=== PATIENT | male | born 1960 | race Caucasian/White ===

== ENCOUNTER 2017-09-20 16:53 | Emergency (ER) | payer OTHER ==
--- NOTE | 2017-09-20 17:55 | EDPHYS ---
Physician Documentation [facility] Name: Toi Garcia Age: 57 yrs Sex: Male : 1960 Arrival Date: 09/20/2017 Time: 16:55 Bed 10 Private MD: Santy Adame ED Physician Nathan Cantu HPI: 09/20 17:56 This 57 yrs old Male presents to ER via Ambulatory with complaints of Eye jr8 Swelling. 17:56 The patient is experiencing burning, matting or discharge, redness. Onset: The jr8 symptoms/episode began/occurred acutely, yesterday. Duration: the symptoms are continuous. Aggravated by blinking, Alleviated by nothing. Associated signs and symptoms: Pertinent positives: None. Patient wears glasses. Severity of symptoms: At their worst the symptoms were mild in the emergency department the symptoms are unchanged. The patient has not experienced similar symptoms in the past. The patient has not recently seen a physician. Historical: - Allergies: 17:00 No Known Allergies; hj - Home Meds: 17:00 atenolol 25 mg Oral tab 1 tab once daily [Active]; baclofen 20 mg Oral tab 1 tab 3 hj times per day [Active]; Diovan Oral 1 tab once daily [Active]; gabapentin 400 mg Oral cap 1 cap 3 times per day [Active]; hydrocodone-acetaminophen 10-325 mg Oral tab 1 tab every 6 hours [Active]; - PMHx: 17:00 Asthma; Hypertension; hj - PSHx: 17:00 back; Knee surgery; hj - Immunization history:: Adult Immunizations up to date. - Social history:: Smoking status: Patient/guardian denies using tobacco. ROS: 17:56 ENT: Negative for injury, pain, and discharge, Neck: Negative for injury, pain, and jr8 swelling, Cardiovascular: Negative for chest pain, palpitations, and edema, Respiratory: Negative for shortness of breath, cough, wheezing, and pleuritic chest pain, Abdomen/GI: Negative for abdominal pain, nausea, vomiting, diarrhea, and constipation, Back: Negative for injury and pain, MS/Extremity: Negative for injury and deformity, Skin: Negative for injury, rash, and discoloration, Neuro: Negative for headache, weakness, numbness, tingling, and seizure. 17:56 Eyes: Positive for discharge, matting, pain, redness, tearing, of the right eye and left eye. Exam: 17:56 Head/Face: Normocephalic, atraumatic. ENT: Nares patent. No nasal discharge, no jr8 septal abnormalities noted. Tympanic membranes are normal and external auditory canals are clear. Oropharynx with no redness, swelling, or masses, exudates, or evidence of obstruction, uvula midline. Mucous membranes moist. Neck: Trachea midline, no thyromegaly or masses palpated, and no cervical lymphadenopathy. Supple, full range of motion without nuchal rigidity, or vertebral point tenderness. No Meningismus. Cardiovascular: Regular rate and rhythm with a normal S1 and S2. No gallops, murmurs, or rubs. Normal PMI, no JVD. No pulse deficits. Respiratory: Lungs have equal breath sounds bilaterally, clear to auscultation and percussion. No rales, rhonchi or wheezes noted. No increased work of breathing, no retractions or nasal flaring. Abdomen/GI: Soft, non-tender, with normal bowel sounds. No distension or tympany. No guarding or rebound. No evidence of tenderness throughout. Back: No spinal tenderness. No costovertebral tenderness. Full range of motion. Skin: Warm, dry with normal turgor. Normal color with no rashes, no lesions, and no evidence of cellulitis. MS/ Extremity: Pulses equal, no cyanosis. Neurovascular intact. Full, normal range of motion. Neuro: Awake and alert, GCS 15, oriented to person, place, time, and situation. Cranial nerves II-XII grossly intact. Motor strength 5/5 in all extremities. Sensory grossly intact. Cerebellar exam normal. Normal gait. 17:56 Eyes: Periorbital structures: appear normal, Pupils: equal, round, and reactive to light and accomodation, Extraocular movements: intact throughout, Conjunctiva: injected, bilaterally, Corneas: are normal, Sclera: no appreciated abnormality, Anterior chamber: normal, Lids and lashes: drainage, from both eyes, erythema, seen bilaterally. Vital Signs: 17:01 BP 143 / 88; Pulse 71; Resp 18; Temp 97.8(TE); Pulse Ox 100% on R/A; Weight 108.86 kg; hj Height 5 ft. 5 in. (165.10 cm); 17:01 Body Mass Index 39.94 (108.86 kg, 165.10 cm) MDM: 17:29 Patient medically screened. jr8 17:47 Data reviewed: vital signs, nurses notes, and as a result, I will discharge patient. jr8 Data interpreted: Pulse oximetry: on room air is 100 %. Interpretation: normal. Counseling: I had a detailed discussion with the patient and/or guardian regarding: the historical points, exam findings, and any diagnostic results supporting the discharge/admit diagnosis, the need for outpatient follow up, an opthalmologist, to return to the emergency department if symptoms worsen or persist or if there are any questions or concerns that arise at home. Administered Medications: No medications were administered Disposition: 09/20/17 17:54 Discharged to Home. Impression: Blepharitis, Conjunctivitis. - Condition is Stable. - Discharge Instructions: Conjunctivitis (Viral and Bacterial). - Prescriptions for Gentamicin 0.3 % (3 mg/gram) Ophthalmic Ointment - apply 0.5 inch by OPHTHALMIC route 2-3 times daily for 7 days in each eye; 3.5 gram. - Medication Reconciliation Form, Thank You Letter, Antibiotic Education, Prescription Opioid Use form. - Follow up: Samuel Russo MD; When: 1 week; Reason: If symptoms return, Recheck today's complaints, Continuance of care, Re-evaluation by your physician. - Problem is new. - Symptoms have improved. Addendum: 09/21/2017 19:50 Co-signature as Attending Physician, Nathan Cantu MD. g s Signatures: Kemar Lubin PA PA jr8 Tuan John RN RN la1 Duglas Tompkins RN RN hj Starr, Gregory, MD MD Corrections: (The following items were deleted from the chart) 09/20 18:09 17:54 09/20/2017 17:54 Discharged to Home. Impression: Blepharitis; Conjunctivitis. la1 Condition is Stable. Forms are Medication Reconciliation Form, Thank You Letter, Antibiotic Education, Prescription Opioid Use. Follow up: Samuel Russo; When: 1 week; Reason: If symptoms return, Recheck today's complaints, Continuance of care, Re-evaluation by your physician. Problem is new. Symptoms have improved. jr8
--- NOTE | 2017-09-20 17:55 | ER ---
Nurse's Notes [facility] Name: Toi Garcia Age: 57 yrs Sex: Male : 1960 Arrival Date: 09/20/2017 Time: 16:55 Bed 10 Private MD: Santy Adame Diagnosis: Blepharitis;Conjunctivitis Presentation: 09/20 16:58 Presenting complaint: Patient states: my eyes hurt, like a burning stuff and its hard hj to open int he morning; denies fever and chills;. Transition of care: patient was not received from another setting of care. Acute neurological deficit: none identified. Onset of symptoms was September 20, 2017. Initial Sepsis Screen: Does the patient meet any 2 criteria? No. Patient's initial sepsis screen is negative. Does the patient have a suspected source of infection? No. Patient's initial sepsis screen is negative. Care prior to arrival: None. 16:58 Method Of Arrival: Ambulatory 16:58 Acuity: [place] 4 hj Triage Assessment: 17:00 General: Appears in no apparent distress. comfortable, Behavior is calm, cooperative, hj appropriate for age. Pain: Complains of pain in right eye and left eye. Historical: - Allergies: 17:00 No Known Allergies; hj - Home Meds: 17:00 atenolol 25 mg Oral tab 1 tab once daily [Active]; baclofen 20 mg Oral tab 1 tab 3 hj times per day [Active]; Diovan Oral 1 tab once daily [Active]; gabapentin 400 mg Oral cap 1 cap 3 times per day [Active]; hydrocodone-acetaminophen 10-325 mg Oral tab 1 tab every 6 hours [Active]; - PMHx: 17:00 Asthma; Hypertension; hj - PSHx: 17:00 back; Knee surgery; hj - Immunization history:: Adult Immunizations up to date. - Social history:: Smoking status: Patient/guardian denies using tobacco. Screenin:08 Abuse screen: Denies threats or abuse. Nutritional screening: No deficits noted. la1 Tuberculosis screening: No symptoms or risk factors identified. Fall Risk None identified. Assessment: 17:01 Neuro: Level of Consciousness is awake, alert, obeys commands, Oriented to person, hj place, time, situation, Appropriate for age. 18:08 Pain: Complains of pain in left eye and right eye. Cardiovascular: Capillary refill < 3 la1 seconds Patient's skin is warm and dry. Respiratory: Airway is patent Respiratory effort is even, unlabored, Respiratory pattern is regular, symmetrical, Breath sounds are clear bilaterally. Vital Signs: 17:01 BP 143 / 88; Pulse 71; Resp 18; Temp 97.8(TE); Pulse Ox 100% on R/A; Weight 108.86 kg; hj Height 5 ft. 5 in. (165.10 cm); 17:01 Body Mass Index 39.94 (108.86 kg, 165.10 cm) ED Course: 16:55 Patient arrived in ED. rg4 16:55 Santy Adame MD is Private Physician. rg4 16:59 Triage completed. hj 17:00 Arm band placed on left wrist. hj 17:29 Kemar Lubin PA is PHCP. jr8 17:29 Nathan Cantu MD is Attending Physician. jr8 17:48 Tuan John, RAMON is Primary Nurse. la1 17:54 Samuel Russo MD is Referral Physician. jr8 18:08 Call light in reach. la1 18:08 No provider procedures requiring assistance completed. Patient did not have IV access la1 during this emergency room visit. Administered Medications: No medications were administered Outcome: 17:54 Discharge ordered by . jr8 18:09 Discharged to home ambulatory. la1 18:09 Condition: stable 18:09 Discharge instructions given to patient, Instructed on discharge instructions, follow up and referral plans. medication usage, Demonstrated understanding of instructions, follow-up care, medications, Prescriptions given X 1. 18:09 Patient left the ED. la1 Signatures: Kemar Lubin PA PA [facility] Tuan John RN RN la1 Duglas Tompkins RN RN Yudith Garcia rg4 Corrections: (The following items were deleted from the chart) 17:02 17:01 Pulse 71bpm; Resp 18bpm; Pulse Ox 100% RA; Temp 97.8F Temporal; 108.86 kg; Height hj 5 ft. 5 in.; BMI: 39.9; hj
== END 2017-09-20 18:09 | disposition home or self-care (01) ==
LOC: ER 16:53
DX: H10.9 Unspecified conjunctivitis (principal); H01.006 Unspecified blepharitis left eye, unspecified eyelid; H01.003 Unspecified blepharitis right eye, unspecified eyelid; I10 Essential (primary) hypertension
CPT/HCPCS: 99282

== ENCOUNTER 2017-12-15 01:08 | Emergency (ER) | payer OTHER ==
[2017-12-15] MEDS ORDERED: HYDROCODONE/APAP 10/325 TAB ONE (02:41)
--- NOTE | 2017-12-15 02:55 | EDPHYS ---
Physician Documentation [facility] Name: Toi Garcia Age: 57 yrs Sex: Male : 1960 Arrival Date: 12/15/2017 Time: 01:08 Bed 13 Private MD: ED Physician Kevin Osborn HPI: 12/15 02:19 This 57 yrs old Male presents to ER via Ambulatory with complaints of Fall jr8 Injury. 02:19 Onset: The symptoms/episode began/occurred acutely, today. Associated injuries: The jr8 patient sustained neck injury, injury to the low back. Severity of symptoms: At their worst the symptoms were moderate, in the emergency department the symptoms are unchanged. It is unknown whether or not the patient has had similar symptoms in the past. The patient has not recently seen a physician. Stated that he tripped and fell down steps. Denies LOC. Complains of right posterior rib pain, neck pain, and back pain . Historical: - Allergies: 02:56 No Known Allergies; fc - Home Meds: 02:56 hydrocodone-acetaminophen 7.5-325 mg oral tab 1 tab three times a day [Active]; fc gabapentin 400 mg Oral cap 1 cap 3 times per day [Active]; baclofen 20 mg Oral tab 1 tab 3 times per day [Active]; atenolol 25 mg Oral tab 1 tab once daily [Active]; - PMHx: 02:56 Asthma; Hypertension; Chronic pain; Back pain; fc - PSHx: 02:56 back surg; Knee surgery; fc - Immunization history:: Last tetanus immunization: unknown. - Social history:: Smoking status: Patient/guardian denies using tobacco. - Ebola Screening: : Patient negative for fever greater than or equal to 101.5 degrees Fahrenheit, and additional compatible Ebola Virus Disease symptoms Patient denies exposure to infectious person Patient denies travel to an Ebola-affected area in the 21 days before illness onset. ROS: 02:19 Eyes: Negative for injury, pain, redness, and discharge, ENT: Negative for injury, jr8 pain, and discharge, Cardiovascular: Negative for chest pain, palpitations, and edema, Respiratory: Negative for shortness of breath, cough, wheezing, and pleuritic chest pain, Abdomen/GI: Negative for abdominal pain, nausea, vomiting, diarrhea, and constipation, MS/Extremity: Negative for injury and deformity, Skin: Negative for injury, rash, and discoloration, Neuro: Negative for headache, weakness, numbness, tingling, and seizure. 02:19 Neck: Positive for pain at rest, tenderness, Negative for bony tenderness. 02:19 Back: Positive for pain at rest, pain with movement, of the lumbar area. Exam: 02:19 Eyes: Pupils equal round and reactive to light, extra-ocular motions intact. Lids and jr8 lashes normal. Conjunctiva and sclera are non-icteric and not injected. Cornea within normal limits. Periorbital areas with no swelling, redness, or edema. ENT: Nares patent. No nasal discharge, no septal abnormalities noted. Tympanic membranes are normal and external auditory canals are clear. Oropharynx with no redness, swelling, or masses, exudates, or evidence of obstruction, uvula midline. Mucous membranes moist. Chest/axilla: Normal chest wall appearance and motion. Tender to emergency response coordinator right ribs Cardiovascular: Regular rate and rhythm with a normal S1 and S2. No gallops, murmurs, or rubs. Normal PMI, no JVD. No pulse deficits. Respiratory: Lungs have equal breath sounds bilaterally, clear to auscultation and percussion. No rales, rhonchi or wheezes noted. No increased work of breathing, no retractions or nasal flaring. Abdomen/GI: Soft, non-tender, with normal bowel sounds. No distension or tympany. No guarding or rebound. No evidence of tenderness throughout. Skin: Warm, dry with normal turgor. Normal color with no rashes, no lesions, and no evidence of cellulitis. MS/ Extremity: Pulses equal, no cyanosis. Neurovascular intact. Full, normal range of motion. Neuro: Awake and alert, GCS 15, oriented to person, place, time, and situation. Cranial nerves II-XII grossly intact. Motor strength 5/5 in all extremities. Sensory grossly intact. Cerebellar exam normal. Normal gait. 02:19 Neck: External neck: tenderness, that is mild, of the left mid cervical area, right mid cervical area, left trapezius, lower cervical area and right trapezius, C-spine: vertebral tenderness, is not appreciated, Thyroid: appears normal, Trachea: is midline with no obvious abnormalities, ROM/movement: pain, that is moderate, with any movement. 02:19 Back: pain, that is moderate, of the lumbar area, ROM is painful, normal spinal alignment noted, vertebral tenderness, is appreciated at L1, L2 and L3. Vital Signs: 01:20 BP 156 / 84; Pulse 73; Resp 20; Temp 97.8(O); Pulse Ox 95% on R/A; Weight 104.33 kg fc (R); Height 5 ft. 8 in. (172.72 cm) (R); Pain 10/10; 02:45 BP 160 / 104; Pulse 63; Resp 18; Pulse Ox 98% on R/A; ao 03:01 BP 158 / 96; Pulse 68; Resp 18; Pulse Ox 100% on R/A; ao 01:20 Body Mass Index 34.97 (104.33 kg, 172.72 cm) [place] Coma Score: 01:22 Eye Response: spontaneous(4). Verbal Response: oriented(5). Motor Response: obeys fc commands(6). Total: 15. Trauma Score (Adult): 01:22 Eye Response: spontaneous(1); Verbal Response: oriented(1); Motor Response: obeys fc commands(2); Systolic BP: > 89 mm Hg(4); Respiratory Rate: 10 to 29 per min(4); [place] Score: 15; Trauma Score: 12 MDM: 01:15 Patient medically screened. jr8 02:53 Data reviewed: vital signs, nurses notes, radiologic studies, CT scan, plain films, and jr8 as a result, I will discharge patient. Data interpreted: Pulse oximetry: on room air is 95 %. Interpretation: normal. Counseling: I had a detailed discussion with the patient and/or guardian regarding: the historical points, exam findings, and any diagnostic results supporting the discharge/admit diagnosis, radiology results, the need for outpatient follow up, a family practitioner, to return to the emergency department if symptoms worsen or persist or if there are any questions or concerns that arise at home. 12/15 01:34 Order name: CT C Spine jr8 12/15 01:34 Order name: CT Lumbar Spine Wo Con jr8 12/15 01:34 Order name: XRAY Ribs RIGHT jr8 Administered Medications: 02:44 Drug: [place] 10 mg-325 mg 1 tabs Route: PO; ao 03:20 Follow up: Response: No adverse reaction; Pain is decreased ao Disposition: 07:24 Co-signature as Attending Physician, Kevin Osborn MD I agree with the assessment and wa plan of care. Disposition: 12/15/17 02:54 Discharged to Home. Impression: Contusion of other specified part of neck, Low back pain, Acute pain due to trauma. - Condition is Stable. - Discharge Instructions: Back Pain, Adult. - Medication Reconciliation Form, Thank You Letter, Antibiotic Education, Prescription Opioid Use form. - Follow up: Private Physician; When: 2 - 3 days; Reason: Recheck today's complaints, Continuance of care, Re-evaluation by your physician. - Problem is new. - Symptoms have improved. Signatures: Dispatcher [employer] EDMS Aundrea Obrien RN RN Kemar Humphreys PA PA jr8 Shaun Gu RN RN ao App[place], William, MD MD wa Corrections: (The following items were deleted from the chart) 02:54 02:54 12/15/2017 02:54 Discharged to Home. Impression: Contusion of other specified jr8 part of neck; Low back pain. Condition is Stable. Forms are Medication Reconciliation Form, Thank You Letter, Antibiotic Education, Prescription Opioid Use. Follow up: Private Physician; When: 2 - 3 days; Reason: Recheck today's complaints, Continuance of care, Re-evaluation by your physician. Problem is new. Symptoms have improved. jr8 03:02 02:54 12/15/2017 02:54 Discharged to Home. Impression: Contusion of other specified ao part of neck; Low back pain; Acute pain due to trauma. Condition is Stable. Forms are Medication Reconciliation Form, Thank You Letter, Antibiotic Education, Prescription Opioid Use. Follow up: Private Physician; When: 2 - 3 days; Reason: Recheck today's complaints, Continuance of care, Re-evaluation by your physician. Problem is new. Symptoms have improved. jr8
--- NOTE | 2017-12-15 02:55 | ER ---
Nurse's Notes [facility] Name: Toi Garcia Age: 57 yrs Sex: Male : 1960 Arrival Date: 12/15/2017 Time: 01:08 Bed 13 Private MD: Diagnosis: Contusion of other specified part of neck;Low back pain;Acute pain due to trauma Presentation: 12/15 01:20 Presenting complaint: Patient states: that he slipped down three steps and is now fc having pain in his back and neck. Denies any LOC. Transition of care: patient was not received from another setting of care. Onset of symptoms was December 15, 2017 at 00:15. Risk Assessment: Do you want to hurt yourself or someone else? Patient reports no desire to harm self or others. Initial Sepsis Screen: Does the patient meet any 2 criteria? No. Patient's initial sepsis screen is negative. Does the patient have a suspected source of infection? No. Patient's initial sepsis screen is negative. Care prior to arrival: None. 01:20 Method Of Arrival: Ambulatory 01:20 Acuity: [place] 4 01:23 Mechanism of Injury: Fall down 3 steps. fc Historical: - Allergies: 02:56 No Known Allergies; fc - Home Meds: 02:56 hydrocodone-acetaminophen 7.5-325 mg oral tab 1 tab three times a day [Active]; fc gabapentin 400 mg Oral cap 1 cap 3 times per day [Active]; baclofen 20 mg Oral tab 1 tab 3 times per day [Active]; atenolol 25 mg Oral tab 1 tab once daily [Active]; - PMHx: 02:56 Asthma; Hypertension; Chronic pain; Back pain; fc - PSHx: 02:56 back surg; Knee surgery; fc - Immunization history:: Last tetanus immunization: unknown. - Social history:: Smoking status: Patient/guardian denies using tobacco. - Ebola Screening: : Patient negative for fever greater than or equal to 101.5 degrees Fahrenheit, and additional compatible Ebola Virus Disease symptoms Patient denies exposure to infectious person Patient denies travel to an Ebola-affected area in the 21 days before illness onset. Screenin:22 Abuse screen: Denies threats or abuse. Nutritional screening: No deficits noted. fc Tuberculosis screening: No symptoms or risk factors identified. Fall Risk Fall in past 12 months (25 points). No secondary diagnosis (0 pts). No IV (0 pts). Ambulatory Aid- None/Bed Rest/Nurse Assist (0 pts). Gait- Normal/Bed Rest/Wheelchair (0 pts) Mental Status- Overestimates/Forgets Limitations (15 pts.). Total Fernandez Fall Scale indicates Low Risk Score (25-44 pts). Fall prevention measures have been instituted. Side Rails Up X 2 Placed close to Nursing Station Frequent Obs/Assesments occuring As available Patient and Family Educated on Fall Prevention Program and strategies. Assessment: 01:37 General: Appears in no apparent distress. uncomfortable, Behavior is cooperative. Pain: ao Complains of pain in back and neck Pain currently is 10 out of 10 on a pain scale. Pain began 4 hours ago. Neuro: Level of Consciousness is awake, alert, obeys commands, Oriented to person, place, time, situation, Moves all extremities. Full function Speech is normal, Facial symmetry appears normal. Cardiovascular: Capillary refill < 3 seconds Patient's skin is warm and dry. Respiratory: Airway is patent Respiratory effort is even, unlabored, Respiratory pattern is regular, symmetrical. GI: Abdomen is obese. : No signs and/or symptoms were reported regarding the genitourinary system. EENT: No signs and/or symptoms were reported regarding the EENT system. Derm: Skin is pink, warm \T\ dry. normal, Skin temperature is warm. Musculoskeletal: Circulation, motion, and sensation intact. Range of motion: intact in all extremities. 02:45 Reassessment: Patient appears in no apparent distress at this time. Patient and/or ao family updated on plan of care and expected duration. Pain level reassessed. Patient is alert, oriented x 3, equal unlabored respirations, skin warm/dry/pink. patient back from X-ray. Provider notified of patient asking for pain medication. 03:00 Reassessment: DC instructions given by me and also FORD Reinoso had spoken to patient. ao Patient agree to follow up with PCP. Patient has no questions at this time. Vital Signs: 01:20 BP 156 / 84; Pulse 73; Resp 20; Temp 97.8(O); Pulse Ox 95% on R/A; Weight 104.33 kg fc (R); Height 5 ft. 8 in. (172.72 cm) (R); Pain 10/10; 02:45 BP 160 / 104; Pulse 63; Resp 18; Pulse Ox 98% on R/A; ao 03:01 BP 158 / 96; Pulse 68; Resp 18; Pulse Ox 100% on R/A; ao 01:20 Body Mass Index 34.97 (104.33 kg, 172.72 cm) fc [place] Coma Score: 01:22 Eye Response: spontaneous(4). Verbal Response: oriented(5). Motor Response: obeys fc commands(6). Total: 15. Trauma Score (Adult): 01:22 Eye Response: spontaneous(1); Verbal Response: oriented(1); Motor Response: obeys fc commands(2); Systolic BP: > 89 mm Hg(4); Respiratory Rate: 10 to 29 per min(4); [place] Score: 15; Trauma Score: 12 ED Course: 01:08 Patient arrived in ED. ds1 01:15 Kemar Lubin PA is PHCP. jr8 01:15 Kevin Osborn MD is Attending Physician. jr8 01:20 Arm band placed on Patient placed in an exam room, on a stretcher. fc 01:21 Triage completed. fc 01:22 Patient has correct armband on for positive identification. Bed in low position. Call light in reach. 01:37 Shaun Gu, RN is Primary Nurse. ao 02:11 CT C Spine In Process Unspecified. EDMS 02:15 Patient moved to radiology via wheelchair. kw1 02:15 CT Lumbar Spine Wo Con In Process Unspecified. EDMS 02:15 X-ray completed. Patient tolerated procedure well. kw 02:16 Patient moved back from radiology. kw 02:16 XRAY Ribs RIGHT In Process Unspecified. EDMS 02:58 No provider procedures requiring assistance completed. Patient did not have IV access ao during this emergency room visit. Administered Medications: 02:44 Drug: [place] 10 mg-325 mg 1 tabs Route: PO; ao 03:20 Follow up: Response: No adverse reaction; Pain is decreased ao Outcome: 02:54 Discharge ordered by . jr8 02:59 Discharged to home ambulatory. ao 02:59 Condition: stable 02:59 Discharge instructions given to patient, Instructed on discharge instructions, follow up and referral plans. Demonstrated understanding of instructions, follow-up care, medications. 03:02 Patient left the ED. ao Signatures: Dispatcher [employer] EDAundrea Puente, RN RN Fany Hernandez ds1 Caridad Whitaker Josh, PA PA jr8 Shaun Gu RN RN ao Wilhelm, Kimberly kw1
--- NOTE | 2017-12-15 08:20 | RAD REPORT ---
EXAM DESCRIPTION: CT - C Spine Wo Con - 12/15/2017 5:22 am CLINICAL HISTORY: PAIN Fall, neck injury COMPARISON: No comparisons FINDINGS: The cervical vertebral body heights and disc spaces are maintained. Prominent midcervical degenerative changes seen. No evidence of acute cervical spine fracture or subluxation. Prevertebral soft tissues are normal in thickness. IMPRESSION: Negative for acute cervical spine abnormality. Moderate midcervical degenerative change. All CT scans are performed using dose optimization technique as appropriate and may include automated exposure control or mA/KV adjustment according to patient size.
--- NOTE | 2017-12-15 08:22 | RAD REPORT ---
EXAM DESCRIPTION: CT - Spine Lumbar Wo Con - 12/15/2017 5:22 am CLINICAL HISTORY: Radiculopathy.Fall, trauma PAIN COMPARISON: No comparisons TECHNIQUE: Axial noncontrast CT imaging of the lumbar spine was performed with coronal and sagittal re-formatted images. All CT scans are performed using dose optimization technique as appropriate and may include automated exposure control or mA/KV adjustment according to patient size. FINDINGS: No acute lumbar spine fracture seen. No aggressive marrow pattern or malalignment. Paraspinal tissues are normal in thickness. No paraspinal abscess or hematoma seen. Spondylosis with large endplate osteophytes at L4-5 and L5-S1. Vacuum disc degeneration is also prese nt at these levels. IMPRESSION: No acute lumbar spine abnormality suspected. Moderate lower lumbar spondylosis. Consider MRI follow-up for assessment of disc disease if clinically desired.
--- NOTE | 2017-12-15 08:34 | RAD REPORT ---
EXAM DESCRIPTION: RAD - Ribs Right - 12/15/2017 2:19 am CLINICAL HISTORY: PAIN Trauma, fall COMPARISON: Chest Single View dated 02/22/2016 FINDINGS: Linear atelectasis is present in the left lung base. No displaced rib fracture is evident. No pneumothorax on the right.
== END 2017-12-15 03:02 | disposition home or self-care (01) ==
LOC: ER 01:08
DX: S10.83XA Contusion of other specified part of neck, initial encounter (principal); G89.11 Acute pain due to trauma; W10.9XXA Fall (on) (from) unspecified stairs and steps, initial encounter; Y93.9 Activity, unspecified; Y92.9 Unspecified place or not applicable; I10 Essential (primary) hypertension; J45.909 Unspecified asthma, uncomplicated
CPT/HCPCS: 72125; 72131; 99283

== ENCOUNTER 2018-05-15 21:08 | Emergency (ER) | payer OTHER ==
--- OUTSIDE RECORDS SUMMARY | 2018-05-15 21:10 | XMS REPORT ---
:1960 [facility] Address [address] [place] [address] Care Team Providers Name Role Phone Unavailable Unavailable Unavailable Problems This patient has no known problems. Allergies, Adverse Reactions, Alerts This patient has no known allergies or adverse reactions. Medications This patient has no known medications.
--- NOTE | 2018-05-16 00:13 | ER ---
Nurse's Notes [facility] Name: Toi Garcia Age: 57 yrs Sex: Male : 1960 Arrival Date: 05/15/2018 Time: 21:09 Bed 18 Private MD: Santy Adame Diagnosis: Pain in left knee Presentation: 05/15 21:32 Presenting complaint: Patient states: that he is having left knee pain that began at 1600 today after he was walking and felt a pop. Transition of care: patient was not received from another setting of care. Onset of symptoms was May 15, 2018 at 16:00. Risk Assessment: Do you want to hurt yourself or someone else? Patient reports no desire to harm self or others. Initial Sepsis Screen: Does the patient meet any 2 criteria? No. Patient's initial sepsis screen is negative. Does the patient have a suspected source of infection? No. Patient's initial sepsis screen is negative. Care prior to arrival: None. 21:32 Method Of Arrival: Ambulatory 21:32 Acuity: [place] 4 Triage Assessment: 21:33 General: Appears uncomfortable, Behavior is calm, cooperative, appropriate for age. fc Pain: Complains of pain in left knee Pain currently is 10 out of 10 on a pain scale. Quality of pain is described as aching, sharp, throbbing, Pain began at 1600 Is continuous, Aggravated by increased activity, repositioning, weight bearing. EENT: No deficits noted. Neuro: Level of Consciousness is awake, alert, obeys commands, Oriented to person, place, time, situation. Cardiovascular: No deficits noted. Respiratory: No deficits noted. GI: No deficits noted. : No deficits noted. Derm: Skin is pink, warm \\T\\ dry. Musculoskeletal: Circulation, motion, and sensation intact. Capillary refill < 3 seconds, Range of motion: limited in left knee Reports pain in left knee. Historical: - Allergies: 21:32 No Known Allergies; fc - Home Meds: 21:32 atenolol 25 mg Oral tab 1 tab once daily [Active]; baclofen 20 mg Oral tab 1 tab 3 fc times per day [Active]; gabapentin 400 mg Oral cap 1 cap 3 times per day [Active]; hydrocodone-acetaminophen 7.5-325 mg Oral tab 1 tab three times a day [Active]; - PMHx: 21:32 Asthma; Chronic pain; Hypertension; Back pain; fc - PSHx: 21:32 back surg; Knee surgery; fc - Immunization history:: Last tetanus immunization: unknown. - Social history:: Smoking status: unknown. - Ebola Screening: : Patient negative for fever greater than or equal to 101.5 degrees Fahrenheit, and additional compatible Ebola Virus Disease symptoms Patient denies exposure to infectious person Patient denies travel to an Ebola-affected area in the 21 days before illness onset. Screenin:20 Abuse screen: Denies threats or abuse. Nutritional screening: No deficits noted. tl2 Tuberculosis screening: No symptoms or risk factors identified. Fall Risk Gait- Impaired (20 pts.). Assessment: 22:20 General: Appears in no apparent distress. uncomfortable, Behavior is calm, cooperative, tl2 appropriate for age. General: pt states he was walking and his left knee "gave out" and he heard it pop. Pain: Complains of pain in left knee Pain does not radiate. Pain currently is 8 out of 10 on a pain scale. Neuro: Level of Consciousness is awake, alert, obeys commands, Oriented to person, place, time, situation. Cardiovascular: Denies chest pain. Cardiovascular: Edema is 2+ to left ankle. Respiratory: Airway is patent Respiratory effort is even, unlabored, Respiratory pattern is regular, symmetrical. GI: No signs and/or symptoms were reported involving the gastrointestinal system. Derm: Skin is pink, warm \\T\\ dry. Musculoskeletal: Circulation, motion, and sensation intact. Range of motion: limited in left knee Swelling present in left knee. 23:19 Reassessment: Patient appears in no apparent distress at this time. No changes from tl2 previously documented assessment. Patient and/or family updated on plan of care and expected duration. Pain level reassessed. Patient is alert, oriented x 3, equal unlabored respirations, skin warm/dry/pink. awaiting Xray results. 05/16 00:27 Reassessment: Patient appears in no apparent distress at this time. Patient and/or tl2 family updated on plan of care and expected duration. Pain level reassessed. Patient is alert, oriented x 3, equal unlabored respirations, skin warm/dry/pink. pt verbalized understanding of discharge instructions, need for follow up use of knee immobilizer. Vital Signs: 05/15 21:30 BP 132 / 89; Pulse 62; Resp 18; Temp 98.1(O); Pulse Ox 96% on R/A; Weight 106.59 kg fc (R); Height 5 ft. 5 in. (165.10 cm) (R); Pain 02/23; 05/16 00:27 BP 123 / 89; Pulse 68; Resp 18; Pulse Ox 98% on R/A; tl2 05/15 21:30 Body Mass Index 39.11 (106.59 kg, 165.10 cm) ED Course: 05/15 21:09 Patient arrived in ED. es 21:10 Santy Adame MD is Private Physician. es 21:32 Arm band placed on Patient placed in an exam room, on a stretcher. fc 21:33 Triage completed. fc 22:13 Kemar Lubin PA is PHCP. jr8 22:13 Nathan Cantu MD is Attending Physician. jr8 22:15 Vianey Alcantar RN is Primary Nurse. tl2 22:20 Patient has correct armband on for positive identification. Bed in low position. Call tl2 light in reach. Side rails up X 1. 22:53 XRAY Knee LEFT 3 view In Process Unspecified. EDTX 05/16 00:12 Shane Carbajal MD is Referral Physician. jr8 00:27 No provider procedures requiring assistance completed. Patient did not have IV access tl2 during this emergency room visit. Knee immobilizer applied on left knee. Administered Medications: 00:26 Drug: TORadol 60 mg Route: IM; Site: right deltoid; tl2 00:30 Follow up: Response: No adverse reaction; Medication administered at discharge. tl2 Outcome: 00:13 Discharge ordered by . jr8 00:27 Discharged to home ambulatory. tl2 00:27 Condition: stable 00:27 Discharge instructions given to patient, Instructed on discharge instructions, follow up and referral plans. Demonstrated understanding of instructions, follow-up care. 00:30 Patient left the ED. tl2 Signatures: Dispatcher [employer] EDTX Lizzy Edmonds Felicia, RN RN Kemar Lubin PA PA jr Vianey Alcantar RN RN tl2
--- NOTE | 2018-05-16 00:14 | EDPHYS ---
Physician Documentation [facility] Name: Toi Garcia Age: 57 yrs Sex: Male : 1960 Arrival Date: 05/15/2018 Time: 21:09 Bed 18 Private MD: Santy Adame ED Physician Nathan Cantu HPI: 05/15 22:47 This 57 yrs old Male presents to ER via Ambulatory with complaints of Knee jr8 Pain. 22:47 The patient presents with decreased range of motion, pain, tenderness. The complaints jr8 affect the left knee. Context: The problem was sustained at home, resulted from a mis-step, the patient tripping. Onset: The symptoms/episode began/occurred acutely, today. Modifying factors: The symptoms are alleviated by nothing. the symptoms are aggravated by movement, weight bearing, bending knee. Associated signs and symptoms: The patient has no apparent associated signs or symptoms. Severity of symptoms: At their worst the symptoms were moderate, in the emergency department the symptoms are unchanged. The patient has not experienced similar symptoms in the past. The patient has not recently seen a physician. Historical: - Allergies: 21:32 No Known Allergies; fc - Home Meds: 21:32 atenolol 25 mg Oral tab 1 tab once daily [Active]; baclofen 20 mg Oral tab 1 tab 3 fc times per day [Active]; gabapentin 400 mg Oral cap 1 cap 3 times per day [Active]; hydrocodone-acetaminophen 7.5-325 mg Oral tab 1 tab three times a day [Active]; - PMHx: 21:32 Asthma; Chronic pain; Hypertension; Back pain; fc - PSHx: 21:32 back surg; Knee surgery; fc - Immunization history:: Last tetanus immunization: unknown. - Social history:: Smoking status: unknown. - Ebola Screening: : Patient negative for fever greater than or equal to 101.5 degrees Fahrenheit, and additional compatible Ebola Virus Disease symptoms Patient denies exposure to infectious person Patient denies travel to an Ebola-affected area in the 21 days before illness onset. ROS: 22:47 Eyes: Negative for injury, pain, redness, and discharge, ENT: Negative for injury, jr8 pain, and discharge, Neck: Negative for injury, pain, and swelling, Cardiovascular: Negative for chest pain, palpitations, and edema, Respiratory: Negative for shortness of breath, cough, wheezing, and pleuritic chest pain, Abdomen/GI: Negative for abdominal pain, nausea, vomiting, diarrhea, and constipation, Back: Negative for injury and pain, Skin: Negative for injury, rash, and discoloration, Neuro: Negative for headache, weakness, numbness, tingling, and seizure. 22:47 MS/extremity: Positive for decreased range of motion, pain, tenderness, of the left knee. Exam: 22:47 Eyes: Pupils equal round and reactive to light, extra-ocular motions intact. Lids and jr8 lashes normal. Conjunctiva and sclera are non-icteric and not injected. Cornea within normal limits. Periorbital areas with no swelling, redness, or edema. ENT: Nares patent. No nasal discharge, no septal abnormalities noted. Tympanic membranes are normal and external auditory canals are clear. Oropharynx with no redness, swelling, or masses, exudates, or evidence of obstruction, uvula midline. Mucous membranes moist. Neck: Trachea midline, no thyromegaly or masses palpated, and no cervical lymphadenopathy. Supple, full range of motion without nuchal rigidity, or vertebral point tenderness. No Meningismus. Cardiovascular: Regular rate and rhythm with a normal S1 and S2. No gallops, murmurs, or rubs. Normal PMI, no JVD. No pulse deficits. Respiratory: Lungs have equal breath sounds bilaterally, clear to auscultation and percussion. No rales, rhonchi or wheezes noted. No increased work of breathing, no retractions or nasal flaring. Abdomen/GI: Soft, non-tender, with normal bowel sounds. No distension or tympany. No guarding or rebound. No evidence of tenderness throughout. Back: No spinal tenderness. No costovertebral tenderness. Full range of motion. Skin: Warm, dry with normal turgor. Normal color with no rashes, no lesions, and no evidence of cellulitis. Neuro: Awake and alert, GCS 15, oriented to person, place, time, and situation. Cranial nerves II-XII grossly intact. Motor strength 5/5 in all extremities. Sensory grossly intact. Cerebellar exam normal. Normal gait. 22:47 Musculoskeletal/extremity: Extremities: grossly normal except: noted in the left knee: decreased ROM, pain, tenderness, ROM: limited active range of motion due to pain, in the left knee, limited passive range of motion due to pain, in the left knee, Circulation is intact in all extremities. Sensation intact. Vital Signs: 21:30 BP 132 / 89; Pulse 62; Resp 18; Temp 98.1(O); Pulse Ox 96% on R/A; Weight 106.59 kg fc (R); Height 5 ft. 5 in. (165.10 cm) (R); Pain 10/10; 05/16 00:27 BP 123 / 89; Pulse 68; Resp 18; Pulse Ox 98% on R/A; tl2 05/15 21:30 Body Mass Index 39.11 (106.59 kg, 165.10 cm) fc Procedures: 00:12 Splinting: Splint applied to left leg using knee immobilizer, applied by nurse. jr8 Examined by me, post splint application: neurovascular intact, 2+ distal pulses palpable, brisk capillary refill noted, Patient tolerated well. MDM: 05/15 22:13 Patient medically screened. jr8 05/16 00:12 Data reviewed: vital signs, nurses notes, radiologic studies, plain films, and as a jr8 result, I will discharge patient. Data interpreted: Pulse oximetry: on room air is 96 %. Interpretation: normal. Counseling: I had a detailed discussion with the patient and/or guardian regarding: the historical points, exam findings, and any diagnostic results supporting the discharge/admit diagnosis, radiology results, the need for outpatient follow up, a orthopedic surgeon, to return to the emergency department if symptoms worsen or persist or if there are any questions or concerns that arise at home. 05/15 22:34 Order name: XRAY Knee LEFT 3 view tl2 05/16 00:12 Order name: Knee Immobilizer; Complete Time: 00:26 jr8 Administered Medications: 00:26 Drug: TORadol 60 mg Route: IM; Site: right deltoid; tl2 00:30 Follow up: Response: No adverse reaction; Medication administered at discharge. tl2 Disposition: 03:34 Co-signature as Attending Physician, Nathan Cantu MD. Disposition: 05/16/18 00:13 Discharged to Home. Impression: Pain in left knee. - Condition is Stable. - Discharge Instructions: Knee Pain. - Medication Reconciliation Form, Thank You Letter, Antibiotic Education, Prescription Opioid Use form. - Follow up: Shane Carbajal MD; When: 5 - 6 days; Reason: Recheck today's complaints, Continuance of care, Re-evaluation by your physician. - Problem is new. - Symptoms have improved. Signatures: Dispatcher [employer] EDMS Aundrea Obrien RN RN Kemar Humphreys PA PA jr8 Vianey Alcantar RN RN tl2 Nathan Cantu MD MD Corrections: (The following items were deleted from the chart) 00:30 00:13 05/16/2018 00:13 Discharged to Home. Impression: Pain in left knee. Condition is tl2 Stable. Forms are Medication Reconciliation Form, Thank You Letter, Antibiotic Education, Prescription Opioid Use. Follow up: Shane Carbajal; When: 5 - 6 days; Reason: Recheck today's complaints, Continuance of care, Re-evaluation by your physician. Problem is new. Symptoms have improved. jr8
[2018-05-16] MEDS ORDERED: KETOROLAC 30 MG/ML INJ ONE (00:29)
--- NOTE | 2018-05-16 10:05 | RAD REPORT ---
EXAM DESCRIPTION: RAD - Knee Left 3 View - 05/15/2018 10:54 pm CLINICAL HISTORY: SWELLING Pain COMPARISON: No comparisons FINDINGS: No fracture or dislocation of the left knee is seen. Mild medial compartment space narrowi ng is seen. Trace suprapatellar joint fluid is present.
== END 2018-05-16 00:30 | disposition home or self-care (01) ==
LOC: ER 21:08
DX: M25.562 Pain in left knee (principal); I10 Essential (primary) hypertension; J45.909 Unspecified asthma, uncomplicated
CPT/HCPCS: 96372; 99283

== ENCOUNTER 2018-07-08 17:35 | Emergency (ER) | payer OTHER ==
--- OUTSIDE RECORDS SUMMARY | 2018-07-08 17:38 | XMS REPORT ---
:1960 [facility] Address [address] [place] [address] Care Team Providers Name Role Phone Unavailable Unavailable Unavailable Problems This patient has no known problems. Allergies, Adverse Reactions, Alerts This patient has no known allergies or adverse reactions. Medications This patient has no known medications.
[2018-07-08] MEDS ORDERED: ALBUTEROL 2.5 MG/3 ML NEB SOL ONE (18:09)
[2018-07-08] MEDS ORDERED: IPRATROPIUM BROM 0.5MG/2.5ML ONE (18:10)
[2018-07-08] MEDS ORDERED: predniSONE 20 MG TAB ONE (18:10)
--- NOTE | 2018-07-08 18:43 | RAD REPORT ---
EXAM DESCRIPTION: Rolando Loco (2 Views)07/08/2018 6:17 pm CLINICAL HISTORY: Cough COMPARISON: February 2016 FINDINGS: Mild right middle lobe infiltrate is suspected Left lung appears clear. The heart is normal size IMPRESSION: Mild right middle lobe infiltrate is suspected which may represent mild pneumonia
--- NOTE | 2018-07-08 19:15 | ER ---
Nurse's Notes [facility] Name: Toi Garcia Age: 58 yrs Sex: Male : 1960 Arrival Date: 07/08/2018 Time: 17:37 Bed 15 Private MD: Santy Adame Diagnosis: Pneumonia, unspecified organism Presentation: 07/08 17:45 Presenting complaint: Patient states: cough, wheezing, slight SOB, and sore throat x aa5 2-3 days ago. 17:45 Transition of care: patient was not received from another setting of care. Onset of aa5 symptoms was June 2018. Risk Assessment: Do you want to hurt yourself or someone else? Patient reports no desire to harm self or others. Initial Sepsis Screen: Does the patient meet any 2 criteria? No. Patient's initial sepsis screen is negative. Does the patient have a suspected source of infection? No. Patient's initial sepsis screen is negative. Care prior to arrival: None. 17:45 Method Of Arrival: Ambulatory aa5 17:45 Acuity: [place] 3 aa5 Historical: - Allergies: 17:45 No Known Allergies; aa5 - PMHx: 17:45 Asthma; Back pain; Chronic pain; Hypertension; aa5 - PSHx: 17:45 back surg; Knee surgery; aa5 - Immunization history:: Adult Immunizations unknown. - Ebola Screening: : No symptoms or risks identified at this time. - Social history:: Smoking status: unknown. Screenin:05 Abuse screen: Denies threats or abuse. Nutritional screening: No deficits noted. em Tuberculosis screening: No symptoms or risk factors identified. Fall Risk None identified. Assessment: 18:05 General: Appears in no apparent distress. uncomfortable, Behavior is calm, cooperative. em Pain: Complains of pain in chest Pain currently is 8 out of 10 on a pain scale. Pain began 2-3 days ago. Neuro: Level of Consciousness is awake, alert, obeys commands, Oriented to person, place, time, situation. Cardiovascular: Capillary refill < 3 seconds Patient's skin is warm and dry. Respiratory: Reports shortness of breath on exertion cough that is productive, pain with cough Airway is patent Respiratory effort is even, Respiratory pattern is regular, Breath sounds with wheezes bilaterally. GI: Abdomen is flat. Derm: Skin is intact, is healthy with good turgor, Skin is pink, warm \T\ dry. Musculoskeletal: Range of motion: intact in all extremities. 18:50 Reassessment: Patient appears in no apparent distress at this time. Patient and/or em family updated on plan of care and expected duration. Pain level reassessed. Patient is alert, oriented x 3, equal unlabored respirations, skin warm/dry/pink. Patient states feeling better. 19:15 Reassessment: Patient appears in no apparent distress at this time. Patient and/or cc3 family updated on plan of care and expected duration. Pain level reassessed. Patient is alert, oriented x 3, equal unlabored respirations, skin warm/dry/pink. Received this male patient from morning shift KNITTING DEMONSTRATORSteven Holder as a case of pneumonia. No IV cannula in situ. 19:50 Reassessment: TORI Lacy discharged the patient home with prescriptions given. No IV cc3 cannula in situ. Patient left ER vitally stable and ambulatory. Vital Signs: 17:47 BP 143 / 82; Pulse 74; Resp 18 S; Temp 98.2(O); Pulse Ox 95% on R/A; Weight 103.87 kg aa5 (R); Height 5 ft. 5 in. (165.10 cm) (R); Pain 8/10; 18:50 BP 138 / 78; Pulse 68; Resp 20; Pulse Ox 96% on R/A; em 19:15 BP 143 / 76; Pulse 94; Resp 19 S; Temp 98.1(O); Pulse Ox 96% on R/A; cc3 17:47 Body Mass Index 38.11 (103.87 kg, 165.10 cm) aa5 ED Course: 17:37 Patient arrived in ED. rg4 17:38 Santy Adame MD is Private Physician. rg4 17:44 Gallo Adamson LVN is Primary Nurse. em 17:45 [facility] pm1 17:45 Rene Kim MD is Attending Physician. pm1 17:45 Arm band placed on Patient placed in an exam room, on a stretcher. aa5 17:53 Triage completed. aa5 18:05 Patient has correct armband on for positive identification. Placed in gown. Bed in low em position. Call light in reach. Pulse ox on. NIBP on. 18:15 Patient moved to radiology via wheelchair. ag1 19:50 No provider procedures requiring assistance completed. Patient did not have IV access cc3 during this emergency room visit. Administered Medications: 18:04 Drug: Albuterol - atroVENT (3:1) (2.5 mg - 0.5 mg) 3 ml Route: Nebulizer; em 18:51 Follow up: Response: No adverse reaction; Marked relief of symptoms em 18:04 Drug: predniSONE 60 mg Route: PO; em 18:51 Follow up: Response: No adverse reaction em 19:30 Drug: AZITHromycin 500 mg Route: PO; cc3 19:50 Follow up: Response: No adverse reaction cc3 19:34 Drug: Rocephin (cefTRIAXone) 1 grams Route: IM; Site: left gluteus; cc3 19:50 Follow up: Response: No adverse reaction cc3 Outcome: 19:15 Discharge ordered by MD. pm1 19:50 Discharged to home ambulatory. cc3 19:50 Condition: stable 19:50 Discharge instructions given to patient, Instructed on discharge instructions, follow up and referral plans. medication usage, Demonstrated understanding of instructions, follow-up care, medications, Prescriptions given X 3. 19:54 Patient left the ED. cc3 Signatures: Gallo Adamson LVN LVN Bettina Delatorre RN RN Shanae Bhatt ag1 Regino Mcintyre NP [employer] pm1 Yudith Arita Adalgisa Cristina cc3
--- NOTE | 2018-07-08 19:15 | EDPHYS ---
Physician Documentation [facility] Name: Toi Garcia Age: 58 yrs Sex: Male : 1960 Arrival Date: 07/08/2018 Time: 17:37 Bed 15 Private MD: Santy Adame ED Physician Rene Kim HPI: 07/08 18:10 This 58 yrs old Male presents to ER via Ambulatory with complaints of pm1 Wheezing, Vomiting. 18:10 The patient presents to the emergency department with wheezing, Current therapy: pm1 albuterol inhaler, that began ran out of inhaler therapy, the patient was reported to have shortness of breath and posttussive vomiting. Onset: The symptoms/episode began/occurred 3 day(s) ago. Modifying factors: The symptoms are alleviated by nothing, the symptoms are aggravated by nothing. Associated signs and symptoms: Pertinent negatives: chest pain, fever, nausea. Severity of symptoms: in the emergency department the symptoms are worse Pain is currently a 0 / 10. The patient has not experienced similar symptoms in the past. The patient has not recently seen a physician. Historical: - Allergies: 17:45 No Known Allergies; aa5 - PMHx: 17:45 Asthma; Back pain; Chronic pain; Hypertension; aa5 - PSHx: 17:45 back surg; Knee surgery; aa5 - Immunization history:: Adult Immunizations unknown. - Ebola Screening: : No symptoms or risks identified at this time. - Social history:: Smoking status: unknown. ROS: 18:10 Constitutional: Negative for fever, chills, and weight loss, Eyes: Negative for injury, pm1 pain, redness, and discharge, ENT: Negative for injury, pain, and discharge, Neck: Negative for injury, pain, and swelling, Cardiovascular: Negative for chest pain, palpitations, and edema. 18:10 Back: Negative for injury and pain, : Negative for injury, bleeding, discharge, and swelling, MS/Extremity: Negative for injury and deformity, Skin: Negative for injury, rash, and discoloration. 18:10 Neuro: Negative for headache, weakness, numbness, tingling, and seizure. 18:10 Respiratory: Positive for cough, shortness of breath, wheezing. 18:10 Abdomen/GI: Positive for posttussive vomiting, Negative for abdominal pain, nausea, diarrhea. Exam: 18:10 Constitutional: This is a well developed, well nourished patient who is awake, alert, pm1 and in no acute distress. Head/Face: Normocephalic, atraumatic. Eyes: Pupils equal round and reactive to light, extra-ocular motions intact. Lids and lashes normal. Conjunctiva and sclera are non-icteric and not injected. Cornea within normal limits. Periorbital areas with no swelling, redness, or edema. ENT: Nares patent. No nasal discharge, no septal abnormalities noted. Tympanic membranes are normal and external auditory canals are clear. Oropharynx with no redness, swelling, or masses, exudates, or evidence of obstruction, uvula midline. Mucous membranes moist. Neck: Trachea midline, no thyromegaly or masses palpated, and no cervical lymphadenopathy. Supple, full range of motion without nuchal rigidity, or vertebral point tenderness. No Meningismus. Chest/axilla: Normal chest wall appearance and motion. Nontender with no deformity. No lesions are appreciated. Cardiovascular: Regular rate and rhythm with a normal S1 and S2. No gallops, murmurs, or rubs. Normal PMI, no JVD. No pulse deficits. Abdomen/GI: Soft, non-tender, with normal bowel sounds. No distension or tympany. No guarding or rebound. No evidence of tenderness throughout. Back: No spinal tenderness. No costovertebral tenderness. Full range of motion. Skin: Warm, dry with normal turgor. Normal color with no rashes, no lesions, and no evidence of cellulitis. MS/ Extremity: Pulses equal, no cyanosis. Neurovascular intact. Full, normal range of motion. 18:10 Respiratory: the patient does not display signs of respiratory distress, Respirations: normal, Breath sounds: wheezing: expiratory is heard in the right upper lobe and left upper lobe. 18:10 Neuro: Orientation: is normal, Motor: is normal, moves all fours. Vital Signs: 17:47 BP 143 / 82; Pulse 74; Resp 18 S; Temp 98.2(O); Pulse Ox 95% on R/A; Weight 103.87 kg aa5 (R); Height 5 ft. 5 in. (165.10 cm) (R); Pain 8/10; 18:50 BP 138 / 78; Pulse 68; Resp 20; Pulse Ox 96% on R/A; em 19:15 BP 143 / 76; Pulse 94; Resp 19 S; Temp 98.1(O); Pulse Ox 96% on R/A; cc3 17:47 Body Mass Index 38.11 (103.87 kg, 165.10 cm) aa5 MDM: 17:54 Patient medically screened. pm1 19:12 Data reviewed: vital signs. Data interpreted: Pulse oximetry: on room air is 95 %. pm1 Interpretation: normal. Counseling: I had a detailed discussion with the patient and/or guardian regarding: the historical points, exam findings, and any diagnostic results supporting the discharge/admit diagnosis, lab results, radiology results. 19:12 Refusal of service: The patient/guardian displays adequate decision making capability pm1 and despite a detailed discussion of alternatives, benefits, risks, and consequences refuses: Admission to the hospital for further work-up and treatment, Feels better with breathing treatment and wants to go home. 07/08 17:54 Order name: Flu pm1 07/08 18:35 Order name: Influenza Screen (A ; Complete Time: 18:59 EDMS 07/08 17:54 Order name: Chest Pa And Lat (2 Views) XRAY pm1 07/08 18:44 Order name: RAD; Complete Time: 18:59 EDMS Administered Medications: 18:04 Drug: Albuterol - atroVENT (3:1) (2.5 mg - 0.5 mg) 3 ml Route: Nebulizer; em 18:51 Follow up: Response: No adverse reaction; Marked relief of symptoms em 18:04 Drug: predniSONE 60 mg Route: PO; em 18:51 Follow up: Response: No adverse reaction em 19:30 Drug: AZITHromycin 500 mg Route: PO; cc3 19:50 Follow up: Response: No adverse reaction cc3 19:34 Drug: Rocephin (cefTRIAXone) 1 grams Route: IM; Site: left gluteus; cc3 19:50 Follow up: Response: No adverse reaction cc3 Disposition: 07/08/18 19:15 Discharged to Home. Impression: Pneumonia, unspecified organism. - Condition is Stable. - Discharge Instructions: Community-Acquired Pneumonia, Adult. - Prescriptions for Zithromax Z- Norman 250 mg Oral Tablet - take 1 tablet by ORAL route as directed for 5 days Day 1 - take two (2) tablets one time. Day 2, 3, 4 , 5 take one (1) tablet once daily.; 6 tablet. Albuterol Sulfate 90 mcg/actuation - inhale 1-2 puff by INHALATION route every 4-6 hours; 1 Inhaler. Guaifenesin AC 10- 100 mg/5 mL Oral Liquid - take 10 milliliter by ORAL route every 4 hours As needed; 240 milliliter. - School release form, Work release form, Medication Reconciliation Form, Thank You Letter, Antibiotic Education, Prescription Opioid Use form. - Follow up: Emergency Department; When: As needed; Reason: Worsening of condition. Follow up: Private Physician; When: 1 - 2 days; Reason: Recheck today's complaints, Continuance of care, Re-evaluation by your physician. - Problem is new. - Symptoms have improved. Addendum: 07/11/2018 06:50 Co-signature as Attending Physician, Rene Kim MD I agree with the assessment and k dr plan of care. Signatures: Dispatcher [employer] EDSD Rene Kim MD MD [facility] Gallo Adamson, METAL FRAMER METAL FRAMER Bettina Zayas RN RN aa5 Regino Mcintyre NP [employer]ER OPERATOR pm1 Adalgisa Mejia cc3 Corrections: (The following items were deleted from the chart) 07/08 19:54 19:15 07/08/2018 19:15 Discharged to Home. Impression: Pneumonia, unspecified organism. cc3 Condition is Stable. Forms are Medication Reconciliation Form, Thank You Letter, Antibiotic Education, Prescription Opioid Use. Follow up: Emergency Department; When: As needed; Reason: Worsening of condition. Follow up: Private Physician; When: 1 - 2 days; Reason: Recheck today's complaints, Continuance of care, Re-evaluation by your physician. Problem is new. Symptoms have improved. pm1
[2018-07-08] MEDS ORDERED: CEFTRIAXONE 1000 MG/VIAL ONE (19:39)
[2018-07-08] MEDS ORDERED: AZITHROMYCIN 250 MG TAB ONE (19:39)
[2018-07-08] MEDS ORDERED: WATER FOR INJ,STERILE 10 ML ONE (19:39)
== END 2018-07-08 19:54 | disposition home or self-care (01) ==
LOC: ER 17:35
DX: J18.9 Pneumonia, unspecified organism (principal); I10 Essential (primary) hypertension; J45.909 Unspecified asthma, uncomplicated
CPT/HCPCS: 71046; 87804; 94640; 96372; 99284; J7512

== ENCOUNTER 2018-07-10 21:43 | Emergency (ER) | payer OTHER ==
--- OUTSIDE RECORDS SUMMARY | 2018-07-10 21:46 | XMS REPORT ---
:1960 [facility] [address] [place] [address] Care Team Providers Name Role Phone Unavailable Unavailable Unavailable Problems This patient has no known problems. Allergies, Adverse Reactions, Alerts This patient has no known allergies or adverse reactions. Medications This patient has no known medications.
[2018-07-10] MEDS ORDERED: predniSONE 20 MG TAB ONE (23:03)
[2018-07-10] MEDS ORDERED: LEVALBUTEROL 1.25 MG/3 ML NEB ONE (23:03)
--- NOTE | 2018-07-10 23:06 | ER ---
Nurse's Notes [facility] Name: Toi Garcia Age: 58 yrs Sex: Male : 1960 Arrival Date: 07/10/2018 Time: 21:47 Bed 20 Private MD: Diagnosis: Pneumonia;Asthma Presentation: 07/10 22:20 Presenting complaint: Patient states: cough, vomiting, congestion since since 3 days. cc3 Transition of care: patient was not received from another setting of care. Onset of symptoms is unknown. Risk Assessment: Do you want to hurt yourself or someone else? Patient reports no desire to harm self or others. Initial Sepsis Screen: Does the patient meet any 2 criteria? No. Patient's initial sepsis screen is negative. Does the patient have a suspected source of infection? No. Patient's initial sepsis screen is negative. Care prior to arrival: None. 22:20 Method Of Arrival: Ambulatory cc3 22:20 Acuity: [place] 3 cc3 Triage Assessment: 22:35 General: Appears in no apparent distress. comfortable, Behavior is calm, cooperative, cc3 appropriate for age. Pain: Denies pain. Historical: - Allergies: 22:20 No Known Allergies; cc3 - Home Meds: 22:20 atenolol 25 mg Oral tab 1 tab once daily [Active]; baclofen 20 mg Oral tab 1 tab 3 cc3 times per day [Active]; gabapentin 400 mg Oral cap 1 cap 3 times per day [Active]; hydrocodone-acetaminophen 7.5-325 mg Oral tab 1 tab three times a day [Active]; - PMHx: 22:20 Asthma; Back pain; Chronic pain; Hypertension; cc3 - Immunization history:: Adult Immunizations up to date. - Social history:: Smoking status: Patient/guardian denies using tobacco, never smoked. - Family history:: not pertinent. - Ebola Screening: : No symptoms or risks identified at this time. - Hospitalizations: : No recent hospitalization is reported. Screenin:35 Abuse screen: Denies threats or abuse. Denies injuries from another. Nutritional cc3 screening: No deficits noted. Tuberculosis screening: No symptoms or risk factors identified. Fall Risk Ambulatory Aid- None/Bed Rest/Nurse Assist (0 pts). Gait- Normal/Bed Rest/Wheelchair (0 pts) Mental Status- Oriented to own ability (0 pts). Assessment: 22:35 General: see triage assessment. cc3 23:25 Reassessment: Patient appears in no apparent distress at this time. Patient and/or cc3 family updated on plan of care and expected duration. Pain level reassessed. Patient is alert, oriented x 3, equal unlabored respirations, skin warm/dry/pink. Dr. Santiago discharged home the patient with prescription given. No IV cannula in situ. Patient left ER vitally stable and ambulatory with his . Vital Signs: 22:30 BP 139 / 83; Pulse 66; Resp 18 S; Temp 97.9(O); Pulse Ox 96% on R/A; Weight 103.87 kg cc3 (R); Height 5 ft. 5 in. (165.10 cm) (R); 22:30 Body Mass Index 38.11 (103.87 kg, 165.10 cm) cc3 ED Course: 21:47 Patient arrived in ED. es 22:02 Rayshawn Santiago MD is Attending Physician. rn 22:35 Adalgisa Mejia is Primary Nurse. cc3 22:35 Arm band placed on right wrist. Patient notified of wait time. cc3 22:35 Patient has correct armband on for positive identification. Bed in low position. Call cc3 light in reach. Side rails up X 1. Pulse ox on. NIBP on. 22:41 XRAY Chest Pa And Lat (2 Views) In Process Unspecified. EDMS 23:11 Triage completed. cc3 23:25 No provider procedures requiring assistance completed. Patient did not have IV access cc3 during this emergency room visit. Administered Medications: 22:50 Drug: predniSONE 60 mg Route: PO; cc3 23:25 Follow up: Response: No adverse reaction cc3 22:55 Drug: Xopenex (3) 1.25 mg Route: Inhalation; cc3 23:25 Follow up: Response: No adverse reaction cc3 23:15 Drug: LevaQUIN 750 mg Route: PO; cc3 23:25 Follow up: Response: No adverse reaction cc3 Outcome: 23:05 Discharge ordered by . rn 23:25 Discharged to home ambulatory, with family. cc3 23:25 Condition: stable 23:25 Discharge instructions given to patient, family, Instructed on discharge instructions, follow up and referral plans. medication usage, Prescriptions given X 3. 23:26 Patient left the ED. cc3 Signatures: Dispatcher [employer] Lizzy Mistry Roman, MD MD rn Cordel, Charlene cc3
--- NOTE | 2018-07-10 23:06 | EDPHYS ---
Physician Documentation [facility] Name: Toi Garcia Age: 58 yrs Sex: Male : 1960 Arrival Date: 07/10/2018 Time: 21:47 Bed 20 Private MD: ED Physician Rayshawn Santiago HPI: 07/10 22:26 This 58 yrs old Male presents to ER via Unassigned with complaints of rn pneumonia. 22:26 The patient or guardian reports cough, difficulty breathing. Onset: The rn symptoms/episode began/occurred 4 day(s) ago. Severity of symptoms: At their worst the symptoms were mild, in the emergency department the symptoms are unchanged. Associated signs and symptoms: Pertinent negatives: chest pain, diarrhea. The patient has experienced similar episodes in the past. Reports hx of asthma, seen here on Wednesday, diagnosed with pneumonia, recommended admission, patient went home because didn't want to be admitted. Reports still short of breath and didn't fill his abx. . Historical: - Allergies: 22:20 No Known Allergies; cc3 - Home Meds: 22:20 atenolol 25 mg Oral tab 1 tab once daily [Active]; baclofen 20 mg Oral tab 1 tab 3 cc3 times per day [Active]; gabapentin 400 mg Oral cap 1 cap 3 times per day [Active]; hydrocodone-acetaminophen 7.5-325 mg Oral tab 1 tab three times a day [Active]; - PMHx: 22:20 Asthma; Back pain; Chronic pain; Hypertension; cc3 - Immunization history:: Adult Immunizations up to date. - Social history:: Smoking status: Patient/guardian denies using tobacco, never smoked. - Family history:: not pertinent. - Ebola Screening: : No symptoms or risks identified at this time. - Hospitalizations: : No recent hospitalization is reported. ROS: 22:26 Constitutional: Negative for fever, chills, and weight loss, Eyes: Negative for injury, rn pain, redness, and discharge, Neck: Negative for injury, pain, and swelling, Cardiovascular: Negative for chest pain, palpitations, and edema, Respiratory: + cough Abdomen/GI: Negative for abdominal pain, diarrhea, and constipation, MS/Extremity: Negative for injury and deformity, Skin: Negative for injury, rash, and discoloration, Neuro: Negative for headache, weakness, numbness, tingling, and seizure. Exam: 22:26 Constitutional: This is a well developed, well nourished patient who is awake, alert, rn and in no acute distress. Head/Face: Normocephalic, atraumatic. Eyes: Pupils equal round and reactive to light, extra-ocular motions intact. Lids and lashes normal. Conjunctiva and sclera are non-icteric and not injected. Cornea within normal limits. Periorbital areas with no swelling, redness, or edema. Cardiovascular: Regular rate and rhythm. No pulse deficits. Respiratory: + faint exp wheezing, no tachypnea, no retractions, speaking full sentences Abdomen/GI: soft, non-tender Skin: Warm, dry with normal turgor. Normal color with no rashes, no lesions, and no evidence of cellulitis. MS/ Extremity: Pulses equal, no cyanosis. Neurovascular intact. Full, normal range of motion. Equal circumference. Neuro: Awake and alert, GCS 15, oriented to person, place, time, and situation. Cranial nerves II-XII grossly intact. Motor strength 5/5 in all extremities. Sensory grossly intact. Cerebellar exam normal. Normal gait. Vital Signs: 22:30 BP 139 / 83; Pulse 66; Resp 18 S; Temp 97.9(O); Pulse Ox 96% on R/A; Weight 103.87 kg cc3 (R); Height 5 ft. 5 in. (165.10 cm) (R); 22:30 Body Mass Index 38.11 (103.87 kg, 165.10 cm) cc3 MDM: 22:02 Patient medically screened. rn 23:04 Differential Diagnosis: Bronchitis Upper Respiratory Infection Viral Syndrome rn Pneumonia. Data reviewed: vital signs, nurses notes, old medical records, radiologic studies, plain films, and as a result, I will discharge patient. Counseling: I had a detailed discussion with the patient and/or guardian regarding: the historical points, exam findings, and any diagnostic results supporting the discharge/admit diagnosis, radiology results, the need for outpatient follow up, to return to the emergency department if symptoms worsen or persist or if there are any questions or concerns that arise at home. Special discussion: I discussed with the patient/guardian in detail that at this point there is no indication for admission to the hospital. It is understood, however, that if the symptoms persist or worsen the patient needs to return immediately for re-evaluation. 23:06 ED course: No change in CXR. rn 07/10 22:08 Order name: XRAY Chest Pa And Lat (2 Views) rn Administered Medications: 22:50 Drug: predniSONE 60 mg Route: PO; cc3 23:25 Follow up: Response: No adverse reaction cc3 22:55 Drug: Xopenex (3) 1.25 mg Route: Inhalation; cc3 23:25 Follow up: Response: No adverse reaction cc3 23:15 Drug: LevaQUIN 750 mg Route: PO; cc3 23:25 Follow up: Response: No adverse reaction cc3 Disposition: 07/10/18 23:05 Discharged to Home. Impression: Pneumonia, Asthma. - Condition is Stable. - Discharge Instructions: Asthma, Acute Bronchospasm. - Prescriptions for Levaquin 500 mg Oral Tablet - take 1 tablet by ORAL route once daily for 7 days; 7 tablet. Prednisone 20 mg Oral Tablet - take 3 tablet by ORAL route once daily for 5 days; 15 tablet. Albuterol Sulfate 90 mcg/actuation - inhale 1-2 puff by INHALATION route every 4-6 hours; 1 Inhaler. - Medication Reconciliation Form, Thank You Letter, Antibiotic Education, Prescription Opioid Use form. - Follow up: Private Physician; When: As needed; Reason: Recheck today's complaints, Re-evaluation by your physician. - Problem is an ongoing problem. - Symptoms are unchanged. Signatures: Dispatcher [employer] EDMS Rayshawn Santiago MD MD rn Cordel, Charlene cc3 Corrections: (The following items were deleted from the chart) 23:26 23:05 07/10/2018 23:05 Discharged to Home. Impression: Pneumonia; Asthma. Condition is cc3 Stable. Forms are Medication Reconciliation Form, Thank You Letter, Antibiotic Education, Prescription Opioid Use. Follow up: Private Physician; When: As needed; Reason: Recheck today's complaints, Re-evaluation by your physician. Problem is an ongoing problem. Symptoms are unchanged. rn
[2018-07-10] MEDS ORDERED: levoFLOXacin 750 MG TAB ONE (23:29)
--- NOTE | 2018-07-11 08:15 | RAD REPORT ---
EXAM DESCRIPTION: RAD - Chest Pa And Lat (2 Views) - 07/10/2018 10:43 pm CLINICAL HISTORY: COUGH Chest pain. COMPARISON: Chest Pa And Lat (2 Views) dated 07/08/2018; Chest Single View dated 02/22/2016; CHEST PA AND LAT 2 VIEW dated 03/26/2009; CHEST SINGLE VIEW dated 03/01/2001 FINDINGS: Vague opacity is again noted in the anterior lung field seen on the lateral, appearing sim ilar prior study. This may represent atelectasis or pneumonia. The heart is normal in size. No displa amna fractures. IMPRESSION: Stable chest since 07/08/2018.
== END 2018-07-10 23:26 | disposition home or self-care (01) ==
LOC: ER 21:43
DX: J18.9 Pneumonia, unspecified organism (principal); J45.909 Unspecified asthma, uncomplicated; I10 Essential (primary) hypertension
CPT/HCPCS: 71046; 99284; J7512

== ENCOUNTER 2018-09-21 14:12 | Emergency (ER) | payer OTHER ==
--- OUTSIDE RECORDS SUMMARY | 2018-09-21 14:13 | XMS REPORT ---
:1960 [facility] [address] [place] [address] [address] [place] [address] Care Team Providers Name Role Phone Unavailable Unavailable Unavailable Problems This patient has no known problems. Allergies, Adverse Reactions, Alerts This patient has no known allergies or adverse reactions. Medications This patient has no known medications.
[2018-09-21] MEDS ORDERED: ACETAMINOPHEN 500 MG TAB ONE (15:20)
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
[2018-09-21 16:16] LABS: Urine Blood 2+ (NEG); Urine Glucose NEGATIVE (NEG); Urine Protein NEGATIVE (NEG); Urine Specific Gravity 1.015 (1.005-1.030)
== END 2018-09-21 16:07 | disposition home or self-care (01) ==
LOC: ER 14:12
DX: M54.12 Radiculopathy, cervical region (principal); V49.49XA Driver injured in collision with other motor vehicles in traffic accident, initial encounter; I10 Essential (primary) hypertension
CPT/HCPCS: 72040; 81003; 99284

== ENCOUNTER 2020-06-28 10:56 | Emergency (ER) | payer OTHER ==
[2020-06-28 12:45] LABS: SARS-COV-2 RT PCR POSITIVE (NEGATIVE)
--- NOTE | 2020-06-28 12:48 | ER ---
Nurse's Notes [facility] Name: Toi Garcia Age: 60 yrs Sex: Male : 1960 Arrival Date: 06/28/2020 Time: 11:00 Bed 25 Private MD: Diagnosis: SARS-associated coronavirus as the cause of diseases classified elsewhere Presentation: 06/28 11:15 Chief complaint: Patient states: cough, vomiting, diarrhea that began yesterday. Pt aa5 reports is COVID-19 positive. Coronavirus screen: Client presents with at least one sign or symptom that may indicate coronavirus-19. Standard/surgical mask placed on the client. Provider contacted for isolation considerations. Ebola Screen: Patient negative for fever greater than or equal to 101.5 degrees Fahrenheit, and additional compatible Ebola Virus Disease symptoms. Initial Sepsis Screen: Does the patient meet any 2 criteria? No. Patient's initial sepsis screen is negative. Does the patient have a suspected source of infection? No. Patient's initial sepsis screen is negative. Risk Assessment: Do you want to hurt yourself or someone else? Patient reports no desire to harm self or others. Onset of symptoms was June 2020. 11:15 Method Of Arrival: Ambulatory aa5 11:15 Acuity: [place] 3 aa5 Historical: - Allergies: 11:17 No Known Allergies; aa5 - PMHx: 11:17 Asthma; Back pain; Chronic pain; Hypertension; aa5 Screenin:20 Abuse screen: Denies threats or abuse. Nutritional screening: No deficits noted. aa5 Tuberculosis screening: No symptoms or risk factors identified. Fall Risk None identified. Assessment: 11:20 General: Appears comfortable, Behavior is calm, cooperative. Pain: Denies pain. Neuro: aa5 Level of Consciousness is awake, alert, obeys commands, Oriented to person, place, time, situation. Cardiovascular: Patient's skin is warm and dry. Respiratory: Reports cough Airway is patent Respiratory effort is even, unlabored, Respiratory pattern is regular, symmetrical, Breath sounds are clear bilaterally. Denies shortness of breath. GI: Abdomen is round Bowel sounds present X 4 quads. Abd is soft and non tender X 4 quads. Reports diarrhea, nausea, vomiting. : No signs and/or symptoms were reported regarding the genitourinary system. EENT: No signs and/or symptoms were reported regarding the EENT system. Derm: Skin is pink, warm \T\ dry. Musculoskeletal: Range of motion: intact in all extremities. 13:00 Reassessment: Dr. Kim at bedside discussing results and POC with pt. Awaiting aa5 Ivermectin from the pharmacy. . 13:00 Reassessment: Patient is alert, oriented x 3, equal unlabored respirations, skin aa5 warm/dry/pink. 13:20 Reassessment: Patient is alert, oriented x 3, equal unlabored respirations, skin aa5 warm/dry/pink. Vital Signs: 11:15 BP 180 / 94; Pulse 79; Resp 22 S; Temp 98.2(O); Pulse Ox 100% on R/A; aa5 12:56 Weight 104.33 kg (M); aa5 ED Course: 11:00 Patient arrived in ED. mr 11:15 Rene Kim MD is Attending Physician. kdr 11:15 Arm band placed on. aa5 11:15 Patient has correct armband on for positive identification. Bed in low position. Call aa5 light in reach. Side rails up X 1. 11:16 Triage completed. aa5 11:20 Bettina Zayas, RN is Primary Nurse. aa5 13:20 No provider procedures requiring assistance completed. Patient did not have IV access aa5 during this emergency room visit. Administered Medications: 13:02 Drug: Ibuprofen 800 mg Route: PO; aa5 13:20 Follow up: Response: No adverse reaction aa5 13:02 Drug: Pepcid 20 mg Route: PO; aa5 13:20 Follow up: Response: No adverse reaction aa5 13:02 Drug: predniSONE 40 mg Route: PO; aa5 13:20 Follow up: Response: No adverse reaction aa5 13:15 Drug: Ivermectin 200 mcg/kg Route: PO; aa5 13:20 Follow up: Response: No adverse reaction; Medication administered at discharge. aa5 Outcome: 12:47 Discharge ordered by . kdr 13:20 Discharged to home ambulatory. aa5 13:20 Condition: stable 13:20 Discharge instructions given to patient, Instructed on discharge instructions, follow up and referral plans. medication usage, Demonstrated understanding of instructions, follow-up care, medications, Prescriptions given X 5 13:25 Patient left the ED. aa5 Signatures: Rene Kim MD MD [facility] Radha Wells Audri RN RN aa5 Corrections: (The following items were deleted from the chart) 11 11:15 Acuity: [place] 4 aa5 aa5 13:39 13:31 Patient left the ED. aa5 aa5
--- NOTE | 2020-06-28 12:48 | EDPHYS ---
Physician Documentation [facility] Name: Toi Garcia Age: 60 yrs Sex: Male : 1960 Arrival Date: 06/28/2020 Time: 11:00 Bed 25 Private MD: ED Physician Rene Kim HPI: 06/28 11:28 This 60 yrs old Male presents to ER via Ambulatory with complaints of kdr Vomiting/Diarrhea, Cough. 11:28 The patient presents to the emergency department with nausea, that is mild, vomiting, kdr that is intermittent, diarrhea, that is intermittent. Onset: The symptoms/episode began/occurred yesterday. Possible causes: unknown, The patient's was hospitalized this week with SD/COVID. Since yesterday, he has had cough and GI s/s. The symptoms are aggravated by nothing. The symptoms are alleviated by nothing. Associated signs and symptoms: Pertinent positives: diarrhea, nausea, vomiting, Pertinent negatives: abdominal pain, anorexia, belching, constipation, dysuria, fever, hematuria. Severity of symptoms: At their worst the symptoms were mild in the emergency department the symptoms are unchanged. The patient has not experienced similar symptoms in the past. The patient has not recently seen a physician. Historical: - Allergies: 11:17 No Known Allergies; aa5 - PMHx: 11:17 Asthma; Back pain; Chronic pain; Hypertension; aa5 ROS: 11:28 Constitutional: Negative for fever, chills, and weight loss, Eyes: Negative for injury, kdr pain, redness, and discharge, ENT: Negative for injury, pain, and discharge, Neck: Negative for injury, pain, and swelling, Cardiovascular: Negative for chest pain, palpitations, and edema, Back: Negative for injury and pain, : Negative for injury, bleeding, discharge, and swelling, MS/Extremity: Negative for injury and deformity, Skin: Negative for injury, rash, and discoloration, Neuro: Negative for headache, weakness, numbness, tingling, and seizure activity. Psych: Negative for depression, anxiety, suicide ideation, homicidal ideation, and hallucinations, Allergy/Immunology: Negative for hives, rash, and allergies, Endocrine: Negative for neck swelling, polydipsia, polyuria, polyphagia, and marked weight changes, Hematologic/Lymphatic: Negative for swollen nodes, abnormal bleeding, and unusual bruising. 11:28 Respiratory: Positive for cough, with no reported sputum, dyspnea on exertion, shortness of breath, on exertion. wheezing, Negative for hemoptysis, orthopnea, pleurisy. Exam: 11:28 Constitutional: This is a well developed, well nourished patient who is awake, alert, kdr and in no acute distress. Head/Face: Normocephalic, atraumatic. Eyes: Pupils equal round and reactive to light, extra-ocular motions intact. Lids and lashes normal. Conjunctiva and sclera are non-icteric and not injected. Cornea within normal limits. Periorbital areas with no swelling, redness, or edema. Neck: Trachea midline, no thyromegaly or masses palpated, and no cervical lymphadenopathy. Supple, full range of motion without nuchal rigidity, or vertebral point tenderness. No Meningismus. Chest/axilla: Normal chest wall appearance and motion. Nontender with no deformity. No lesions are appreciated. Cardiovascular: Regular rate and rhythm with a normal S1 and S2. No gallops, murmurs, or rubs. Normal PMI, no JVD. No pulse deficits. Respiratory: Lungs have equal breath sounds bilaterally, clear to auscultation and percussion. No rales, rhonchi or wheezes noted. No increased work of breathing, no retractions or nasal flaring. Abdomen/GI: Soft, non-tender, with normal bowel sounds. No distension or tympany. No guarding or rebound. No evidence of tenderness throughout. Back: No spinal tenderness. No costovertebral tenderness. Full range of motion. Skin: Warm, dry with normal turgor. Normal color with no rashes, no lesions, and no evidence of cellulitis. Vital Signs: 11:15 BP 180 / 94; Pulse 79; Resp 22 S; Temp 98.2(O); Pulse Ox 100% on R/A; aa5 12:56 Weight 104.33 kg (M); aa5 MDM: 11:28 Data reviewed: vital signs, nurses notes, lab test result(s). Counseling: I had a kdr detailed discussion with the patient and/or guardian regarding: the historical points, exam findings, and any diagnostic results supporting the discharge/admit diagnosis, lab results, the need for outpatient follow up. 12:47 Patient medically screened. kdr 02 12:45 Order name: COVID-19/FLU A+B; Complete Time: 12:46 EDMS Administered Medications: 13:02 Drug: Ibuprofen 800 mg Route: PO; aa5 13:20 Follow up: Response: No adverse reaction aa5 13:02 Drug: Pepcid 20 mg Route: PO; aa5 13:20 Follow up: Response: No adverse reaction aa5 13:02 Drug: predniSONE 40 mg Route: PO; aa5 13:20 Follow up: Response: No adverse reaction aa5 13:15 Drug: Ivermectin 200 mcg/kg Route: PO; aa5 13:20 Follow up: Response: No adverse reaction; Medication administered at discharge. aa5 Disposition: 06/28/20 12:47 Discharged to Home. Impression: SARS-associated coronavirus as the cause of diseases classified elsewhere. - Condition is Stable. - Prescriptions for ivermectin 3 mg Oral tablet - take 4 tablet by ORAL route Take all tabs on third day from ED visit x1 dose; 4 tablet. Prednisone 20 mg Oral Tablet - take 1 tablet by ORAL route See instructions below for 10 days Take one tablet BID for five days then one tablet Q day for five days (Dispense #15); 15 tablet. Albuterol Sulfate 90 mcg/actuation Inhalation - inhale 1-2 puff by INHALATION route every 4-6 hours; 2 Inhaler. Zofran 4 mg Oral Tablet - take 1 tablet by ORAL route every 4-6 hours As needed; 16 tablet. Ibuprofen 800 mg Oral Tablet - take 1 tablet by ORAL route every 8 hours As needed take with food; 30 tablet. - Medication Reconciliation Form, Thank You Letter, Work release form form. - Follow up: Private Physician; When: 2 - 3 days; Reason: If symptoms return, Further diagnostic work-up, Recheck today's complaints, Continuance of care, Re-evaluation by your physician. - Problem is new. - Symptoms have improved. Signatures: Dispatcher [employer] EDMS Rene Kim MD MD kdr Calderon, Audri RN RN aa5 Corrections: (The following items were deleted from the chart) 11:44 11:28 CORONAVIRUS+MR.LAB.BRZ ordered. EDMS EDMS 11:45 11:28 Influenza Screen (A \T\ B)+BA.LAB.BRZ ordered. EDMS EDMS 13:31 12:47 06/28/2020 12:47 Discharged to Home. Impression: SARS-associated coronavirus as aa5 the cause of diseases classified elsewhere. Condition is Stable. Forms are Medication Reconciliation Form, Thank You Letter, Antibiotic Education, Prescription Opioid Use. Follow up: Private Physician; When: 2 - 3 days; Reason: If symptoms return, Further diagnostic work-up, Recheck today's complaints, Continuance of care, Re-evaluation by your physician. Problem is new. Symptoms have improved. kdr
[2020-06-28] MEDS ORDERED: predniSONE 20 MG TAB ONE (13:16)
[2020-06-28] MEDS ORDERED: FAMOTIDINE 20 MG TAB ONE (13:16)
[2020-06-28] MEDS ORDERED: IBUPROFEN 400 MG TAB ONE (13:16)
[2020-06-28 13:35] VITALS: BP 180/94; TEMP 98.2; O2SAT 100
[2020-06-28] MEDS ORDERED: IVERMECTIN 3 MG TABLET PO ONE (14:00)
== END 2020-06-28 13:31 | disposition home or self-care (01) ==
LOC: ER 10:56
DX: U07.1 COVID-19 (principal); I10 Essential (primary) hypertension
CPT/HCPCS: 0240U; 99283; J7512

== ENCOUNTER 2020-07-11 17:55 | Inpatient (IN) | payer OTHER ==
--- OUTSIDE RECORDS SUMMARY | 2020-07-11 18:14 | XMS REPORT | Continuity of Care Document ---
:1960 Author Organization [facility] t Address [address] [place] [address] [address] [place] [address] Care Team Providers Name Role Phone Milena Licona Attending Clinician Problems This patient has no known problems. Allergies, Adverse Reactions, Alerts This patient has no known allergies or adverse reactions. Medications This patient has no known medications. Procedures This patient has no known procedures. Encounters Start End Encounter Admission Attending Care Care Encounter Source Date/Time Date/Time Type Type Clinicians Facility Department ID 2020-03-09 2020-03-09 Emergency Victorino Reynolds [facility] [id number] 18:37:00 19:33:00 Milena Castellanos [id number] [place] [id number] [place] [id number] Results This patient has no known results.
[2020-07-11 19:12] LABS: Absolute Lymphocytes (CBC) 0.9 K/uL (0.7-4.9); Basophils % 0.7 % (0-1.3); Hematocrit 36.7 % (39.6-49.0); Lymphocytes % 7.6 % (15.3-44.8); MPV 6.2 fL (7.6-11.3); RBC Red Blood Cell Count 4.48 M/uL (4.33-5.43)
[2020-07-11 19:49] LABS: Albumin 2.5 g/dL (3.4-5.0); Bilirubin Direct 0.1 mg/dL (0-0.2); Bilirubin Total 0.5 mg/dL (0.2-1.0); C-Reactive Protein 26.8 mg/L (<3.00); Ferritin 296.2 ng/mL (26-388); Potassium 3.2 mmol/L (3.5-5.1); Protein, Total 6.4 g/dL (6.4-8.2); Troponin (Emerg Dept Use Only) 0.44 ng/mL (0.0-0.045)
--- NOTE | 2020-07-11 19:58 | RAD REPORT ---
EXAM DESCRIPTION: RAD - Shoulder Right 2 View - 07/11/2020 7:19 pm CLINICAL HISTORY: Right shoulder pain FINDINGS: No fracture or dislocation is seen. Mild osteoarthritis AC joint
--- NOTE | 2020-07-11 19:58 | RAD REPORT ---
EXAM DESCRIPTION: CT - Angio Aorta For Dissection - 07/11/2020 7:32 pm CLINICAL HISTORY: . Chest and abdominal pain COMPARISON: None TECHNIQUE: Computed tomography angiography of the chest, abdomen pelvis were obtained. 100 cc Isovue 370 was administered intravenously. Coronal and sagittal reconstruction were performed. MIP 3D reconstruction was performed All CT scans are performed using dose optimization technique as appropriate and may include automated exposure control or mA/KV adjustment according to patient size. FINDINGS: The opacification of the ascending aorta is somewhat suboptimal. An aortic dissection is not seen. An aortic aneurysm is not displayed. The celiac, SMA and DUSTY are patent . Moderate bilateral ground-glass opacities within predominantly the lower lobes. A pericardial effusion is not seen. A pleural effusion is not noted. Fatty liver. Cholelithiasis. The gallbladder wall is not thickened. The spleen, Pancreas adrenals kidneys demonstrate no significant abnormality. Diverticula stem from the colon. Minimal stranding adjacent to sigmoid colon IMPRESSION: Negative for an aortic dissection. Minimal sigmoid diverticulitis Moderate bilateral ground-glass opacities can be seen with Covid pneumonia, other pneumonias and pneu monitis
--- NOTE | 2020-07-11 19:58 | RAD REPORT ---
EXAM DESCRIPTION: CT - Head C Spine Mpr Wo Con - 07/11/2020 7:32 pm CLINICAL HISTORY: Syncope. Head and neck injury status post fall. Head and neck pain COMPARISON: 2017 TECHNIQUE: Computed axial tomography of the head and cervical spine was obtained. Sagittal and coronal reconstruction was performed. All CT scans are performed using dose optimization technique as appropriate and may include automated exposure control or mA/KV adjustment according to patient size. FINDINGS: An intracranial bleed is not seen. The ventricles are normal in caliber. An extra-axial fl uid collection is not noted.Fluid within the visualized sinuses and mastoids is not seen Images of the cervical spine are degraded by patient motion artifact. No gross fracture visualized. Mild chronic anterior subluxation C7 on T1. Spondylosis involves the ce rvical spine resulting in multilevel mild to moderate central spinal stenosis IMPRESSION: No acute intracranial abnormality is seen. No gross cervical fracture visualized. Images degraded by patient motion artifact If patient continues have symptoms to suggest intracranial/spinal cord/canal pathology MRI would be r ecommended
--- NOTE | 2020-07-11 20:10 | EDPHYS ---
Physician Documentation [facility] Name: Toi Garcia Age: 60 yrs Sex: Male : 1960 Arrival Date: 07/11/2020 Time: 17:57 Bed 18 Private MD: ED Physician Perry Barrios HPI: 07/11 20:37 This 60 yrs old Male presents to ER via Wheelchair with complaints of kb Shortness Of Breath, Passed Out Prior To Arrival. 20:37 The patient has shortness of breath at rest. The patient has not experienced similar kb symptoms in the past. The patient has not recently seen a physician. 20:37 Onset: The symptoms/episode began/occurred 3 day(s) ago. Duration: The symptoms are kb continuous. The patient's shortness of breath is aggravated by exertion. Associated signs and symptoms: Pertinent positives: non-productive cough, syncope. Severity of symptoms: At their worst the symptoms were moderate in the emergency department the symptoms are unchanged. Pt reports he tested positive for COVID 2 weeks ago. shortness of breath got worse 3 days ago. Has passed out 3 times, twice today. States one time he passed out while walking down the stairs, woke up to his dog licking his face. Reports shoulder pain since then. Historical: - Allergies: 18:07 No Known Allergies; tw2 - Home Meds: 18:07 hydrocodone-acetaminophen 7.5-325 mg Oral tab 1 tab three times a day [Active]; tw2 baclofen 20 mg Oral tab 1 tab 3 times per day [Active]; atenolol 25 mg Oral tab 1 tab once daily [Active]; 22:00 gabapentin 600 mg oral tab 1 tab 3 times per day [Active]; sf 21:59 albuterol sulfate 90 mcg/actuation Inhl HFAA 1 puff every 4-6 hours [Active]; sf - PMHx: 18:07 Asthma; Back pain; Chronic pain; Hypertension; tw2 - PSHx: 21:59 None; sf - Immunization history:: Adult Immunizations. - Social history:: Smoking status: . ROS: 20:35 Constitutional: Negative for fever, chills, and weight loss, Cardiovascular: Negative kb for chest pain, palpitations, and edema, Abdomen/GI: Negative for abdominal pain, nausea, vomiting, diarrhea, and constipation, Skin: Negative for injury, rash, and discoloration. 20:35 Respiratory: Positive for cough, dyspnea on exertion, shortness of breath. 20:35 Neuro: Positive for syncope. 20:35 MS/extremity: Positive for decreased range of motion, pain, tenderness, of the anterior kb aspect of right shoulder. Exam: 19:59 ECG was reviewed by the Attending Physician. kb 20:35 Constitutional: This is a well developed, well nourished patient who is awake, alert, kb and in no acute distress. Head/Face: Normocephalic, atraumatic. Chest/axilla: Normal chest wall appearance and motion. Nontender with no deformity. No lesions are appreciated. Cardiovascular: Regular rate and rhythm with a normal S1 and S2. No gallops, murmurs, or rubs. Normal PMI, no JVD. No pulse deficits. Abdomen/GI: Soft, non-tender, with normal bowel sounds. No distension or tympany. No guarding or rebound. No evidence of tenderness throughout. Skin: Warm, dry with normal turgor. Normal color with no rashes, no lesions, and no evidence of cellulitis. 20:35 Respiratory: mild respiratory distress is noted, moderate respiratory distress is noted, Respirations: labored breathing, that is mild, tachypnea, Breath sounds: are clear throughout. 20:35 Musculoskeletal/extremity: Extremities: grossly normal except: noted in the posterior aspect of right shoulder and anterior aspect of right shoulder: decreased ROM, pain, tenderness, ROM: limited active range of motion due to pain, in the posterior aspect of right shoulder and anterior aspect of right shoulder, Circulation is intact in all extremities. Sensation intact. 20:35 Neuro: Orientation: is normal, Mentation: is normal, Motor: is normal, Sensation: is normal. Vital Signs: 18:04 BP 145 / 78; Pulse 70; Resp 26; Temp 98.2(TE); Pulse Ox 81% on R/A; Weight 104.33 kg tw2 (R); Height 5 ft. 5 in. (165.10 cm); 20:01 BP 144 / 54; Pulse 72; Resp 20; Pulse Ox 96% ; Pain 10/10; sf 20:30 BP 118 / 56; Pulse 73; Resp 20; Pulse Ox 97% ; sf 21:00 BP 114 / 56; Pulse 72; Resp 18; Pulse Ox 96% ; sf 21:30 BP 127 / 68; Pulse 73; Resp 18; Pulse Ox 96% ; sf 22:00 BP 146 / 70; Pulse 73; Resp 18; Pulse Ox 96% ; sf 18:04 Body Mass Index 38.27 (104.33 kg, 165.10 cm) tw2 18:04 pt placed on 4L nc at this time at 92% at this time tw2 MDM: 18:33 Patient medically screened. kb 19:58 Data reviewed: vital signs, nurses notes. Data interpreted: Pulse oximetry: on room air kb is 81 %. Interpretation: hypoxia. Counseling: I had a detailed discussion with the patient and/or guardian regarding: the historical points, exam findings, and any diagnostic results supporting the discharge/admit diagnosis, lab results, radiology results, the need for further work-up and treatment in the hospital. 20:34 Physician consultation: Kemar YOUNGBLOOD regarding admission, to the telemetry unit. kb patient's condition, and will see patient in ED, shortly. 07/11 18:37 Order name: Blood Culture Adult (2) kb 07/11 18:37 Order name: BMP; Complete Time: 19:56 kb 07/11 18:37 Order name: C-Reactive Protein; Complete Time: 19:56 kb 07/11 18:37 Order name: CBC with Diff kb 07/11 18:37 Order name: D-Dimer 07/11 18:37 Order name: Ferritin; Complete Time: 19:56 kb 07/11 18:37 Order name: Lactate; Complete Time: 19:41 kb 07/11 18:37 Order name: LFT's; Complete Time: 19:56 kb 07/11 18:37 Order name: Lipase; Complete Time: 19:56 kb 07/11 18:37 Order name: Procalcitonin; Complete Time: 19:56 kb 07/11 18:37 Order name: PT-INR kb 07/11 18:37 Order name: Ptt, Activated kb 07/11 18:37 Order name: Troponin (emerg Dept Use Only); Complete Time: 19:56 kb 07/11 18:37 Order name: EKG; Complete Time: 18:38 kb 07/11 18:37 Order name: Cardiac monitoring; Complete Time: 19:57 kb 07/11 18:37 Order name: Droplet/Contact Precautions; Complete Time: 19:24 kb 07/11 18:37 Order name: EKG - Nurse/Tech; Complete Time: 19:57 kb 07/11 18:37 Order name: IV Start; Complete Time: 19:24 kb 07/11 18:37 Order name: Labs collected and sent; Complete Time: 19:25 kb 07/11 18:37 Order name: O2 Per Protocol; Complete Time: 19:25 kb 07/11 18:37 Order name: CT Head C Spine; Complete Time: 20:06 kb 07/11 18:37 Order name: CT Aorta for Dissection; Complete Time: 20:06 kb 07/11 18:45 Order name: Shoulder Right (2 View) XRAY; Complete Time: 20:06 kb 07/11 21:32 Order name: CONS Physician Consult EDMS 07/11 22:33 Order name: COVID-19/FLU A+B EDMS 07/11 22:45 Order name: Manual Differential EDMS 07/11 18:37 Order name: O2 Sat Monitoring; Complete Time: 19:25 kb EC:59 Rate is 73 beats/min. Rhythm is regular. QRS [place] is Normal. DE interval is normal at kb 140 msec. QRS interval is normal at 94 msec. QT interval is normal at 368 msec. Administered Medications: 20:39 Drug: SOLU-Medrol 125 mg Route: IVP; Site: right antecubital; sf 21:56 Follow up: Response: No adverse reaction sf 20:40 Drug: Lovenox 1 mg/kg Route: Sub-Q; Site: right upper abdomen; sf 21:56 Follow up: Response: No adverse reaction sf Disposition: 07/11/20 20:09 Hospitalization ordered by Osman Rosas for Inpatient Admission. Preliminary diagnosis are Coronavirus infection, unspecified, Viral pneumonia, unspecified, Elevated troponin, Syncope and collapse. - Bed requested for Telemetry/MedSurg (Inpatient). - Status is Inpatient Admission. sf - Condition is Stable. - Problem is new. - Symptoms are unchanged. Addendum: 07/15/2020 06:06 Co-signature as Attending Physician, Perry Barrios MD I agree with the assessment and c kaur plan of care. Signatures: Dispatcher [employer] EDPR Saumya Torres, EDDIE-C EDDIE-Xiao Pascal, RN RN dw Perry Barrios MD MD cha Wise, Tara, RN RN 2 Josse Perez RN RN sf Corrections: (The following items were deleted from the chart) 07/11 20:10 20:09 Hospitalization Ordered by Osman Rosas for Inpatient Admission. Preliminary kb diagnosis is Coronavirus infection, unspecified; Viral pneumonia, unspecified; Elevated troponin. Bed requested for Telemetry/MedSurg (Inpatient). Status is Inpatient Admission. Condition is Stable. Problem is new. Symptoms are unchanged. kb 20:35 20:35 Constitutional: Negative for fever, chills, and weight loss, Cardiovascular: kb Negative for chest pain, palpitations, and edema, Abdomen/GI: Negative for abdominal pain, nausea, vomiting, diarrhea, and constipation, MS/Extremity: Negative for injury and deformity, Skin: Negative for injury, rash, and discoloration, kb 21:21 18:38 Influenza Screen (A \T\ B)+BA.LAB.BRZ ordered. EDMS EDMS 21:21 19:00 CORONAVIRUS+MR.LAB.BRZ ordered. EDMS EDMS 22:00 18:07 Home Meds: gabapentin 400 mg Oral cap 1 cap 3 times per day; tw2 22:34 20:10 07/11/2020 20:09 Hospitalization Ordered by Osman Rosas for Inpatient Admission. Preliminary diagnosis is Coronavirus infection, unspecified; Viral pneumonia, unspecified; Elevated troponin; Syncope and collapse. Bed requested for Telemetry/MedSurg (Inpatient). Status is Inpatient Admission. Condition is Stable. Problem is new. Symptoms are unchanged. kb 23:48 22:34 07/11/2020 20:09 Hospitalization Ordered by Osman Rosas for Inpatient Admission. Preliminary diagnosis is Coronavirus infection, unspecified; Viral pneumonia, unspecified; Elevated troponin; Syncope and collapse. Bed requested for Telemetry/MedSurg (Inpatient). Status is Inpatient Admission. Condition is Stable. Problem is new. Symptoms are unchanged. dw
--- NOTE | 2020-07-11 20:10 | ER ---
Nurse's Notes [facility] Name: Toi Garcia Age: 60 yrs Sex: Male : 1960 Arrival Date: 07/11/2020 Time: 17:57 Bed 18 Private MD: Diagnosis: Coronavirus infection, unspecified;Viral pneumonia, unspecified;Elevated troponin;Syncope and collapse Presentation: 07/11 18:04 Chief complaint: Patient states: started feeling bad a couple of days ago, i passed out tw2 last night, sob real bad, i cant catch my breath, i passed out twice today and i hurt my right arm on my stairs. Coronavirus screen: difficulty breathing, fatigue, shortness of breath, Client presents with at least one sign or symptom that may indicate coronavirus-19. Standard/surgical mask placed on the client. Provider contacted for isolation considerations. Ebola Screen: Patient denies travel to an Ebola-affected area in the 21 days before illness onset. Initial Sepsis Screen: Does the patient meet any 2 criteria? RR > 20 per min. No. Patient's initial sepsis screen is negative. Does the patient have a suspected source of infection? Yes: Productive cough/pneumonia. Risk Assessment: Do you want to hurt yourself or someone else? Patient reports no desire to harm self or others. Onset of symptoms was July 11, 2020. 18:04 Method Of Arrival: Wheelchair tw2 18:04 Acuity: [place] 2 tw2 Triage Assessment: 18:07 General: Appears uncomfortable, Behavior is anxious. Pain: Denies pain. Respiratory: tw2 Reports shortness of breath at rest on exertion Onset: The symptoms/episode began/occurred couple of days, the patient has severe shortness of breath. Historical: - Allergies: 18:07 No Known Allergies; tw2 - Home Meds: 18:07 hydrocodone-acetaminophen 7.5-325 mg Oral tab 1 tab three times a day [Active]; tw2 baclofen 20 mg Oral tab 1 tab 3 times per day [Active]; atenolol 25 mg Oral tab 1 tab once daily [Active]; 22:00 gabapentin 600 mg oral tab 1 tab 3 times per day [Active]; sf 21:59 albuterol sulfate 90 mcg/actuation Inhl HFAA 1 puff every 4-6 hours [Active]; sf - PMHx: 18:07 Asthma; Back pain; Chronic pain; Hypertension; tw2 - PSHx: 21:59 None; sf - Immunization history:: Adult Immunizations. - Social history:: Smoking status: . Screenin:40 Abuse screen: Denies threats or abuse. Nutritional screening: No deficits noted. rb3 Tuberculosis screening: No symptoms or risk factors identified. Fall Risk Fall in past 12 months (25 points). No secondary diagnosis (0 pts). No IV (0 pts). Ambulatory Aid- None/Bed Rest/Nurse Assist (0 pts). Gait- Normal/Bed Rest/Wheelchair (0 pts) Mental Status- Oriented to own ability (0 pts). Total Fernandez Fall Scale indicates Low Risk Score (25-44 pts). Fall prevention measures have been instituted. Side Rails Up X 2 Placed close to Nursing Station 1:1 attendant Assigned to Pt. Frequent Obs/Assesments occuring As available Patient and Family Educated on Fall Prevention Program and strategies. Assessment: 18:40 General: Appears uncomfortable, Behavior is calm, cooperative, Reports chills for 2-3 rb3 days, feeling ill for 2-3 days, Denies fever. Pain: Complains of pain in right arm Pain currently is 7 out of 10 on a pain scale. Neuro: Level of Consciousness is awake, alert, obeys commands, Oriented to person, place, time, situation. Neuro: Reports a syncopal episode Passed out last night and twice today, falling on his right arm causing pain in that limb. Cardiovascular: Patient's skin is warm and dry. Cardiovascular: Pulses are palpable in right radial artery. Respiratory: Reports shortness of breath at rest Pt. reports that he feels like he can't catch his breath Airway is patent Respiratory effort is even, unlabored, Respiratory pattern is regular, symmetrical. GI: Reports diarrhea. : No signs and/or symptoms were reported regarding the genitourinary system. Musculoskeletal: Reports pain in right arm. 19:45 General: Appears uncomfortable, Behavior is calm, cooperative, Reports feeling ill for sf 2-3 days. Pain: Complains of pain in anterior aspect of right shoulder and posterior aspect of right shoulder and head Pain currently is 10 out of 10 on a pain scale. Neuro: Level of Consciousness is awake, alert, obeys commands, Oriented to person, place, time, situation, Reports a syncopal episode. Cardiovascular: Patient's skin is warm and dry. Edema is 2+ to left midcalf, left ankle, right midcalf and right ankle Rhythm is sinus rhythm. Respiratory: Reports shortness of breath at rest Airway is patent Respiratory effort is even, unlabored, Respiratory pattern is regular, symmetrical, the patient has moderate shortness of breath. GI: Reports diarrhea. : No signs and/or symptoms were reported regarding the genitourinary system. Musculoskeletal: Reports pain in posterior aspect of right shoulder. 22:00 Reassessment: No changes from previously documented assessment. Patient and/or family sf updated on plan of care and expected duration. Pain level reassessed. Patient is alert, oriented x 3, equal unlabored respirations, skin warm/dry/pink. Given ice chips per request. Vital Signs: 18:04 BP 145 / 78; Pulse 70; Resp 26; Temp 98.2(TE); Pulse Ox 81% on R/A; Weight 104.33 kg tw2 (R); Height 5 ft. 5 in. (165.10 cm); 20:01 BP 144 / 54; Pulse 72; Resp 20; Pulse Ox 96% ; Pain 10/10; sf 20:30 BP 118 / 56; Pulse 73; Resp 20; Pulse Ox 97% ; sf 21:00 BP 114 / 56; Pulse 72; Resp 18; Pulse Ox 96% ; sf 21:30 BP 127 / 68; Pulse 73; Resp 18; Pulse Ox 96% ; sf 22:00 BP 146 / 70; Pulse 73; Resp 18; Pulse Ox 96% ; sf 18:04 Body Mass Index 38.27 (104.33 kg, 165.10 cm) tw2 18:04 pt placed on 4L nc at this time at 92% at this time tw2 ED Course: 17:57 Patient arrived in ED. as 18:06 Triage completed. tw2 18:07 Arm band placed on. tw2 18:33 [facility] kb 18:33 Perry Barrios MD is Attending Physician. kb 18:40 Patient has correct armband on for positive identification. Bed in low position. Call rb3 light in reach. Side rails up X 1. Pulse ox on. NIBP on. Warm blanket given. 18:56 First set of blood cultures drawn by me. Inserted saline lock: 20 gauge in right rb3 antecubital area, using aseptic technique. Blood collected. 19:13 Josse Perez, RN is Primary Nurse. sf 19:14 X-ray(s) taken. sf 19:19 Shoulder Right (2 View) XRAY In Process Unspecified. EDMS 19:32 CT Head C Spine In Process Unspecified. EDMS 19:32 CT Aorta for Dissection In Process Unspecified. EDMS 19:49 EKG done, by ED staff, reviewed by Saumya EVANS. sf 19:50 COVID swab sent to lab. Flu and/or RSV swab sent to lab. sf 20:09 Osman Rosas is Hospitalizing Provider. kb 23:24 No provider procedures requiring assistance completed. Patient admitted, IV remains in sf place. Administered Medications: 20:39 Drug: SOLU-Medrol 125 mg Route: IVP; Site: right antecubital; sf 21:56 Follow up: Response: No adverse reaction sf 20:40 Drug: Lovenox 1 mg/kg Route: Sub-Q; Site: right upper abdomen; sf 21:56 Follow up: Response: No adverse reaction sf Outcome: 20:09 Decision to Hospitalize by Provider. kb 23:32 Admitted to Tele accompanied by tech, via stretcher, room 411, with oxygen, Report sf called to RAMON Bray 23:48 Patient left the ED. sf Signatures: Dispatcher [employer] EDPA Saumya Torres FNP-C FNP-Ckb Martinez, Amelia as Alona Coronado RN RN tw2 Nela Solares RN RN rb3 Josse Perez, RN RN sf Corrections: (The following items were deleted from the chart) 22:00 18:07 Home Meds: gabapentin 400 mg Oral cap 1 cap 3 times per day; tw2 sf
[2020-07-11] MEDS ORDERED: METHYLPREDNISOLONE 125 MG INJ ONE (20:53)
[2020-07-11] MEDS ORDERED: ENOXAPARIN 100 MG/ML SYR SQ ONE (20:54)
[2020-07-11 22:12] LABS: Protime INR 1.03
[2020-07-11 22:32] LABS: SARS-COV-2 RT PCR POSITIVE (NEGATIVE)
[2020-07-11 22:45] LABS: Blood Morphology Comment NOT SEEN (NOT SEEN); Platelet Estimate ADEQ
[2020-07-11] MEDS ORDERED: ACETAMINOPHEN 325 MG TABLET PO PRN (23:45)
[2020-07-12 00:25] VITALS: BMI 36.6
[2020-07-12] MEDS ORDERED: POTASSIUM 25 MEQ EFFERV TAB PO ONE (01:10)
[2020-07-12] MEDS: MELATONIN 5 MG TABLET PO SCH ×2 (01:47→20:41)
[2020-07-12] MEDS: HYDROCODONE/APAP 7.5/325 MG TAB PO PRN ×3 (01:47→20:41)
--- NOTE | 2020-07-12 03:08 | P.HP ---
Certification for Inpatient Patient admitted to: Inpatient With expected LOS: >2 Midnights Patient will require the following post-hospital care: None Practitioner: I am a practitioner with admitting privileges, knowledge of patient current condition, hospital course, and medical plan of care. Services: Services provided to patient in accordance with Admission requirements found in Title 42 Section 412.3 of the Code of Federal Regulations <Raheel Lubin - Last Filed: 07/12/20 03:02> Patient History Date of Service: 07/12/20 Primary Care Provider: Dr. Adame Reason for admission: COVID Pneumonia, Hypoxia, NSTEMI History of Present Illness: This is a 60-year-old male with a history of chronic back pain, hypertension, asthma that presents to the emergency room today after having increased shortness of breath for the last 3 days. Patient stated that he has passed out a few times from shortness of breath, including today. Patient upon arrival to emergency room had initial oxygen saturation of 81% on room air and was tachypneic. Patient stated that he has been diagnosed with COVID and is still not improving. Patient was worked up in the emergency room and found to have a sodium 142, potassium 3.2, bicarb of 25, chloride of 111, BUN of 17, creatinine 1.04, glucose 99. Patient had a white cell count of 12, hemoglobin 12.1, he had a hematocrit of 36.7, platelet of 318. Patient had CRP of 26.8. CT showed bilateral pulmonary up a cities consistent with viral pneumonia but no pulmonary embolism. Troponin initial 0.44. Medicine was consulted at that time for further evaluation admission. Home medications list reviewed: Yes - Past Medical/Surgical History Diabetic: No - Family History Family History: Reviewed- Non-Contributory - Social History Smoking Status: Unknown if ever smoked Smoking therapy provided: No Place of Residence: Home <Raheel Lubin - Last Filed: 07/12/20 03:02> Date of Service: 07/13/20 - Family History Mother -: Heart disease, Lung disease, Diabetes Father -: Heart disease, Lung disease, Diabetes <lucy olivia - Last Filed: 07/13/20 18:15> Allergies No Known Allergies Allergy (Verified 07/12/20 01:42) Home Medications: Albuterol Sulfate [Proair Hfa] 1 puff IH Q4HP PRN 07/12/20 Baclofen 20 mg PO TIDP PRN 07/12/20 Finasteride 5 mg PO DAILY 07/12/20 Fluticasone [Flonase 50MCG Nasal [place]*] 1 inh IH DAILY 07/12/20 Fluticasone/Salmeterol [Advair 250-50 Diskus] 1 inh IH DAILY 07/12/20 Furosemide [Lasix*] 20 mg PO DAILY 07/12/20 Gabapentin 600 mg PO TID 07/12/20 Hydrocodone 7.5/APAP 325 [[place] 7.5/325 mg*] 1 tab PO TID 07/12/20 Metoprolol Succinate [Toprol Xl*] 50 mg PO DAILY 07/12/20 Montelukast [Singulair*] 10 mg PO DAILY 07/12/20 Sertraline [Zoloft*] 100 mg PO DAILY 07/12/20 Simvastatin 40 mg PO BEDTIME 07/12/20 lisinopriL [Prinivil*] 20 mg PO DAILY 07/12/20 Review of Systems General: Weakness Eyes: Unremarkable ENT: Unremarkable Respiratory: Cough, Shortness of Breath, SOB with Excertion Cardiovascular: Light Headedness Gastrointestinal: Unremarkable Genitourinary: Unremarkable Musculoskeletal: Unremarkable Integumentary: Unremarkable Neurological: As per HPI Lymphatics: Unremarkable <Raheel Lubin - Last Filed: 07/12/20 03:02> Physical Examination - Vital Signs Temperature: 98.2 F Blood Pressure: 145/78 Pulse: 70 Respirations: 26 Pulse Ox (%): 81 (Room air) - Physical Exam General: Alert, Oriented x3, Cooperative, Mild distress HEENT: PERRLA, Mucous membr. moist/pink, EOMI Neck: Supple, 2+ carotid pulse no bruit, JVD not distended, No Thyromegaly Respiratory: Clear to auscultation bilaterally, Other (Tachypneic) Cardiovascular: No edema, Normal pulses, Regular rate/rhythm, Normal S1 S2, No gallops, No rubs, No murmurs Capillary refill: <2 Seconds Gastrointestinal: Normal bowel sounds, Soft and benign, Non-distended, No ascites, No tenderness, No masses, No rebound Musculoskeletal: No clubbing, No swelling, No contractures, No erythema, No tenderness, No warmth Integumentary: No rashes, No breakdown, No significant lesion, No tenderness/swelling, No erythema, No warmth, No cyanosis Neurological: Normal speech, Normal strength at 5/5 x4 extr, Normal tone, Sensation intact, Cranial nerves 3-12 intact, Normal affect Lymphatics: No axilla or inguinal lymphadenopathy - Studies Laboratory Data (last 24 hrs) 07/11/20 20:01: PT 11.8, INR 1.03, APTT 21.0 L 07/11/20 18:56: WBC 12.00 H, Hgb 12.1 L, Hct 36.7 L, Plt Count 318 07/11/20 18:56: Sodium 142, Potassium 3.2 L, BUN 17, Creatinine 1.04, Glucose 99, Total Bilirubin 0.5, AST 16, ALT 29, Alkaline Phosphatase 61, Lipase 68 L <Raheel Lubin - Last Filed: 07/12/20 03:02> Assessment and Plan - Problems (Diagnosis) (1) Chronic pain Current Visit: Yes Status: Chronic Plan: Patient has been put on [place] 7.5/325 t.i.d. as needed for chronic pain. Qualifiers: Chronic pain type: other chronic pain Qualified Code(s): G89.29 - Other chronic pain (2) Pneumonia due to COVID-19 virus Current Visit: Yes Status: Acute Plan: Patient has moderate bilateral pulmonary up a cities consistent with SARs related viral pneumonia. Patient will be on oxygen via nasal cannula which patient seems to be doing well with at this time. Will escalate as needed. Will continue to monitor respiratory status and pulse oximetry. Patient will be on steroids amongst anticoagulation therapy and antiviral therapy and vitamin therapy. Pulmonology has been consulted for further evaluation. (3) Hypoxia Current Visit: Yes Status: Acute Plan: Patient placed on nasal cannula and has been tolerating it well with improved saturation. Will escalate as needed. Continue monitor respiratory status and pulse oximetry. (4) NSTEMI (non-ST elevated myocardial infarction) Current Visit: Yes Status: Acute Plan: Patient had initial troponin of 0.44 with secondary troponin now of 1.2. Patient therapeutically anticoagulated an cardiology has been consulted for further evaluation. Will continue to monitor for chest pain and EKG changes. Will continue to trend troponins. (5) Hypokalemia Current Visit: Yes Status: Acute Plan: Patient placed on potassium protocol. Had been replaced in the emergency room as well. Will continue to monitor will daily chemistries. Discharge Plan: Home Plan to discharge in: Greater than 2 days - Advance Directives Does patient have a Living Will: No Does patient have a Durable POA for Healthcare: No - Code Status/Comfort Care Code Status Assessed: Yes Code Status: Full Code Critical Care: No Time Spent Managing Pts Care (In Minutes): 70 <Raheel Lubin - Last Filed: 07/12/20 03:02> - Problems (Diagnosis) (1) Acute respiratory failure with hypoxia Current Visit: Yes Status: Acute (2) Pneumonia due to COVID-19 virus Current Visit: Yes Status: Acute (3) NSTEMI (non-ST elevated myocardial infarction) Current Visit: Yes Status: Acute Physician Review: Patient Assessed, Agree with Above Assessment and Plan Physician Review Additional Text: COVID pneumonia with hypoxia. Plan: IV steroid Remdesivir therapy. Titrate oxygen. <lucy olivia - Last Filed: 07/13/20 18:15>
[2020-07-12 04:34] LABS: Ferritin 308.5 ng/mL (26-388); Potassium 4.8 mmol/L (3.5-5.1)
[2020-07-12 04:38] LABS: Absolute Lymphocytes (CBC) 0.4 K/uL (0.7-4.9); Basophils % 0.1 % (0-1.3); Hematocrit 35.6 % (39.6-49.0); Lymphocytes % 4.1 % (15.3-44.8); MPV 6.3 fL (7.6-11.3); RBC Red Blood Cell Count 4.37 M/uL (4.33-5.43)
[2020-07-12] MEDS: ENOXAPARIN 100 MG/ML SYR SQ SCH ×2 (07:47→20:41)
[2020-07-12] MEDS: VITAMIN D 5,000 UNIT CAP PO SCH (07:47)
[2020-07-12] MEDS: ASPIRIN EC 81 MG TAB PO SCH (07:47)
[2020-07-12] MEDS: THIAMINE 200 MG/2 ML INJ IVP SCH ×2 (07:48→20:41)
[2020-07-12] MEDS: ZINC SULFATE 220 MG CAP PO SCH (07:48)
[2020-07-12] MEDS: ASCORBIC ACID 500 MG TABLET PO SCH ×4 (07:48→20:41)
[2020-07-12] MEDS: FAMOTIDINE 20 MG/2 ML VIAL IV SCH ×2 (07:48→20:41)
[2020-07-12] MEDS: METHYLPREDNISOLONE 40 MG INJ IV SCH ×2 (07:49→20:41)
[2020-07-12] MEDS ORDERED: INFLUENZA VACCINE (for 3y+) 0.5 ML DOSE IMVAC ONE (08:00)
[2020-07-12] MEDS ORDERED: PNEUMOCOCCAL VACCINE 0.5 ML IMVAC ONE (08:00)
[2020-07-12] MEDS ORDERED: ALBUTEROL INHALER 60 PUFF/8 GM IH PRN (09:46)
--- NOTE | 2020-07-12 12:08 | P.CNS ---
Date of Consult: 07/12/20 Primary Care Provider: Dr. Adame Chief Complaint: COVID Pneumonia, Hypoxia, NSTEMI History of Present Illness: Patient is 60 years of age, chronic back pain hypertension asthma became worse for the past 3 days admitted with sterling virus pneumonia is hypoxic as recently diagnosed to have sterling virus infection DT scan consistent with sterling virus pneumonia troponin was mildly elevated current doing better on nasal cannula oxygen Allergies No Known Allergies Allergy (Verified 07/12/20 01:42) Home Medications: Albuterol Sulfate [Proair Hfa] 1 puff IH Q4HP PRN 07/12/20 Baclofen 20 mg PO TIDP PRN 07/12/20 Finasteride 5 mg PO DAILY 07/12/20 Fluticasone [Flonase 50MCG Nasal [place]*] 1 inh IH DAILY 07/12/20 Fluticasone/Salmeterol [Advair 250-50 Diskus] 1 inh IH DAILY 07/12/20 Furosemide [Lasix*] 20 mg PO DAILY 07/12/20 Gabapentin 600 mg PO TID 07/12/20 Hydrocodone 7.5/APAP 325 [[place] 7.5/325 mg*] 1 tab PO TID 07/12/20 Metoprolol Succinate [Toprol Xl*] 50 mg PO DAILY 07/12/20 Montelukast [Singulair*] 10 mg PO DAILY 07/12/20 Sertraline [Zoloft*] 100 mg PO DAILY 07/12/20 Simvastatin 40 mg PO BEDTIME 07/12/20 lisinopriL [Prinivil*] 20 mg PO DAILY 07/12/20 - Past Medical/Surgical History Diabetic: No -: HTN -: Asthma -: Back Sx -: R knee Sx - Family History Mother Medical History: Heart disease, Lung disease, Diabetes Father Medical History: Heart disease, Lung disease, Diabetes - Social History Smoking Status: Never smoker Alcohol use: No CD- Drugs: No Caffeine use: Yes Place of Residence: Home Review of Systems General: Weakness Respiratory: Shortness of Breath Physical Examination Temp Pulse Resp BP Pulse Ox 97 F 64 27 H 134/75 93 07/12/20 08:00 07/12/20 08:00 07/12/20 11:19 07/12/20 08:00 07/12/20 11:19 General: Alert, Oriented x3 Respiratory: Expiratory wheezes Cardiovascular: Regular rate/rhythm, Normal S1 S2 Gastrointestinal: Normal bowel sounds, Soft and benign Laboratory Data (last 24 hrs) 07/11/20 20:01: PT 11.8, INR 1.03, APTT 21.0 L 07/11/20 18:56: WBC 12.00 H, Hgb 12.1 L, Hct 36.7 L, Plt Count 318 07/11/20 18:56: Sodium 142, Potassium 3.2 L, BUN 17, Creatinine 1.04, Glucose 99, Total Bilirubin 0.5, AST 16, ALT 29, Alkaline Phosphatase 61, Lipase 68 L - Problems (1) Pneumonia due to COVID-19 virus Current Visit: Yes Status: Acute Plan: Patient is 60 years of age admitted with pneumonia due to sterling virus is currently doing better only on 4 L of nasal cannula oxygen vital signs stable patient's troponin is significantly elevated continue with steroids I suspect he may have some myocardial involvement from his sterling virus infection no prior history of coronary artery disease history of asthma poorly controlled add nebulized Brovana and inhaler p.r.n. echocardiogram pending patient is fully anti coagulated
[2020-07-12] MEDS ORDERED: IVERMECTIN 3 MG TABLET PO ONE (12:45)
[2020-07-12] MEDS ORDERED: Remdesivir 200 MG in NA CHLORIDE 0.9% 250 ML IV ONE (13:00)
--- NOTE | 2020-07-12 14:11 | EKG ---
Test Date: 2020-07-11 Test Time: 19:49:26 Welder Plasma Arc: ETHEL MEASUREMENT RESULTS: Intervals: Rate: 73 FL: 140 QRSD: 94 QT: 368 QTc: 405 [place]: P: 37 FL: 140 QRS: 14 T: 31 INTERPRETIVE STATEMENTS: Normal sinus rhythm Normal ECG Compared to ECG 02/22/2016 19:55:02 Myocardial infarct finding no longer present Electronically Signed On 07-12-20 14:09:02 SOFTWARE INTEGRATOR by Syed Jordan
--- NOTE | 2020-07-12 14:52 | ECHO ---
HEIGHT: 5 ft 5 in WEIGHT: 220 lb 0 oz DATE OF STUDY: 07/12/[address]: Syed Jordan MD 2-DIMENSIONAL: YES M.MODE: YES DOPPLER: YES COLOR FLOW: YES TDS: NO PORTABLE: NO DEFINITY: NO BUBBLE STUDY: NO DIAGNOSIS: ELEVATED TROPONIN CARDIAC HISTORY: CATHERIZATION: NO SURGERY: NO PROSTHETIC VALVE: NO PACEMAKER: NO MEASUREMENTS (cm) DIASTOLIC (NORMALS) SYSTOLIC (NORMALS) IVSd 1.0 (0.6-1.2) LA Diam 3.2 (1.9-4.0) LVEF 73% LVIDd 4.1 (3.5-5.7) LVIDs 2.4 (2.0-3.5) %FS 42% LVPWd 1.1 (0.6-1.2) Ao Diam 2.9 (2.0-3.7) 2 DIMENSIONAL ASSESSMENT: RIGHT ATRIUM: NORMAL LEFT ATRIUM: NORMAL RIGHT VENTRICLE: NORMAL LEFT VENTRICLE: NORMAL TRICUSPID VALVE: NORMAL MITRAL VALVE: NORMAL PULMONIC VALVE: NORMAL AORTIC VALVE: NORMAL PERICARDIAL EFFUSION: NONE AORTIC ROOT: NORMAL LEFT VENTRICULAR WALL MOTION: NORMAL. DOPPLER/COLOR FLOW: NORMAL. COMMENTS: NORMAL 2D ECHO WITH DOPPLER. NO WALL MOTION ABNORMALITY. NO EFFUSION. TECHNOLOGIST: PAUL DUQUE
--- NOTE | 2020-07-12 16:08 | P.PN ---
Subjective Date of Service: 07/12/20 Primary Care Provider: Dr. Adame Chief Complaint: COVID Pneumonia, Hypoxia, NSTEMI Patient currently has no new complain. Troponin trended to 1.56. Physical Examination - Vital Signs Temperature: 98 F Blood Pressure: 119/60 Pulse: 57 Respirations: 27 Pulse Ox (%): 93 - Physical Exam General: Alert, In no apparent distress Neck: Supple, JVD not distended Respiratory: Other (No labored breathing) Cardiovascular: No edema, Regular rate/rhythm, Normal S1 S2 Gastrointestinal: Soft and benign, Non-distended Musculoskeletal: No swelling Integumentary: No rashes Neurological: Other (No focal motor deficit) - Studies Laboratory Data (last 24 hrs) 07/11/20 20:01: PT 11.8, INR 1.03, APTT 21.0 L 07/11/20 18:56: WBC 12.00 H, Hgb 12.1 L, Hct 36.7 L, Plt Count 318 07/11/20 18:56: Sodium 142, Potassium 3.2 L, BUN 17, Creatinine 1.04, Glucose 99, Total Bilirubin 0.5, AST 16, ALT 29, Alkaline Phosphatase 61, Lipase 68 L Assessment And Plan - Current Problems (Diagnosis) (1) Acute respiratory failure with hypoxia Current Visit: Yes Status: Acute (2) Pneumonia due to COVID-19 virus Current Visit: Yes Status: Acute (3) NSTEMI (non-ST elevated myocardial infarction) Current Visit: Yes Status: Acute - Plan Patient tolerating 4 L of oxygen by nasal cannula. He seen by cardiology. Elevated troponin related to demand ischemia or possible myocarditis. Echocardiogram is completed and the result is pending. Continue IV steroid, oral vitamin-C, vitamin-D and zinc supplementation. He is on full-dose Lovenox. Titrate oxygen. Patient started on Remdesivir. Pulmonary input appreciated. Watch for steroid induced hyperglycemia and start insulin sliding scale as needed. Patient likely to need home oxygen.
[2020-07-12] MEDS: ARFORMOTEROL TARTRATE 15 MCG/2 ML VIAL.NEB NEB SCH (19:20)
[2020-07-13] MEDS: HYDROCODONE/APAP 7.5/325 MG TAB PO PRN ×3 (04:01→20:32)
[2020-07-13 04:10] LABS: Absolute Lymphocytes (CBC) 0.6 K/uL (0.7-4.9); Basophils % 0.2 % (0-1.3); Hematocrit 35.3 % (39.6-49.0); Lymphocytes % 6.7 % (15.3-44.8); MPV 6.7 fL (7.6-11.3)
[2020-07-13 04:26] LABS: Albumin 2.4 g/dL (3.4-5.0); Bilirubin Direct 0.1 mg/dL (0-0.2); Bilirubin Total 0.4 mg/dL (0.2-1.0); Potassium 4.3 mmol/L (3.5-5.1)
[2020-07-13] MEDS: ARFORMOTEROL TARTRATE 15 MCG/2 ML VIAL.NEB NEB SCH ×2 (08:00→19:45)
[2020-07-13] MEDS: ENOXAPARIN 100 MG/ML SYR SQ SCH ×2 (09:43→20:31)
[2020-07-13] MEDS: METHYLPREDNISOLONE 40 MG INJ IV SCH ×2 (09:43→20:32)
[2020-07-13] MEDS: Remdesivir 100 MG in NA CHLORIDE 0.9% 250 ML IV SCH (09:43)
[2020-07-13] MEDS: VITAMIN D 5,000 UNIT CAP PO SCH (09:44)
[2020-07-13] MEDS: FAMOTIDINE 20 MG/2 ML VIAL IV SCH ×2 (09:44→20:32)
[2020-07-13] MEDS: ZINC SULFATE 220 MG CAP PO SCH (09:44)
[2020-07-13] MEDS: ASCORBIC ACID 500 MG TABLET PO SCH ×4 (09:44→20:33)
[2020-07-13] MEDS: ASPIRIN EC 81 MG TAB PO SCH (09:44)
[2020-07-13] MEDS: THIAMINE 200 MG/2 ML INJ IVP SCH ×2 (09:45→20:31)
--- NOTE | 2020-07-13 12:13 | P.PN ---
Subjective Date of Service: 07/13/20 Primary Care Provider: Dr. Adame Chief Complaint: COVID Pneumonia, Hypoxia, NSTEMI Patient currently has no new complain. Patient is tolerating 3 L of oxygen by nasal cannula Physical Examination - Vital Signs Temperature: 97.2 F Blood Pressure: 143/75 Pulse: 61 Respirations: 19 Pulse Ox (%): 95 - Physical Exam General: Alert, In no apparent distress Neck: JVD not distended Respiratory: Other (Nonlabored breathing.) Cardiovascular: No edema, Regular rate/rhythm, Normal S1 S2 Gastrointestinal: Soft and benign, Non-distended Musculoskeletal: No swelling Integumentary: No rashes Neurological: Other (No focal motor deficit.) Assessment And Plan - Current Problems (Diagnosis) (1) Acute respiratory failure with hypoxia Current Visit: Yes Status: Acute (2) Pneumonia due to COVID-19 virus Current Visit: Yes Status: Acute (3) NSTEMI (non-ST elevated myocardial infarction) Current Visit: Yes Status: Acute - Plan Patient tolerating 3 L of oxygen by nasal cannula. He seen by cardiology. Elevated troponin related to demand ischemia or possible myocarditis. Echocardiogram result: Unremarkable. Normal EF. No wall motion abnormality reported. Continue IV steroid, oral vitamin-C, vitamin-D and zinc supplementation. He is on full-dose Lovenox. Titrate oxygen. Patient started on Remdesivir. Pulmonary input appreciated. Watch for steroid induced hyperglycemia and start insulin sliding scale as neede d. Patient likely to need home oxygen. Arrange for home oxygen.
[2020-07-13] MEDS: MELATONIN 5 MG TABLET PO SCH (20:33)
[2020-07-14] MEDS: HYDROCODONE/APAP 7.5/325 MG TAB PO PRN ×2 (03:09→18:29)
[2020-07-14 03:58] LABS: Absolute Lymphocytes (CBC) 0.5 K/uL (0.7-4.9); Basophils % 0.2 % (0-1.3); Hematocrit 36.9 % (39.6-49.0); Lymphocytes % 6.7 % (15.3-44.8); MPV 6.7 fL (7.6-11.3); RBC Red Blood Cell Count 4.47 M/uL (4.33-5.43)
[2020-07-14 04:14] LABS: Albumin 2.4 g/dL (3.4-5.0); Bilirubin Direct 0.1 mg/dL (0-0.2); Bilirubin Total 0.3 mg/dL (0.2-1.0); Potassium 4.4 mmol/L (3.5-5.1); Protein, Total 5.9 g/dL (6.4-8.2)
--- NOTE | 2020-07-14 06:18 | CON ---
Date of Consultation: 07/12/2020 The patient's chart was reviewed on 07/12/2020. He was seen for COVID pneumonia and elevated troponi n. History Of Present Illness: Mr. Garcia has a history of hypertension, asthma, chronic pain. He cam e in with shortness of breath, was found to have COVID pneumonia. He denied any chest pain. Has had shortness of breath. No previous cardiac history before. He was noted to have a troponin of 1.56. His CRP was 32. His D-dimer was 23,334. Allergies: HE HAS NO ALLERGIES. Medications At Home: Atenolol, gabapentin, and Tylenol No.3. Physical Examination: As reported by Dr. Rosas was fairly unremarkable except for some pulmonary finding because of his pn eumonia. His cardiac exam was normal. Because of his elevated troponin, I recommended a 2D echocardiogram. If the echocardiogram is abnorm al, we will perform further invasive studies. If his echo is normal, I will sign off his case. It i s very common for the troponin as well as the CRP and the D-dimer to be elevated along with ferritin with the COVID pneumonia. BARRINGTON/MODL Voice ID: [id number] Report ID: [id number]
[2020-07-14] MEDS: FAMOTIDINE 20 MG/2 ML VIAL IV SCH ×2 (08:34→21:01)
[2020-07-14] MEDS: VITAMIN D 5,000 UNIT CAP PO SCH (08:34)
[2020-07-14] MEDS: ASCORBIC ACID 500 MG TABLET PO SCH ×4 (08:34→20:48)
[2020-07-14] MEDS: ZINC SULFATE 220 MG CAP PO SCH (08:34)
[2020-07-14] MEDS: ASPIRIN EC 81 MG TAB PO SCH (08:34)
[2020-07-14] MEDS: ENOXAPARIN 100 MG/ML SYR SQ SCH (08:35)
[2020-07-14] MEDS: METHYLPREDNISOLONE 40 MG INJ IV SCH (08:35)
[2020-07-14] MEDS: THIAMINE 200 MG/2 ML INJ IVP SCH ×2 (09:53→20:48)
[2020-07-14] MEDS: Remdesivir 100 MG in NA CHLORIDE 0.9% 250 ML IV SCH (09:54)
[2020-07-14] MEDS ORDERED: IVERMECTIN 3 MG TABLET PO ONE (11:40)
--- NOTE | 2020-07-14 11:40 | P.PN ---
Subjective Date of Service: 07/14/20 Primary Care Provider: Dr. Adame Chief Complaint: COVID Pneumonia, Hypoxia, NSTEMI Subjective: Improving ( patient is doing much better on nasal cannula O2) Review of Systems General: Weakness Respiratory: Shortness of Breath Physical Examination - Vital Signs Temperature: 97.8 F Blood Pressure: 133/68 Pulse: 59 Respirations: 17 Pulse Ox (%): 95 - Physical Exam General: Alert, Oriented x2 Neck: Supple Respiratory: Clear to auscultation bilaterally Assessment & Plan - Problems (Diagnosis) (1) Pneumonia due to COVID-19 virus Current Visit: Yes Status: Acute Plan: patient is doing well plan for discharge seen by Cardiology normal echocardiogram troponins probably elevated from [place] virus labs reviewed discharged home on prednisone and full anticoagulation for now poly niece to follow-up with data center architect for an outpatient stress test Physician Review: Patient Assessed, Agree with Above Assessment and Plan
--- NOTE | 2020-07-14 12:16 | P.PN ---
Subjective Date of Service: 07/14/20 Primary Care Provider: Dr. Adame Chief Complaint: COVID Pneumonia, Hypoxia, NSTEMI Patient currently has no new complain. Patient is stable and tolerating 3 L of oxygen by nasal cannula Physical Examination - Vital Signs Temperature: 98.6 F Blood Pressure: 140/71 Pulse: 62 Respirations: 18 Pulse Ox (%): 94 - Physical Exam General: Alert, In no apparent distress Respiratory: Other (Nonlabored breathing) Cardiovascular: No edema, Regular rate/rhythm Gastrointestinal: Soft and benign, Non-distended Musculoskeletal: No swelling Integumentary: No rashes Neurological: Other (No focal motor deficit.) Assessment And Plan - Current Problems (Diagnosis) (1) Acute respiratory failure with hypoxia Current Visit: Yes Status: Acute (2) Pneumonia due to COVID-19 virus Current Visit: Yes Status: Acute (3) NSTEMI (non-ST elevated myocardial infarction) Current Visit: Yes Status: Acute - Plan Patient tolerating 3 L of oxygen by nasal cannula. He seen by cardiology. Elevated troponin related to demand ischemia or possible myocarditis. Echocardiogram result: Unremarkable. Normal EF. No wall motion abnormality reported. Continue IV steroid, oral vitamin-C, vitamin-D and zinc supplementation. Lovenox switched to Xarelto for thromboembolism prophylaxis. On Remdesivir. Pulmonary is following. Watch for steroid induced hyperglycemia and start insulin sliding scale as needed. Arrange for home oxygen for discharge.
[2020-07-14] MEDS: ARFORMOTEROL TARTRATE 15 MCG/2 ML VIAL.NEB NEB SCH ×2 (12:45→20:15)
[2020-07-14] MEDS ORDERED: RIVAROXABAN 10 MG TABLET PO SCH (17:00)
--- NOTE | 2020-07-14 17:40 | P.DS ---
Admission Date: 07/11/20 Discharge Date: 07/14/20 Primary Care Provider: Dr. Adame Disposition: ROUTINE DISCHARGE Discharge Condition: FAIR Reason for Admission: COVID Pneumonia, Hypoxia, NSTEMI - Problems (1) Acute respiratory failure with hypoxia Current Visit: Yes Status: Acute (2) Pneumonia due to COVID-19 virus Current Visit: Yes Status: Acute (3) NSTEMI (non-ST elevated myocardial infarction) Current Visit: Yes Status: Acute Vital Signs/Physical Exam: Temp Pulse Resp BP Pulse Ox 98.6 F 59 19 159/77 H 95 07/14/20 16:00 07/14/20 16:00 07/14/20 16:00 07/14/20 16:00 07/14/20 16:00 Laboratory Data at Discharge: WBC 8.00 K/uL (4.3-10.9) 07/14/20 03:10 Hgb 12.4 g/dL (13.6-17.9) L 07/14/20 03:10 Hct 36.9 % (39.6-49.0) L 07/14/20 03:10 Plt Count 309 K/uL (152-406) 07/14/20 03:10 PT 11.8 SECONDS (9.5-12.5) 07/11/20 20:01 INR 1.03 07/11/20 20:01 APTT 21.0 SECONDS (24.3-36.9) L 07/11/20 20:01 Sodium 140 mmol/L (136-145) 07/14/20 03:10 Potassium 4.4 mmol/L (3.5-5.1) 07/14/20 03:10 BUN 28 mg/dL (7-18) H 07/14/20 03:10 Creatinine 1.02 mg/dL (0.55-1.3) 07/14/20 03:10 Glucose 183 mg/dL (74-106) H 07/14/20 03:10 Total Bilirubin 0.3 mg/dL (0.2-1.0) 07/14/20 03:10 AST 12 U/L (15-37) L 07/14/20 03:10 ALT 27 U/L (12-78) 07/14/20 03:10 Alkaline Phosphatase 50 U/L (45-117) 07/14/20 03:10 Troponin I 1.56 ng/mL (0.0-0.045) H* 07/12/20 03:35 Triglycerides 172 mg/dL (<150) H 07/12/20 03:35 Cholesterol 167 mg/dL (<200) 07/12/20 03:35 HDL Cholesterol 52 mg/dL (40-60) 07/12/20 03:35 Cholesterol/HDL Ratio 3.21 07/12/20 03:35 Lipase 68 U/L (73-393) L 07/11/20 18:56 Home Medications: Albuterol Sulfate [Proair Hfa] 1 puff IH Q4HP PRN 07/12/20 Baclofen 20 mg PO TIDP PRN 07/12/20 Finasteride 5 mg PO DAILY 07/12/20 Fluticasone [Flonase 50MCG Nasal [place]*] 1 inh IH DAILY 07/12/20 Fluticasone/Salmeterol [Advair 250-50 Diskus] 1 inh IH DAILY 07/12/20 Furosemide [Lasix*] 20 mg PO DAILY 07/12/20 Gabapentin 600 mg PO TID 07/12/20 Hydrocodone 7.5/APAP 325 [[place] 7.5/325 mg*] 1 tab PO TID 07/12/20 Metoprolol Succinate [Toprol Xl*] 50 mg PO DAILY 07/12/20 Montelukast [Singulair*] 10 mg PO DAILY 07/12/20 Sertraline [Zoloft*] 100 mg PO DAILY 07/12/20 Simvastatin 40 mg PO BEDTIME 07/12/20 lisinopriL [Prinivil*] 20 mg PO DAILY 07/12/20 Albuterol Inhaler [Ventolin Inhaler*] 2 puff IH Q4H PRN #1 hfa.aer.ad 07/14/20 Ascorbic Acid [Vitamin C*] 500 mg PO QID #120 tablet 07/14/20 Aspirin [Aspirin EC 81 MG] 81 mg PO DAILY #30 tablet. 07/14/20 Cholecalciferol (Vitamin D3) [Vitamin D3] 4,000 unit PO DAILY #60 capsule 07/14/20 Zinc Sulfate [Zinc Sulfate*] 220 mg PO DAILY #30 cap 07/14/20 predniSONE [Deltasone] 20 mg PO BID #21 tab 07/14/20 New Medications: Aspirin [Aspirin EC 81 MG] 81 mg PO DAILY #30 tablet. predniSONE [Deltasone] 20 mg PO BID #21 tab Albuterol Inhaler [Ventolin Inhaler*] 2 puff IH Q4H PRN #1 hfa.aer.ad PRN Reason: Shortness Of Breath Ascorbic Acid [Vitamin C*] 500 mg PO QID #120 tablet Cholecalciferol (Vitamin D3) [Vitamin D3] 4,000 unit PO DAILY #60 capsule Zinc Sulfate [Zinc Sulfate*] 220 mg PO DAILY #30 cap Diet: AHA Activity: Ad cristel Followup: NONE,NONE [Primary Care Provider] - 1-2 Weeks Ankit Suazo MD [ACTIVE - CAN ADMIT] - 1 Week
[2020-07-14] MEDS: MELATONIN 5 MG TABLET PO SCH (20:48)
[2020-07-14] MEDS: predniSONE 20 MG TAB PO SCH (21:00)
[2020-07-15] MEDS: HYDROCODONE/APAP 7.5/325 MG TAB PO PRN (03:42)
[2020-07-15 04:22] LABS: Albumin 2.6 g/dL (3.4-5.0); Bilirubin Direct 0.1 mg/dL (0-0.2); Bilirubin Total 0.4 mg/dL (0.2-1.0); C-Reactive Protein 4.04 mg/L (<3.00); Ferritin 216.2 ng/mL (26-388); Magnesium 2.5 mg/dL (1.8-2.4); Potassium 4.4 mmol/L (3.5-5.1)
[2020-07-15] MEDS: ARFORMOTEROL TARTRATE 15 MCG/2 ML VIAL.NEB NEB SCH (07:41)
[2020-07-15] MEDS: THIAMINE 200 MG/2 ML INJ IVP SCH (08:45)
[2020-07-15] MEDS: predniSONE 20 MG TAB PO SCH (08:45)
[2020-07-15] MEDS: ASCORBIC ACID 500 MG TABLET PO SCH ×2 (08:45→12:33)
[2020-07-15] MEDS: ASPIRIN EC 81 MG TAB PO SCH (08:45)
[2020-07-15] MEDS: VITAMIN D 5,000 UNIT CAP PO SCH (08:45)
[2020-07-15] MEDS: ZINC SULFATE 220 MG CAP PO SCH (08:45)
[2020-07-15] MEDS: FAMOTIDINE 20 MG/2 ML VIAL IV SCH (08:45)
[2020-07-15] MEDS: Remdesivir 100 MG in NA CHLORIDE 0.9% 250 ML IV SCH (09:07)
[2020-07-15 10:03] VITALS: O2SAT 98
[2020-07-15 12:04] VITALS: BP 132/67; TEMP 97.8
--- NOTE | 2020-07-15 17:08 | EKG ---
Test Date: 2020-07-15 Test Time: 03:54:55 Graphic Technician: MIKKI MEASUREMENT RESULTS: Intervals: Rate: 62 FL: 134 QRSD: 88 QT: 418 QTc: 424 [place]: P: 63 FL: 134 QRS: -10 T: 46 INTERPRETIVE STATEMENTS: Normal sinus rhythm Septal infarct, age undetermined Abnormal ECG Compared to ECG 07/14/2020 17:50:56 Myocardial infarct finding now present Electronically Signed On 07-15-20 17:06:04 RISK CONTROL MANAGER by Syed Jordan
--- NOTE | 2020-07-15 17:11 | EKG ---
Test Date: 2020-07-14 Test Time: 17:50:56 Investigation Clerk: AP MEASUREMENT RESULTS: Intervals: Rate: 67 VT: 144 QRSD: 96 QT: 406 QTc: 429 [place]: P: 72 VT: 144 QRS: -4 T: 36 INTERPRETIVE STATEMENTS: Normal sinus rhythm Normal ECG Compared to ECG 07/11/2020 19:49:26 No significant changes Electronically Signed On 07-15-20 17:06:23 INTEGRITY ENGINEER by Syed Jordan
--- NOTE | 2020-07-15 20:16 | P.DS ---
Admission Date: 07/11/20 Discharge Date: 07/15/20 Primary Care Provider: Dr. Adame Disposition: ROUTINE DISCHARGE Discharge Condition: FAIR Reason for Admission: COVID Pneumonia, Hypoxia, NSTEMI Consultations: Pulmonology - Dr. Suazo Procedures: CT Dissection protocol (07/11): : Negative for an aortic dissection. Minimal sigmoid diverticulitis. Moderate bilateral ground-glass opacities can be seen with Covid pneumonia, other pneumonias and pneumonitis CT Head / Cspine (07/11): No acute intracranial abnormality is seen. No gross cervical fracture visualized. Images degraded by patient motion artifact Shoulder X-ray (07/11): : No fracture or dislocation is seen. Mild osteoarthritis AC joint TTE (07/12): normal 2D echo, no wall motion abnormality Problem List: Acute respiratory failure with hypoxia secondary to Pneumonia due to COVID-19 virus NSTEMI (non-ST elevated myocardial infarction) Brief History of Present Illness: 60-year-old male with a history of chronic back pain, hypertension, asthma that presents to the emergency room today after having increased shortness of breath for the last 3 days. Patient stated that he has passed out a few times from shortness of breath, including today. Patient upon arrival to emergency room had initial oxygen saturation of 81% on room air and was tachypneic. Patient stated that he has been diagnosed with COVID and is still not improving. Patient was worked up in the emergency room and found to have a sodium 142, potassium 3.2, bicarb of 25, chloride of 111, BUN of 17, creatinine 1.04, glucose 99. Patient had a white cell count of 12, hemoglobin 12.1, he had a hematocrit of 36.7, platelet of 318. Patient had CRP of 26.8. CT showed bilateral pulmonary opacities consistent with viral pneumonia but no pulmonary embolism. Troponin initial 0.44. Hospital Course: Patient was admitted and treated for COVID-19 pneumonia with steroids, remdesevir, ivermectin, and vitamin supplementation. Patient improved and was breathing comfortably on minimal oxygen supplementation. Home oxygen was set up and the patient was discharged home. He is to follow up with Dr. Suazo in the next week. He did report chest pain, Cardiology was consulted, patient had a normal echocardiogram, and Cardiology recommended no interventions or further evaluation at this time. Pain is likely due to costochondritis vs pleurisy from Covid pneumonia. He did have some left upper chest wall tenderness on palpation. He can follow up with cardiology in the next few weeks. Vital Signs/Physical Exam: Physical Exam General: Alert, In no apparent distress Respiratory: nonlabored respirations on 1L [place] Cardiovascular: No edema, Regular rate/rhythm Gastrointestinal: Soft and benign, Non-distended Musculoskeletal: No swelling Integumentary: No rashes Neurological: Other (No focal motor deficit.) Temp Pulse Resp BP Pulse Ox 97.8 F 73 21 H 132/67 91 07/15/20 12:00 07/15/20 12:00 07/15/20 12:00 07/15/20 12:00 07/15/20 12:00 Laboratory Data at Discharge: WBC 8.00 K/uL (4.3-10.9) 07/14/20 03:10 Hgb 12.4 g/dL (13.6-17.9) L 07/14/20 03:10 Hct 36.9 % (39.6-49.0) L 07/14/20 03:10 Plt Count 309 K/uL (152-406) 07/14/20 03:10 PT 11.8 SECONDS (9.5-12.5) 07/11/20 20:01 INR 1.03 07/11/20 20:01 APTT 21.0 SECONDS (24.3-36.9) L 07/11/20 20:01 Sodium 142 mmol/L (136-145) 07/15/20 03:07 Potassium 4.4 mmol/L (3.5-5.1) 07/15/20 03:07 BUN 19 mg/dL (7-18) H 07/15/20 03:07 Creatinine 0.95 mg/dL (0.55-1.3) 07/15/20 03:07 Glucose 153 mg/dL (74-106) H 07/15/20 03:07 Magnesium 2.5 mg/dL (1.8-2.4) H 07/15/20 03:07 Total Bilirubin 0.4 mg/dL (0.2-1.0) 07/15/20 03:07 AST 23 U/L (15-37) 07/15/20 03:07 ALT 40 U/L (12-78) 07/15/20 03:07 Alkaline Phosphatase 48 U/L (45-117) 07/15/20 03:07 Troponin I 0.29 ng/mL (0.0-0.045) H 07/15/20 03:07 Triglycerides 172 mg/dL (<150) H 07/12/20 03:35 Cholesterol 167 mg/dL (<200) 07/12/20 03:35 HDL Cholesterol 52 mg/dL (40-60) 07/12/20 03:35 Cholesterol/HDL Ratio 3.21 07/12/20 03:35 Lipase 68 U/L (73-393) L 07/11/20 18:56 Home Medications: Albuterol Sulfate [Proair Hfa] 1 puff IH Q4HP PRN 07/12/20 Baclofen 20 mg PO TIDP PRN 07/12/20 Finasteride 5 mg PO DAILY 07/12/20 Fluticasone [Flonase 50MCG Nasal [place]*] 1 inh IH DAILY 07/12/20 Fluticasone/Salmeterol [Advair 250-50 Diskus] 1 inh IH DAILY 07/12/20 Furosemide [Lasix*] 20 mg PO DAILY 07/12/20 Gabapentin 600 mg PO TID 07/12/20 Hydrocodone 7.5/APAP 325 [[place] 7.5/325 mg*] 1 tab PO TID 07/12/20 Metoprolol Succinate [Toprol Xl*] 50 mg PO DAILY 07/12/20 Montelukast [Singulair*] 10 mg PO DAILY 07/12/20 Sertraline [Zoloft*] 100 mg PO DAILY 07/12/20 Simvastatin 40 mg PO BEDTIME 07/12/20 lisinopriL [Prinivil*] 20 mg PO DAILY 07/12/20 Albuterol Inhaler [Ventolin Inhaler*] 2 puff IH Q4H PRN #1 hfa.aer.ad 07/14/20 Ascorbic Acid [Vitamin C*] 500 mg PO QID #120 tablet 07/14/20 Aspirin [Aspirin EC 81 MG] 81 mg PO DAILY #30 tablet. 07/14/20 Cholecalciferol (Vitamin D3) [Vitamin D3] 4,000 unit PO DAILY #60 capsule 07/14/20 Zinc Sulfate [Zinc Sulfate*] 220 mg PO DAILY #30 cap 07/14/20 predniSONE [Deltasone] 20 mg PO BID #21 tab 07/14/20 New Medications: Aspirin [Aspirin EC 81 MG] 81 mg PO DAILY #30 tablet. predniSONE [Deltasone] 20 mg PO BID #21 tab Albuterol Inhaler [Ventolin Inhaler*] 2 puff IH Q4H PRN #1 hfa.aer.ad PRN Reason: Shortness Of Breath Ascorbic Acid [Vitamin C*] 500 mg PO QID #120 tablet Cholecalciferol (Vitamin D3) [Vitamin D3] 4,000 unit PO DAILY #60 capsule Zinc Sulfate [Zinc Sulfate*] 220 mg PO DAILY #30 cap Physician Discharge Instructions: You were found to have COVID-19 pneumonia. You have improved and are discharged home with prednisone (steroids). You will need to follow up with Dr. Suazo in 1-2 weeks. Your chest pain was evaluated with EKG, Echocardiogram, and cardiac enzymes which were not consistent with a heart attack. Dr. Jordan recommends you follow up with him in the office in ~2 weeks. Diet: AHA Activity: Ad cristel Followup: Ankit Suazo MD [ACTIVE - CAN ADMIT] - 1-2 Weeks (stripper cutter machine- call to schedule an appointment ) Syed Jordan MD [ACTIVE - CAN ADMIT] - 1-2 Weeks (facility mechanic- call to schedule an appointment ) Santy Adame MD [COURTESY - CAN ADMIT] - 1-2 Weeks (PCP- call to schedule an appointment ) Time spent managing pt's care (in minutes): 40
== END 2020-07-15 13:15 | disposition home or self-care (01) | DRG 177 ==
LOC: ER 17:55 → ERHOLD 21:44 → 4TH 23:34
PROVIDERS: ADMIT Internal Medicine; ATTEND Hospitalist
PROC: XW033E5 Introduction of Remdesivir Anti-infective into Peripheral Vein, Percutaneous Approach, New Technology Group 5 (ICD-10-PCS; principal; 2020-07-11)
DX: U07.1 COVID-19 (principal); J12.82 Pneumonia due to coronavirus disease 2019; I21.4 Non-ST elevation (NSTEMI) myocardial infarction; J96.01 Acute respiratory failure with hypoxia; I10 Essential (primary) hypertension; G89.29 Other chronic pain; M54.9 Dorsalgia, unspecified; E87.6 Hypokalemia; Z79.52 Long term (current) use of systemic steroids; Z79.899 Other long term (current) drug therapy
CPT/HCPCS: 0240U; 36415; 70450; 71275; 72125; 74175; 80048; 80061; 80076; 82565; 82728; 83605; 83690; 83735; 84145; 84484; 85025; 85379; 85610; 85730; 86140; 87040; 93005; 93306; 94640; 94760; 96372; 96374; 99285; J1650; J2920; J2930; J3411; J7050; J7512; J7605; Q9967

== ENCOUNTER 2023-01-14 15:40 | Emergency (ER) | payer OTHER ==
--- OUTSIDE RECORDS SUMMARY | 2023-01-14 15:50 | XMS REPORT | Continuity of Care Document ---
:1960 Author Organization [facility] t Address [address] [place] [address] [address] [place] [address] Care Team Providers Name Role Phone MARIA M BRENNAN A Primary Care Physician Unavailable LATOYA MUÑOZ Attending Clinician Unavailable NATHALIA MIGUEL Attending Clinician Unavailable DK GARCIA Attending Clinician Unavailable DK GARCIA Attending Clinician Unavailable CHUCHO KHAN K.HAby Attending Clinician Unavailable Chucho Khan MD K.H. Attending Clinician Merced FANG, New Attending Clinician NATALEE ESPINOSA Attending Clinician Unavailable Doctor Unassigned, M[place] Attending Clinician Unavailable Unassigned, Cath/Ep Attending Clinician Unavailable KRISTA DAVIS Attending Clinician Unavailable Nathan Reyez MD Attending Clinician Krista Davis MD Attending Clinician LIZZY HERRERA Attending Clinician Unavailable Jalen Gutierrez Attending Clinician Lizzy Herrera DO Attending Clinician Gela Jules Attending Clinician Unavailable EZEQUIEL DOMINGO Attending Clinician Unavailable Ezequiel Domingo DO Attending Clinician LEWIS MAYNARD Attending Clinician Unavailable Sanket Capone MD Attending Clinician Lewis Maynard MD Attending Clinician ALISHA CUTLER Attending Clinician Unavailable MARCELLO STARKEY Attending Clinician Unavailable Marcello Starkey MD Attending Clinician ALEKSANDRA ALLISON Attending Clinician Unavailable Estefany FANG, Aleksandra Attending Clinician Tyler Nelson MD Attending Clinician Shira FANG, Delma Attending Clinician Demetria FANG, Vishal Attending Clinician VISHAL AUGUSTIN Attending Clinician Unavailable Molly Damian MD Attending Clinician Latoya Muñoz MD Attending Clinician WILLY DAILY Attending Clinician Unavailable Willy Daily MD Attending Clinician [phone] Aidan FANG, Nathalia Attending Clinician Dea NAVARRO, Joy Duarte Attending Clinician Marshall Feliciano MD Attending Clinician JALEN VERA Attending Clinician Unavailable Victorino Licona Attending Clinician RADAMES CRUZ Attending Clinician Unavailable Radames Lazcano Attending Clinician LATOYA MUÑOZ Admitting Clinician Unavailable CHUCHO KHAN K.HAby Admitting Clinician Unavailable Chucho Khan MD K.HAby Admitting Clinician KRISTA DAVIS Admitting Clinician Unavailable Krista Davis MD Admitting Clinician Gela Jules Admitting Clinician Unavailable DeepEthanMaria M A Admitting Clinician Unavailable EZEQUIEL DOMINGO Admitting Clinician Unavailable SANKET CAPONE Admitting Clinician Unavailable JALEN VERA Admitting Clinician Unavailable ALEKSANDRA ALLISON Admitting Clinician Unavailable Aleksandra Allison MD Admitting Clinician DELMA CALDERON Admitting Clinician Unavailable Delma Calderon MD Admitting Clinician MARCELLO STARKEY Admitting Clinician Unavailable VISHAL AUGUSTIN Admitting Clinician Unavailable Vishal Augustin MD Admitting Clinician WILLY DAILY Admitting Clinician Unavailable Victorino REYNOLDS Admitting Clinician Unavailable RADAMES CRUZ Admitting Clinician Unavailable Payers Payer Name Policy Type Policy Number Effective Date Expiration Date Eli whittaker [facility] [id number] 2018 00:00:00 PLUS Problems Condition Condition Condition Status Onset Resolution Last Treating Co mments Source Name Details Category Date Date Treatment Clinician Date Cirrhosis Cirrhosis Disease Active Overview: Univers of liver of liver 6-30 Formattin ity of without without 00:00: g of this [place] ascites, ascites, 00 note Medica l unspecifie unspecifie might be Branch d hepatic d hepatic different cirrhosis cirrhosis from the type type original. Added automatic ally from request for surgery [id number] TIERNEY TIERNEY Disease Active Overview: Univer s (dyspnea (dyspnea 6-30 Formattin ity of on on 00:00: g of this [place] exertion) exertion) 00 note Medi romel might be Branch different from the original. Added automatic ally from request for surgery [id number] Dizzy Dizzy Disease Active Overview: Univer s spells spells 6-30 Formattin ity of 00:00: g of this [place] 00 note Medical might be Branch different from the original. Added automatic ally from request for surgery [id number] Atypical Atypical Disease Active Unive rs chest pain chest pain 6-22 it y of 00:00: [place] 00 Medical Branch Bilateral Bilateral Disease Active Uni vers carotid carotid 6-15 ity of artery artery 00:00: [place] stenosis stenosis 00 Medica l Branch Syncope, Syncope, Disease Active Unive rs unspecifie unspecifie 6-14 it y of d syncope d syncope 00:00: [place] type type 00 Medical Branch Chest Chest Disease Active Univers pain, pain, 1-02 ity of unspecifie unspecifie 00:[place] d type d type 00 Medical Branch Transamini Transamini Disease Active 2021-05 U nivers tis tis 2-27 ity of 00:00: [place] [facility] Syncope Syncope Disease Active Univers and and 8-18 ity of collapse collapse 00:00: [place] [facility] Calculus Calculus Disease Active Unive rs of of 7-07 ity of gallbladde gallbladde 00:[place] r without r without 00 Medi romel cholecysti cholecysti Br anch tis tis without without obstructio obstructio n n Gallstones Gallstones Disease Active U nivers 7-06 ity of 00:00: [place] [facility] Encounter Encounter Disease Active Uni vers for for 7 ity of pre-operat pre-operat 00:00[place] chandler chandler 00 Medical cardiovasc cardiovasc Br anch ular ular clearance clearance Prediabete Prediabete Disease Active U nivers s s 7-06 ity of 00:00: [place] [facility] Chest pain Chest pain Disease Active U nivers in adult in adult 5-27 ity of 00:00: [place] [facility] Morbid Morbid Disease Active Univers obesity obesity 5-27 ity of with body with body 00:00: [place] mass index mass index 00 Me dical of of Branch 40.0-49.9 40.0-49.9 Essential Essential Disease Active Uni vers hypertensi hypertensi 5-27 it y of on on 00:00: [place] [facility] KAT (acute KAT (acute Disease Active U nivers kidney kidney 5-27 ity of injury) injury) 00:00: [place] [facility] Elevated Elevated Disease Active Unive rs brain brain 5-27 ity of natriureti natriureti 00:00[place] c peptide c peptide 00 Medi romel (BNP) (BNP) Branch level level Asthma Asthma Disease Active Univers 4-08 ity of 00:00: [place] 00 Medical Branch Chronic Chronic Disease Active 2018-05 Univers kidney kidney 1-07 ity of disease disease 00:00: [place] 00 Medical Branch Anxiety Anxiety Disease Active 2018-05 Univers state state 1-07 ity of 00:00: [place] [facility] Lumbar Lumbar Disease Active 2018-05 Univers spondylosi spondylosi 1-07 it y of s s 00:00: [place] [facility] Peripheral Peripheral Disease Active 2018-05 U nivers arterial arterial 1-07 ity of occlusive occlusive 00:[place] disease disease 00 [place] Benign Benign Disease Active 2018-05 Univers prostatic prostatic 1-07 ity of hyperplasi hyperplasi 00:00[place] a with a with 00 Medical urinary urinary Branch obstructio obstructio n n Dyslipidem Dyslipidem Disease Active 2018-05 U nivers ia ia 1-07 ity of 00:00: [place] [facility] Odontoid Odontoid Disease Active 2015-05 Unive rs fracture fracture 0-15 ity of 00:00: [place] 00 Medical Branch Odontoid Odontoid Disease Active 2015-05 Unive rs fracture, fracture, 0-14 ity of closed, closed, 00:00: [place] initial initial 00 Medical encounter encounter Bran ch S/P right S/P right Disease Active Uni vers knee knee 8-14 ity of arthroscop arthroscop 00:[place] y y 00 Medical Branch Right knee Right knee Disease Active U nivers pain pain 7-24 ity of 00:00: [place] [facility] Right-side Right-side Disease Active U nivers d low back d low back 7-24 it y of pain with pain with 00:[place] right-side right-side 00 Me dical d sciatica d sciatica Br anch Right knee Right knee Disease Active U nivers pain pain 7-24 ity of 00:00: [place] 00 Medical Branch Medial Medial Disease Active Univers meniscus meniscus 7-24 ity of tear, tear, 00:00: [place] right, right, 00 Medical initial initial Branch encounter encounter Allergies, Adverse Reactions, Alerts Allergy Allergy Status Severity Reaction(s) Onset Inactive Treating Comm ents Source Name Type Date Date Clinician No Known DA Active U 2004- [facility] Contrast 8-19 Clear Allergie 00:00: [facility] No Known DA Active U [facility] Drug 8- Clear Allergie 00:00: [facility] No Known DA Active U [facility] Food 8- Clear Allergie 00:00: [facility] No Known DA Active U [facility] Other 8- Clear Allergie 00:00: [facility] NO KNOWN Drug Active Univers ALLERGIE Class ity of S [place] [facility] Social History Social Habit Start Date Stop Date Quantity Comments Source History of tobacco Passive smoker Un iversity of use [place] [facility] History SDOH University o f Alcohol Std Drinks [place] [facility] History SDOH University o f Alcohol Binge [place] [facility] History SDOH Social Unive rsity of Connections [facility] Med ical Together Branch History SDOH Social Unive rsity of Connections [facility] Medical Branch History SDOH Social Unive rsity of Connections [place] [facility] Membership Branch History SDOH Social Unive rsity of Connections [place] [facility] Meetings Branch Gender identity [facility]it y of [place] [facility] Sexual orientation Univer sity of [place] [facility] History SDOH 2022-11-10 2022-11-10 1 University o f Alcohol Frequency 00:00:00 00:00:00 [place] M edical Branch History SDOH Social 2022-11-10 2022-11-10 5 Unive rsity of Connections Phone 00:00:00 00:00:00 [place] M edical Branch History SDOH Social 2022-11-10 2022-11-10 4 Unive rsity of Connections Living 00:00:00 00:00:00 [place] [facility] History SDOH 2022-11-10 2022-11-10 0 University o f Physical Activity 00:00:00 00:00:00 [place] M edical DPW Branch History SDOH 2022-11-10 2022-11-10 0 University o f Physical Activity 00:00:00 00:00:00 [place] M edical MPS Branch History SDOH 2022-11-10 2022-11-10 5 University o f Financial 00:00:00 00:00:00 [place] [facility] History SDOH Food 2022-11-10 2022-11-10 1 Univers ity of Worry 00:00:00 00:00:00 [place] [facility] History SDOH Food 2022-11-10 2022-11-10 1 Univers ity of Scarcity 00:00:00 00:00:00 [place] [facility] History SDOH 2022-11-10 2022-11-10 2 University o f Transport Med 00:00:00 00:00:00 [place] Medic al Branch History SDMO 2022-11-10 2022-11-10 2 University o f Transport Non-Med 00:00:00 00:00:00 [place] M edical Branch History SDMO 2022-11-10 2022-11-10 2 University o f Housing Unable to 00:00:00 00:00:00 [place] M edical Pay Branch History [facility] 2022-11-10 2022-11-10 1 University o f Housing Places 00:00:00 00:00:00 [facility] romel Lived Branch History [facility] 2022-11-10 2022-11-10 2 University o f Housing Homeless 00:00:00 00:00:00 [facility] dical Last Year Branch Alcohol intake 2022-11-09 2022-11-09 0 /d [facility] 00:00:00 00:00[facility]00 [facility] History of Social 2022-11-05 2022-11-05 Univers ity of function 00:00:00 00:00:00 [facility] Exposure to 2022-07-23 2022-08-02 Not sure [facility] SARS-CoV-2 (event) 00:00:00 19:27:00 [facility] Tobacco use and 2022-05-12 2022-05-12 Smokeless Universit y of exposure 00:00:00 00:00:00 tobacco non-user [facility] dical Branch Tobacco Comment 2021-12-18 2021-12-18 never used Universit y of 00:00:00 00:00:00 [facility] Education 2021-10-10 2021-10-10 13 [facility] 00:00:00 00:00:00 [facility] Sex [birth year] At [birth year] Universit y of 00:00:00 00:00:00 [facility] Smoking Status Start Date Stop Date Source Never smoked tobacco [facility] Medications Ordered Filled Start Stop Current Ordering Indication Dosage Frequency Signature Comments Components Source Medication Medication Date Date Medication? Clinician (SIG) Name Name iohexoL 2022-0 2022- No ONCE INTRA Uni vers (OMNIPAQUE 12-03 07-20 PROCEDURE, it y of 180-20 mL) 15:51: 16:09 [place] injection 54 :09 on [facility] 12/03/22 at Branch 1051, Until [facility] 12/03/22 at 1109, Routine, CV Intraproce dure montelukast 2023-0 Yes 10mg Take 1 Univ ers (SINGULAIR) 7-20 tablet by ity of 10 mg 15:21: mouth in [place] tablet 16 the Medical morning. Branch SERTraline 2023-0 Yes 100mg Take 1 Univ ers 100 mg 7-20 tablet by ity of tablet 15:21: mouth in [place] 16 the Medical morning. Branch montelukast 2023-0 Yes 10mg Take 1 Univ ers (SINGULAIR) 7-20 tablet by ity of 10 mg 15:21: mouth in [place] tablet 16 the Medical morning. Branch SERTraline 2023-0 Yes 100mg Take 1 Univ ers 100 mg 7-20 tablet by ity of tablet 15:21: mouth in [place] 16 the Medical morning. Branch montelukast 2023-0 Yes 10mg Take 1 Univ ers (SINGULAIR) 7-20 tablet by ity of 10 mg 15:21: mouth in [place] tablet 16 the Medical morning. Branch SERTraline 2023-0 Yes 100mg Take 1 Univ ers 100 mg 7-20 tablet by ity of tablet 15:21: mouth in [place] 16 the Medical morning. Branch montelukast 2023-0 Yes 10mg Take 1 Univ ers (SINGULAIR) 7-20 tablet by ity of 10 mg 15:21: mouth in [place] tablet 16 the Medical morning. Branch SERTraline 2023-0 Yes 100mg Take 1 Univ ers 100 mg 7-20 tablet by ity of tablet 15:21: mouth in [place] 16 the Medical morning. Branch montelukast 2023-0 Yes 10mg Take 1 Univ ers (SINGULAIR) 7-20 tablet by ity of 10 mg 15:21: mouth in [place] tablet 16 the Medical morning. Branch SERTraline 2023-0 Yes 100mg Take 1 Univ ers 100 mg 7-20 tablet by ity of tablet 15:21: mouth in [place] 16 the Medical morning. Branch montelukast Yes 10mg Take 1 Univ ers (SINGULAIR) 7-20 tablet by ity of 10 mg 15:21: mouth in [place] tablet 16 the Medical morning. Branch SERTraline Yes 100mg Take 1 Univ ers 100 mg 7-20 tablet by ity of tablet 15:21: mouth in [place] 16 the Medical morning. Branch NaCl 0.9% 2022- No CONTINUOUS U nivers (NS) bolus 12-03 PRN, ity of infusion 14:37: 16:09 [place] 01 :09 on [facility] 12/03/22 at Branch 0937, Until [facility] 12/03/22 at 1109, STAT, CV Intraproce dure nitroglycer 2022- No ONCE INTRA Univers in (TRIDIL) 12-03 PROCEDURE, i ty of 2 mg in 10 14:30: 16:09 [place] D5W for 54 :09 on [facility] 12/03/22 at Branch Cath 0930, Until [facility] 12/03/22 at 1109, Routine, CV Intraproce dure verapamiL 2022- No ONCE INTRA U nivers (ISOPTIN) 12-03 PROCEDURE, ity of injection 14:28: 16:09 Starting [place] 47 :09 on [facility] 12/03/22 at Branch 0928, Until [facility] 12/03/22 at 1109, Routine, CV Intraproce dure heparin 2022- No ONCE INTRA Uni vers 1,000 12-03 PROCEDURE, ity of unit/mL 14:28: 16:09 Starting [place] injection 19 :09 on [facility] 12/03/22 at Branch 0928, Until [facility] 12/03/22 at 1109, Routine, CV Intraproce dure lidocaine 2022- No ONCE INTRA U nivers 1% (PF) 12-03 PROCEDURE, ity o f (XYLOCAINE) 14:14: 16:09 [place] injection 43 :09 on [facility] 12/03/22 at Branch 0914, Until [facility] 12/03/22 at 1109, Routine, CV Intraproce dure midazolam 2022- No ONCE INTRA U nivers (VERSED) 12-03 PROCEDURE, ity of injection 14:10: 16:09 Starting [place] 27 :09 on [facility] Medical 12/03/22 at Branch 0910, Until [facility] 12/03/22 at 1109, Routine, CV Intraproce dure FENTanyl PF 2022-0 2022- No ONCE INTRA Univers (SUBLIMAZE 12-03 PROCEDURE, it y of (PF)) 14:10: 16:09 Starting [place] injection 18 :09 on [facility] Medical 12/03/22 at Branch 0910, Until [facility] 12/03/22 at 1109, Routine, CV Intraproce dure fluticasone 2022-0 Yes [id number] 2{spray Use 2 Univers propionate 6-28 } Sprays in ity of 50 00:00: each [place] mcg/actuati 00 nostril in Me dical on nasal the Branch spray morning. fluticasone 0 Yes [id number] 2{spray Use 2 Univers propionate 6-28 } Sprays in ity of 50 00:00: each [place] mcg/actuati 00 nostril in Me dical on nasal the Branch spray morning. fluticasone 0 Yes [id number] 2{spray Use 2 Univers propionate 6-28 } Sprays in ity of 50 00:00: each [place] mcg/actuati 00 nostril in Me dical on nasal the Branch spray morning. fluticasone 2022-0 Yes [id number] 2{spray Use 2 Univers propionate 6-28 } Sprays in ity of 50 00:00: each [place] mcg/actuati 00 nostril in Me dical on nasal the Branch spray morning. fluticasone 2022-0 Yes [id number] 2{spray Use 2 Univers propionate 6-28 } Sprays in ity of 50 00:00: each [place] mcg/actuati 00 nostril in Me dical on nasal the Branch spray morning. fluticasone 2022-0 Yes [id number] 2{spray Use 2 Univers propionate 6-28 } Sprays in ity of 50 00:00: each [place] mcg/actuati 00 nostril in Me dical on nasal the Branch spray morning. fluticasone 2023-0 Yes [id number] 2{spray Use 2 Univers propionate 6-28 } Sprays in ity of 50 00:00: each [place] mcg/actuati 00 nostril in Me dical on nasal the Branch spray morning. fluticasone Yes [id number] 2{spray Use 2 Univers propionate 6-28 } Sprays in ity of 50 00:00: each [place] mcg/actuati 00 nostril in Me dical on nasal the Branch spray morning. finasteride 2022- Yes [id number] 5mg Take 1 Univers 5 mg tablet 6-28 07-29 tablet by it y of 00:00: 04:59 mouth in [place] 00 :00 the Medical morning Branch for 30 days. finasteride 2022- Yes [id number] 5mg Take 1 Univers 5 mg tablet 6-11 12-29 tablet by it y of 00:00: 04:59 mouth in [place] 00 :00 the Medical morning Branch for 30 days. finasteride 2022- Yes [id number] 5mg Take 1 Univers 5 mg tablet 6-11 12-29 tablet by it y of 00:00: 04:59 mouth in [place] 00 :00 the Medical morning Branch for 30 days. finasteride 2022-2022- Yes [id number] 5mg Take 1 Univers 5 mg tablet 6-11 12-29 tablet by it y of 00:00: 04:59 mouth in [place] 00 :00 the Medical morning Branch for 30 days. finasteride 2022- Yes [id number] 5mg Take 1 Univers 5 mg tablet 6-11 12-29 tablet by it y of 00:00: 04:59 mouth in [place] 00 :00 the Medical morning Branch for 30 days. finasteride 2022-0 2022- Yes [id number] 5mg Take 1 Univers 5 mg tablet 6-11 12-29 tablet by it y of 00:00: 04:59 mouth in [place] 00 :00 the Medical morning Branch for 30 days. finasteride 0 2022- Yes [id number] 5mg Take 1 Univers 5 mg tablet 6- 07-29 tablet by it y of 00:00: 04:59 mouth in [place] 00 :00 the Medical morning Branch for 30 days. finasteride 2022- Yes [id number] 5mg Take 1 Univers 5 mg tablet 11-11- tablet by it y of 00:00: 04:59 mouth in [place] 00 :00 the Medical morning Branch for 30 days. montelukast 2022-0 Yes 10mg Take 1 Univ ers (SINGULAIR) 6-27 tablet by ity of 10 mg 19:11: mouth in [place] tablet 06 the Medical morning. Branch SERTraline 2022-0 Yes 100mg Take 1 Univ ers 100 mg -27 tablet by ity of tablet 19:11: mouth in [place] 06 the Medical morning. Branch montelukast 2022-0 Yes 10mg Take 1 Univ ers (SINGULAIR) 6-27 tablet by ity of 10 mg 19:11: mouth in [place] tablet 06 the Medical morning. Branch SERTraline 2022-0 Yes 100mg Take 1 Univ ers 100 mg 6-27 tablet by ity of tablet 19:11: mouth in [place] 06 the Medical morning. Branch montelukast 2022-0 Yes 10mg Take 1 Univ ers (SINGULAIR) -27 tablet by ity of 10 mg 19:11: mouth in [place] tablet 06 the Medical morning. Branch SERTraline 2022-0 Yes 100mg Take 1 Univ ers 100 mg 6-27 tablet by ity of tablet 19:11: mouth in [place] [id number] the Medical morning. Branch simvastatin 2022- No 40mg Take 2 Uni vers (ZOCOR) 20 11-10- tablets by it y of mg tablet 14:04: 00:00 mouth at [place] 13 :00 bedtime. Medical Branch simvastatin 0 2022- No 40mg Take 2 Uni vers (ZOCOR) 20 11-10 tablets by it y of mg tablet 14:04: 00:00 mouth at [place] 13 :00 bedtime. Medical Branch enoxaparin 0 Yes 40mg 40 mg, Unive rs (LOVENOX) 11-10 Subcutaneo ity of injection 14:00: [place], [place]ILY, [place] 40 mg 00 First dose Medical on Wed11/10/22 at 0900, Until Discontinu ed, Routine aspirin EC 0 Yes 81mg 81 mg, Unive rs tablet 81 11-10 Oral, ity of mg 14:00: DAILY, [place] 00 First dose Medical on [facility] 11/10/22 at 0900, Until Discontinu ed, Routine finasteride 2022-0 Yes 5mg 5 mg, Unive rs (PROSCAR) 11-10 Oral, ity of tablet 5 mg 14:00: DAILY, [place] 00 First dose Medical on [facility] 11/10/22 at 0900, Until Discontinu ed, Routine fluticasone 2022-0 Yes 2{spray 2 [place], Univers propionate 11-10 } Nasal, ity of 50 14:00: DAILY, [place] mcg/actuati 00 First dose Me dical on nasal on [facility] spray 2 11/10/22 at [place] 0900, Until Discontinu ed, Routine montelukast 0 Yes 10mg 10 mg, Univ ers (SINGULAIR) 11-10 Oral, ity of tablet 10 14:00: DAILY, [place] mg 00 First dose Medical on [facility] 11/10/22 at 0900, Until Discontinu ed, Routine SERTraline Yes 100mg 100 mg, Uni vers (ZOLOFT) 11-10 Oral, ity of tablet 100 14:00: DAILY, [place] mg 00 First dose Medical on [facility] 11/10/22 at 0900, Until Discontinu ed, Routine levothyroxi 0 Yes 25ug 25 mcg, Uni vers ne 11-10 Oral, ity of (SYNTHROID) 11:00: QAM-0600, [place] tablet 25 00 First dose Medi romel mcg on [facility] 11/10/22 at 0600, Until Discontinu ed, Routine simvastatin 0 Yes 40mg 40 mg, Univ ers (ZOCOR) 11-10 Oral, QHS, ity of tablet 40 02:00: First dose [place] mg 00 on [facility] 11/09/22 at Branch 2100, Until Discontinu ed, Routine ondansetron 2022-0 Yes 4mg 4 mg, Slow Univers (ZOFRAN 11-10 IV Push, ity of (PF)) 00:25: Q6HPRN, [place] injection 4 34 Starting Medi romel mg on [facility] 11/09/22 at 1925, Until Discontinu ed, Routine, Nausea and Vomiting (N/V) HYDROcodone 2022-0 Yes 1{tbl} 1 tablet, Univers -acetaminop 11-10 Oral, ity of hen (NORCO) 00:25: Q6HPRN, [place] 10-325 mg 32 Starting Medica l tablet 1 on Wed Branch tablet 11/09/22 at 192, Until Discontinu ed, Routine, Pain (scale 7-10) HYDROcodone 0 2022- Yes 1{tbl} 1 tablet, Univers -acetaminop 11-10 06-29 Oral, ity of hen (NORCO 00:25: 00:24 Q6HPRN, [place] 5) 5-325 mg 30 :30 Starting Medi romel tablet 1 on Wed Branch tablet 11/09/22 at 1925, Until Wed11/11/22 at 1924, Routine, Pain (scale 4-6) acetaminoph 0 Yes 650mg 650 mg, Un garry en 11-10 Oral, ity of (TYLENOL) 00:25: Q6HPRN, [place] tablet 650 27 Starting Medic al mg on Wed Branch 11/09/22 at 192, Until Discontinu ed, Routine, Pain (scale 1-3) nitroglycer 0 Yes .4mg 0.4 mg, Uni vers in 11-10 Sublingual ity of (NITROSTAT) 00:22: , Q5MIN [place] sublingual 54 PRN, Medical tablet 0.4 Starting Branc h mg on Wed11/09/22 at 1922, Until Discontinu ed, Routine, Chest pain albuterol Yes [id number] 2{puff} Inhale 2 Univers 90 6-27 Puffs ity of mcg/actuati 00:00: every 4 [place] on inhaler 00 (four) Medical hours as Branch needed for Wheezing or Shortness of Breath. aspirin 81 0 Yes [id number] 81mg Take 1 U nivers mg EC -27 tablet by ity of tablet 00:00: mouth in [place] 00 the Medical morning. Branch albuterol 0 Yes [id number] 2{puff} Inhale 2 Univers 90 6-27 Puffs ity of mcg/actuati 00:00: every 4 [place] on inhaler 00 (four) Medical hours as Branch needed for Wheezing or Shortness of Breath. aspirin 81 0 Yes [id number] 81mg Take 1 U nivers mg EC 6-27 tablet by ity of tablet 00:00: mouth in [place] 00 the Medical morning. Branch albuterol Yes [id number] 2{puff} Inhale 2 Univers 90 6-27 Puffs ity of mcg/actuati 00:00: every 4 [place] on inhaler 00 (four) Medical hours as Branch needed for Wheezing or Shortness of Breath. aspirin 81 0 Yes [id number] 81mg Take 1 U nivers mg EC 6-27 tablet by ity of tablet 00:00: mouth in [place] 00 the Medical morning. Branch albuterol Yes [id number] 2{puff} Inhale 2 Univers 90 6-27 Puffs ity of mcg/actuati 00:00: every 4 [place] on inhaler 00 (four) Medical hours as Branch needed for Wheezing or Shortness of Breath. aspirin Yes [id number] 81mg Take 1 U nivers mg EC 6-27 tablet by ity of tablet 00:00: mouth in [place] 00 the Medical morning. Branch albuterol Yes [id number] 2{puff} Inhale 2 Univers 90 6-27 Puffs ity of mcg/actuati 00:00: every 4 [place] on inhaler 00 (four) Medical hours as Branch needed for Wheezing or Shortness of Breath. aspirin 0 Yes [id number] 81mg Take 1 U nivers mg EC 6-27 tablet by ity of tablet 00:00: mouth in [place] 00 the Medical morning. Branch albuterol Yes [id number] 2{puff} Inhale 2 [facility] 90 6-27 Puffs ity of mcg/actuati 00:00: every 4 [place] on inhaler 00 (four) Medical hours as Branch needed for Wheezing or Shortness of Breath. aspirin 81 0 Yes [id number] 81mg Take 1 U nivers mg EC 6-27 tablet by ity of tablet 00:00: mouth in [place] 00 the Medical morning. Branch albuterol 0 Yes [id number] 2{puff} Inhale 2 [facility] 90 6-27 Puffs ity of mcg/actuati 00:00: every 4 [place] on inhaler 00 (four) Medical hours as Branch needed for Wheezing or Shortness of Breath. aspirin 0 Yes [id number] 81mg Take 1 U nivers mg EC 6-27 tablet by ity of tablet 00:00: mouth in [place] 00 the Medical morning. Branch albuterol Yes [id number] 2{puff} Inhale 2 [facility] 90 6-27 Puffs ity of mcg/actuati 00:00: every 4 [place] on inhaler 00 (four) Medical hours as Branch needed for Wheezing or Shortness of Breath. aspirin 81 0 Yes [id number] 81mg Take 1 U nivers mg EC 6-27 tablet by ity of tablet 00:00: mouth in [place] 00 the Medical morning. Branch furosemide 2022- Yes [id number] 20mg Take 1 [facility] 20 mg 6-27 07-28 tablet by ity of tablet 00:00: 04:59 mouth in [place] 00 :00 the Medical morning Branch for 30 days. levothyroxi 2022- Yes [id number] 25ug Take 1 [facility] ne 25 mcg 11-10-28 tablet by ity of tablet 00:00: 04:59 mouth [place] 00 :00 every Medical morning Branch for 30 days. metoprolol 2022- Yes [id number] 25mg Take 1 [facility] succinate -10 12-28 tablet by ity of XL 25 mg 24 00:00: 04:59 mouth in [place] hr tablet 00 :00 the Medical morning Branch for 30 days. simvastatin 2022- Yes [id number] 40mg Take 1 [facility] 40 mg -10 12-28 tablet by ity of tablet 00:00: 04:59 mouth at [place] 00 :00 bedtime Medical for 30 Branch days. furosemide 2022- Yes [id number] 20mg Take 1 [facility] 20 mg -27 07-28 tablet by ity of tablet 00:00: 04:59 mouth in [place] 00 :00 the Medical morning Branch for 30 days. levothyroxi 2022- Yes [id number] 25ug Take 1 [facility] ne 25 mcg 6-10 12-28 tablet by ity of tablet 00:00: 04:59 mouth [place] 00 :00 every Medical morning Branch for 30 days. metoprolol 2022- Yes [id number] 25mg Take 1 [facility] succinate 6-27 07-28 tablet by ity of XL 25 mg 24 00:00: 04:59 mouth in [place] hr tablet 00 :00 the Medical morning Branch for 30 days. simvastatin 2022- Yes [id number] 40mg Take 1 [facility] 40 mg 6-27 -28 tablet by ity of tablet 00:00: 04:59 mouth at [place] 00 :00 bedtime Medical for 30 Branch days. furosemide 2022- Yes [id number] 20mg Take 1 [facility] 20 mg 6-27 -28 tablet by ity of tablet 00:00: 04:59 mouth in [place] 00 :00 the Medical morning Branch for 30 days. levothyroxi 2022- Yes [id number] 25ug Take 1 [facility] ne 25 mcg -10 12- tablet by ity of tablet 00:00: 04:59 mouth [place] 00 :00 every Medical morning Branch for 30 days. metoprolol 2022- Yes [id number] 25mg Take 1 [facility] succinate -10 12-28 tablet by ity of XL 25 mg 24 00:00: 04:59 mouth in [place] hr tablet 00 :00 the Medical morning Branch for 30 days. simvastatin 2022- Yes [id number] 40mg Take 1 [facility] 40 mg -10 12- tablet by ity of tablet 00:00: 04:59 mouth at [place] 00 :00 bedtime Medical for 30 Branch days. furosemide 2022- Yes [id number] 20mg Take 1 [facility] 20 mg -10 12-28 tablet by ity of tablet 00:00: 04:59 mouth in [place] 00 :00 the Medical morning Branch for 30 days. levothyroxi 2022- Yes [id number] 25ug Take 1 [facility] ne 25 mcg -10 12-28 tablet by ity of tablet 00:00: 04:59 mouth [place] 00 :00 every Medical morning Branch for 30 days. metoprolol 2022- Yes [id number] 25mg Take 1 [facility] succinate 6-27 07-28 tablet by ity of XL 25 mg 24 00:00: 04:59 mouth in [place] hr tablet 00 :00 the Medical morning Branch for 30 days. simvastatin 2022- Yes [id number] 40mg Take 1 [facility] 40 mg 6-27 07-28 tablet by ity of tablet 00:00: 04:59 mouth at [place] 00 :00 bedtime Medical for 30 Branch days. furosemide 2022- Yes [id number] 20mg Take 1 [facility] 20 mg -10 12-28 tablet by ity of tablet 00:00: 04:59 mouth in [place] 00 :00 the Medical morning Branch for 30 days. levothyroxi 2022- Yes [id number] 25ug Take 1 [facility] ne 25 mcg 11-10- tablet by ity of tablet 00:00: 04:59 mouth [place] 00 :00 every Medical morning Branch for 30 days. metoprolol 2022- Yes [id number] 25mg Take 1 [facility] succinate 11-10- tablet by ity of XL 25 mg 24 00:00: 04:59 mouth in [place] hr tablet 00 :00 the Medical morning Branch for 30 days. simvastatin 2022- Yes [id number] 40mg Take 1 [facility] 40 mg -10 12- tablet by ity of tablet 00:00: 04:59 mouth at [place] 00 :00 bedtime Medical for 30 Branch days. furosemide 2022- Yes [id number] 20mg Take 1 [facility] 20 mg 11-10- tablet by ity of tablet 00:00: 04:59 mouth in [place] 00 :00 the Medical morning Branch for 30 days. levothyroxi 2022- Yes [id number] 25ug Take 1 [facility] ne 25 mcg 11-10- tablet by ity of tablet 00:00: 04:59 mouth [place] 00 :00 every Medical morning Branch for 30 days. metoprolol 2022- Yes [id number] 25mg Take 1 [facility] succinate 11-10-28 tablet by ity of XL 25 mg 24 00:00: 04:59 mouth in [place] hr tablet 00 :00 the Medical morning Branch for 30 days. simvastatin 2022- Yes [id number] 40mg Take 1 [facility] 40 mg -10 12-28 tablet by ity of tablet 00:00: 04:59 mouth at [place] 00 :00 bedtime Medical for 30 Branch days. morpHINE (4 2022- No 4mg 4 mg, Slow [facility] mg/mL) 11-09 IV Push, ity of injection 4 20:30: 20:41 ONCE, 1 [place] mg 00 :00 dose, On Medical Mon Branch 11/09/22 at 1530, Routine simvastatin 2022-0 Yes 40mg Take 2 Univ ers (ZOCOR) 20 6-22 tablets by ity of mg tablet 13:12: mouth [place] 00 bedtime. Medical Branch simvastatin 2022-0 Yes 40mg Take 2 Univ ers (ZOCOR) 20 6-22 tablets by ity of mg tablet 13:12: mouth [place] 00 bedtime. Medical Branch simvastatin 2022-0 Yes 40mg Take 2 Univ ers (ZOCOR) 20 6-22 tablets by ity of mg tablet 13:12: mouth [place] 00 bedtime. Medical Branch aspirin 81 2022-0 Yes 81mg Take 1 Unive rs mg EC 6-22 tablet by ity of tablet 00:00: mouth in [place] 00 the Medical morning. Branch aspirin 81 2022-0 Yes 81mg Take 1 Unive rs mg EC 6-22 tablet by ity of tablet 00:00: mouth in [place] 00 the Medical morning. Branch aspirin 81 2022-0 Yes 81mg Take 1 Unive rs mg EC 6-22 tablet by ity of tablet 00:00: mouth in [place] 00 the Medical morning. Branch aspirin 81 2022-0 2022- No 81mg Take 1 Univ ers mg EC -11-10 tablet by ity of tablet 00:00: 00:00 mouth in [place] 00 :00 the Medical morning. Branch aspirin 81 2022-0 2022- No 81mg Take 1 Univ ers mg EC -11-10 tablet by ity of tablet 00:00: 00:00 mouth in [place] 00 :00 the Medical morning. Branch levothyroxi 2022-0 2022- Yes [id number] 25ug Take 1 [facility] ne 25 mcg 10-31 tablet by ity of tablet 00:00: 04:59 mouth [place] 00 :00 every Medical morning Branch for 30 days. aspirin 81 2022-0 2022- Yes [id number] 81mg Take 1 [facility] mg EC 10-31 tablet by ity of tablet 00:00: 04:59 mouth in [place] 00 :00 the Medical morning Branch for 30 days. levothyroxi 2022- Yes [id number] 25ug Take 1 [facility] ne 25 mcg 6-17 -18 tablet by ity of tablet 00:00: 04:59 mouth [place] 00 :00 [facility] Medical [facility] for 30 days. levothyroxi 2022- Yes [id number] 25ug Take 1 Univers ne 25 mcg 6-17 -18 tablet by ity of tablet 00:00: 04:59 mouth [place] 00 :00 every Medical [facility] for 30 days. levothyroxi 2022- Yes [id number] 25ug Take 1 [facility] ne 25 mcg 6-17 -18 tablet by ity of tablet 00:00: 04:59 mouth [place] 00 :00 [facility] Medical [facility] for 30 days. levothyroxi 2022- No [id number] 25ug Take 1 Univers ne 25 mcg 6-17 -27 tablet by ity of tablet 00:00: 00:00 mouth [place] 00 :00 [facility] for 30 days. levothyroxi 2022- No [id number] 25ug Take 1 Univers ne 25 mcg -17 -27 tablet by ity of tablet 00:00: 00:00 mouth [place] 00 :00 [facility] for 30 days. aspirin 81 2022- No [id number] 81mg Take 1 Univers mg EC 10-31-22 tablet by ity of tablet 00:00: 00:00 mouth in [place] 00 :00 [facility] for 30 days. aspirin 81 2022- No [id number] 81mg Take 1 Univers mg EC -31 10-22 tablet by ity of tablet 00:00: 00:00 mouth in [place] 00 :00 the [facility] for 30 days. aspirin 81 2022- No [id number] 81mg Take 1 [facility] mg EC -17 -22 tablet by ity of tablet 00:00: 00:00 mouth in [place] 00 :00 the [facility] for 30 days. methocarbam Yes 500mg 500 mg, [place] oL 6-16 Oral, QID, ity of (ROBAXIN) 21:00: First dose [place] tablet 500 00 on Fri Medical mg 10/30/22 at Branch 1600, Until Discontinu ed, Routine traMADoL 0 Yes 50mg 50 mg, Univers (ULTRAM) 6-16 Oral, ity of tablet 50 20:24: Q6HPRN, [place] mg 34 Starting Medical on Wed Branch 10/30/22 at 1524, Until Discontinu ed, Routine, Pain (scale 4-6) montelukast 2022-0 Yes 10mg Take 1 Univ ers (SINGULAIR) 6-16 tablet by ity of 10 mg 18:54: mouth in [place] tablet 20 the Medical morning. Branch simvastatin 2022-0 Yes 40mg Take 2 Univ ers (ZOCOR) 20 6-16 tablets by ity of mg tablet 18:54: mouth at [facility] 20 bedtime. Medical Branch SERTraline 2022-0 Yes 100mg Take 1 Univ ers 100 mg 6-16 tablet by ity of tablet 18:54: mouth in [place] 20 the Medical morning. Branch montelukast 2022-0 Yes 10mg Take 1 Univ ers (SINGULAIR) 6-16 tablet by ity of 10 mg 18:54: mouth in [place] tablet 20 the Medical morning. Branch SERTraline 2022-0 Yes 100mg Take 1 Univ ers 100 mg 6-16 tablet by ity of tablet 18:54: mouth in [place] 20 the Medical morning. Branch montelukast 2022-0 Yes 10mg Take 1 Univ ers (SINGULAIR) 6-16 tablet by ity of 10 mg 18:54: mouth in [place] tablet 20 the Medical morning. Branch SERTraline 2022-0 Yes 100mg Take 1 Univ ers 100 mg 6-16 tablet by ity of tablet 18:54: mouth in [place] 20 the Medical morning. Branch montelukast 2022-0 Yes 10mg Take 1 Univ ers (SINGULAIR) 6-16 tablet by ity of 10 mg 18:54: mouth in [place] tablet 20 the Medical morning. Branch SERTraline 2022-0 Yes 100mg Take 1 Univ ers 100 mg 6-16 tablet by ity of tablet 18:54: mouth in [place] 20 the Medical morning. Branch gabapentin 2022-0 2022- No 600mg Take 1 Uni vers 600 mg 6-16 06-16 tablet by ity of tablet 16:39: 00:00 mouth in [place] 07 :00 the Medical morning Branch and 1 tablet at noon and 1 tablet in the evening. baclofen 2022- No 10mg Take 1 Univer s (LIORESAL) 6-16 06-16 tablet by ity of 10 mg 16:39: 00:00 mouth in [place] tablet 07 :00 the [facility] morning Branch and 1 tablet in the evening. Daily PRN metoprolol 2022- No 50mg Take 1 Univ ers succinate 6-16 06-16 tablet by ity of XL 50 mg 24 16:39: 00:00 mouth in [place] hr tablet 07 :00 the [facility] morning. Branch metoprolol 2022- Yes [id number] 25mg Take 1 Univers succinate 6-16 07-17 tablet by ity of XL 25 mg 24 00:00: 04:59 mouth in [place] hr tablet 00 :00 the [facility] for 30 days. metoprolol 2022- Yes [id number] 25mg Take 1 [facility] succinate 6-16 -17 tablet by ity of XL 25 mg 24 00:00: 04:59 mouth in [place] hr tablet 00 :00 the [facility] for 30 days. metoprolol 2022- Yes [id number] 25mg Take 1 [facility] succinate 6-16 -17 tablet by ity of XL 25 mg 24 00:00: 04:59 mouth in [place] hr tablet 00 :00 the [facility] for 30 days. metoprolol 2022- Yes [id number] 25mg Take 1 [facility] succinate 6-16 07-17 tablet by ity of XL 25 mg 24 00:00: 04:59 mouth in [place] hr tablet 00 :00 the [facility] for 30 days. metoprolol 2022- No [id number] 25mg Take 1 [facility] succinate 6-16 -27 tablet by ity of XL 25 mg 24 00:00: 00:00 mouth in [place] hr tablet 00 :00 the [facility] for 30 days. metoprolol 2022- No [id number] 25mg Take 1 [facility] succinate 6-16 06-27 tablet by ity of XL 25 mg 24 00:00: 00:00 mouth in [place] hr tablet 00 :00 the [facility] for 30 days. methocarbam 2022- Yes [id number] 500mg Take 1 Univers oL 500 mg 10-30 tablet by ity of tablet 00:00: 04:59 mouth 4 [place] 00 :00 (four) Medical times [place] daily for 20 doses. NaCl 0.9% 0 2022- No 500mL at 999 Univ ers (NS) bolus 10-29-16 mL/hr, 500 it y of infusion 22:45: 01:14 mL, IV [place] 500 mL 00 :00 Piggyback, Medical ONCE, 1 Branch dose, On [facility] 10/29/22 at 1745, STAT HYDROcodone 0 Yes 1{tbl} 1 tablet, Univers -acetaminop 15 Oral, ity of hen (NORCO) 21:34: Q6HPRN, [place] 10-325 mg 30 Starting Medica l tablet 1 on [facility] tablet 10/29/22 at 1634, Until Discontinu ed, Routine, Pain (scale 7-10) aspirin EC Yes 81mg 81 mg, Unive rs tablet 81 15 Oral, ity of mg 14:00: DAILY, [place] 00 First dose Medical on [facility] 10/29/22 at 0900, Until Discontinu ed, Routine SERTraline Yes 100mg 100 mg, Uni vers (ZOLOFT) 6-15 Oral, ity of tablet 100 14:00: DAILY, [place] mg 00 First dose Medical on [facility] 10/29/22 at 0900, Until Discontinu ed, Routine montelukast Yes 10mg 10 mg, Univ ers (SINGULAIR) 6-15 Oral, ity of tablet 10 14:00: DAILY, [place] mg 00 First dose Medical on [facility] 10/29/22 at 0900, Until Discontinu ed, Routine metoprolol Yes 25mg 25 mg, Unive rs succinate 6-15 Oral, ity of XL (TOPROL 14:00: DAILY, [place] XL) tablet 00 First dose Med ical 25 mg on [facility] 10/29/22 at 0900, Until Discontinu ed, Routine fluticasone 0 Yes 1{spray 1 [place], Univers propionate 15 } Nasal, ity of 50 14:00: DAILY, [place] mcg/actuati 00 First dose Me dical on nasal on [place] Branch spray 1 10/29/22 at [place] 0900, Until Discontinu ed, Routine finasteride 0 Yes 5mg 5 mg, Unive rs (PROSCAR) 6-15 Oral, ity of tablet 5 mg 14:00: DAILY, [place] 00 First dose Medical on [facility] 10/29/22 at 0900, Until Discontinu ed, Routine levothyroxi Yes 25ug 25 mcg, Uni vers ne 615 Oral, ity of (SYNTHROID) 11:00: QAM-0600, [place] tablet 25 00 First dose Medi romel mcg on [facility] Branch 10/29/22 at 0600, Until Discontinu ed, Routine simvastatin Yes 40mg 40 mg, Univ ers (ZOCOR) 6-15 Oral, QHS, ity of tablet 40 02:45: First dose [place] mg 00 on [facility] Medical 10/28/22 at Branch 2145, Until Discontinu ed, Routine ondansetron 0 Yes 4mg 4 mg, Slow Univers (ZOFRAN 15 IV Push, ity of (PF)) 02:41: Q6HPRN, [place] injection 4 52 Starting Medi romel mg on [facility] Branch 10/28/22 at 2141, Until Discontinu ed, Routine, Nausea and Vomiting (N/V) morpHINE (2 2022- No 2mg 2 mg, Slow Univers mg/mL) 10-29 IV Push, ity of injection 2 02:41: 21:35 Q4HPRN, [place] mg 46 :14 Starting Medical on Wed Branch 10/28/22 at 2141, Until Xochitl 10/29/22 at 1635, Routine, Pain (scale 7-10) HYDROcodone 2022-0 202- No 1{tbl} 1 tablet, Univers -acetaminop 10-29 Oral, ity of hen (NORCO 02:41: 21:35 Q6HPRN, [place] 5) 5-325 mg 43 :14 Starting Medi romel tablet 1 on [facility] Branch tablet 10/28/22 at 2141, Until Xochitl 10/29/22 at 1635, Routine, Pain (scale 4-6) acetaminoph 2022-0 Yes 650mg 650 mg, [place] en 15 Oral, ity of (TYLENOL) 02:41: Q6HPRN, [place] tablet 650 38 Starting Medic al mg on Wed10/28/22 at 2141, Until Discontinu ed, Routine, Pain (scale 1-3), Temp > 38 C FENTanyl PF 2022- No 25ug 25 mcg, Un [facility] (SUBLIMAZE 10-29 Slow IV ity o f (PF)) 00:30: 00:32 Push, [place] injection 00 :00 ONCE, 1 Medical 25 mcg dose, On Wed10/28/22 at 1930, STAT iopamidol 2022- No [id number] 79mL 79 mL, Univers (ISOVUE 10-29 Intravenou ity o f 370-500 mL) 00:00: 00:00 s, ONCE, 1 [place] injection 00 :00 dose, On Medica l 79 mL Wed10/28/22 at 1900, Routine ondansetron No 4mg 4 mg, Slow Univers (ZOFRAN 10-28 IV Push, ity of (PF)) 22:45: 22:42 ONCE, 1 [place] injection 4 00 :00 dose, On Medi romel mg Wed10/28/22 at 1745, DIAMOND NaCl 0.9% No 1000mL at 999 Uni vers (NS) IV 10-28 mL/hr, IV ity of infusion 22:40: 00:32 Infusion, [place] 1,000 mL 00 :00 ONCE, 1 Medical dose, On Wed10/28/22 at 1745, DIAMOND FENTanyl PF No 25ug 25 mcg, Un garry (SUBLIMAZE 10-28 Slow IV ity o f (PF)) 22:39: 22:42 Push, [place] injection 00 :00 ONCE, 1 Medical 25 mcg dose, On Wed10/28/22 at 1745, STAT lisinopriL 2022- No 40mg Take 1 Univ ers 40 mg 10-22 tablet by ity of tablet 00:00: 00:00 mouth in [place] 00 :00 the Medical morning. [place] HYDROcodone 2022- No 1{tbl} 1 tablet, Univers -acetaminop 08-0320 Oral, ity of hen (NORCO) 03:48: 03:50 Q6HPRN, 1 [place] 10-325 mg 55 :00 dose, Medical tablet 1 Starting Branch tablet on 08/02/22 at 2248, Until 08/02/22 at 2250, DIAMOND, Pain (scale 7-10) maalox:diph 2022- No 15mL 15 mL, Uni vers enhydrAMINE 08-03-20 Oral, ity of :lidocaine 03:30: 03:46 ONCE, 1 [place] 2 % viscous 00 :00 dose, On Medi romel 1:1:1 [place] ([facility]OUT 08/02/22 at [facility]) 2230, oral Routine suspension 15 mL iopamidol 0 2022- No [id number] 100mL 100 mL, Univers (ISOVUE 08-0320 Intravenou ity o f 300-500 mL) 03:15: 03:15 s, ONCE, 1 [place] injection 00 :00 dose, On Medica l 100 mL [place] 08/02/22 at 2215, Routine ondansetron 0 2022- No 4mg 4 mg, Slow Univers (ZOFRAN 08-03 IV Push, ity of (PF)) 01:45: 01:24 ONCE, 1 [place] injection 4 00 :00 dose, On Medi romel mg [place] Branch 08/02/22 at 2045, Routine NaCl 0.9% 2022- No 1000mL at 999 Uni vers (NS) bolus 08-03-20 mL/hr, ity of infusion 00:45: 02:30 1,000 mL, [place] 1,000 mL 00 :00 IV Medical Infusion, Branch ONCE, 1 dose, On 08/02/22 at 1945, STAT ciprofloxac 2022-0 Yes [id number] 500mg Take 1 Univers in HCl 500 3-19 tablet by [facility] Branch and 1 tablet in the evening. metroNIDAZO 2022-0 Yes [id number] 500mg Take 1 Univers LE 500 mg 3-19 tablet by ity o f tablet 00:00: mouth in [place] 00 the Medical morning Branch and 1 tablet in the evening. ondansetron 2023-0 Yes [id number] 4mg Take 1 Univers 4 mg 3-19 tablet by ity of disintegrat 00:00: mouth [place] ing tablet 00 every 8 Medica l (eight) Branch hours as needed for Nausea and Vomiting (N/V). ondansetron 2023-0 Yes [id number] 4mg Take 1 Univers 4 mg 3-19 tablet by ity of disintegrat 00:00: mouth [place] ing tablet 00 every 8 Medica l (eight) Branch hours as needed for Nausea and Vomiting (N/V). ondansetron 2023-0 Yes [id number] 4mg Take 1 Univers 4 mg 3-19 tablet by ity of disintegrat 00:00: mouth [place] ing tablet 00 every 8 Medica l (eight) Branch hours as needed for Nausea and Vomiting (N/V). ondansetron 2023-0 Yes [id number] 4mg Take 1 Univers 4 mg 3-19 tablet by ity of disintegrat 00:00: mouth [place] ing tablet 00 every 8 Medica l (eight) Branch hours as needed for Nausea and Vomiting (N/V). ondansetron 2023-0 Yes [id number] 4mg Take 1 Univers 4 mg 3-19 tablet by ity of disintegrat 00:00: mouth [place] ing tablet 00 every 8 Medica l (eight) Branch hours as needed for Nausea and Vomiting (N/V). ondansetron 2023-0 Yes [id number] 4mg Take 1 Univers 4 mg 3-19 tablet by ity of disintegrat 00:00: mouth [place] ing tablet 00 every 8 Medica l (eight) Branch hours as needed for Nausea and Vomiting (N/V). ondansetron 2023-0 Yes [id number] 4mg Take 1 Univers 4 mg 3-19 tablet by ity of disintegrat 00:00: mouth [place] ing tablet 00 every 8 Medica l (eight) Branch hours as needed for Nausea and Vomiting (N/V). ondansetron 2023-0 Yes [id number] 4mg Take 1 Univers 4 mg 3-19 tablet by ity of disintegrat 00:00: mouth [place] ing tablet 00 every 8 Medica l (eight) Branch hours as needed for Nausea and Vomiting (N/V). ondansetron 2023-0 Yes [id number] 4mg Take 1 Univers 4 mg 3-19 tablet by ity of disintegrat 00:00: mouth [place] ing tablet 00 every 8 Medica l (eight) Branch hours as needed for Nausea and Vomiting (N/V). ondansetron 2022-0 Yes [id number] 4mg Take 1 Univers 4 mg 3-19 tablet by ity of disintegrat 00:00: mouth [place] ing tablet 00 every 8 Medica l (eight) Branch hours as needed for Nausea and Vomiting (N/V). ondansetron 2022-0 Yes [id number] 4mg Take 1 Univers 4 mg 3-19 tablet by ity of disintegrat 00:00: mouth [place] ing tablet 00 every 8 Medica l (eight) Branch hours as needed for Nausea and Vomiting (N/V). ondansetron 2022-0 Yes [id number] 4mg Take 1 Univers 4 mg 3-19 tablet by ity of disintegrat 00:00: mouth [place] ing tablet 00 every 8 Medica l (eight) Branch hours as needed for Nausea and Vomiting (N/V). ondansetron 0 Yes [id number] 4mg Take 1 Univers 4 mg 3-19 tablet by ity of disintegrat 00:00: mouth [place] ing tablet 00 every 8 Medica l (eight) Branch hours as needed for Nausea and Vomiting (N/V). ondansetron 2022-0 Yes [id number] 4mg Take 1 Univers 4 mg 3-19 tablet by ity of disintegrat 00:00: mouth [place] ing tablet 00 every 8 Medica l (eight) Branch hours as needed for Nausea and Vomiting (N/V). ciprofloxac 2022-0 2022- No [id number] 500mg Take 1 Univers in HCl 500 3-19 -16 tablet by ity of mg tablet 00:00: 00:00 mouth in [place] 00 :00 the Medical morning Branch and 1 tablet in the evening. metroNIDAZO 3-0 2022- No [id number] 500mg Take 1 Univers LE 500 mg 3-19 -16 tablet by ity of tablet 00:00: 00:00 mouth in [place] 00 :00 the Medical morning Branch and 1 tablet in the evening. maalox:diph 2022-0 2022- No 15mL 15 mL, Uni vers enhydrAMINE 3-05 03-05 Oral, ity of :lidocaine 01:45: 01:45 ONCE, 1 [place] 2 % viscous 00 :00 dose, On Medi romel 1:1:1 07/18/22 Branch (FIRST-MOUT at 1945, [facility]) Routine oral suspension 15 mL traMADoL 2022- No 50mg 50 mg, Univer s (ULTRAM) 07-19 Oral, ity of tablet 50 01:30: 01:24 ONCE, 1 [place] mg 00 :00 dose, On Medical 07/18/22 Branch at 1930, DIAMOND iopamidol 2022- No [id number] 100mL 100 mL, Univers (ISOVUE 07-19 Intravenou ity o f 370-500 mL) 00:30: 00:30 s, ONCE, 1 [place] injection 00 :00 dose, On Medica l 100 mL 07/18/22 Branch at 1830, Routine NaCl 0.9% 2022- No 1000mL at 999 Uni vers (NS) bolus 07-19 mL/hr, ity of infusion 00:30: 00:34 1,000 mL, [place] 1,000 mL 00 :00 IV Medical Piggyback, Branch ONCE, 1 dose, On 07/18/22 at 1830, STAT morpHINE (2 No 4mg 4 mg, Slow Univers mg/mL) 07-19 IV Push, ity of injection 4 00:00: 23:24 ONCE, 1 [place] mg 00 :00 dose, On Medical 07/18/22 Branch at 1800, STAT pantoprazol No 80mg 80 mg, IV Univers e 07-18 Push, ity of (PROTONIX) 23:45: 23:29 ONCE, 1 [place] 80 mg in 00 :00 dose, On Medical NaCl 0.9% Sat 07/18/22 Bran ch (NS) 20 mL at 1745, syringe Administer over 2 Minutes, 20 mL ondansetron 2022- No 4mg 4 mg, Slow Univers (ZOFRAN 07-18 IV Push, ity of (PF)) 23:00: 23:23 ONCE, 1 [place] injection 4 00 :00 dose, On Medi romel mg 07/18/22 Branch at 1700, DIAMOND famotidine 2022-0 2022- No 20mg 20 mg, Univ ers (PEPCID 3-04 03-04 Slow IV ity of (PF)) 23:00: 23:27 Push, [place] injection 00 :00 ONCE, 1 Medical 20 mg dose, On Branch 07/18/22 at 1700, DIAMOND montelukast 2022-0 Yes 10mg Take 10 mg Univers (SINGULAIR) 3-04 by mouth ity of 10 mg 19:36: daily. [place] tablet 02 Medical Branch gabapentin 0 Yes 600mg Take 600 [place] 600 mg 3-04 mg by ity of tablet 19:36: mouth 3 02 (three) Medical times Branch daily. simvastatin 0 Yes 40mg Take 40 mg Univers (ZOCOR) 20 3-04 by mouth ity o f mg tablet 19:36: at [place] bedtime. Medical Branch baclofen 0 Yes 10mg Take 10 mg Uni vers (LIORESAL) 3-04 by mouth 2 ity of 10 mg 19:36: (two) [place] tablet 02 times Medical daily. Branch Daily PRN metoprolol 0 Yes 50mg Take 50 mg U nivers succinate 3-04 by mouth ity of XL 50 mg 24 19:36: daily. [place] hr tablet 02 Medical Branch SERTraline 0 Yes 100mg Take 100 [place] 100 mg 3-04 mg by ity of tablet 19:36: mouth 02 daily. Medical Branch montelukast 0 Yes 10mg Take 10 mg Univers (SINGULAIR) 3-04 by mouth ity of 10 mg 19:36: daily. [place] tablet 02 Medical Branch gabapentin 0 Yes 600mg Take 600 [place] 600 mg 3-04 mg by ity of tablet 19:36: mouth 3 [place] 02 (three) Medical times Branch daily. simvastatin 2022-0 Yes 40mg Take 40 mg Univers (ZOCOR) 20 3-04 by mouth ity o f mg tablet 19:36: at [place] bedtime. Medical Branch baclofen 0 Yes 10mg Take 10 mg Uni vers (LIORESAL) 3-04 by mouth 2 ity of 10 mg 19:36: (two) [place] tablet 02 times Medical daily. Branch Daily PRN metoprolol 2022-0 Yes 50mg Take 50 mg U nivers succinate 3-04 by mouth ity of XL 50 mg 24 19:36: daily. [place] hr tablet 02 Medical Branch SERTraline 2022-0 Yes 100mg Take 100 [place] 100 mg 3-04 mg by ity of tablet 19:36: mouth [place] 02 daily. Medical Branch ondansetron 2022-0 Yes [id number] 4mg Take 1 [facility] 4 mg 3-04 tablet by ity of disintegrat 00:00: mouth [place] ing tablet 00 every 8 Medica l (eight) Branch hours as needed for Nausea and Vomiting (N/V) for up to 10 doses. acetaminoph 2022-0 Yes [id number] 500mg Take 1 [facility] en (TYLENOL 3-04 tablet by ity of EXTRA 00:00: mouth [place] STRENGTH) 00 every 6 Medical 500 mg (six) Branch tablet hours as needed for Pain for up to 20 doses. acetaminoph 2022-0 Yes [id number] 500mg Take 1 [facility] en (TYLENOL 3-04 tablet by ity of EXTRA 00:00: mouth [place] STRENGTH) 00 every 6 Medical 500 mg (six) Branch tablet hours as needed for Pain for up to 20 doses. acetaminoph 2022-0 Yes [id number] 500mg Take 1 [facility] en (TYLENOL 3-04 tablet by ity of EXTRA 00:00: mouth [place] STRENGTH) 00 every 6 Medical 500 mg (six) Branch tablet hours as needed for Pain for up to 20 doses. acetaminoph 2022-0 Yes [id number] 500mg Take 1 [facility] en (TYLENOL 3-04 tablet by ity of EXTRA 00:00: mouth [place] STRENGTH) 00 every 6 Medical 500 mg (six) Branch tablet hours as needed for Pain for up to 20 doses. acetaminoph 2022-0 Yes [id number] 500mg Take 1 [facility] en (TYLENOL 3-04 tablet by ity of EXTRA 00:00: mouth [place] STRENGTH) 00 every 6 Medical 500 mg (six) Branch tablet hours as needed for Pain for up to 20 doses. acetaminoph 2022-0 Yes [id number] 500mg Take 1 [facility] en (TYLENOL 3-04 tablet by ity of EXTRA 00:00: mouth [place] STRENGTH) 00 every 6 Medical 500 mg (six) Branch tablet hours as needed for Pain for up to 20 doses. acetaminoph 3-0 Yes 500mg Take 1 [facility] en (TYLENOL 3-04 tablet by ity of EXTRA 00:00: mouth [place] STRENGTH) 00 every 6 Medical 500 mg (six) Branch tablet hours as needed for Pain for up to 20 doses. acetaminoph 3-0 Yes 500mg Take 1 [facility] en (TYLENOL 3-04 tablet by ity of EXTRA 00:00: mouth [place] STRENGTH) 00 every 6 Medical 500 mg (six) Branch tablet hours as needed for Pain for up to 20 doses. acetaminoph 3-0 Yes 500mg Take 1 [facility] en (TYLENOL 3-04 tablet by ity of EXTRA 00:00: mouth [place] STRENGTH) 00 every 6 Medical 500 mg (six) Branch tablet hours as needed for Pain for up to 20 doses. acetaminoph 3-0 Yes 500mg Take 1 [facility] en (TYLENOL 3-04 tablet by ity of EXTRA 00:00: mouth [place] STRENGTH) 00 every 6 Medical 500 mg (six) Branch tablet hours as needed for Pain for up to 20 doses. acetaminoph 3-0 Yes 500mg Take 1 [facility] en (TYLENOL 3-04 tablet by ity of EXTRA 00:00: mouth [place] STRENGTH) 00 every 6 Medical 500 mg (six) Branch tablet hours as needed for Pain for up to 20 doses. acetaminoph 3-0 Yes 500mg Take 1 [facility] en (TYLENOL 3-04 tablet by ity of EXTRA 00:00: mouth [place] STRENGTH) 00 every 6 Medical 500 mg (six) Branch tablet hours as needed for Pain for up to 20 doses. acetaminoph 3-0 Yes 500mg Take 1 [facility] en (TYLENOL 3-04 tablet by ity of EXTRA 00:00: mouth [place] STRENGTH) 00 every 6 Medical 500 mg (six) Branch tablet hours as needed for Pain for up to 20 doses. acetaminoph 3-0 Yes 500mg Take 1 [facility] en (TYLENOL 3-04 tablet by ity of EXTRA 00:00: mouth [place] STRENGTH) 00 every 6 Medical 500 mg (six) Branch tablet hours as needed for Pain for up to 20 doses. acetaminoph 3-0 Yes 500mg Take 1 [facility] en (TYLENOL 3-04 tablet by ity of EXTRA 00:00: mouth [place] STRENGTH) 00 every 6 Medical 500 mg (six) Branch tablet hours as needed for Pain for up to 20 doses. L.acidop-L. 2022- No [id number] 1{tbl} Take 1 [facility] mee-B.bifi -08-16 tablet by it y of d-B.long 00:00: 04:59 [place] (PROBIOTIC 00 :00 the Medical COLON morning Branch SUPPORT) 70 for 28 mg (5 days. billion cell) [facility] L.acidop-L. 2022- No [id number] 1{tbl} Take 1 [facility] mee-B.bifi 07-18 tablet by it y of d-B.long 00:00: 04:59 [place] (PROBIOTIC 00 :00 the Medical COLON morning Branch SUPPORT) 70 for 28 mg (5 days. billion cell) [facility] famotidine 2022- No [id number] 20mg Take 1 [facility] (PEPCID) 20 07-18 03-20 tablet by it y of mg tablet 00:00: 04:59 mouth in [place] 00 :00 the Medical morning Branch and 1 tablet in the evening. Do all this for 30 doses. famotidine 2022- No [id number] 20mg Take 1 [facility] (PEPCID) 20 - 03-20 tablet by it y of mg tablet 00:00: 04:59 mouth in [place] 00 :00 the Medical morning Branch and 1 tablet in the evening. Do all this for 30 doses. ondansetron 2022- No [id number] 4mg Take 1 [facility] 4 mg 07-18-19 tablet by ity of disintegrat 00:00: 00:00 mouth [place] tablet 00 :00 every 8 Medica l (eight) Branch hours as needed for Nausea and Vomiting (N/V) for up to 10 doses. FENTanyl PF 2022- No 50ug 50 mcg, [place] (SUBLIMAZE 05-28 Slow IV ity o f (PF)) 04:15: 03:15 Push, [place] injection 00 :00 ONCE, 1 Medical 50 mcg dose, On Branch 1/11/23 at 2215, Routine ipratropium 2022-0 2022- No 3mL 3 mL, Univ ers -albuteroL 05-28 Inhalation it y of (DUONEB) 04:00: 03:15 , ONCE [place] 0.5 mg-3 00 :00 NOW, 1 Medical mg(2.5 mg dose, On Branch base)/3 mL Wed nebulizer 05/27/22 at solution 3 2200, mL Routine ipratropium 2022-2022- No 3mL 3 mL, Univ ers -albuteroL 05-28 Inhalation it y of (DUONEB) 03:00: 02:03 , ONCE, 1 [place] 0.5 mg-3 00 :00 dose, On Medical mg(2.5 mg Wed Branch base)/3 mL 05/27/22 at nebulizer 2100, solution 3 Routine mL methylPREDN 2022- No 125mg 125 mg, U nivers ISolone sod 05-28 Intravenou i ty of succ 02:00: 02:01 s, ONCE, 1 [place] (SOLU-MEDRO 00 :00 dose, On Medi romel L (PF)) Wed Branch injection 05/27/22 at 125 mg 1999, DIAMOND ondansetron 2022- No 4mg 4 mg, Slow Univers (ZOFRAN 05-28 IV Push, ity of (PF)) 02:00: 02:00 ONCE, 1 [place] injection 4 00 :00 dose, On Medi romel mg Wed Branch 05/27/22 at 2000, DIAMOND fluticasone 2022-0 Yes [id number] 1{spray Use 1 Univers furoate 50 1-11 } [place] in ity o f mcg/actuati 00:00: each [place] on DsDv 00 nostril Medical daily. Branch albuterol 0 Yes [id number] 2{puff} Inhale 2 Univers 90 1-11 Puffs ity of mcg/actuati 00:00: every 4 [place] on inhaler 00 (four) Medical hours as Branch needed for Wheezing or Shortness of Breath. benzonatate 2022-0 Yes [id number] 200mg Take 1 [facility] 200 mg 1-11 capsule by ity of capsule 00:00: mouth 3 [place] 00 (three) Medical times Branch daily as needed for Cough. albuterol 2023-0 Yes [id number] 2.5mg Inhale 3 Univers 2.5 mg /3 1-11 mL every 4 ity of mL (0.083 00:00: (four) [place] %) 00 hours as Medical nebulizer needed for Bran ch solution Wheezing or Shortness of Breath. fluticasone 2022-0 Yes [id number] 1{spray Use 1 [facility] furoate 50 1-11 } [place] in ity o f mcg/actuati 00:00: each [place] on DsDv 00 nostril Medical daily. Branch albuterol 2022-0 Yes [id number] 2{puff} Inhale 2 Univers 90 1-11 Puffs ity of mcg/actuati 00:00: every 4 [place] on inhaler 00 (four) Medical hours as Branch needed for Wheezing or Shortness of Breath. benzonatate 2022-0 Yes [id number] 200mg Take 1 [facility] 200 mg 1-11 capsule by ity of capsule 00:00: mouth 3 [place] 00 (three) Medical times Branch daily as needed for Cough. albuterol 2022-0 Yes [id number] 2.5mg Inhale 3 Univers 2.5 mg /3 1-11 mL every 4 ity of mL (0.083 00:00: (four) [place] %) 00 hours as Medical nebulizer needed for Bran ch solution Wheezing or Shortness of Breath. fluticasone 2022-0 Yes [id number] 1{spray Use 1 Univers furoate 50 1-11 } [place] in ity o f mcg/actuati 00:00: each [place] on DsDv 00 nostril Medical daily. Branch albuterol 2022-0 Yes [id number] 2{puff} Inhale 2 Univers 90 1-11 Puffs ity of mcg/actuati 00:00: every 4 [place] on inhaler 00 (four) Medical hours as Branch needed for Wheezing or Shortness of Breath. benzonatate 2023-0 Yes [id number] 200mg Take 1 [facility] 200 mg 1-11 capsule by ity of capsule 00:00: mouth 3 [place] 00 (three) Medical times Branch daily as needed for Cough. albuterol 2022-0 Yes [id number] 2.5mg Inhale 3 Univers 2.5 mg /3 1-11 mL every 4 ity of mL (0.083 00:00: (four) [place] %) 00 hours as Medical nebulizer needed for Bran ch solution Wheezing or Shortness of Breath. fluticasone 2022-0 Yes [id number] 1{spray Use 1 [facility] furoate 50 1-11 } [place] in ity o f mcg/actuati 00:00: each [place] on DsDv 00 nostril Medical daily. Branch albuterol 2022-0 Yes [id number] 2{puff} Inhale 2 Univers 90 1-11 Puffs ity of mcg/actuati 00:00: every 4 [place] on inhaler 00 (four) Medical hours as Branch needed for Wheezing or Shortness of Breath. albuterol 2022-0 Yes [id number] 2.5mg Inhale 3 Univers 2.5 mg /3 1-11 mL every 4 ity of mL (0.083 00:00: (four) [place] %) 00 hours as Medical nebulizer needed for Bran ch solution Wheezing or Shortness of Breath. fluticasone 2022-0 Yes [id number] 1{spray Use 1 [facility] furoate 50 1-11 } [place] in ity o f mcg/actuati 00:00: each [place] on DsDv 00 nostril Medical daily. Branch albuterol 2022-0 Yes [id number] 2{puff} Inhale 2 Univers 90 1-11 Puffs ity of mcg/actuati 00:00: every 4 [place] on inhaler 00 (four) Medical hours as Branch needed for Wheezing or Shortness of Breath. albuterol 2022-0 Yes [id number] 2.5mg Inhale 3 Univers 2.5 mg /3 1-11 mL every 4 ity of mL (0.083 00:00: (four) [place] %) 00 hours as Medical nebulizer needed for Bran ch solution Wheezing or Shortness of Breath. fluticasone 2022-0 Yes [id number] 1{spray Use 1 [facility] furoate 50 1-11 } [place] in ity o f mcg/actuati 00:00: each [place] on DsDv 00 nostril Medical daily. Branch albuterol 2022-0 Yes [id number] 2{puff} Inhale 2 Univers 90 1-11 Puffs ity of mcg/actuati 00:00: every 4 [place] on inhaler 00 (four) Medical hours as Branch needed for Wheezing or Shortness of Breath. albuterol Yes [id number] 2.5mg Inhale 3 Univers 2.5 mg /3 1-11 mL every 4 ity of mL (0.083 00:00: (four) [place] %) 00 hours as Medical nebulizer needed for Bran ch solution Wheezing or Shortness of Breath. fluticasone Yes [id number] 1{spray Use 1 [facility] furoate 50 1-11 } [place] in ity o f mcg/actuati 00:00: each [place] on DsDv 00 nostril Medical daily. Branch albuterol Yes [id number] 2{puff} Inhale 2 Univers 90 1-11 Puffs ity of mcg/actuati 00:00: every 4 [place] on inhaler 00 (four) Medical hours as Branch needed for Wheezing or Shortness of Breath. albuterol Yes [id number] 2.5mg Inhale 3 Univers 2.5 mg /3 1-11 mL every 4 ity of mL (0.083 00:00: (four) [place] %) 00 hours as Medical nebulizer needed for Bran ch solution Wheezing or Shortness of Breath. fluticasone Yes [id number] 1{spray Use 1 [facility] furoate 50 1-11 } [place] in ity o f mcg/actuati 00:00: each [place] on DsDv 00 nostril Medical daily. Branch fluticasone Yes [id number] 1{spray Use 1 [facility] furoate 50 1-11 } [place] in ity o f mcg/actuati 00:00: each [place] on DsDv 00 nostril Medical daily. Branch fluticasone Yes [id number] 1{spray Use 1 [facility] furoate 50 1-11 } [place] in ity o f mcg/actuati 00:00: each [place] on DsDv 00 nostril Medical daily. Branch fluticasone 2022-0 Yes [id number] 1{spray Use 1 [facility] furoate 50 1-11 } [place] in ity o f mcg/actuati 00:00: each [place] on DsDv 00 nostril Medical daily. Branch fluticasone Yes [id number] 1{spray Use 1 [facility] furoate 50 1-11 } [place] in ity o f mcg/actuati 00:00: each [place] on DsDv 00 nostril Medical daily. [place] fluticasone Yes [id number] 1{spray Use 1 [facility] furoate 50 1-11 } [place] in ity o f mcg/actuati 00:00: each [place] on DsDv 00 nostril Medical daily. Branch fluticasone Yes [id number] 1{spray Use 1 [facility] furoate 50 1-11 } [place] in ity o f mcg/actuati 00:00: each [place] on DsDv 00 nostril Medical daily. Branch fluticasone Yes [id number] 1{spray Use 1 [facility] furoate 50 1-11 } [place] in ity o f mcg/actuati 00:00: each [place] on DsDv 00 nostril Medical daily. [place] fluticasone Yes [id number] 1{spray Use 1 [facility] furoate 50 1-11 } [place] in ity o f mcg/actuati 00:00: each [place] on DsDv 00 nostril Medical daily. [place] albuterol 2022- No [id number] 2{puff} Inhale 2 Univers 90 1-11 06-27 Puffs ity of mcg/actuati 00:00: 00:00 every 4 [place] on inhaler 00 :00 (four) Medical hours as Branch needed for Wheezing or Shortness of Breath. albuterol 2022- No [id number] 2.5mg Inhale 3 Univers 2.5 mg /3 1-11 06-27 mL every 4 ity of mL (0.083 00:00: 00:00 (four) [place] %) 00 :00 hours as Medical nebulizer needed for Bran ch solution Wheezing or Shortness of Breath. albuterol 2022- No [id number] 2{puff} Inhale 2 Univers 90 1-11 06-27 Puffs ity of mcg/actuati 00:00: 00:00 every 4 [place] on inhaler 00 :00 (four) Medical hours as Branch needed for Wheezing or Shortness of Breath. albuterol 2022- No [id number] 2.5mg Inhale 3 Univers 2.5 mg /3 1-11 06-27 mL every 4 ity of mL (0.083 00:00: 00:00 (four) [place] %) 00 :00 hours as Medical nebulizer needed for Bran ch solution Wheezing or Shortness of Breath. benzonatate 2022- No [id number] 200mg Take 1 Univers 200 mg 05-2716 capsule by ity of capsule 00:00: 00:00 mouth 3 [place] 00 :00 (three) Medical times Branch daily as needed for Cough. ipratropium 2022- No [id number] .5mg Inhale 2.5 Univers 0.02 % 05-27-19 mL every 6 ity of nebulizer 00:00: 05:59 (six) [place] solution 00 :00 hours as Medical needed for Branch Wheezing or Shortness of Breath for up to 7 days. predniSONE 2022- No [id number] 50mg Take 1 Univers 50 mg 05-2717 tablet by ity of tablet 00:00: 05:59 mouth in [place] 00 :00 the Medical morning Branch for 5 days. morpHINE (2 2022- No 2mg 2 mg, Slow Univers mg/mL) 05-20-04 IV Push, ity of injection 2 18:45: 17:58 ONCE, 1 [place] mg 00 :00 dose, On Medical Wed05/20/22 Branch at 1245, Routine sucralfate 0 Yes 1g 1 g, Oral, U nivers (CARAFATE) 05-20 AC+HS, ity of tablet 1 g 17:30: First [place] 00 on Wed05/20/22 at Branch 1130, Until Discontinu ed, Routine montelukast 2022-0 Yes 10mg Take 10 mg Univers (SINGULAIR) -04 by mouth ity of 10 mg 13:12: daily. [place] [id number] Medical Branch gabapentin 2022-0 Yes 600mg Take 600 [place] 600 mg 1-04 mg by ity of tablet 13:12: mouth 3 [place] 52 (three) Medical times Branch daily. simvastatin 2022-0 Yes 40mg Take 40 mg Univers (ZOCOR) 20 1-04 by mouth ity o f mg tablet 13:12: at [place] [address] bedtime. Medical Branch baclofen 2022-0 Yes 10mg Take 10 mg Uni vers (LIORESAL) -04 by mouth 2 ity of 10 mg 13:12: (two) [place] tablet 52 times Medical daily. Branch Daily PRN metoprolol 2022-0 Yes 50mg Take 50 mg U nivers succinate 1-04 by mouth ity of XL 50 mg 24 13:12: daily. [place] hr tablet 52 Medical Branch SERTraline 2022-0 Yes 100mg Take 100 [place] 100 mg 1-04 mg by ity of tablet 13:12: mouth [place] 52 daily. Medical Branch montelukast 2022-0 Yes 10mg Take 10 mg Univers (SINGULAIR) 1-04 by mouth ity of 10 mg 13:12: daily. [place] tablet 52 Medical Branch gabapentin 2022-0 Yes 600mg Take 600 [place] 600 mg 1-04 mg by ity of tablet 13:12: mouth 3 [place] 52 (three) Medical times Branch daily. simvastatin 0 Yes 40mg Take 40 mg Univers (ZOCOR) 20 1-04 by mouth ity o f mg tablet 13:12: at [place] [address] bedtime. Medical Branch baclofen 0 Yes 10mg Take 10 mg Uni vers (LIORESAL) 1-04 by mouth 2 ity of 10 mg 13:12: (two) [place] tablet 52 times Medical daily. Branch Daily PRN metoprolol 0 Yes 50mg Take 50 mg U nivers succinate 1-04 by mouth ity of XL 50 mg 24 13:12: daily. [place] hr tablet 52 Medical Branch SERTraline 0 Yes 100mg Take 100 [place] 100 mg 1-04 mg by ity of tablet 13:12: mouth [place] [address] daily. Medical Branch simvastatin 0 Yes 40mg 40 mg, Univ ers (ZOCOR) 1-04 Oral, QHS, ity of tablet 40 03:00: First dose [place] mg 00 on [facility] 05/19/22 at Branch 2100, Until Discontinu ed, Routine sucralfate 2022- No [id number] 1g Take 1 Univers 1 gram -04 02-04 tablet by ity of tablet 00:00: 05:59 mouth [place] 00 :00 before Medical meals and Branch at bedtime for 30 days. sucralfate 2022-2022- No [id number] 1g Take 1 Univers 1 gram 1-04 02-04 tablet by ity of tablet 00:00: 05:59 mouth [place] 00 :00 before Medical meals and Branch at bedtime for 30 days. iopamidol 2022- No [id number] 90mL 90 mL, U nivers (ISOVUE 05-19 Intravenou ity o f 370-500 mL) 17:45: 17:34 s, ONCE, 1 [place] injection 00 :00 dose, On Medica l 90 mL [facility] 05/19/22 Branch at 1145, Routine nitroglycer 2022- No [id number] .8mg 0.8 mg, Univers in 05-19 Sublingual ity of (NITROSTAT) 17:30: 17:22 , ONCE, 1 [place] sublingual 00 :00 dose, On Medic al tablet 0.8 05/19/22 Bra nch mg at 1130, Routine aspirin Yes 81mg 81 mg, Univers chewable 05-19 Oral, ity of tablet 81 15:00: DAILY, [place] mg 00 First dose Medical on [facility] 05/19/22 at 0900, Until Discontinu ed, Routine enoxaparin 0 Yes 40mg 40 mg, Unive rs (LOVENOX) 05-19 Subcutaneo ity of injection 15:00: us, DAILY, [place] 40 mg 00 First dose Medical on [facility] 05/19/22 at 0900, Until Discontinu ed, Routine spironolact 0 Yes 100mg 100 mg, [place] one 05-19 Oral, ity of (ALDACTONE) 15:00: DAILY, [place] tablet 100 00 First dose Med ical mg on [facility] 05/19/22 at 0900, Until Discontinu ed, Routine SERTraline 0 Yes 100mg 100 mg, Uni vers (ZOLOFT) 05-19 Oral, ity of tablet 100 15:00: DAILY, [place] mg 00 First dose Medical on [facility] 05/19/22 at 0900, Until Discontinu ed, Routine montelukast 0 Yes 10mg 10 mg, Univ ers (SINGULAIR) 05-19 Oral, ity of tablet 10 15:00: DAILY, [place] mg 00 First dose Medical on [facility] 05/19/22 at 0900, Until Discontinu ed, Routine metoprolol 2023-0 Yes 50mg 50 mg, Unive rs succinate 05-19 Oral, ity of XL (TOPROL 15:00: DAILY, [place] XL) tablet 00 First dose Med ical 50 mg on [facility] 05/19/22 at 0900, Until Discontinu ed, Routine fluticasone 2022-0 Yes 1{spray 1 [place], Univers propionate 05-19 } Nasal, ity of 50 15:00: DAILY, [place] mcg/actuati 00 First dose Me dical on nasal on [facility] spray 1 05/19/22 at [place] 0900, Until Discontinu ed, Routine finasteride 2022-0 Yes 5mg 5 mg, Unive rs (PROSCAR) 05-19 Oral, ity of tablet 5 mg 15:00: DAILY, [place] 00 First dose Medical on [facility] 05/19/22 at 0900, Until Discontinu ed, Routine SUMAtriptan 2022-0 Yes 50mg 50 mg, Univ ers (IMITREX) 05-19 Oral, BID, ity of tablet 50 14:00: First dose [place] mg 00 on [facility] 05/19/22 at Branch 0800, Until Discontinu ed, Routine pantoprazol 2022-0 Yes 40mg 40 mg, Univ ers e 05-19 Oral, BID, ity of (PROTONIX) 14:00: First dose [place] EC tablet 00 on [facility] 40 mg 05/19/22 at Branch 0800, Until Discontinu ed, Routine gabapentin 2022-0 Yes 600mg 600 mg, Uni vers (NEURONTIN) 05-19 Oral, TID, it y of tablet 600 14:00: First dose [place] mg 00 on [facility] 05/19/22 at Branch 0800, Until Discontinu ed, Routine maalox:diph 2022-0 2023- No 15mL 15 mL, Uni vers enhydrAMINE 05-19 Oral, ity of :lidocaine 13:30: 15:00 ONCE, 1 [place] 2 % viscous 00 :00 dose, On [facility] romel 1:1:1 [facility] 05/19/22 [place] (FIRST-MOUT at 0730, [facility]) Routine oral suspension 15 mL levothyroxi 2022-0 Yes 25ug 25 mcg, Uni vers ne 05-19 Oral, ity of (SYNTHROID) 12:00: QAM-0600, [place] tablet 25 00 First dose Medi romel mcg on Wed05/19/22 at 0600, Until Discontinu ed, Routine ondansetron 0 Yes 4mg 4 mg, Slow Univers (ZOFRAN 05-19 IV Push, ity of (PF)) 09:53: Q6HPRN, [place] injection 4 15 Starting Medi romel mg on Wed05/19/22 at 0353, Until Discontinu ed, Routine, Nausea and Vomiting (N/V) morpHINE (2 2022- No 2mg 2 mg, Slow Univers mg/mL) 05-1904 IV Push, ity of injection 2 09:53: 09:52 Q4HPRN, [place] mg 06 :06 Starting Medical on Wed05/19/22 at 0353, Until Wed05/20/22 at 0352, Routine, Pain (scale 7-10), Chest pain traMADoL 2022- No 50mg 50 mg, Univer s (ULTRAM) 05-1905 Oral, ity of tablet 50 09:52: 09:51 Q8HPRN, [place] mg 58 :58 Starting Medical on Wed05/19/22 at 0352, Until Xochitl 05/21/22 at 0351, Routine, Pain (scale 4-6) acetaminoph 2022-0 Yes 650mg 650 mg, [place] en 05-19 Oral, ity of (TYLENOL) 09:52: Q6HPRN, [place] tablet 650 54 Starting Medic al mg on Wed05/19/22 at 0352, Until Discontinu ed, Routine, Pain (scale 1-3) nitroglycer 2022-0 Yes .4mg 0.4 mg, Uni vers in 05-19 Sublingual ity of (NITROSTAT) 09:51: , Q5MIN [place] sublingual 11 PRN, Medical tablet 0.4 Starting Branc h mg on Wed05/19/22 at 035, Until Discontinu ed, Routine, Chest pain HYDROcodone 2022-0 Yes 1{tbl} 1 tablet, Univers -acetaminop 05-19 Oral, ity of hen (NORCO) 09:50: Q6HPRN, [place] 10-325 mg 23 Starting Medica l tablet 1 on Wed Branch tablet 05/19/22 at 0350, Until Discontinu ed, Routine, Pain (scale 4-6) dicyclomine Yes 20mg 20 mg, Univ ers (BENTYL) 05-19 Oral, ity of tablet 20 09:49: Q6HPRN, [place] mg 43 Starting Medical on Wed Branch 05/19/22 at 0349, Until Discontinu ed, Routine, Abdominal pain baclofen Yes 10mg 10 mg, Univers (LIORESAL) 05-19 Oral, ity of tablet 10 09:49: BIDPRN, [place] mg 30 Starting Medical on Wed Branch 05/19/22 at 0349, Until Discontinu ed, Routine, anxiety NaCl 0.9% 2022- No 500mL at 999 [facility] ers (NS) bolus 05-19 mL/hr, 500 it y of infusion 05:30: 04:48 mL, IV [place] 500 mL 00 :00 Piggyback, Medical ONCE, 1 Branch dose, On Wed05/18/22 at 2330, STAT levothyroxi 2021-05 Yes 25ug 25 mcg, Uni vers ne - Oral, ity of (SYNTHROID) 12:00: QAM-0600, [place] tablet 25 00 First dose Medi romel mcg on [facility] Branch 05/16/22 at 0600, Until Discontinu ed, Routine lisinopriL 2021-05- No [id number] 20mg Take 1 Univers 20 mg 06-16 tablet by ity of tablet 00:00: 05:59 mouth in [place] 00 :00 the Medical morning Branch for 30 days. levothyroxi 2021-05- No [id number] 25ug Take 1 Univers ne 25 mcg 06-16 tablet by ity of tablet 00:00: 05:59 mouth [place] 00 :00 every Medical morning Branch for 30 days. spironolact 2021-05- No [id number] 100mg Take 1 Univers one 100 mg 06-16 tablet by ity of tablet 00:00: 05:59 mouth in [place] 00 :00 the Medical morning Branch for 30 days. lisinopriL 2021-05- No [id number] 20mg Take 1 Univers 20 mg 06-16 tablet by ity of tablet 00:00: 05:59 mouth in [place] 00 :00 the Medical morning Branch for 30 days. levothyroxi 2021-05- No [id number] 25ug Take 1 Univers ne 25 mcg 06-16 tablet by ity of tablet 00:00: 05:59 mouth [place] 00 :00 every Medical morning Branch for 30 days. spironolact 2021-05- No [id number] 100mg Take 1 Univers one 100 mg 06-16 tablet by ity of tablet 00:00: 05:59 mouth in [place] 00 :00 the Medical morning Branch for 30 days. lisinopriL 2021-05- No [id number] 20mg Take 1 Univers 20 mg 06-16 tablet by ity of tablet 00:00: 05:59 mouth in [place] 00 :00 the Medical morning Branch for 30 days. levothyroxi 2021-05- No [id number] 25ug Take 1 Univers ne 25 mcg 06-16 tablet by ity of tablet 00:00: 05:59 mouth [place] 00 :00 every Medical morning Branch for 30 days. spironolact 2021-05- No [id number] 100mg Take 1 Univers one 100 mg 06-16 tablet by ity of tablet 00:00: 05:59 mouth in [place] 00 :00 the Medical morning Branch for 30 days. montelukast 2021-05 Yes 10mg Take 10 mg Univers (SINGULAIR) 2-30 by mouth ity of 10 mg 18:37: daily. [place] tablet 59 Medical Branch gabapentin 2021-05 Yes 600mg Take 600 [place] 600 mg 2-30 mg by ity of tablet 18:37: mouth 3 [place] 59 (three) Medical times Branch daily. simvastatin 2021-05 Yes 40mg Take 40 mg Univers (ZOCOR) 20 2-30 by mouth ity o f mg tablet 18:37: at [place] 59 bedtime. Medical Branch baclofen 2021-05 Yes 10mg Take 10 mg Uni vers (LIORESAL) 2-30 by mouth 2 ity of 10 mg 18:37: (two) [place] tablet 59 times Medical daily. Branch Daily PRN metoprolol 2021-05 Yes 50mg Take 50 mg U nivers succinate 2-30 by mouth ity of XL 50 mg 24 18:37: daily. [place] hr tablet 59 Medical Branch SERTraline 2021-05 Yes 100mg Take 100 [place] 100 mg 2-30 mg by ity of tablet 18:37: mouth [place] 59 daily. Medical Branch cholecalcif 2021-05 Yes 2000U 2,000 Univ ers marcello 2-30 Units, ity of (vitamin 15:00: Oral, [place] D3) tablet 00 DAILY, Medical 2,000 Units First dose Br [place] on Wed05/15/22 at 0900, Until Discontinu ed, Routine pantoprazol 2021-05- No [id number] 40mg Take 1 Univers e 40 mg EC - tablet by ity of tablet 00:00: 05:59 mouth in [place] 00 :00 the [facility] and 1 tablet in the evening. Do all this for 30 days. pantoprazol 2021-05- No [id number] 40mg Take 1 Univers e 40 mg EC 06-15 tablet by ity of tablet 00:00: 05:59 mouth in [place] 00 :00 the [facility] and 1 tablet in the evening. Do all this for 30 days. pantoprazol 2021-05- No [id number] 40mg Take 1 Univers e 40 mg EC 06-15 tablet by ity of tablet 00:00: 05:59 mouth in [place] 00 :00 the [facility] and 1 tablet in the evening. Do all this for 30 days. spironolact 2021-05 Yes 100mg 100 mg, [facility] [place] one 2-29 Oral, ity of (ALDACTONE) 19:30: [place]ILY[place] 100 00 First dose Med ical mg on [place] Branch 05/14/22 at 1330, Until Discontinu ed, Routine sucralfate 2021-05 Yes 1g 1,000 mg Uni vers (CARAFATE) 2-29 (1 g), ity of 100 mg/mL 17:30: Oral, [place] suspension 00 AC+HS, Medical 1,000 mg First dose Branc h on [facility] 05/14/22 at 1130, Until Discontinu ed, Routine pantoprazol 2021-05 Yes 40mg 40 mg, Univ ers e 2-29 Oral, BID, ity of (PROTONIX) 14:00: First dose [place] EC tablet 00 on X[place]l Medical 40 mg 05/14/22 Branch at 0800, Until Discontinu ed, Routine simvastatin 2021-05 Yes 40mg 40 mg, Univ ers (ZOCOR) Oral, QHS, ity of tablet 40 03:00: First dose [place] mg 00 on Wed Medical 05/13/22 Branch at 2100, Until Discontinu ed, Routine enoxaparin 2021-05 No 30mg 30 mg, Univ ers (LOVENOX) 07-14 Subcutaneo ity of injection 23:00: 05:48 us, DAILY, [place] 30 mg 00 :36 First dose Medical on Wed Branch 05/13/22 at 1700, Until Discontinu ed, Routine SERTraline 2021-05 Yes 100mg 100 mg, Uni vers (ZOLOFT) 07-14 Oral, ity of tablet 100 15:00: DAILY, [place] mg 00 First dose Medical on Wed Branch 05/13/22 at 0900, Until Discontinu ed, Routine montelukast 2021-05 Yes 10mg 10 mg, Univ ers (SINGULAIR) 07-14 Oral, ity of tablet 10 15:00: DAILY, [place] mg 00 First dose Medical on Wed Branch 05/13/22 at 0900, Until Discontinu ed, Routine metoprolol 2021-05 Yes 50mg 50 mg, Unive rs succinate 07-14 Oral, ity of XL (TOPROL 15:00: DAILY, [place] XL) tablet 00 First dose Med ical 50 mg on Wed Branch 05/13/22 at 0900, Until Discontinu ed, Routine lisinopriL 2021-05 Yes 20mg 20 mg, Unive rs (PRINIVIL,Z 07-14 Oral, ity of ESTRIL) 15:00: DAILY, [place] tablet 20 00 First dose Medi romel mg on Wed Branch 05/13/22 at 0900, Until Discontinu ed fluticasone 2021-05 Yes 1{spray 1 [place], Univers propionate 07-14 } Nasal, ity of 50 15:00: DAILY, [place] mcg/actuati 00 First dose Me dical on nasal on Wed Branch spray 1 05/13/22 [place] at 0900, Until Discontinu ed, Routine finasteride 2022-1 Yes 5mg 5 mg, Unive rs (PROSCAR) 07-14 Oral, ity of tablet 5 mg 15:00: DAILY, [place] 00 First dose Medical on Wed Branch 05/13/22 at 0900, Until Discontinu ed, Routine docusate 2021-05 Yes 100mg 100 mg, Unive rs (COLACE) 07-14 Oral, BID, ity o f capsule 100 14:00: First dose [place] mg 00 on Wed05/13/22 Branch at 0800, Until Discontinu ed, Routine ipratropium 2021-05 Yes 3mL 3 mL, Unive rs -albuteroL 07-14 Inhalation ity of (DUONEB) 14:00: , QID, [place] 0.5 mg-3 00 First dose Medic al mg(2.5 mg on Wed base)/3 mL 05/13/22 nebulizer at 0800, solution 3 Until mL Discontinu ed, Routine gabapentin 2021-05 Yes 600mg 600 mg, Uni vers (NEURONTIN) 07-14 Oral, TID, it y of tablet 600 14:00: First dose [place] mg 00 on Wed [facility] 05/13/22 Branch at 0800, Until Discontinu ed, Routine furosemide 2021-05 Yes 20mg 20 mg, Unive rs (LASIX) 07-14 Oral, BID, ity of tablet 20 14:00: First dose [place] mg 00 on Wed [facility] 05/13/22 Branch at 0800, Until Discontinu ed, Routine NaCl 0.9% 2021-05 Yes 1000mL at 100 Univ ers (NS) IV 2- mL/hr, IV ity of infusion 08:00: Infusion, [place] 1,000 mL 00 CONTINUOUS Medic al , Starting Branch on Wed05/13/22 at 0200, Until Discontinu ed, Routine NaCl 0.9% 2021-05 500mL at 999 Univ ers (NS) bolus 07-14- mL/hr, 500 it y of infusion 07:45: 08:43 mL, IV [place] 500 mL 00 :00 Piggyback, Medical ONCE, 1 Branch dose, On Wed05/13/22 at 0145, STAT morpHINE (2 2021-05 Yes 2mg 2 mg, Slow Univers mg/mL) 07-14 IV Push, ity of injection 2 06:53: Q4HPRN, [place] mg 35 Starting Medical on Wed Branch 05/13/22 at 0053, Until Discontinu ed, Routine, Pain (scale 7-10) ondansetron 2021-05 Yes 4mg 4 mg, Slow Univers (ZOFRAN 07-14 IV Push, ity of (PF)) 06:52: Q6HPRN, [place] injection 4 41 Starting Medi romel mg on Wed Branch 05/13/22 at 0052, Until Discontinu ed, Routine, Nausea and Vomiting (N/V) HYDROcodone 2021-05 Yes 1{tbl} 1 tablet, Univers -acetaminop 07-14 Oral, ity of hen (NORCO) 06:50: Q6HPRN, [place] 10-325 mg 45 Starting Medica l tablet 1 on Wed Branch tablet 05/13/22 at 0050, Until Discontinu ed, Routine, Pain (scale 4-6) acetylcyste 2021-05 No [id number] 15,000 mg, Univers ine 07-14 IV ity of (ACETADOTE) 04:00: 04:28 Piggyback, [place] 15,000 mg 00 :00 ONCE, 1 Medical in D5W dose, On Branch piggyback e 05/12/22 at 2200, Administer over 60 Minutes, 200 mL ondansetron 2021-05 No 4mg 4 mg, Slow Univers (ZOFRAN 07-14 IV Push, ity of (PF)) 01:30: 01:29 ONCE, 1 [place] injection 4 00 :00 dose, On Medi romel mg Wed05/12/22 at 1930, DIAMOND morpHINE (4 2021-05 No 4mg 4 mg, Slow Univers mg/mL) 07-14 IV Push, ity of injection 4 01:30: 01:29 ONCE, 1 [place] mg 00 :00 dose, On Medical Wed05/12/22 at 1930, STAT iopamidol 2021-05- No [id number] 84mL 84 mL, U nivers (ISOVUE 07-14 Intravenou ity o f 370-500 mL) 00:45: 00:45 s, ONCE, 1 [place] injection 00 :00 dose, On Medica l 84 mL 05/12/22 at 1845, Routine ondansetron 2021-05 No 4mg 4 mg, Slow Univers (ZOFRAN 07-14 IV Push, ity of (PF)) 00:00: 22:51 ONCE, 1 [place] injection 4 00 :00 dose, On Medi romel mg [facility] Branch 05/12/22 at 1800, DIAMOND NaCl 0.9% 2021-05 No 500mL at 999 Univ ers (NS) bolus 07-13- mL/hr, 500 it y of infusion 23:00: 02:00 mL, IV [place] 500 mL 00 :00 Infusion, Medical ONCE, 1 Branch dose, On [facility] 05/12/22 at 1700, STAT morpHINE (4 2021-05 No 4mg 4 mg, Slow Univers mg/mL) 07-13 IV Push, ity of injection 4 23:00: 22:51 ONCE, 1 [place] mg 00 :00 dose, On Medical [facility] Branch 05/12/22 at 1700, STAT NaCl 0.9% 2021-05 No 1000mL at 999 Uni vers (NS) bolus 07-13 mL/hr, ity of infusion 22:15: 01:15 1,000 mL, [place] 1,000 mL 00 :00 IV Medical Infusion, Branch ONCE, 1 dose, On [facility] 05/12/22 at 1615, DIAMOND HYDROcodone 2021-05- No 1{tbl} 1 tablet, Univers -acetaminop 06-29 Oral, ONCE i ty of hen (NORCO) 05:30: 04:45 NOW, 1 [place] 10-325 mg 00 :00 dose, On Medica l tablet 1 Mon [place] tablet 04/27/22 at 2330, Routine iopamidol 2021-05- No [id number] 79mL 79 mL, Univers (ISOVUE 06-29 Intravenou ity o f 370-500 mL) 05:00: 05:00 s, ONCE, 1 [place] injection 00 :00 dose, On Medica l 79 mL Mon Branch 04/27/22 at 2300, Routine ketorolac 2021-05- No 30mg 30 mg, Unive rs (TORADOL) 06-29- Slow IV ity of injection 03:30: 03:25 Push, [place] 30 mg 00 :00 ONCE, 1 Medical dose, On Branch 04/27/22 at 2130, Routine dicyclomine 2021-05 Yes [id number] 20mg Take 1 [facility] 20 mg 2-12 tablet by ity of tablet 00:00: mouth [place] 00 every 6 Medical (six) Branch hours as needed for Abdominal pain. ondansetron 2021-05 Yes [id number] 4mg Take 1 Univers (ZOFRAN) 4 2-12 tablet by ity of mg tablet 00:00: mouth [place] 00 every 8 Medical (eight) Branch hours as needed for Nausea and Vomiting (N/V). mupirocin 2 2021-05 Yes [id number] Apply to Univers % ointment 2-12 area(s) 3 ity of 00:00: (three) [place] 00 times Medical daily. Branch dicyclomine 2021-05 Yes [id number] 20mg Take 1 Univers 20 mg 2-12 tablet by ity of tablet 00:00: mouth [place] 00 every 6 Medical (six) Branch hours as needed for Abdominal pain. mupirocin 2 2021-05 Yes [id number] Apply to Univers % ointment 2-12 area(s) 3 ity of 00:00: (three) [place] 00 times Medical daily. Branch dicyclomine 2021-05 Yes [id number] 20mg Take 1 [facility] 20 mg 2-12 tablet by ity of tablet 00:00: mouth [place] 00 every 6 Medical (six) Branch hours as needed for Abdominal pain. mupirocin 2 2021-05 Yes [id number] Apply to Univers % ointment 2-12 area(s) 3 ity of 00:00: (three) [place] 00 times Medical daily. Branch dicyclomine 2021-05 Yes [id number] 20mg Take 1 [facility] 20 mg 2-12 tablet by ity of tablet 00:00: mouth [place] 00 every 6 Medical (six) Branch hours as needed for Abdominal pain. mupirocin 2 2021-05 Yes [id number] Apply to Univers % ointment 2-12 area(s) 3 ity of 00:00: (three) [place] 00 times Medical daily. Branch dicyclomine 2021-05 Yes [id number] 20mg Take 1 [facility] 20 mg 2-12 tablet by ity of tablet 00:00: mouth [place] 00 every 6 Medical (six) Branch hours as needed for Abdominal pain. mupirocin 2 2021- Yes [id number] Apply to Univers % ointment 2-12 area(s) 3 ity of 00:00: (three) [place] 00 times Medical daily. Branch dicyclomine 2021-05 Yes [id number] 20mg Take 1 [facility] 20 mg 2-12 tablet by ity of tablet 00:00: mouth [place] 00 every 6 Medical (six) Branch hours as needed for Abdominal pain. mupirocin 2 2021-05 Yes [id number] Apply to Univers % ointment 2-12 area(s) 3 ity of 00:00: (three) [place] 00 times Medical daily. Branch mupirocin 2 2021-05 Yes [id number] Apply to Univers % ointment 2-12 area(s) 3 ity of 00:00: (three) [place] 00 times Medical daily. Branch mupirocin 2 2021-05 Yes [id number] Apply to Univers % ointment 2-12 area(s) 3 ity of 00:00: (three) [place] 00 times Medical daily. Branch mupirocin 2 2021- Yes [id number] Apply to Univers % ointment 2-12 area(s) 3 ity of 00:00: (three) [place] 00 times Medical daily. Branch mupirocin 2 2021- Yes [id number] Apply to Univers % ointment 2-12 area(s) 3 ity of 00:00: (three) [place] 00 times Medical daily. Branch mupirocin 2 2021- Yes [id number] Apply to Univers % ointment 2-12 area(s) 3 ity of 00:00: (three) [place] 00 times Medical daily. Branch mupirocin 2 2021- Yes [id number] Apply to Univers % ointment 2-12 area(s) 3 ity of 00:00: (three) [place] 00 times Medical daily. Branch mupirocin 2 2021- Yes [id number] Apply to Univers % ointment 2-12 area(s) 3 ity of 00:00: (three) [place] 00 times Medical daily. Branch mupirocin 2 2021-05 Yes [id number] Apply to Univers % ointment 2-12 area(s) 3 ity of 00:00: (three) [place] 00 times Medical daily. Branch mupirocin 2 2021-05 Yes [id number] Apply to Univers % ointment 2-12 area(s) 3 ity of 00:00: (three) [place] 00 times Medical daily. Branch mupirocin 2 2021-05 Yes [id number] Apply to Univers % ointment 2-12 area(s) 3 ity of 00:00: (three) [place] 00 times Medical daily. Branch mupirocin 2 2021-05 Yes [id number] Apply to Univers % ointment 2-12 area(s) 3 ity of 00:00: (three) [place] 00 times Medical daily. Branch mupirocin 2 2021-05 Yes [id number] Apply to Univers % ointment 2-12 area(s) 3 ity of 00:00: (three) [place] 00 times Medical daily. Branch mupirocin 2 2021-05 Yes [id number] Apply to Univers % ointment 2-12 area(s) 3 ity of 00:00: (three) [place] 00 times Medical daily. Branch dicyclomine 2021-05- No [id number] 20mg Take 1 [facility] 20 mg 06-28 06-16 tablet by ity of tablet 00:00: 00:00 mouth [place] 00 :00 every 6 Medical (six) Branch hours as needed for Abdominal pain. ondansetron 2021-05- No [id number] 4mg Take 1 Univers (ZOFRAN) 4 06-28 12-30 tablet by ity of mg tablet 00:00: 00:00 mouth [place] 00 :00 every 8 Medical (eight) Branch hours as needed for Nausea and Vomiting (N/V). SUMAtriptan 2021-05 Yes 50mg Take 50 mg Univers 50 mg 209 by mouth ity of tablet 00:00: in the [place] 00 morning Medical and 50 mg Branch in the evening. SUMAtriptan 2021-05 Yes 50mg Take 50 mg Univers 50 mg 09 by mouth ity of tablet 00:00: in the [place] morning Medical and 50 mg Branch in the evening. SUMAtriptan 2022-1 Yes 50mg Take 50 mg Univers 50 mg 2-09 by mouth ity of tablet 00:00: in the [place] 00 morning Medical and 50 mg Branch in the evening. SUMAtriptan 2022-1 Yes 50mg Take 50 mg Univers 50 mg 2-09 by mouth ity of tablet 00:00: in the [place] 00 morning Medical and 50 mg Branch in the evening. SUMAtriptan 2022-1 Yes 50mg Take 50 mg Univers 50 mg 2-09 by mouth ity of tablet 00:00: in the [place] 00 morning Medical and 50 mg Branch in the evening. SUMAtriptan 2022-1 Yes 50mg Take 1 Univ ers 50 mg 2-09 tablet by ity of tablet 00:00: mouth in [place] 00 the Medical morning Branch and 1 tablet in the evening. SUMAtriptan 2022-1 Yes 50mg Take 1 Univ ers 50 mg 2-09 tablet by ity of tablet 00:00: mouth in [place] 00 the Medical morning Branch and 1 tablet in the evening. SUMAtriptan 2022-1 Yes 50mg Take 1 Univ ers 50 mg 2-09 tablet by ity of tablet 00:00: mouth in [place] [address] the Medical morning Branch and 1 tablet in the evening. SUMAtriptan 2022-1 Yes 50mg Take 1 Univ ers 50 mg 2-09 tablet by ity of tablet 00:00: mouth in [place] [address] the Medical morning Branch and 1 tablet in the evening. SUMAtriptan 2022-1 Yes 50mg Take 1 Univ ers 50 mg 2-09 tablet by ity of tablet 00:00: mouth in [place] 00 the Medical morning Branch and 1 tablet in the evening. SUMAtriptan 2022-1 Yes 50mg Take 1 Univ ers 50 mg 2-09 tablet by ity of tablet 00:00: mouth in [place] 00 the Medical morning Branch and 1 tablet in the evening. SUMAtriptan 2022-1 Yes 50mg Take 1 Univ ers 50 mg 2-09 tablet by ity of tablet 00:00: mouth in [place] [address] the Medical morning Branch and 1 tablet in the evening. SUMAtriptan 2022-1 Yes 50mg Take 1 Univ ers 50 mg 2-09 tablet by ity of tablet 00:00: mouth in [place] [address] the Medical morning Branch and 1 tablet in the evening. SUMAtriptan 2022-1 Yes 50mg Take 1 Univ ers 50 mg 2-09 tablet by ity of tablet 00:00: mouth in [place] 00 the Medical morning Branch and 1 tablet in the evening. SUMAtriptan 2022-1 Yes 50mg Take 1 Univ ers 50 mg 2-09 tablet by ity of tablet 00:00: mouth in [place] 00 the Medical morning Branch and 1 tablet in the evening. SUMAtriptan 2022-1 Yes 50mg Take 1 Univ ers 50 mg 2-09 tablet by ity of tablet 00:00: mouth in [place] 00 the Medical morning Branch and 1 tablet in the evening. SUMAtriptan 2022-1 Yes 50mg Take 1 Univ ers 50 mg 2-09 tablet by ity of tablet 00:00: mouth in [place] 00 the Medical morning Branch and 1 tablet in the evening. SUMAtriptan 2-1 Yes 50mg Take 1 Univ ers 50 mg 2-09 tablet by ity of tablet 00:00: mouth in [place] 00 the Medical morning Branch and 1 tablet in the evening. HYDROcodone 2021- Yes 1{tbl} Take 1 [facility] -acetaminop 1-22 tablet by ity of hen 10-325 00:00: mouth [place] mg tablet 00 every 6 Medical (six) Branch hours as needed. HYDROcodone 2021-1 Yes 1{tbl} Take 1 [facility] -acetaminop 1-22 tablet by ity of hen 10-325 00:00: mouth [place] mg tablet 00 every 6 Medical (six) Branch hours as needed. HYDROcodone 2021-1 Yes 1{tbl} Take 1 [facility] -acetaminop 1-22 tablet by ity of hen 10-325 00:00: mouth [place] mg tablet 00 every 6 Medical (six) Branch hours as needed. HYDROcodone 2021-1 Yes 1{tbl} Take 1 [facility] -acetaminop 1-22 tablet by ity of hen 10-325 00:00: mouth [place] mg tablet 00 every 6 Medical (six) Branch hours as needed. HYDROcodone 2021-1 Yes 1{tbl} Take 1 [facility] -acetaminop 1-22 tablet by ity of hen 10-325 00:00: mouth [place] mg tablet 00 every 6 Medical (six) Branch hours as needed. HYDROcodone 2021-1 Yes 1{tbl} Take 1 [facility] -acetaminop 1-22 tablet by ity of hen 10-325 00:00: mouth [place] mg tablet 00 every 6 Medical (six) Branch hours as needed. HYDROcodone 2021-05 Yes 1{tbl} Take 1 [facility] -acetaminop 1-22 tablet by ity of hen 10-325 00:00: mouth [place] mg tablet 00 every 6 Medical (six) Branch hours as needed. HYDROcodone 2021-05 Yes 1{tbl} Take 1 [facility] [place] -acetaminop 1-22 tablet by ity of hen 10-325 00:00: mouth [place] mg tablet 00 every 6 Medical (six) Branch hours as needed. HYDROcodone 2021-05 Yes 1{tbl} Take 1 [facility] [place] -acetaminop 1-22 tablet by ity of hen 10-325 00:00: mouth [place] mg tablet 00 every 6 Medical (six) Branch hours as needed. HYDROcodone 2021-05 Yes 1{tbl} Take 1 [facility] [place] -acetaminop 1-22 tablet by ity of hen 10-325 00:00: mouth [place] mg tablet 00 every 6 Medical (six) Branch hours as needed. HYDROcodone 2021-05 Yes 1{tbl} Take 1 [facility] [place] -acetaminop 1-22 tablet by ity of hen 10-325 00:00: mouth [place] mg tablet 00 every 6 Medical (six) Branch hours as needed. HYDROcodone 2021-05 Yes 1{tbl} Take 1 [facility] [place] -acetaminop 1-22 tablet by ity of hen 10-325 00:00: mouth [place] mg tablet 00 every 6 Medical (six) Branch hours as needed. HYDROcodone 2021-05 Yes 1{tbl} Take 1 [facility] -acetaminop 1-22 tablet by ity of hen 10-325 00:00: mouth [place] mg tablet 00 every 6 Medical (six) Branch hours as needed. HYDROcodone 2021-05 Yes 1{tbl} Take 1 [facility] [place] -acetaminop 1-22 tablet by ity of hen 10-325 00:00: mouth [place] mg tablet 00 every 6 Medical (six) Branch hours as needed. HYDROcodone 2021- Yes 1{tbl} Take 1 [facility] [place] -acetaminop 1-22 tablet by ity of hen 10-325 00:00: mouth [place] mg tablet 00 every 6 Medical (six) Branch hours as needed. HYDROcodone 2022-1 Yes 1{tbl} Take 1 [facility] -acetaminop 1-22 tablet by ity of hen 10-325 00:00: mouth [place] mg tablet 00 every 6 Medical (six) Branch hours as needed. HYDROcodone 2022-1 Yes 1{tbl} Take 1 [facility] [place] -acetaminop 1-22 tablet by ity of hen 10-325 00:00: mouth [place] mg tablet 00 every 6 Medical (six) Branch hours as needed. HYDROcodone 2022-1 Yes 1{tbl} Take 1 [facility] -acetaminop 1-22 tablet by ity of hen 10-325 00:00: mouth [place] mg tablet 00 every 6 Medical (six) Branch hours as needed. furosemide 2022-1 Yes 20mg Take 20 mg U nivers 20 mg 1-01 by mouth ity of tablet 00:00: in the [place] morning Medical and 20 mg Branch in the evening. furosemide 2022-1 Yes 20mg Take 20 mg U nivers 20 mg 1-01 by mouth ity of tablet 00:00: in the [place] morning Medical and 20 mg Branch in the evening. furosemide 2022-1 Yes 20mg Take 20 mg U nivers 20 mg 1-01 by mouth ity of tablet 00:00: in the [place] morning Medical and 20 mg Branch in the evening. furosemide 2022-1 Yes 20mg Take 20 mg U nivers 20 mg 1-01 by mouth ity of tablet 00:00: in the [place] morning Medical and 20 mg Branch in the evening. furosemide 2022-1 Yes 20mg Take 20 mg U nivers 20 mg 1-01 by mouth ity of tablet 00:00: in the [place] morning Medical and 20 mg Branch in the evening. furosemide 2022-1 Yes 20mg Take 1 Unive rs 20 mg 1-01 tablet by ity of tablet 00:00: mouth in [place] 00 the Medical morning Branch and 1 tablet in the evening. furosemide 2022-1 Yes 20mg Take 1 Unive rs 20 mg 1-01 tablet by ity of tablet 00:00: mouth in [place] 00 the Medical morning Branch and 1 tablet in the evening. furosemide 2022-1 Yes 20mg Take 1 Unive rs 20 mg 1-01 tablet by ity of tablet 00:00: mouth in [place] 00 the Medical morning Branch and 1 tablet in the evening. furosemide 2021-05 Yes 20mg Take 1 Unive rs 20 mg 05-17 tablet by ity of tablet 00:00: mouth in [place] 00 the Medical morning Branch and 1 tablet in the evening. furosemide 2021-05- No 20mg Take 1 Univ ers 20 mg 05-17 tablet by ity of tablet 00:00: 00:00 mouth in [place] 00 :00 the Medical morning Branch and 1 tablet in the evening. furosemide 2021-05- No 20mg Take 1 Univ ers 20 mg 05-17 tablet by ity of tablet 00:00: 00:00 mouth in [place] 00 :00 the Medical morning Branch and 1 tablet in the evening. lisinopriL 2021-05- No 40mg Take 40 mg [facility] 40 mg 05-17 1230 by mouth ity of tablet 00:00: 00:00 in the [place] 00 :00 morning. Medical Branch neomycin-po 2021-05 No 1[drp] Place 1 Univers lymyxin-dex 0-31 12-30 Drop in ity of amethasone 00:00: 00:00 [place] eyes [place] 3.5mg/mL-10 00 :00 as needed. Me dical ,000 Branch unit/mL-0.1 % ophthalmic suspension drops montelukast 0 Yes 10mg Take 10 mg Univers (SINGULAIR) 8-19 by mouth ity of 10 mg 18:28: daily. [place] [address] Branch gabapentin 2021-0 Yes 600mg Take 600 [place] 600 mg 8-19 mg by ity of tablet 18:28: mouth 3 [place] [address] (three) Medical times Branch daily. simvastatin 0 Yes 40mg Take 40 mg Univers (ZOCOR) 20 8-19 by mouth ity o f mg tablet 18:28: at [place] [address] bedtime. Medical Branch baclofen 0 Yes 10mg Take 10 mg Uni vers (LIORESAL) 8-19 by mouth 2 ity of 10 mg 18:28: (two) [place] tablet 33 times Medical daily. Branch Daily PRN metoprolol 2021-0 Yes 50mg Take 50 mg U nivers succinate 8-19 by mouth ity of XL 50 mg 24 18:28: daily. [place] hr tablet [address] [place] [address] Branch SERTraline 0 Yes 100mg Take 100 [facility] [place] 100 mg 8-19 mg by ity of tablet 18:28: mouth [place] [address] daily. Medical Branch montelukast Yes 10mg Take 10 mg Univers (SINGULAIR) 8-19 by mouth ity of 10 mg 18:28: daily. [place] tablet 33 Medical Branch gabapentin 0 Yes 600mg Take 600 [place] 600 mg 8-19 mg by ity of tablet 18:28: mouth 3 [place] 33 (three) Medical times Branch daily. simvastatin Yes 40mg Take 40 mg Univers (ZOCOR) 20 8-19 by mouth ity o f mg tablet 18:28: at [place] [address] bedtime. Medical Branch baclofen Yes 10mg Take 10 mg Uni vers (LIORESAL) 8-19 by mouth 2 ity of 10 mg 18:28: (two) [place] tablet 33 times Medical daily. Branch Daily PRN metoprolol Yes 50mg Take 50 mg U nivers succinate 8- by mouth ity of XL 50 mg 24 18:28: daily. [place] hr tablet 33 Medical Branch SERTraline Yes 100mg Take 100 [place] 100 mg 8-19 mg by ity of tablet 18:28: mouth [place] [address] daily. Medical Branch HYDROcodone 2021- No 2745 1{tbl} Take 1 U nivers -acetaminop -02 01- tablet by it y of hen (NORCO) 15:56: 00:00 mouth [place] 10-325 mg 51 :00 every 6 Medical tablet (six) Branch hours. Indication s: chronic pain montelukast Yes 10mg 10 mg, Univ ers (SINGULAIR) 8-19 Oral, ity of tablet 10 14:00: DAILY, [place] mg 00 First dose Medical on Wed Branch 01/02/22 at 0900, Until Discontinu ed, Routine metoprolol 0 Yes 50mg 50 mg, Unive rs succinate 8-19 Oral, ity of XL (TOPROL 14:00: DAILY, [place] XL) tablet 00 First dose Med ical 50 mg on Wed Branch 01/02/22 at 0900, Until Discontinu ed, Routine finasteride Yes 5mg 5 mg, Unive rs (PROSCAR) 01-02 Oral, ity of tablet 5 mg 14:00: DAILY, [place] 00 First dose Medical on Wed Branch 01/02/22 at 0900, Until Discontinu ed, Routine enoxaparin Yes 40mg 40 mg, Unive rs (LOVENOX) 01-02 Subcutaneo ity of injection 14:00: [place], DAILY, [place] 40 mg 00 First dose Medical on Wed Branch 01/02/22 at 0900, Until Discontinu ed, Routine SERTraline Yes 100mg 100 mg, Uni vers (ZOLOFT) 01-02 Oral, ity of tablet 100 14:00: DAILY, [place] mg 00 First dose Medical on Wed Branch 01/02/22 at 0900, Until Discontinu ed, Routine NaCl 0.9% 2021- No at 100 Unive rs (NS) IV 01-02 mL/hr, IV ity of infusion 00:00: 16:43 Infusion, [place] 00 :51 CONTINUOUS Medical , Starting Branch on Wed01/01/22 at 1900, Until Wed01/02/22 at 1143, Routine albuterol Yes 2{puff} 2 Puff, [facility] (VENTOLIN) 01-01 Inhalation ity of inhaler 2 23:15: , Q6HPRN, [place] Puff 26 Starting Medical on [facility] Branch 01/01/22 at 1815, Until Discontinu ed, Routine, Wheezing, Shortness of Breath morpHINE (2 2021- No 2mg 2 mg, Slow Univers mg/mL) 01-01 IV Push, ity of injection 2 22:33: 22:32 Q4HPRN, [place] mg 06 :06 Starting Medical on [place] Branch 01/01/22 at 1733, Until Wed01/02/22 at 1732, Routine, Pain (scale 7-10) traMADoL 0 2021- No 50mg 50 mg, Univer s (ULTRAM) 01-01 0820 Oral, ity of tablet 50 22:33: 22:32 Q8HPRN, [place] mg 04 :04 Starting Medical on [facility] Branch 01/01/22 at 1733, Until 8/20/22 at 1732, Routine, Pain (scale 4-6) maalox:diph 2021- No 15mL 15 mL, Uni vers enhydrAMINE 01-01 Oral, ity of :lidocaine 21:45: 21:58 ONCE, 1 [place] 2 % viscous 00 :00 dose, On Medi romel 1:1:1 [place] Branch (FIRST-MOUT 01/01/22 at [facility]) 1645, oral Routine suspension 15 mL iopamidol 2021- No [id number] 59mL 59 mL, Univers (ISOVUE 01-01 Intravenou ity o f 370-500 mL) 21:45: 21:45 s, ONCE, 1 [place] injection 00 :00 dose, On Medica l 59 mL [place] Branch 01/01/22 at 1645, Routine NaCl 0.9% 2021- No 1000mL at 999 Uni vers (NS) bolus 01-01 mL/hr, ity of infusion 20:45: 21:51 1,000 mL, [place] 1,000 mL 00 :00 IV Medical Infusion, Branch ONCE, 1 dose, On X[place]itl 01/01/22 at 1545, STAT peg-electro 2021- No 4000mL Take 4,000 Univers lyte soln 12-19 08-06 mL by ity of 236-22.74-6 00:00: 04:59 mouth once [place] .74 -5.86 00 :00 now for 1 Medic al gram dose. Branch solution montelukast Yes 10mg Take 10 mg [facility] (SINGULAIR) 7-12 by mouth ity of 10 mg 18:57: daily. [place] tablet 18 Medical Branch gabapentin 0 Yes 600mg Take 600 [facility] 600 mg 7-12 mg by ity of tablet 18:57: mouth 3 [place] 18 (three) Medical times Branch daily. simvastatin 0 Yes 40mg Take 40 mg Univers (ZOCOR) 20 7-12 by mouth ity o f mg tablet 18:57: at [place] 18 bedtime. Medical Branch baclofen Yes 10mg Take 10 mg Uni vers (LIORESAL) 7-12 by mouth 2 ity of 10 mg 18:57: (two) [place] tablet 18 times Medical daily. Branch Daily PRN metoprolol 0 Yes 50mg Take 50 mg U nivers succinate 7-12 by mouth ity of XL 50 mg 24 18:57: [place] tablet 18 [facility] SERTraline 0 Yes 100mg Take 100 [facility] 100 mg 7-12 mg by ity of tablet 18:57: mouth [place] 18 daily. Medical Branch HYDROcodone 0 Yes 2745 1{tbl} Take 1 [facility] -acetaminop 7-12 tablet by ity of hen (NORCO) 18:57: mouth [place] 10-325 mg 18 every 6 Medical tablet (six) Branch hours. Indication s: chronic pain montelukast 0 Yes 10mg Take 10 mg Univers (SINGULAIR) 7-12 by mouth ity of 10 mg 18:57: daily. [place] tablet 18 Medical Branch gabapentin Yes 600mg Take 600 [facility] 600 mg 7-12 mg by ity of tablet 18:57: mouth 3 [place] 18 (three) Medical times Branch daily. simvastatin Yes 40mg Take 40 mg Univers (ZOCOR) 20 7-12 by mouth ity o f mg tablet 18:57: at [place] 18 bedtime. Medical Branch baclofen Yes 10mg Take 10 mg Uni vers (LIORESAL) 7-12 by mouth 2 ity of 10 mg 18:57: (two) [place] tablet 18 times Medical daily. Branch Daily PRN metoprolol Yes 50mg Take 50 mg U nivers succinate 7-12 by mouth ity of XL 50 mg 24 18:57: [place]. [place] tablet 18 [facility] SERTraline 0 Yes 100mg Take 100 [facility] [place] 100 mg 7-12 mg by ity of tablet 18:57: mouth [place] 18 daily. Medical Branch HYDROcodone 0 Yes [id number] 1{tbl} Take 1 [facility] [place] -acetaminop 7-12 tablet by ity of hen (NORCO) 18:57: mouth [place] 10-325 mg 18 every 6 Medical tablet (six) Branch hours. Indication s: chronic pain nitroglycer [id number] 1 Univers in 0.4 mg 5-29 tablet ity of sublingual 00:00: under the [place] tablet 00 tongue Medical every 5 Branch (five) minutes as needed for Chest pain. nitroglycer 2022-[id number] 1 Univers in 0.4 mg 5-29 tablet ity of sublingual 00:00: under the [place] tablet 00 tongue Medical every 5 Branch (five) minutes as needed for Chest pain. nitroglycer 2022-[id number] 1 Univers in 0.4 mg 5-29 tablet ity of sublingual 00:00: under the [place] tablet 00 tongue Medical every 5 Branch (five) minutes as needed for Chest pain. nitroglycer 2022-[id number] 1 Univers in 0.4 mg 5-29 tablet ity of sublingual 00:00: under the [place] tablet 00 tongue Medical every 5 Branch (five) minutes as needed for Chest pain. nitroglycer 2022-[id number] 1 Univers in 0.4 mg 5-29 tablet ity of sublingual 00:00: under the [place] tablet 00 tongue Medical every 5 Branch (five) minutes as needed for Chest pain. nitroglycer 2022-[id number] 1 Univers in 0.4 mg 5-29 tablet ity of sublingual 00:00: under the [place] tablet 00 tongue Medical every 5 Branch (five) minutes as needed for Chest pain. nitroglycer 2022-[id number] 1 Univers in 0.4 mg 5-29 tablet ity of sublingual 00:00: under the [place] tablet 00 tongue Medical every 5 Branch (five) minutes as needed for Chest pain. nitroglycer 2022-[id number] 1 Univers in 0.4 mg 5-29 tablet ity of sublingual 00:00: under the [place] tablet 00 tongue Medical every 5 Branch (five) minutes as needed for Chest pain. nitroglycer 2022-[id number] 1 Univers in 0.4 mg 5-29 tablet ity of sublingual 00:00: under the [place] tablet 00 tongue Medical every 5 Branch (five) minutes as needed for Chest pain. nitroglycer 2022-[id number] 1 Univers in 0.4 mg 5-29 tablet ity of sublingual 00:00: under the [place] tablet 00 tongue Medical every 5 Branch (five) minutes as needed for Chest pain. nitroglycer 2022-[id number] 1 Univers in 0.4 mg 5-29 tablet ity of sublingual 00:00: under the [place] tablet 00 tongue Medical every 5 Branch (five) minutes as needed for Chest pain. nitroglycer 2022-[id number] 1 Univers in 0.4 mg 5-29 tablet ity of sublingual 00:00: under the [place] tablet 00 tongue Medical every 5 Branch (five) minutes as needed for Chest pain. nitroglycer 2022-[id number] 1 Univers in 0.4 mg 5-29 tablet ity of sublingual 00:00: under the [place] tablet 00 tongue Medical every 5 Branch (five) minutes as needed for Chest pain. nitroglycer 2022-[id number] 1 Univers in 0.4 mg 5-29 tablet ity of sublingual 00:00: under the [place] tablet 00 tongue Medical every 5 Branch (five) minutes as needed for Chest pain. nitroglycer 2022-[id number] 1 Univers in 0.4 mg 5-29 tablet ity of sublingual 00:00: under the [place] tablet 00 tongue Medical every 5 Branch (five) minutes as needed for Chest pain. nitroglycer 2022-[id number] 1 Univers in 0.4 mg 5-29 tablet ity of sublingual 00:00: under the [place] tablet 00 tongue Medical every 5 Branch (five) minutes as needed for Chest pain. nitroglycer 2022-[id number] 1 Univers in 0.4 mg 5-29 tablet ity of sublingual 00:00: under the [place] tablet 00 tongue Medical every 5 Branch (five) minutes as needed for Chest pain. nitroglycer 2022-[id number] 1 Univers in 0.4 mg 5-29 tablet ity of sublingual 00:00: under the [place] tablet 00 tongue Medical every 5 Branch (five) minutes as needed for Chest pain. nitroglycer 2022-[id number] 1 [facility] in 0.4 mg 5-29 tablet ity of sublingual 00:00: under the [place] tablet 00 tongue Medical every 5 Branch (five) minutes as needed for Chest pain. nitroglycer 2022-[id number] 1 Univers in 0.4 mg 5-29 tablet ity of sublingual 00:00: under the [place] tablet 00 tongue Medical every 5 Branch (five) minutes as needed for Chest pain. nitroglycer 2022-[id number] 1 Univers in 0.4 mg 5-29 tablet ity of sublingual 00:00: under the [place] tablet 00 tongue Medical every 5 Branch (five) minutes as needed for Chest pain. nitroglycer 2022-[id number] 1 Univers in 0.4 mg 5-29 tablet ity of sublingual 00:00: under the [place] tablet 00 tongue Medical every 5 Branch (five) minutes as needed for Chest pain. albuterol 2021-0 Yes 2{puff} Inhale 2 U nivers 90 5-17 Puffs. ity of mcg/actuati 00:00: [place] on inhaler 00 Medical Branch SUMAtriptan 2021-0 Yes 50mg Take 50 mg Univers 50 mg 5-17 by mouth. ity of tablet 00:00: [place] [facility] albuterol 2021-0 Yes 2{puff} Inhale 2 U nivers 90 5-17 Puffs. ity of mcg/actuati 00:00: [place] on inhaler 00 Medical Branch SUMAtriptan 2021-0 Yes 50mg Take 50 mg Univers 50 mg 5-17 by mouth. ity of tablet 00:00: [place] [facility] albuterol 2021-0 Yes 2{puff} Inhale 2 U nivers 90 5-17 Puffs. ity of mcg/actuati 00:00: [place] on inhaler 00 Medical Branch SUMAtriptan 2021-0 Yes 50mg Take 50 mg Univers 50 mg 5-17 by mouth. ity of tablet 00:00: [place] [facility] albuterol 2021-0 Yes 2{puff} Inhale 2 U nivers 90 5-17 Puffs. ity of mcg/actuati 00:00: [place] on inhaler 00 Medical Branch SUMAtriptan 2021-0 Yes 50mg Take 50 mg Univers 50 mg 5-17 by mouth. ity of tablet 00:00: Medical Branch albuterol Yes 2{puff} Inhale 2 U nivers 90 5-17 Puffs. ity of mcg/actuati 00:00: [place] on inhaler Medical Branch albuterol Yes 2{puff} Inhale 2 U nivers 90 5-17 Puffs. ity of mcg/actuati 00:00: [place] on inhaler Medical Branch albuterol Yes 2{puff} Inhale 2 U nivers 90 5-17 Puffs. ity of mcg/actuati 00:00: [place] on inhaler Medical Branch albuterol Yes 2{puff} Inhale 2 U nivers 90 5-17 Puffs. ity of mcg/actuati 00:00: [place] on inhaler Medical Branch albuterol Yes 2{puff} Inhale 2 U nivers 90 5-17 Puffs. ity of mcg/actuati 00:00: [place] on inhaler Medical Branch albuterol Yes 2{puff} Inhale 2 U nivers 90 5-17 Puffs. ity of mcg/actuati 00:00: [place] on inhaler Medical Branch albuterol Yes 2{puff} Inhale 2 U nivers 90 5-17 Puffs. ity of mcg/actuati 00:00: [place] on inhaler Medical Branch albuterol Yes 2{puff} Inhale 2 U nivers 90 5-17 Puffs. ity of mcg/actuati 00:00: [place] on inhaler Medical Branch albuterol Yes 2{puff} Inhale 2 U nivers 90 5-17 Puffs. ity of mcg/actuati 00:00: [place] on inhaler 00 Medical Branch albuterol 0 3- No 2{puff} Inhale 2 Univers 90 5-17 06-27 Puffs. ity of mcg/actuati 00:00: 00:00 [place] on inhaler 00 :00 Medical Branch albuterol 0 3- No 2{puff} Inhale 2 Univers 90 5-17 06-27 Puffs. ity of mcg/actuati 00:00: 00:00 [place] on inhaler 00 :00 Medical Branch SUMAtriptan 2021-0 2021- No 50mg Take 50 mg Univers 50 mg 5-17 05-12 by mouth. ity of tablet 00:00: 00:00 [place] 00 :00 Medical Branch fluticasone 0 Yes USE 1 Unive rs propionate 5-03 SPRAY IN ity o f 50 00:00: EACH [place] mcg/actuati 00 NOSTRIL Medic al on nasal EVERY DAY Branch spray finasteride 0 Yes TAKE 1 Univ ers 5 mg tablet 5-03 TABLET BY ity of 00:00: MOUTH 00 DAILY. DO Medical NOT CRUSH, Branch CHEW, OR SPLIT. fluticasone Yes USE 1 Unive rs propionate 5-03 SPRAY IN ity o f 50 00:00: EACH [place] mcg/actuati 00 NOSTRIL Medic al on nasal EVERY DAY Branch spray finasteride 0 Yes TAKE 1 Univ ers 5 mg tablet 5-03 TABLET BY ity of 00:00: MOUTH 00 DAILY. DO Medical NOT CRUSH, Branch CHEW, OR SPLIT. fluticasone Yes USE 1 Unive rs propionate 5-03 SPRAY IN ity o f 50 00:00: EACH [place] mcg/actuati 00 NOSTRIL Medic al on nasal EVERY DAY Branch spray finasteride 0 Yes TAKE 1 Univ ers 5 mg tablet 5-03 TABLET BY ity of 00:00: MOUTH 00 DAILY. DO Medical NOT CRUSH, Branch CHEW, OR SPLIT. fluticasone Yes USE 1 Unive rs propionate 5-03 SPRAY IN ity o f 50 00:00: EACH [place] mcg/actuati 00 NOSTRIL Medic al on nasal EVERY DAY Branch spray finasteride 0 Yes TAKE 1 Univ ers 5 mg tablet 5-03 TABLET BY ity of 00:00: MOUTH 00 DAILY. DO Medical NOT CRUSH, Branch CHEW, OR SPLIT. fluticasone 0 Yes USE 1 Unive rs propionate 5-03 SPRAY IN ity o f 50 00:00: EACH [place] mcg/actuati 00 NOSTRIL Medic al on nasal EVERY DAY Branch spray finasteride 0 Yes TAKE 1 Univ ers 5 mg tablet 5-03 TABLET BY ity of 00:00: MOUTH [place] 00 DAILY. DO Medical NOT CRUSH, Branch CHEW, OR SPLIT. fluticasone 0 Yes USE 1 Unive rs propionate 5-03 SPRAY IN ity o f 50 00:00: EACH [place] mcg/actuati 00 NOSTRIL Medic al on nasal EVERY DAY Branch spray finasteride 0 Yes TAKE 1 Univ ers 5 mg tablet 5-03 TABLET BY ity of 00:00: MOUTH [place] 00 DAILY. DO Medical NOT CRUSH, Branch CHEW, OR SPLIT. fluticasone 0 Yes USE 1 Unive rs propionate 5-03 SPRAY IN ity o f 50 00:00: EACH [place] mcg/actuati 00 NOSTRIL Medic al on nasal EVERY DAY Branch spray finasteride 0 Yes TAKE 1 Univ ers 5 mg tablet 5-03 TABLET BY ity of 00:00: MOUTH [place] 00 DAILY. DO Medical NOT CRUSH, Branch CHEW, OR SPLIT. fluticasone 0 Yes USE 1 Unive rs propionate 5-03 SPRAY IN ity o f 50 00:00: EACH [place] mcg/actuati 00 NOSTRIL Medic al on nasal EVERY DAY Branch spray finasteride 0 Yes TAKE 1 Univ ers 5 mg tablet 5-03 TABLET BY ity of 00:00: MOUTH [place] 00 DAILY. DO Medical NOT CRUSH, Branch CHEW, OR SPLIT. fluticasone 0 Yes USE 1 Unive rs propionate 5-03 SPRAY IN ity o f 50 00:00: EACH [place] mcg/actuati 00 NOSTRIL Medic al on nasal EVERY DAY Branch spray finasteride 0 Yes TAKE 1 Univ ers 5 mg tablet 5-03 TABLET BY ity of 00:00: MOUTH [place] 00 DAILY. DO Medical NOT CRUSH, Branch CHEW, OR SPLIT. fluticasone 2021-0 Yes USE 1 Unive rs propionate 5-03 SPRAY IN ity o f 50 00:00: EACH [place] mcg/actuati 00 NOSTRIL Medic al on nasal EVERY DAY Branch spray finasteride 0 Yes TAKE 1 Univ ers 5 mg tablet 5-03 TABLET BY ity of 00:00: MOUTH [place] 00 DAILY. DO Medical NOT CRUSH, Branch CHEW, OR SPLIT. fluticasone 2021-0 Yes USE 1 Unive rs propionate 5-03 SPRAY IN ity o f 50 00:00: EACH [place] mcg/actuati 00 NOSTRIL Medic al on nasal EVERY DAY Branch spray finasteride Yes TAKE 1 Univ ers 5 mg tablet 5-03 TABLET BY ity of 00:00: MOUTH 00 DAILY. DO Medical NOT CRUSH, Branch CHEW, OR SPLIT. fluticasone Yes USE 1 Unive rs propionate 5-03 SPRAY IN ity o f 50 00:00: EACH [place] mcg/actuati 00 NOSTRIL Medic al on nasal EVERY DAY Branch spray finasteride Yes TAKE 1 Univ ers 5 mg tablet 5-03 TABLET BY ity of 00:00: MOUTH [place] 00 DAILY. DO Medical NOT CRUSH, Branch CHEW, OR SPLIT. fluticasone Yes USE 1 Unive rs propionate 5-03 SPRAY IN ity o f 50 00:00: EACH [place] mcg/actuati 00 NOSTRIL Medic al on nasal EVERY DAY Branch spray finasteride Yes TAKE 1 Univ ers 5 mg tablet 5-03 TABLET BY ity of 00:00: MOUTH [place] 00 DAILY. DO Medical NOT CRUSH, Branch CHEW, OR SPLIT. fluticasone 2022- No USE 1 Univ ers propionate 5-03 06-27 SPRAY IN ity of 50 00:00: 00:00 EACH [place] mcg/actuati 00 :00 NOSTRIL Medic al on nasal EVERY DAY Branch spray finasteride 2022- No TAKE 1 Uni vers 5 mg tablet 5-03 -27 TABLET BY it y of 00:00: 00:00 MOUTH [place] 00 :00 DAILY. DO Medical NOT CRUSH, Branch CHEW, OR SPLIT. fluticasone 2022- No USE 1 Univ ers propionate 5-03 06-27 SPRAY IN ity of 50 00:00: 00:00 EACH [place] mcg/actuati 00 :00 NOSTRIL Medic al on nasal EVERY DAY Branch spray finasteride 2022- No TAKE 1 Uni vers 5 mg tablet 5-03 -27 TABLET BY it y of 00:00: 00:00 MOUTH [place] 00 :00 DAILY. DO Medical NOT CRUSH, Branch CHEW, OR SPLIT. ipratropium Yes 3mL Inhale 3 [facility] -albuteroL 6-29 mL. ity of 0.5 mg-3 00:00: [place] mg(2.5 mg 00 Medical base)/3 mL Branch nebulizer solution ipratropium 2021-0 Yes 3mL Inhale 3 [facility] [place] -albuteroL 6-29 mL. ity of 0.5 mg-3 00:00: [place] mg(2.5 mg 00 Medical base)/3 mL Branch nebulizer solution ipratropium 2021-0 Yes 3mL Inhale 3 [facility] -albuteroL 6-29 mL. ity of 0.5 mg-3 00:00: [place] mg(2.5 mg 00 Medical base)/3 mL Branch nebulizer solution ipratropium 2021-0 Yes 3mL Inhale 3 [facility] -albuteroL 6-29 mL. ity of 0.5 mg-3 00:00: [place] mg(2.5 mg 00 Medical base)/3 mL Branch nebulizer solution ipratropium 2021-0 Yes 3mL Inhale 3 [facility] -albuteroL 6-29 mL. ity of 0.5 mg-3 00:00: [place] mg(2.5 mg 00 Medical base)/3 mL Branch nebulizer solution ipratropium 2021-0 Yes 3mL Inhale 3 [facility] -albuteroL 6-29 mL. ity of 0.5 mg-3 00:00: [place] mg(2.5 mg 00 Medical base)/3 mL Branch nebulizer solution ipratropium 2021-0 Yes 3mL Inhale 3 [facility] -albuteroL 6-29 mL. ity of 0.5 mg-3 00:00: [place] mg(2.5 mg 00 Medical base)/3 mL Branch nebulizer solution ipratropium 2021-0 Yes 3mL Inhale 3 [facility] -albuteroL 6-29 mL. ity of 0.5 mg-3 00:00: [place] mg(2.5 mg 00 Medical base)/3 mL Branch nebulizer solution ipratropium 2021-0 Yes 3mL Inhale 3 [facility] -albuteroL 6-29 mL. ity of 0.5 mg-3 00:00: [place] mg(2.5 mg 00 Medical base)/3 mL Branch nebulizer solution ipratropium 2021-0 Yes 3mL Inhale 3 [facility] -albuteroL 6-29 mL. ity of 0.5 mg-3 00:00: [place] mg(2.5 mg 00 Medical base)/3 mL Branch nebulizer solution ipratropium 2021-0 Yes 3mL Inhale 3 [facility] -albuteroL 6-29 mL. ity of 0.5 mg-3 00:00: [place] mg(2.5 mg 00 Medical base)/3 mL Branch nebulizer solution ipratropium 2021-0 Yes 3mL Inhale 3 [facility] [place] -albuteroL 6-29 mL. ity of 0.5 mg-3 00:00: [place] mg(2.5 mg 00 Medical base)/3 mL Branch nebulizer solution ipratropium 2021-0 Yes 3mL Inhale 3 [facility] [place] -albuteroL 6-29 mL. ity of 0.5 mg-3 00:00: [place] mg(2.5 mg 00 Medical base)/3 mL Branch nebulizer solution ipratropium 2021-0 Yes 3mL Inhale 3 [facility] -albuteroL 6-29 mL. ity of 0.5 mg-3 00:00: [place] mg(2.5 mg 00 Medical base)/3 mL Branch nebulizer solution ipratropium 2021-0 Yes 3mL Inhale 3 [facility] -albuteroL 6-29 mL. ity of 0.5 mg-3 00:00: [place] mg(2.5 mg 00 Medical base)/3 mL Branch nebulizer solution ipratropium 2021-0 Yes 3mL Inhale 3 [facility] -albuteroL 6-29 mL. ity of 0.5 mg-3 00:00: [place] mg(2.5 mg 00 Medical base)/3 mL Branch nebulizer solution ipratropium 2021-0 Yes 3mL Inhale 3 [facility] -albuteroL 6-29 mL. ity of 0.5 mg-3 00:00: [place] mg(2.5 mg 00 Medical base)/3 mL Branch nebulizer solution ipratropium 2021-0 Yes 3mL Inhale 3 [facility] -albuteroL 6-29 mL. ity of 0.5 mg-3 00:00: [place] mg(2.5 mg 00 Medical base)/3 mL Branch nebulizer solution ipratropium 2020-0 Yes 3mL Inhale 3 [facility] -albuteroL 6-29 mL. ity of 0.5 mg-3 00:00: [place] mg(2.5 mg 00 Medical base)/3 mL Branch nebulizer solution ipratropium 2020-0 Yes 3mL Inhale 3 [facility] -albuteroL 6-29 mL. ity of 0.5 mg-3 00:00: [place] mg(2.5 mg 00 Medical base)/3 mL Branch nebulizer solution ipratropium 2020-0 Yes 3mL Inhale 3 [facility] [place] -albuteroL 6-29 mL. ity of 0.5 mg-3 00:00: [place] mg(2.5 mg 00 Medical base)/3 mL Branch nebulizer solution ipratropium 2020-0 Yes 3mL Inhale 3 [facility] -albuteroL 6-29 mL. ity of 0.5 mg-3 00:00: [place] mg(2.5 mg 00 Medical base)/3 mL Branch nebulizer solution Vital Signs Vital Name Observation Time Observation Value Comments Source Systolic blood 2022-12-03 18:00:00 119 mm[Hg] Univer sity [facility] Diastolic blood 2022-12-03 18:00:00 68 mm[Hg] Unive rsity [facility] Respiratory rate 2022-12-03 18:00:00 14 /min [facility] 2022-12-03 18:00:00 95 /min [facility] Arterial blood by [facility] Pulse oximetry Branch Heart rate 2022-12-03 15:43:22 63 /min [facility] Body height 2022-12-03 13:50:41 165.1 cm [facility] Body weight 2022-12-03 13:50:41 112.492 kg [facility] BMI 2022-12-03 13:50:41 41.27 kg/m2 [facility] Systolic blood 2022-12-03 16:30:00 141 mm[Hg] Univer sity of [facility] Diastolic blood 2022-12-03 16:30:00 78 mm[Hg] Unive rsity [facility] Respiratory rate 2022-12-03 16:30:00 16 /min Univ ers[facility] [place] [facility] Oxygen saturation in 2022-12-03 16:30:00 94 /min [facility] of Arterial blood by [place] [facility] Pulse oximetry Branch Heart rate 2022-12-03 15:43:22 63 /min [facility] [place] [facility] Body height 2022-12-03 13:50:41 165.1 cm [facility]i [facility] [place] [facility] Body weight 2022-12-03 13:50:41 112.492 kg [facility]i [facility] [place] [facility] BMI 2022-12-03 13:50:41 41.27 kg/m2 [facility] [place] [facility] Systolic blood 2022-11-10 22:33:00 157 mm[Hg] Univer sity of pressure [place] [facility] Diastolic blood 2022-11-10 22:33:00 65 mm[Hg] Unive rsity of pressure [place] [facility] Heart rate 2022-11-10 22:33:00 71 /min [facility] [place] [facility] Body temperature 2022-11-10 22:33:00 36.33 Chanel Univ ersity [facility] [place] [facility] Respiratory rate 2022-11-10 22:33:00 18 /min Univ ersity [facility] [place] [facility] Oxygen saturation in 2022-11-10 22:33:00 96 /min University of Arterial blood by [place] [employer] romel Pulse oximetry Branch Body weight 2022-11-10 05:13:00 114.987 kg [facility] [place] [facility] BMI 2022-11-10 05:13:00 42.18 kg/m2 [facility] [place] [facility] Body height 2022-11-09 23:31:00 165.1 cm [facility] [place] [facility] Systolic blood 2022-11-05 18:09:00 116 mm[Hg] Univer sity of pressure [place] [facility] Diastolic blood 2022-11-05 18:09:00 77 mm[Hg] Unive rsity of pressure [place] [facility] Heart rate 2022-11-05 18:09:00 79 /min [facility]i ty [facility] [place] [facility] Oxygen saturation in 2022-11-05 18:09:00 97 /min University of Arterial blood by [place] [employer] romel Pulse oximetry Branch Respiratory rate 2022-11-05 18:00:00 21 /min Univ ers[facility] [place] [facility] Body height 2022-11-05 18:00:00 165.1 cm [facility] [place] [facility] Body weight 2022-11-05 18:00:00 114.896 kg [facility] [place] [facility] BMI 2022-11-05 18:00:00 42.15 kg/m2 [facility] [place] [facility] Systolic blood 2022-10-30 20:14:00 138 mm[Hg] Univer sity of pressure [place] [facility] Diastolic blood 2022-10-30 20:14:00 72 mm[Hg] Unive rsity of pressure [place] [facility] Heart rate 2022-10-30 20:14:00 80 /min [facility] [place] [facility] Body temperature 2022-10-30 20:14:00 35.33 Chanel [facility] [place] [facility] Respiratory rate 2022-10-30 20:14:00 18 /min Univ ersity [facility] [place] [facility] Oxygen saturation in 2022-10-30 20:14:00 95 /min University of Arterial blood by [employer] Pulse oximetry Branch Body weight 2022-10-30 08:39:00 114.488 kg [facility]i [facility] [place] [facility] BMI 2022-10-30 08:39:00 42.00 kg/m2 [facility] [place] [facility] Body height 2022-10-28 22:02:00 165.1 cm [facility] [place] [facility] Systolic blood 2022-08-03 03:50:00 120 mm[Hg] Univer sity of pressure [place] [facility] Diastolic blood 2022-08-03 03:50:00 72 mm[Hg] Unive rsity of pressure [place] [facility] Heart rate 2022-08-03 03:50:00 73 /min [facility]i [facility] [place] [facility] Respiratory rate 2022-08-03 03:50:00 16 /min Univ ersity [facility] [place] [facility] Oxygen saturation in 2022-08-03 03:50:00 97 /min University of Arterial blood by [employer] [facility]el Pulse oximetry Branch Body temperature 2022-08-03 00:22:00 37.22 Chanel Univ ers[facility] [place] [facility] Body height 2022-08-03 00:22:00 165.1 cm [facility] [place] [facility] Body weight 2022-08-03 00:22:00 120.203 kg [facility] [place] [facility] BMI 2022-08-03 00:22:00 44.10 kg/m2 [facility] [place] [facility] Oxygen saturation in 2022-07-19 01:24:00 97 /min University of Arterial blood by [facility] Pulse oximetry Branch Systolic blood 2022-07-19 00:00:00 136 mm[Hg] Univer sity of pressure [place] [facility] Diastolic blood 2022-07-19 00:00:00 65 mm[Hg] Unive rsity of pressure [place] [facility] Heart rate 2022-07-19 00:00:00 59 /min [facility] [place] [facility] Respiratory rate 2022-07-19 00:00:00 12 /min [facility] [place] [facility] Body temperature 2022-07-18 22:21:00 37.11 Chanel [facility] [place] [facility] Body height 2022-07-18 22:21:00 165.1 cm [facility] [place] [facility] Body weight 2022-07-18 22:21:00 117.935 kg [facility] [place] [facility] BMI 2022-07-18 22:21:00 43.27 kg/m2 [facility] [place] [facility] Systolic blood 2022-05-28 03:33:35 144 mm[Hg] Univer sity of pressure [place] [facility] Diastolic blood 2022-05-28 03:33:35 63 mm[Hg] Unive rsity of pressure [place] [facility] Heart rate 2022-05-28 03:33:35 70 /min [facility] [place] [facility] Respiratory rate 2022-05-28 03:33:35 19 /min [facility] [place] [facility] Oxygen saturation in 2022-05-28 03:33:35 96 /min University of Arterial blood by [facility] Pulse oximetry Branch Body temperature 2022-05-28 00:46:00 37.11 Chanel [facility] [place] [facility] Body weight 2022-05-28 00:46:00 115.667 kg [facility] [place] [facility] BMI 2022-05-28 00:46:00 42.43 kg/m2 [facility] [place] [facility] Systolic blood 2022-05-20 17:00:00 128 mm[Hg] Univer sity of pressure [place] [facility] Diastolic blood 2022-05-20 17:00:00 77 mm[Hg] Unive rsity of pressure [place] [facility] Heart rate 2022-05-20 17:00:00 61 /min [facility] [place] [facility] Body temperature 2022-05-20 17:00:00 36.22 Chanel [facility] [place] [facility] Respiratory rate 2022-05-20 17:00:00 9 /min Univ [facility] [place] [facility] Oxygen saturation in 2022-05-20 17:00:00 95 /min University of Arterial blood by [facility] romel Pulse oximetry Branch Body height 2022-05-19 10:00:00 165.1 cm [facility] [place] [facility] Body weight 2022-05-19 10:00:00 117.482 kg [facility] [place] [facility] BMI 2022-05-19 10:00:00 43.10 kg/m2 [facility] [place] [facility] Systolic blood 2022-05-15 22:28:00 120 mm[Hg] Univer sity of pressure [place] [facility] Diastolic blood 2022-05-15 22:28:00 63 mm[Hg] Unive rsity of pressure [place] [facility] Heart rate 2022-05-15 22:28:00 77 /min [facility] [place] [facility] Body temperature 2022-05-15 22:28:00 35.83 Chanel [facility] [place] [facility] Respiratory rate 2022-05-15 22:28:00 18 /min [facility] [place] [facility] Oxygen saturation in 2022-05-15 22:28:00 94 /min University of Arterial blood by [facility] romel Pulse oximetry Branch Body weight 2022-05-15 09:47:00 120.475 kg [facility] [place] [facility] BMI 2022-05-15 09:47:00 44.20 kg/m2 [facility] [place] [facility] Body height 2022-05-13 05:12:00 165.1 cm [facility] [place] [facility] Systolic blood 2022-04-28 04:00:00 134 mm[Hg] Univer sity of pressure [place] [facility] Diastolic blood 2022-04-28 04:00:00 59 mm[Hg] Unive rsity of pressure [place] [facility] Heart rate 2022-04-28 04:00:00 71 /min [facility] Respiratory rate 2022-04-28 04:00:00 16 /min [facility] Oxygen saturation in 2022-04-28 04:00:00 97 /min University of Arterial blood by [facility] romel Pulse oximetry Branch Body temperature 2022-04-28 01:03:00 36.78 Chanel [facility] Body height 2022-04-28 01:03:00 165.1 cm [facility] Body weight 2022-04-28 01:03:00 113.399 kg [facility] BMI 2022-04-28 01:03:00 41.60 kg/m2 [facility] Systolic blood 2022-01-02 16:27:00 137 mm[Hg] [facility] Diastolic blood 2022-01-02 16:27:00 79 mm[Hg] [facility] Heart rate 2022-01-02 16:27:00 75 /min [facility] Body temperature 2022-01-02 16:27:00 36.78 Chanel [facility] Respiratory rate 2022-01-02 16:27:00 18 /min [facility] Oxygen saturation in 2022-01-02 16:27:00 96 /min [facility] Arterial blood by [facility] Pulse oximetry Branch Body weight 2022-01-02 09:24:00 119.477 kg [facility] BMI 2022-01-02 09:24:00 43.83 kg/m2 [facility] Body height 2022-01-01 19:32:00 165.1 cm [facility] Systolic blood 2021-12-18 20:40:00 100 mm[Hg] [facility] Diastolic blood 2021-12-18 20:40:00 61 mm[Hg] [facility] Heart rate 2021-12-18 20:40:00 76 /min [facility] Respiratory rate 2021-12-18 20:40:00 16 /min [facility] Body height 2021-12-18 20:40:00 165.1 cm [facility] Body weight 2021-12-18 20:40:00 120[facility]657 [facility] BMI 2021-12-18 20:40:00 44.26 kg/m2 [facility] Oxygen saturation in 2021-12-18 20:40:00 97 /min University Arterial blood by [facility] Pulse oximetry Branch Procedures Procedure Date / Time Performing Clinician Source Performed CARDIAC CATHETERIZATION 2022-12-03 15:42:56 Chucho Khan [facility] CARDIAC CATHETERIZATION 2022-12-03 15:42:56 Chucho Khan [facility] CARDIAC CATHETERIZATION 2022-12-03 15:42:56 Chucho Khan [facility] CARDIAC CATHETERIZATION 2022-12-03 15:42:56 Chucho Khan. [facility] CARDIAC CATHETERIZATION 2022-12-03 15:42:56 Chucho Khan [facility] BASIC METABOLIC PANEL (NA, 2022-12-03 11:55:00 Motiwala, [facility]aq [facility] CL, CO2, GLUCOSE, [facility] CREATININE, [place]) PROTHROMBIN TIME / INR 2022-12-03 11:55:00 Motcedricala, Afaq Unive [facility] BASIC METABOLIC PANEL (NA, 2022-12-03 11:55:00 Motiw[facility], CL, CO2, GLUCOSE, BUN, Medica l [place] CREATININE, CA) PROTHROMBIN TIME / INR 2022-12-03 11:55:00 Carlosala, Afaq Unive [facility] DISCLOSURE AND CONSENT, 2022-12-03 05:01:00 Doctor Unassigned, [facility] MEDICAL AND SURGICAL [place] [facility] PROCEDURES REFERRAL- REQUEST/RESPONSE 2022-11-20 05:01:00 Doctor Unassigned , [facility] [place] [facility] REFERRAL- REQUEST/RESPONSE 2022-11-20 05:01:00 Doctor Unassigned , [facility] [place] [facility] [place] URINE DRUG (IMMUNOASSAY) - 2022-11-10 08:51:00 Lizzy Herrera [facility] COMPREHENSIVE DRUG SCREEN Medica l Branch MAGNESIUM 2022-11-10 08:50:00 [place] BASIC METABOLIC PANEL (NA, 2022-11-10 08:50:00 Krista Davis [facility] K, CL, CO2, GLUCOSE, BUN, Medica l Branch CREATININE, CA) CBC WITH DIFF 2022-11-10 08:50:00 Ryan [facility] HB ECG ROUTINE & RHYTHM 2022-11-09 20:14:10 Nathan Reyez [facility] CREATINE KINASE 2022-11-09 19:59:00 Nathan Reyez [facility] TROPONIN I 2022-11-09 19:59:00 Nathan Reyez [facility] COMP. METABOLIC PANEL 2022-11-09 19:59:00 Nathan Reyez [facility] ([id number]) [facility] CBC WITH DIFF 2022-11-09 19:59:00 Nathan Reyez [facility] N-TERMINAL PRO-BNP 2022-11-09 19:59:00 Nathan Reyez [facility] ASSIGNMENT OF BENEFITS 2022-11-09 19:30:20 Doctor Unassigned, [facility] Name [facility] CONSENT/REFUSAL FOR 2022-11-09 19:30:01 Doctor Unassigned, [facility] DIAGNOSIS AND TREATMENT [place] [facility] AMMONIA, PLASMA 2022-10-30 09:39:00 Jalen Amos [facility] BASIC METABOLIC PANEL (NA, 2022-10-30 09:05:00 Jalen Amos [facility] K, CL, CO2, GLUCOSE, BUN, Medica l Branch CREATININE, CA) LIPID PANEL ([id number])(TOTAL 2022-10-30 09:05:00 Glory Voss [facility] TRIGLYCERIDES, HDL) CBC WITH DIFF 2022-10-30 09:05:00 Jalen Amos [facility] MAGNESIUM 2022-10-29 08:30:00 [facility] TROPONIN I 2022-10-29 08:30:00 Ryan [facility] BASIC METABOLIC PANEL (NA, 2022-10-29 08:30:00 Krista Davis [facility] K, CL, CO2, GLUCOSE, BUN, Medica l Branch CREATININE, CA) CBC WITHOUT DIFF 2022-10-29 08:30:00 Krista Davis [facility] FREE T3 2022-10-29 08:30:00 Vishal Augustin [facility] XR FEMUR 2 VW BILATERAL 2022-10-28 23:27:13 Jalen Vera [facility] FOREARM 2 VW LEFT 2022-10-28 23:27:13 Jalen Vera [facility] XR HAND <3 VW LEFT 2022-10-28 23:27:13 Jalen Vera [facility] XR HUMERUS 2 VW LEFT 2022-10-28 23:27:13 Jalen Vera [facility] XR TIBIA FIBULA 2 VW 2022-10-28 23:27:13 Jalen Vera [facility] BILATERAL Medical Branch CT TRAUMA HEAD WO CONTRAST 2022-10-28 23:14:04 Jalen Vera [facility] CT TRAUMA CERVICAL SPINE 2022-10-28 23:14:04 Jalen Vera Uni [facility] CONTRAST Medical Branch CT TRAUMA THORACIC SPINE 2022-10-28 23:14:04 Jalen Vera [facility] CONTRAST Medical [place] CT TRAUMA LUMBAR SPINE WO 2022-10-28 23:14:04 Jalen [facility] [place] CT TRAUMA THORAX W 2022-10-28 23:13:00 Jalen Vera [facility] CONTRAST Medical [place] CT TRAUMA ABDOMEN PELVIS W 2022-10-28 23:13:00 [facility] Medical Branch LIPASE 2022-10-28 22:43:00 Jalen Vera [facility] TROPONIN I 2022-10-28 22:43:00 Jalen Vera [facility] FREE T4 2022-10-28 22:43:00 Vishal Augustin [facility] THYROID STIMULATING 2022-10-28 22:43:00 Krista Davis [facility] HORMONE [facility] HEPATIC FUNCTION PANEL 2022-10-28 22:43:00 Jalen eVra [facility] ([id number]) (ALB,T.PRO,BILI Medical Branch T,BU/BC,ALT,AST,ALK PHOS) BASIC METABOLIC PANEL (NA, 2022-10-28 22:43:00 Jalen Vera [facility] K, CL, CO2, GLUCOSE, BUN, Medica l Branch CREATININE, CA) CBC WITHOUT DIFF 2022-10-28 22:43:00 Jalen Vera [facility] PROTHROMBIN TIME / INR 2022-10-28 22:43:00 Jalen Vera [facility] ACTIVATED PARTIAL THRMPLAS 2022-10-28 22:43:00 Jalen Vera [facility] OTILIA [facility] HB ECG ROUTINE & RHYTHM 2022-10-28 22:01:30 Jalen [facility] STRIP [facility] CT ABDOMEN PELVIS W 2022-08-03 02:23:56 Ezequiel Domingo [facility] CONTRAST [facility] URINALYSIS 2022-08-03 01:55:00 Singer [facility] LIPASE 2022-08-03 01:23:00 Singer [facility] COMP. METABOLIC PANEL 2022-08-03 01:23:00 Ezequiel Domingo [facility] ([id number]) Medical Branch CBC WITH DIFF 2022-08-03 01:23:00 Singer [facility] CONSENT/REFUSAL FOR 2022-08-03 00:21:48 Doctor Unassigned, [facility] DIAGNOSIS AND TREATMENT [place] [facility] EKG-12 LEAD 2022-07-19 00:56:02 Sanket Capone [facility] XR CHEST 1 VW 2022-07-19 00:26:40 Sanket Capone [facility] CT ANGIOGRAM 2022-07-18 23:44:05 Sanket Capone [facility] ABDOMEN/PELVIS Medical Branch LIPASE 2022-07-18 22:37:00 Sanket Capone [facility] COMP. METABOLIC PANEL 2022-07-18 22:37:00 Sanket Capone [facility] ([id number]) Medical Branch CBC WITH DIFF 2022-07-18 22:37:00 Sanket Capone [facility] URINALYSIS 2022-07-18 22:37:00 Sanket Capone [facility] CONSENT/REFUSAL FOR 2022-07-18 22:17:17 Doctor Unassnettie, [facility] DIAGNOSIS AND TREATMENT [place] [facility] [place] XR CHEST 1 VW 2022-05-28 02:26:00 Jalen Vera [facility] RAPID INFLUENZA A/B 2022-05-28 01:55:00 Jalen Vera [facility] Medical Branch COVID-19 (ID NOW RAPID 2022-05-28 01:55:00 Jalen Vera [facility] TESTING) Medical Branch LIPASE 2022-05-28 01:23:00 Jalen Vera [facility] COMP. METABOLIC PANEL 2022-05-28 01:23:00 Jalen Vera [facility] ([id number]) Medical Branch CBC WITH DIFF 2022-05-28 01:23:00 Jalen Vera [facility] URINALYSIS 2022-05-28 01:23:00 Jalen Vera [facility] NOTICE OF PRIVACY 2022-05-28 00:52:19 Doctor Jane, [facility] PRACTICES [place] [facility] CONSENT/REFUSAL FOR 2022-05-28 00:41:47 Doctor Jane, [facility] DIAGNOSIS AND TREATMENT [place] [facility] MAGNESIUM 2022-05-20 10:14:00 Krista Davis [facility] BASIC METABOLIC PANEL (NA, 2022-05-20 10:14:00 Aleksandra Allison [facility] K, CL, CO2, GLUCOSE, BUN, Medica l Branch CREATININE, CA) CT ANGIOGRAPHY CORONARIES 2022-05-19 17:49:00 Krista Davis [facility] WITH CARDIAC CALCIUM SCORE Medic al Branch CAROTID DUPLEX BILATERAL - 2022-05-19 15:14:00 Krista Davis [facility] BY VASCULAR LAB [facility] TRANSTHORACIC ECHO (TTE) 2022-05-19 14:57:00 Estefany [facility] COMPLETE [facility] TROPONIN I 2022-05-19 10:16:[facility]AST 2022-05-19 06:00:54 Sanket Capone [facility] EKG-12 LEAD 2022-05-19 04:55:12 Sanket Capone [facility] LIPASE 2022-05-19 03:41:00 Sanket Capone [facility] TROPONIN I 2022-05-19 03:41:00 Sanket Capone [facility] HEPATIC FUNCTION PANEL 2022-05-19 03:41:00 Sanket Capone [facility] ([id number]) (ALB,T.PRO,BILI [facility] T,BU/BC,ALT,AST,ALK PHOS) BASIC METABOLIC PANEL (NA, 2022-05-19 03:41:00 Sanket Capone [facility] K, CL, CO2, GLUCOSE, BUN, Medica l Branch CREATININE, CA) ETHANOL 2022-05-19 03:41:00 Sanket Capone [facility] CBC WITH DIFF 2022-05-19 03:41:00 Sanket Capone [facility] XR CHEST 1 VW 2022-05-19 03:39:12 Sanket Capone [facility] MAGNESIUM 2022-05-15 09:32:00 Krista Davis [facility] COMP. METABOLIC PANEL 2022-05-15 09:32:00 Krista Davis [facility] ([id number]) Medical Branch LIPID PANEL ([id number])(TOTAL 2022-05-15 09:32:00 Krista Davis [facility] CHOLESTEROL, [facility] TRIGLYCERIDES, HDL) CBC WITHOUT DIFF 2022-05-15 09:32:00 Krista Davis [facility] N-TERMINAL PRO-BNP 2022-05-15 09:32:00 Ryan [facility] CBC WITHOUT DIFF 2022-05-14 19:30:00 Ryan [facility] CERULOPLASMIN 2022-05-14 19:29:00 Ryan [facility] ALPHA 1 ANTITRYPSIN 2022-05-14 19:29:[address] [facility] FREE T4 2022-05-14 19:29:00 Ryan [facility] ANTI-NUCLEAR ANTIBODY 2022-05-14 19:29:00 Ryan [facility] SCREEN [facility] FREE T3 2022-05-14 19:29:00 Ryan [facility] ANTI-NUCLEAR 2022-05-14 19:29:00 Ryan [facility] ANTIBODY-PATHOLOGIST Medical Bra nch INTERPRETATION PHOSPHORUS 2022-05-14 09:17:00 [facility] 2022-05-14 09:17:00 Demetria [facility] TROPONIN I 2022-05-14 09:17:00 Demetria [facility] HEPATIC FUNCTION PANEL 2022-05-14 09:17:00 Vishal Augustin [facility] ([id number]) (ALB,T.PRO,BILI Medical Branch T,BU/BC,ALT,AST,ALK PHOS) BASIC METABOLIC PANEL (NA, 2022-05-14 09:17:00 Vishal Augustin [facility] K, CL, CO2, GLUCOSE, BUN, Medica l Branch CREATININE, CA) CBC WITH DIFF 2022-05-14 09:17:00 Demetria Vishal [facility] N-TERMINAL PRO-BNP 2022-05-14 09:17:00 Vishal Augustin [facility] US ABDOMEN LIMITED 2022-05-13 18:13:01 Nano Kauffman [facility] FERRITIN SERUM 2022-05-13 07:41:00 Delma Calderon [facility] VITAMIN B12, LEVEL 2022-05-13 07:41:00 Delma Calderon [facility] TROPONIN I 2022-05-13 07:41:00 Delma Calderon [facility] THYROID STIMULATING 2022-05-13 07:41:00 Shira jamila [facility] HORMONE [facility] SEDIMENTATION RATE 2022-05-13 07:41:00 Delma Calderon [facility] HEPATITIS B SURFACE 2022-05-13 07:41:00 Shira jamila [facility] ANTIBODY [facility] HEPATITIS B SURFACE 2022-05-13 07:41:00 Shira [facility] ANTIGEN [facility] HCV ANTIBODY 2022-05-13 07:41:00 Shira jamila [facility] HAV ANTIBODY (IGG AND IGM) 2022-05-13 07:41:00 Delma Calderon [facility] VITAMIN D, 25-OH 2022-05-13 07:41:00 Shira [facility] FREE T3 2022-05-13 07:41:00 Shira jamila [facility] AC VBG + LACTIC ACID 2022-05-13 07:41:00 Delma Calderon [facility] CT ABDOMEN PELVIS W 2022-05-12 23:49:39 Tyler Nelson [facility] HB ECG ROUTINE & RHYTHM 2022-05-12 22:56:23 Tyler Nelson [facility] XR ABDOMEN ACUTE SERIES 2022-05-12 22:50:16 Tyler Nelson [facility] LACTIC ACID WHOLE BLOOD 2022-05-12 21:57:00 Tyler Nelson [facility] LIPASE 2022-05-12 21:56:00 Tyler Nelson [facility] TROPONIN I 2022-05-12 21:56:00 Tyler Nelson [facility] COMP. METABOLIC PANEL 2022-05-12 21:56:00 Tyler Nelson [facility] ([id number]) Medical [place] LIPID PANEL ([id number])(TOTAL 2022-05-12 21:56:00 Delma Calderon [facility] CHOLESTEROL, Medical Branch TRIGLYCERIDES, HDL) SALICYLATE 2022-05-12 21:56:00 Tyler Nelson [facility] CBC WITH DIFF 2022-05-12 21:56:00 Tyler Nelson [facility] GLYCOSYLATED HEMOGLOBIN 2022-05-12 21:56:00 Delma Calderon [facility] (A1C[facility] Medical [place] PROTHROMBIN TIME / INR 2022-05-12 21:56:00 Tyler Nelosn [facility] ACTIVATED PARTIAL THRMPLAS 2022-05-12 21:56:00 Tyler Nelson [facility] OTILIA [facility] URINALYSIS 2022-05-12 21:56:00 Tyler Nelson [facility] N-TERMINAL PRO-BNP 2022-05-12 21:56:00 Tyler Nelson [facility] CONSENT/REFUSAL FOR 2022-05-12 20:33:04 Doctor Unassigned, [facility] DIAGNOSIS AND TREATMENT [place] [facility] CT ABDOMEN PELVIS W 2022-04-28 04:00:40 Marcello Starkey [facility] CONTRAST Medical Branch LIPASE 2022-04-28 03:25:00 Marcello Starkey [facility] COMP. METABOLIC PANEL 2022-04-28 03:25:00 Marcello Starkey [facility] ([id number]) [facility] [place] CBC WITH DIFF 2022-04-28 03:25:00 Marcello Starkey [facility] URINALYSIS 2022-04-28 03:25:00 Marcello Starkey [facility] CONSENT/REFUSAL FOR 2022-04-28 00:51:20 Doctor Unassnettie, [facility] DIAGNOSIS AND TREATMENT [place] [facility] HEPATIC FUNCTION PANEL 2022-01-02 11:08:00 Elba Garcia [facility] ([id number]) (ALB,T.PRO,BILI Medical Branch T,BU/BC,ALT,AST,ALK PHOS) BASIC METABOLIC PANEL (NA, 2022-01-02 11:08:00 Vishal Augustin [facility] K, CL, CO2, GLUCOSE, BUN, Medica l Branch CREATININE, CA) COMP. METABOLIC PANEL 2022-01-02 11:08:00 Elba Garcia [facility] ([id number]) Medical Branch CBC WITH DIFF 2022-01-02 11:08:00 [facility] HEPATIC FUNCTION PANEL 2022-01-02 11:04:00 Vishal Augustin [facility] ([id number]) (ALB,T.PRO,BILI Medical Branch T,BU/BC,ALT,AST,ALK PHOS) SALICYLATE 2022-01-02 11:04:00 [facility] o [facility] PROTHROMBIN TIME / INR 2022-01-02 11:04:00 Jeniffermelrosewakefield hospitalVishal champion [facility] HEPATIC FUNCTION PANEL 2022-01-02 02:30:00 Lizzy Herrera [facility] ([id number]) (ALB,T.PRO,BILI Medical Branch T,BU/BC,ALT,AST,ALK PHOS) URINE DRUG (IMMUNOASSAY) - 2022-01-01 22:28:00 Molly Damian [facility] COMPREHENSIVE DRUG SCREEN Medica l Branch COMP. METABOLIC PANEL 2022-01-01 21:57:00 Molly Damian [facility] ([id number]) [facility] ACETAMINOPHEN 2022-01-01 21:57:00 Molly Damian [facility] ETHANOL 2022-01-01 21:57:00 Molly Damian [facility] PROTHROMBIN TIME / INR 2022-01-01 21:57:00 Molly Damian [facility] CT ABDOMEN PELVIS W 2022-01-01 20:43:49 Molly Damian [facility] CONTRAST [facility] CT HEAD WO CONTRAST 2022-01-01 20:43:22 Molly Damian [facility] TROPONIN I 2022-01-01 19:57:00 Molly Damian [facility] COMP. METABOLIC PANEL 2022-01-01 19:57:00 Molly Damian [facility] ([id number]) Medical Branch ACETAMINOPHEN 2022-01-01 19:57:00 Molly Damian [facility] CBC WITH DIFF 2022-01-01 19:57:00 Molly Damian [facility] URINALYSIS 2022-01-01 19:57:00 Molly Damian [facility] COVID-19 (ID NOW RAPID 2022-01-01 19:57:00 Molly Damian [facility] TESTING) [facility] XR CHEST 1 VW 2022-01-01 19:55:00 Molly Damian [facility] HB ECG ROUTINE & RHYTHM 2022-01-01 19:42:50 Molly Damian [facility] CONSENT/REFUSAL FOR 2022-01-01 19:29:51 Doctor Unassigned, [facility] DIAGNOSIS AND TREATMENT [place] [facility] Encounters Start End Encounter Admission Attending Care Care Encounter Source Date/Time Date/Time Type Type Clinicians Facility Department ID 2022-01-07 Outpatient R TONI [facility] BONG [id number] Univers 15:47:38 LATOYA ity [facility] 2021-03-18 Emergency [facility] [id number] Univers 02:48:20 ity [facility] 2021-03-18 Emergency [facility] [id number] Univers 02:08:08 ity [facility] 2021-03-17 Emergency [facility] [id number] Univers 14:07:47 ity [facility] 2021-03-16 Emergency [facility] [id number] Univers 11:37:02 ity [facility] 2021-03-15 Emergency [facility] [id number] Univers 00:52:49 ity [facility] 2023-01-07 2023-01-07 Outpatient R ERIN [facility] [id number] Univers 13:30:00 13:30:00 SENDIL ity [facility] 2022-12-11 2022-12-11 Telephone Erin IAGEETA [id number] Univers 00:00:00 00:00:00 Sendil Vic ALVARADO [id number] ity [facility] [id number] Leonarda telles PROFESSIO [phone] Ga dical [facility] 2022-12-09 2022-12-09 Telephone [facility] [id number] Univers 00:00:00 00:00:00 Sendil Vic ALVARADO [id number] ity of [place] [phone] [place] dicmo NAL 9 [facility] 2022-12-09 2022-12-09 Telephone [facility] [id number] Univers 00:00:00 00:00:00 Sendil Vic ALVARADO [id number] ity [place] [id number] [address] 2022-12-03 2022-12-03 [facility] [id number] Univers 06:19:00 15:21:00 SENDIL [facility] 2022-12-03 2022-12-03 [facility] CONCETTA Khan [id number] Univers 06:19:00 15:21:00 Encounter Sendmarkie [place] [id number] ity of HOSPITAL .2.7.2.686 Rudy as [id number] [facility] [address] 2022-12-03 2022-12-03 Surgery CONCETTA Blackwood [id number] Univers 08:37:00 11:37:00 Afaq REINIER [id number] it y of HOSPITAL 2.7.2.686 Rudy as [phone] [facility] [address] 2022-12-03 2022-12-03 Orders Doctor URIEL [id number] Univers 00:00:00 00:00:00 Only Unassigned, REINIER [id number] ity of [place] [facility] [id number] Rudy as [id number] [address] 2022-11-13 2022-11-13 Telephone UnassCONCETTA sheffield [id number] Univers 00:00:00 00:00:00 Cath/Ep REINIER [id number] it y of [facility] [id number] Rudy as [id number] [facility] [address] 2022-11-09 2022-11-10 Outpatient X RYAN [facility] BAN [id number] Univers 14:08:00 18:34:00 KRISTA louise [facility] 2022-11-09 2022-11-10 Emergency Nathan Reyez Lc [facility] 1.2.840 .[id number] Univers 14:08:00 18:34:00 Krista Davis [id number] ity of [place].2.[place] [id number] [facility] [address] 2022-11-09 2022-11-09 Telephone CONCETTA Khan [id number] Univers 00:00:00 00:00:00 Chucho [place] 350.1.13.10 [facility] 4.2.7.2.686 Rudy as [id number] [address] 2022-11-05 2022-11-05 Outpatient R ERIN [facility] [id number] Univers 14:33:25 23:59:00 CHUCHO louise [facility] 2022-11-05 2022-11-05 Office [facility] [id number] Univers 13:00:00 13:51:06 Visit Chucho ALVARADO 350.1.13.10 ity [facility] [address] [facility] [id number] [place] 203289 [facility] 2022-10-28 2022-10-30 Outpatient X JAVIER [facility] BAN [id number] Univers 17:00:00 18:34:00 LIZZY louise [facility] 2022-10-28 2022-10-30 Emergency Jalen Vera [facility] 1.2.840.1 [id number] Univers 17:00:00 18:34:00 Krista Davis [id number] ity of Lizzy Herrera [id number] [facility] [id number] [place] [address] Branch 2022-10-20 2022-10-22 Inpatient EM SERAFIN JulesPM INTE.02 [id number] [facility] 14:54:00 12:00:00 Musaddiq 66 [facility] 2022-10-22 2022-10-22 Outpatient MANDO Jules LABO [id number] [facility] 05:26:00 05:26:00 Musaddiq 85 [facility] 2022-08-02 2022-08-02 Emergency X [facility] ERT [id number] Univers 19:30:00 22:56:00 EZEQUIEL louise [facility] 2022-08-02 2022-08-02 Emergency [facility] [id number] Univers 19:30:00 22:56:00 Ezequiel ALVARADO 350.1.13.10 i ty [facility] [id number] [facility] [id number] [address] 2022-07-18 2022-07-18 Emergency [facility] ERT [id number] Univers 16:22:00 19:56:00 LEWIS [facility] 2022-07-18 2022-07-18 Emergency Sanket Capone [facility] 1.2.840.1 [id number] Univers 16:22:00 19:56:00 Lewis Maynard 350.1.13 .10 ity [facility] [id number] [facility] [id number] [address] 2022-06-16 2022-06-16 Outpatient R HE [facility] [id number] Univers 13:00:00 13:00:00 ALISHA louise [facility] 2022-05-27 2022-05-27 Emergency X JAMES [facility] ERT [id number] Univers 18:48:00 22:05:00 MARCELLO [facility] [facility] 2022-05-27 2022-05-27 Emergency Jalen Vera [facility] 1.2.840.1 14 [id number] Univers 18:48:00 22:05:00 Marina Starkeykili S CHRISTOPHEBHAVIN 350.1.13.10 ity of [place] 4.2.7.2.686 [facility] [phone] [place] [address] [address] 2022-05-18 2022-05-20 Outpatient X ESTEFANY [facility] BAN [id number] Univers 21:19:00 13:12:00 ALEKSANDRA itfreddie [facility] 2022-05-18 2022-05-20 Emergency CiprianoSanket napier [facility] 1.2.840.1 14 [id number] Univers 21:19:00 13:12:00 Aleksandra Allison 350.1.13.10 ity of [facility] 4.2.7.2.686 [facility] [phone] [address] 2022-05-12 2022-05-15 [facility] BAN [id number] Univers 14:54:00 18:35:00 [facility]22-05-12 2022-05-15 Emergency Tyler Nelson [facility] 1.2.840. 114 [id number] Univers 14:54:00 18:35:00 Delma Calderon 350.1.13.10 ity of [place] Augustin 4.2.7.2.686 [facility] [id number] [address] 2022-04-27 2022-04-27 Emergency X [facility] ERT [id number] Univers 19:09:00 22:50:00 [facility] 2022-04-27 2022-04-27 Emergency [facility] 1.2.087.336 [id number] Univers 19:09:00 22:50:00 Marinaekaterina Eli SAEEDBHAVIN 350.1.13.10 ity of [place] 4.2.7.2.686 [facility] [phone] [address] 2022-01-16 2022-01-16 Outpatient R TONI [facility] [id number] Univers 07:45:00 07:45:00 LATOYA ity [facility] 2022-01-062022-01-06 Outpatient R ERIN [facility] [id number] Univers 14:00:00 14:00:00 SENDMARKIE louise [facility] 2022-01-01 2022-01-02 Outpatient X DEMETRIA [facility] BAN [id number] Univers 14:34:00 18:27:00 VISHALDELILAH louise [facility] 2022-01-01 2022-01-02 Emergency Molly Damian [facility] 1.2.840 .114 [id number] Univers 14:34:00 18:27:00 ReidakiraVishal 350.1.13.10 it[place] [id number] [address] 2021-12-19 2021-12-19 Prep [facility] 1.2.840.114 [id number] Univers 00:00:00 00:00:00 Surgery Latoya ALVARADO 350.1.13.10 i ty of [place] [phone] Ga dical NAL [address] [place] [address] 2021-12-18 2021-12-18 Out[facility] R [facility] [id number] Univers 15:30:00 16:13:54 LATOYA [facility] 2021-12-18 2021-12-18 Out[facility] [id number] Univers 15:30:00 16:13:54 LATOYA [facility] 2021-12-18 2021-12-18 Office [facility] 1.2.816.842 [id number] Univers 15:30:00 16:13:54 Visit Latoya ALVARADO 350.1.13.10 i ty of [place] [phone] Ga dical NAL [address] [place] [address] 2021-12-08 2021-12-09 Emergency X AUFDERHEIDE [facility] ERT [id number] Univers 19:12:00 00:18:00 , WILLY louise [facility] 2021-12-08 2021-12-09 Emergency Jalen Vera [facility] 1.2.840.1 14 [id number] Univers 19:12:00 00:18:00 AbimbolaWilly Malou ALVARADO 350.1 .13.10 ity of [place] 4.2.7.2.686 [place] [id number] [facility] [address] 2021-11-28 2021-11-28 Telephone [facility] 1.2.587.686 [id number] Univers 00:00:00 00:00:00 Nathalia ALVARADO 350.1.13.10 it[place] [id number] Ga dical [facility] [address] [facility] 2021-11-26 2021-11-26 Transition RITESH Malin 1.2.840.114 [id number] Univers 00:00:00 00:00:00 of Care Joy ALLEN 350.1.13.10 i ty [place] [id number] [facility] [address] 2021-11-18 2021-11-25 Inpatient X [facility] [id number] Univers 20:16:00 18:56:00 KRISTA [facility] 2021-11-18 2021-11-25 [facility] Marshall Feliciano [facility] 1.2.840.11 [id number] Univers 20:16:00 18:56:00 Encounter Tyler Nelson 350.1.13.10 ity of [place] Calderon 4.2.7.2.686 [facility] [phone] Medical [address] 2021-11-21 2021-11-21 Surgery Toni [facility] 1.2.142.644 [id number] Univers 09:15:00 12:01:00 Latoya ALVARADO 350.1.13.10 i ty of [place] [id number] [facility] [address] 2021-11-18 2021-11-18 Orders Doctor TREVINO 1.2.840.114 [id number] Univers 00:00:00 00:00:00 Only Unassigned, REINIER 350.1.13.10 ity of [place] [facility] 4.2.7.2.686 Rudy as [id number] [facility] [address] 2021-11-18 2021-11-18 [facility] 1.2.755.480 [id number] Univers 00:00:00 00:00:00 Qiangjun [place] 350.1.13.10 ity of [facility] 4.2.7.2.[place] [phone] Ga dical [facility] [address] [facility] 2021-11-13 2021-11-13 [facility] 1.2.840.114 [id number] Univers 08:18:38 23:59:00 Encounter Nathalia [place] 350.1.13.10 ity of [facility] 4.2.7.2.[place] [phone] [facility] 8[address] 2021-11-13 2021-11-13 [facility] 1.2.840.114 [id number] Univers 08:18:18 23:59:00 Encounter Nathalia [place] 350.1.13.10 it[place] [id number] [facility] [address] [place] 2021-11-13 2021-11-13 Outpatient R REPLACED BY [facility] [id number] Univers 00:00:00 00:00:00 QIANGJUN ity o f [facility] 2021-11-11 2021-11-11 Outpatient R REPLACED BY [facility] [id number] Univers 08:56:23 23:59:00 QIANGJUN ity o f [facility] 2021-11-11 2021-11-11 [facility] 1.2.840.114 [id number] Univers 08:56:23 23:59:00 Encounter Nathalia [place] 350.1.13.10 ity [place] [id number] [facility] [address] 2021-11-11 2021-11-11 [facility] 1.2.840.114 [id number] Univers 08:49:31 08:55:00 Encounter Nathalia JENNY 350.1.13.10 ity of [place] [id number] [facility] [address] 2021-11-11 2021-11-11 Orders Doctor RUIEL 1.2.840.114 [id number] Univers 00:00:00 00:00:00 Only Unassigned, REINIER 350.1.13.10 ity of [place] [facility] 4.2.7.2.686 Rudy as [id number] [facility] [address] 2021-10-29 2021-10-29 Emergency X MILTON [facility] ERT [id number] Univers 18:07:00 23:35:00 JALEN itfreddie [facility] 2021-10-29 2021-10-29 Emergency Victorino Reynolds [facility] 1.2.840. 114 [id number] Univers 18:07:00 23:35:00 Jalen Vera 350.1.13.10 ity of [facility] 4.2.7.2.[place] [id number] [facility] [address] 2021-10-16 2021-10-16 Transition RITESH Malin 1.2.840.114 [id number] Univers 00:00:00 00:00:00 of Care Joy SANDHUY 350.1.13.10 i ty of [place]2.[place] [id number] [facility] [address] 2021-10-14 2021-10-15 Outpatient X [facility] [id number] Univers 00:16:00 14:47:00 KRISTA aspen [facility] 2021-10-14 2021-10-15 [facility] Victorino Reynolds [facility] 1.2.840.1 14 [id number] Univers 00:16:00 14:47:00 Encounter Radha Allisonfreddie ALVARADO 350.1.13.10 ity of [place] 4.2.7.2.686 [facility] [id number] [facility] [address] 2021-10-14 2021-10-14 Telephone Aidan, [facility] 1.2.446.468 [id number] Univers 00:00:00 00:00:00 Nathalia ALVARADO 350.1.13.10 ity of [place].2.[place] [facility] EDESSIO [id number] [facility] 059 [facility] 2021-10-14 2021-10-14 Orders Doctor URIEL 1.2.840.114 [id number] Univers 00:00:00 00:00:00 Only Unassigned, REINIER 350.1.13.10 ity of [place] [facility] 4.2.7.2.686 Rudy as [id number] [address] 2021-10-09 2021-10-12 Outpatient X [facility] [id number] Univers 21:52:00 18:13:00 VISHAL ity [facility] 2021-10-09 2021-10-12 Emergency Jalen Vera [facility] 1.2.840.1 14 [id number] Univers 21:52:00 18:13:00 Vishal Augustin 350.1.13.10 ity of [place] [id number] [place] [address] [place] 2021-09-07 2021-09-07 Emergency X [facility] ERT [id number] Univers 16:06:00 20:43:00 RADAMES [facility] of [facility] 2021-09-07 2021-09-07 Emergency [facility] 1.2.032.456 [id number] Univers 16:06:00 20:43:00 Radames ALVARADO 350.1.13.10 i ty of [facility] 4.2.7.2.[place] [id number] [place] [address] [place] 2021-09-07 2021-09-07 Orders Doctor URIEL 1.2.840.114 [id number] Univers 00:00:00 00:00:00 Only Unassigned, REINIER 350.1.13.10 ity of [place] [facility] 4.2.7.2.686 Rudy as [id number] [facility] [address] 2021-02-13 2021-02-13 Emergency [facility] 1.2.679.298 [id number] Univers 14:29:00 17:29:00 Jalen Alvarado 350.1.13.10 i ty of [place] 4.2.7.2.686 [facility] [id number] [place] [address]4 [address] 2021-02-11 2021-02-11 Emergency [facility] 1.2.764.156 [id number] Univers 17:35:00 20:47:00 Jalen Alvarado 350.1.13.10 i ty of [place] 4.2.7.2.686 [facility] [id number] [place] [address]4 [address] 2021-02-11 2021-02-11 Orders Doctor URIEL 1.2.840.114 [id number] [facility] 00:00:00 00:00:00 Only Unassigned, REINIER 350.1.13.10 ity of [place] [facility] 4.2.7.2.686 [facility] [id number] [facility] [address] 2020-03-09 2020-03-09 Emergency Victorino Reynolds [facility] 1.2.840.114 [id number] 18:37:00 19:33:00 Milena Alvarado 350.1.13.10 [place] 4.2.7.2.686 [place] [id number] 084 Results Test Description Test Time Test Comments Results Result Comments Source Magnesium Serum 2022-11-10 10:01:09 Test Item Value Reference Range Interpretation Comme nts MAGNESIUM (test code = 9406040243) 2.0 mg/dL 1.7-2.4 Lab Interpretation (test code = 23018-0) Normal [facility] (NA, K, CL, CO2, GLUCOSE, BUN, CREATININE, CA)2022-11-10 10:00:48 Test Item Value Reference Range Interpretation Comments NA (test code = 141 mmol/L 135-145 1673981484) K (test code = 3.4 mmol/L 3.5-5.0 L 2090214595) CL (test code = 106 mmol/L 98-108 1484260571) CO2 TOTAL (test code = 25 mmol/L 23-31 9227366111) AGAP (test code = 10 2-16 2738559354) BUN (test code = 15 mg/dL 7-23 7532489075) GLUCOSE (test code = 132 mg/dL 70-110 H 3473355551) CREATININE (test code = 0.90 mg/dL 0.60-1.25 5346201658) CALCIUM (test code = 8.5 mg/dL 8.6-10.6 L 9490322890) eGFR (test code = 85.2 mL/min/1.73m2 0574124933) RAYNA (test code = RAYNA) Association of Glomerular Filtration Rate (GFR) and Staging of Kidney Disease* + --+ --+ ------+| GFR (mL/min/1.73 m2) ?| With Kidney Damage ?| ?Without Kidney Damage+ --------+ --------+ +| ?>90 ?| ?Stage one ?| ? Normal ?+ ---+ ---+ -------+| ?60-89 ?| ?Stage two ?| ? Decreased GFR ? + --+ --+ ------+| ?30-59 ?| ?Stage three ?| ? Stage three ? + --+ --+ ------+| ?15-29 ?| ?Stage four ? | ? Stage four ?+ ---+ ---+ -------+| ?<15 (or dialysis) ? ?| ?Stage five ? | ? Stage five ?+ ---+ ---+ -------+ *Each stage assumes the associated GFR level has been in effect for at least three months. ?Stages 1 to 5, with or without kidney disease, indicate chronic kidney disease. Notes: Determination of stages one and two (with eGFR >59mL/min/1.73 m2) requires estimation of kidney damage for at least three months as defined by structural or functional abnormalities of the kidney, manifested by either:Pathological abnormalities or Markers of kidney damage (including abnormalities in the composition of the blood or urine or abnormalities in imaging tests). Lab Interpretation Abnormal (test code = 14032-7) [facility] with [id number] 09:49:28 Test Item Value Reference Range Interpretation Comments WBC (test code = 7.52 See_Comment [Automated 2511-2) message] The sy stem which generated this result transmitted reference range : 4.20 - 10.70 10*3/?L. The reference range was not used to interpret this result as normal/abnormal . RBC (test code = 3.70 See_Comment L [Automated 789-8) message] The sy stem which generated this result transmitted reference range : 4.26 - 5.52 10*6/?L. The reference range was not used to interpret this result as normal/abnormal . HGB (test code = 10.3 g/dL 12.2-16.4 L 718-7) HCT (test code = 32.7 % 38.4-49.3 L 4544-3) MCV (test code = 88.4 fL 81.7-95.6 787-2) MCH (test code = 27.8 pg 26.1-32.7 785-6) MCHC (test code = 31.5 g/dL 31.2-35.0 786-4) RDW-SD (test code = 53.2 fL 38.5-51.6 H 36560-0) RDW-CV (test code = 16.4 % 12.1-15.4 H 788-0) PLT (test code = 327 See_Comment [Automated 777-3) message] The sy stem which generated this result transmitted reference range : 150 - 328 10*3/ ?L. The reference r viet was not used to interpret this result as normal/abnormal . MPV (test code = 8.1 fL 9.8-13.0 L 79435-1) NRBC/100 WBC (test 0.0 See_Comment [Automat ed code = 3880206474) message] The system which generated this result transmitted reference range : 0.0 - 10.0 /100 WBCs. The refer ence range was not u sed to interpret th is result as normal/abnormal . NRBC x10^3 (test code See_Comment [Auto mated = 9062320802) message] The s ystem which generated this result transmitted reference range : 10*3/?L. The reference range was not used to interpret this result as normal/abnormal . GRAN MAT (NEUT) % 66.4 % (test code = 770-8) IMM GRAN % (test code 0.70 % = 7778275960) LYMPH % (test code = 17.4 % 736-9) MONO % (test code = 9.4 % 5905-5) EOS % (test code = 5.6 % 713-8) BASO % (test code = 0.5 % 706-2) GRAN MAT x10^3(ANC) 4.99 10*3/uL 1.99-6.95 (test code = 1461785656) IMM GRAN x10^3 (test 0.05 10*3/uL 0.00-0.06 code = 1243332774) LYMPH x10^3 (test code 1.31 10*3/uL 1.09-3.23 = 731-0) MONO x10^3 (test code 0.71 10*3/uL 0.36-1.02 = 742-7) EOS x10^3 (test code = 0.42 10*3/uL 0.06-0.53 711-2) BASO x10^3 (test code 0.04 10*3/uL 0.01-0.09 = 704-7) Lab Interpretation Abnormal (test code = 19968-6) [facility] [id number] 20:49:36 Test Item Value Reference Range Interpretation Comments TROPONIN I (test code = 0.002 ng/mL <=0.034 6851939799) RAYNA (test code = RAYNA) Reference (Normal) Range (defined by the 99th percentile reference limit): <= 0.034 ng/mL Note: Cardiac troponin begins to rise 3-4 hours after the onset of ischemia. Repeat in 4-6 hours if the sample was drawn within 3-4 hours of the onset of the symptom and found normal. Diagnosis of myocardial injury is made with acute changes in cTn concentrations with at least one serial sample above the 99th percentile upper reference limit (URL), taken together with the patient's clinical presentation. Biotin has been reported to cause a negative bias, interpret results relative to patient's use of biotin. Lab Interpretation Normal (test code = 92745-3) [facility] [id number] 20:46:36 Test Item Value Reference Range Interpretation Comments NT-proBNP (test code = 65 pg/mL <=125 7327871225) RAYNA (test code = RAYNA) Biotin has been reported to cause a negative bias, interpret results relative to patient's use of biotin. Lab Interpretation (test Normal code = 37255-2) [facility] METABOLIC PANEL (58618)2022-11-09 20:37:50 Test Item Value Reference Range Interpretation Comments NA (test code = 143 mmol/L 135-145 1713437578) K (test code = 3.5 mmol/L 3.5-5.0 2925299839) CL (test code = 111 mmol/L 98-108 H 4561803160) CO2 TOTAL (test code = 22 mmol/L 23-31 L 8108918363) AGAP (test code = 10 2-16 4130264613) BUN (test code = 16 mg/dL 7-23 8431618860) GLUCOSE (test code = 119 mg/dL 70-110 H 3740199517) CREATININE (test code = 1.00 mg/dL 0.60-1.25 8849344116) TOTAL BILI (test code = 0.7 mg/dL 0.1-1.4 4753261786) CALCIUM (test code = 8.4 mg/dL 8.6-10.6 L 0769019856) T PROTEIN (test code = 6.6 g/dL 6.3-8.2 3744513179) ALBUMIN (test code = 3.6 g/dL 3.5-5.0 6452003733) ALK PHOS (test code = 75 U/L 34-122 8951439175) ALTv (test code = 18 U/L 5-50 1742-6) AST(SGOT) (test code = 22 U/L 13-40 9787496156) eGFR (test code = 75.5 mL/min/1.73m2 9843635541) RAYNA (test code = RAYNA) Association of Glomerular Filtration Rate (GFR) and Staging of Kidney Disease* + --+ --+ ------+| GFR (mL/min/1.73 m2) ?| With Kidney Damage ?| ?Without Kidney Damage+ --------+ --------+ +| ?>90 ?| ?Stage one ?| ? Normal ?+ ---+ ---+ -------+| ?60-89 ?| ?Stage two ?| ? Decreased GFR ? + --+ --+ ------+| ?30-59 ?| ?Stage three ?| ? Stage three ? + --+ --+ ------+| ?15-29 ?| ?Stage four ? | ? Stage four ?+ ---+ ---+ -------+| ?<15 (or dialysis) ? ?| ?Stage five ? | ? Stage five ?+ ---+ ---+ -------+ *Each stage assumes the associated GFR level has been in effect for at least three months. ?Stages 1 to 5, with or without kidney disease, indicate chronic kidney disease. Notes: Determination of stages one and two (with eGFR >59mL/min/1.73 m2) requires estimation of kidney damage for at least three months as defined by structural or functional abnormalities of the kidney, manifested by either:Pathological abnormalities or Markers of kidney damage (including abnormalities in the composition of the blood or urine or abnormalities in imaging tests). Lab Interpretation Abnormal (test code = 89267-9) [facility] [id number] 20:37:30 Test Item Value Reference Range Interpretation Comments CK (test code = 4624147046) 55 U/L 33-194 Lab Interpretation (test code = Normal 88314-4) [facility] WITH [id number] 20:17:09 Test Item Value Reference Range Interpretation Comments WBC (test code = 7.73 See_Comment [Automated 6684-2) message] The sy stem which generated this result transmitted reference range : 4.20 - 10.70 10*3/?L. The reference range was not used to interpret this result as normal/abnormal . RBC (test code = 3.72 See_Comment L [Automated 809-8) message] The sy stem which generated this result transmitted reference range : 4.26 - 5.52 10*6/?L. The reference range was not used to interpret this result as normal/abnormal . HGB (test code = 10.2 g/dL 12.2-16.4 L 718-7) HCT (test code = 32.6 % 38.4-49.3 L 4544-3) MCV (test code = 87.6 fL 81.7-95.6 787-2) MCH (test code = 27.4 pg 26.1-32.7 785-6) MCHC (test code = 31.3 g/dL 31.2-35.0 786-4) RDW-SD (test code = 52.7 fL 38.5-51.6 H 78654-8) RDW-CV (test code = 16.4 % 12.1-15.4 H 788-0) PLT (test code = 320 See_Comment [Automated 777-3) message] The sy stem which generated this result transmitted reference range : 150 - 328 10*3/ ?L. The reference r viet was not used to interpret this result as normal/abnormal . MPV (test code = 8.3 fL 9.8-13.0 L 95288-4) NRBC/100 WBC (test 0.0 See_Comment [Automat ed code = 9108654226) message] The system which generated this result transmitted reference range : 0.0 - 10.0 /100 WBCs. The refer ence range was not u sed to interpret th is result as normal/abnormal . NRBC x10^3 (test code See_Comment [Auto mated = 4749347770) message] The s ystem which generated this result transmitted reference range : 10*3/?L. The reference range was not used to interpret this result as normal/abnormal . GRAN MAT (NEUT) % 72.7 % (test code = 770-8) IMM GRAN % (test code 0.90 % = 3010536502) LYMPH % (test code = 13.2 % 736-9) MONO % (test code = 9.1 % 5905-5) EOS % (test code = 3.5 % 713-8) BASO % (test code = 0.6 % 706-2) GRAN MAT x10^3(ANC) 5.62 10*3/uL 1.99-6.95 (test code = 9192443778) IMM GRAN x10^3 (test 0.07 10*3/uL 0.00-0.06 H code = 2351661754) LYMPH x10^3 (test code 1.02 10*3/uL 1.09-3.23 L = 731-0) MONO x10^3 (test code 0.70 10*3/uL 0.36-1.02 = 742-7) EOS x10^3 (test code = 0.27 10*3/uL 0.06-0.53 711-2) BASO x10^3 (test code 0.05 10*3/uL 0.01-0.09 = 704-7) Lab Interpretation Abnormal (test code = 97193-4) [facility] [id number] 14:54:02 Test Item Value Reference Range Interpretation Comments FREE T4 (test code = 0.72 See_Comment L [Autom ated message] 8957648242) The system [employer] generated this result transmitted ref erence range: 0.78 - 2 .20 ng/dL:. The ref erence range was not u sed to interpret this result as normal/abnor mal. Lab Interpretation (test Abnormal code = 02333-4) [facility] Hormone (TSH)2022-10-29 04:11:04 Test Item Value Reference Range Interpretation Comments TSH (test code = 12.20 See_Comment H Biotin has been 9796021473) reported to cau se a negative bias, interpret resul ts relative to pat ient's use of biotin. [Automated mess age] The system [employer] generated this result transmitted ref erence range: 0.45 - 4 .70 mIU/L. The refe rence range was not u sed to interpret this result as normal/abnor mal. Lab Interpretation (test Abnormal code = 05792-5) [facility] [id number] 23:35:50 Test Item Value Reference Range Interpretation Comments TROPONIN I (test code = 0.001 ng/mL <=0.034 0245642744) RAYNA (test code = RAYNA) Reference (Normal) Range (defined by the 99th percentile reference limit): <= 0.034 ng/mL Note: Cardiac troponin begins to rise 3-4 hours after the onset of ischemia. Repeat in 4-6 hours if the sample was drawn within 3-4 hours of the onset of the symptom and found normal. Diagnosis of myocardial injury is made with acute changes in cTn concentrations with at least one serial sample above the 99th percentile upper reference limit (URL), taken together with the patient's clinical presentation. Biotin has been reported to cause a negative bias, interpret results relative to patient's use of biotin. Lab Interpretation Normal (test code = 49785-9) [facility] ([facility]166) (ALB,T.PRO,BILI T,BU/BC,ALT,AST,ALK PHOS)2022-10-28 23:24:52 Test Item Value Reference Range Interpretation Comments TOTAL BILI (test code = 1820871570) 0.5 mg/dL 0.1-1.1 BILI UNCON (test code = 9410974900) 0.2 mg/dL 0.1-1.1 BILI CONJ (test code = 7501974576) 0.0 mg/dL 0.0-0.3 T PROTEIN (test code = 2883952620) 6.9 g/dL 6.3-8.2 ALBUMIN (test code = 4546360339) 4.0 g/dL 3.5-5.0 ALK PHOS (test code = 7072010829) 85 U/L 34-122 ALTv (test code = 1742-6) 19 U/L 5-50 AST(SGOT) (test code = 7911007542) 21 U/L 13-40 Lab Interpretation (test code = Normal 42036-2) [facility] (NA, K, CL, CO2, GLUCOSE, BUN, CREATININE, CA)2022-10-28 23:24:52 Test Item Value Reference Range Interpretation Comments NA (test code = 140 mmol/L 135-145 [id number]) K (test code = 4.5 mmol/L 3.5-5.0 6666989412) CL (test code = 105 mmol/L 98-108 8173544240) CO2 TOTAL (test code = 21 mmol/L 23-31 L 8837702251) AGAP (test code = 14 2-16 9407179143) BUN (test code = 30 mg/dL 7-23 H 5365632542) GLUCOSE (test code = 102 mg/dL 70-110 7611106124) CREATININE (test code = 2.19 mg/dL 0.60-1.25 H 3176120591) CALCIUM (test code = 8.9 mg/dL 8.6-10.6 8594374887) eGFR (test code = 30.5 mL/min/1.73m2 5536915185) RAYNA (test code = RAYNA) Association of Glomerular Filtration Rate (GFR) and Staging of Kidney Disease* + --+ --+ ------+| GFR (mL/min/1.73 m2) ?| With Kidney Damage ?| ?Without Kidney Damage+ --------+ --------+ +| ?>90 ?| ?Stage one ?| ? Normal ?+ ---+ ---+ -------+| ?60-89 ?| ?Stage two ?| ? Decreased GFR ? + --+ --+ ------+| ?30-59 ?| ?Stage three ?| ? Stage three ? + --+ --+ ------+| ?15-29 ?| ?Stage four ? | ? Stage four ?+ ---+ ---+ -------+| ?<15 (or dialysis) ? ?| ?Stage five ? | ? Stage five ?+ ---+ ---+ -------+ *Each stage assumes the associated GFR level has been in effect for at least three months. ?Stages 1 to 5, with or without kidney disease, indicate chronic kidney disease. Notes: Determination of stages one and two (with eGFR >59mL/min/1.73 m2) requires estimation of kidney damage for at least three months as defined by structural or functional abnormalities of the kidney, manifested by either:Pathological abnormalities or Markers of kidney damage (including abnormalities in the composition of the blood or urine or abnormalities in imaging tests). Lab Interpretation Abnormal (test code = 91069-8) [facility] Test Item Value Reference Range Interpretation Comments LIPASE (test code = 3859154815) 70 U/L 0-220 Lab Interpretation (test code = Normal 27728-8) [facility] 23:19:52 Test Item Value Reference Range Interpretation Comments APTT Patient (test 25 See_Comment [Automat ed code = 3173-2) message] The system which generated this result transmitted reference range : 23 - 38 Seconds . The reference range was not used to interpr et this result as normal/abnormal . RAYNA (test code = RAYNA) The [facility] patient population mean normal value for aPTT is 30 seconds. Lab Interpretation Normal (test code = 79128-7) [facility] / [id number] 23:17:49 Test Item Value Reference Range Interpretation Comments PROTIME PATIENT (test 12.6 See_Comment [Auto mated message] code = 5964-2) The system [email or web address] generated this result transmitted ref erence range: 12.0 - 1 4.7 Seconds. The re ference range was not u sed to interpret this result as normal/abnor mal. INR (test code = 6301-6) 1.0 Nor mal INR <1.1; Warfarin Therap eutic range 2.0 to 3. 0 or 2.5 to 3.5, dep ending upon the indica tions. Lab Interpretation (test Normal code = 71114-9) [facility] without [id number] 23:09:27 Test Item Value Reference Range Interpretation Comments WBC (test code = 6690-2) 9.71 See_Comment [A utomated message] The system [employer] generated this result transmit aakash reference range : 4.20 - 10.70 10*3/?L. The reference range was not used to interpret this result as normal/abnormal . RBC (test code = 789-8) 3.99 See_Comment L [Au tomated message] The system [employer] generated this result transmit aakash reference range : 4.26 - 5.52 10* 6/?L. The reference r viet was not used to interpret this result as normal/abnormal . HGB (test code = 718-7) 10.9 g/dL 12.2-16.4 L HCT (test code = 4544-3) 35.8 % 38.4-49.3 L MCH (test code = 785-6) 27.3 pg 26.1-32.7 MCV (test code = 787-2) 89.7 fL 81.7-95.6 MCHC (test code = 786-4) 30.4 g/dL 31.2-35.0 L PLT (test code = 777-3) 356 See_Comment H [Au tomated message] The system [employer] generated this result transmit aakash reference range : 150 - 328 10*3/?L. The reference range was not used to interpret this result as normal/abnormal . MPV (test code = 8.5 fL 9.8-13.0 L 93938-8) RDW-CV (test code = 16.4 % 12.1-15.4 H 788-0) RDW-SD (test code = 53.3 fL 38.5-51.6 H 70862-0) NRBC x10^3 (test code = See_Comment [Au tomated message] 1529947151) The system [employer] generated this result transmit aakash reference range : 10*3/?L. The reference range was not used to interpret this result as normal/abnormal . NRBC/100 WBC (test code 0.0 See_Comment [Au tomated message] = 3640944683) The system Kwanjii ch generated this result transmit aakash reference range : 0.0 - 10.0 /100 WBC s. The reference r viet was not used to interpret this result as normal/abnormal . IPF % (test code = 8797508131) Lab Interpretation (test Abnormal code = 35028-1) [facility] [id number] 12:53:00 Test Item Value Reference Range Interpretation Comments GLUCOSE BEDSIDE TESTING (test code 121 mg/dL 70-110 H = GLUBED) GLUCOSE BEDSIDE [id number] 20:38:00 Test Item Value Reference Range Interpretation Comments GLUCOSE BEDSIDE TESTING (test code 147 mg/dL 70-110 H = GLUBED) GLUCOSE BEDSIDE [id number] 18:49:00 Test Item Value Reference Range Interpretation Comments GLUCOSE BEDSIDE TESTING (test code 117 mg/dL 70-110 H = GLUBED) GLUCOSE BEDSIDE [id number] 11:45:00 Test Item Value Reference Range Interpretation Comments GLUCOSE BEDSIDE TESTING (test code 135 mg/dL 70-110 H = GLUBED) GLUCOSE BEDSIDE [id number] 07:17:00 Test Item Value Reference Range Interpretation Comments GLUCOSE BEDSIDE TESTING (test code 144 mg/dL 70-110 H = GLUBED) - CTA CHEST FOR [id number] 07:02:00 [facility] 1960 Sex: M Name: [place] GARC[place] [facility] [place] : 1960 Age/S: 62 / M [address] Unit #: [id number] Loc: [place] [address] Phys: OsmanValeri I APRNNP Acct: [id number] Dis Date: Status: ADM IN PHONE #: [phone] Exam Date: 10/21/2022 0640 FAX #: Reason: ELEVATED DDIMER, CHEST PAIN AND SOB EXAMS: CPT: [id number] [place] [address] LOCATION: H48 HISTORY: Male, 62 years of age with chest pain, dyspnea, elevated d-dimer, angina EXAM: CT ANGIOGRAPHY OF THE CHEST COMPARISON: Chest x-ray performed 15 hours ago TECHNIQUE: Helical axial images were obtained from thoracic inlet to upper abdomen with nonionic IV contrast using the CT angiography protocol. Image post processing with 3-D volume rendering and/or MIPs and multiplanar reconstruction performed at the advanced workstation. One or more of the following dose reduction techniques were used: Automated exposure control; adjustment of the mAand/or kV according to the patient size; and/or use of iterative reconstruction technique. STATEMENT: Exam quality is acceptable. FINDINGS: AORTA: Mild calcified plaque seen in the aortic arch. No aneurysm or dissection. PULMONARY ARTERIES: Within normal limits size and well enhanced. No obvious pulmonary artery filling defect to suggest pulmonary embolism. HEART: Heart is mildly enlarged. Coronary artery calcifications are noted. No significant pericardial effusion. MEDIASTINUM: No pneumomediastinum. Esophagus is unremarkable. No pathologically enlarged lymph nodes by CT criteria. Visualized portions of thyroid gland unremarkable. PLEURA: No pleural effusions. No pneumothorax. LUNGS: Punctate ca lcified granulomata scattered in right lung. There is mild interstitial prominence in both lower lobes, right middle lobe, and lingula, possibly interstitial edema or interstitial pneumonia. No focal soft tissue mass or lobar consolidation. No significant emphysema. No endobronchial filling defect. TAWANNA CARLOS/SOFT TISSUES: No acute osseous abnormality. OTHER: Cuts through the upper abdomen are unremarkable. IMPRESSION: 1. No pulmonary embolism. 2. No aortic aneurysm or dissection. 3. Mild multilobar interstitial opacities. Interstitial edema versus interstitial pneumonia. PAGE 1 Signed Report (CONTINUED) Name: LAKE GARCIA [facility] : 1960 Age/S: 62 / M [address] Unit #: [id number] Loc: [place] [address] Phys: Valeri Brewer APRNNJulius Acct: [id number] Dis Date: Status: ADM IN PHONE #: [phone] Exam Date: 10/21/2022 0640 FAX #: Reason: ELEVATED DDIMER, CHEST PAIN AND SOB EXAMS: CPT: [id number] [place] [address] (Continued) at 0702 Reported and signed by: Mackenzie Park MD CC: Valeri Brewer; Maria M Brennan III, MD; Gela Jules MD Technologist:Pancho Menezes, RT(R)(CT) CTDI: DLP: Trnscb Date/Time: 10/21/2022 (701) [email or web address] Orig Print D/T: S: 10/21/2022 (704) PAGE 2 Signed Report [id number] 04:00:00 Test Item Value Reference Range Interpretation Comments D-DIMER (test 1166 ng/mLFEU 215-500 HH THROMBOSIS AN D/OR PULMONARY code = EMBOLISM AND TH E CLINICAL DDIMER) CUT-OFF VALUE F OR EXCLUSION (500 ng/mL FEU) OF THESE CONDITIONSIS VA LIDATED BY THE MANUFACTURE R OF THE METHOD. A NEGAT CHANDLER D-DIMER RESULT WHEN COM BINED WITH A CLINICALASSESSM ENT OF LOW PRETEST PROBABI LITY HAS BEEN SHOWN TO H AVEA HIGH NEGATIVE PREDIC TIVE VALUE OF DVT OR PE. D -DIMER VALUES >500 ng/ mL FEU ARE NOT DIAGNOSTIC FOR DVT, PEor DIC WITHOU T OTHER CONFIRMATORY TE STS AND APPROPRIATECLIN ICAL EUALUATIONS. [id number] 03:43:00 Test Item Value Reference Range Interpretation Comments PHOSPHOROUS (test code = PHOS) 3.0 MG/DL 2.5-4.9 N [id number] 03:43:00 Test Item Value Reference Range Interpretation Comments MAGNESIUM (test code = MAG) 2.0 MG/DL 1.8-2.4 N NT PRO-BRAIN NATRIURETIC [id number] 03:43:00 Test Item Value Reference Range Interpretation Comments NT PRO-BRAIN NATRIURETIC PEPTI 110 PG/ML 0-100 H (test code = PROBNP) TROP-I HIGH [id number] 03:33:00 Test Item Value Reference Range Interpretation Comments TROP-I HIGH 6.1 ng/L 0-78 N CAUTION: Units of the SENSITIVITY (test current te st methodology code = TROPIHS) (ng/L) diffe rfrom the prior test meth odology (ng/mL) by a fa ctor of 1000. 99t h Percentile Uppe r Reference Limit (URL):Fem ales: 54 ng/LMales: 79 n g/L In order to distin guish acute elevations of h igh sensitivitytrop onin from other clinical conditions, the FourthUnive rsal Definition of M yocardial Infarction stressesclinica l assessment and the demonstration o f a rise and/orfall in s erial troponin result s above the URL. Results fr om different metho dologies should not be c omparedto one another as quantitative re sults and URLs may varyby method. LIPID PROFILE (CORONARY RISK)2022-10-21 03:26:00 Test Item Value Reference Range Interpretation Comments TRIGLYCERIDES (test 174 MG/DL 0-150 H code = TRIG) CHOLESTEROL (test 141 MG/DL 133-200 N code = CHOL) CHOLESTEROL/HDL 3.92 RATIO See_Comment RISK ASSOCIA AAKASH WITH RATIO (test code = CHOL/HDL RATIOS: RISK CHOLHDL) MALE FEMALE1/2 AVERAGE 3.43 3.27AVERAG E 4.97 4.442X AVERAGE 9.55 7.053X AVERAGE 23.39 11.04 NOTE THAT THE REFERENCE VALUE IS RELATED TO RISK LEVELS ASRECOMMENDED B Y THE [facility] . [Automated mess age] The system which [employer] nerated this result tra nsmitted reference range : 0-. The reference range was not used to interpr et this result as normal/abnormal . HDL CHOLESTEROL 36 MG/DL 40-59 L (test code = HDL) NON-HDL CHOLESTEROL 105 mg/dL <130 (test code = NHDL) LIPOPROTEIN LDL 83 MG/DL 0-129 N <100 OPTIMAL 100 - 129 (test code = LDL) NEAR OPTIM AL/ABOVE [id number] - 15 9 [id number] - 189 HIGH>OR= 190 VE RY HIGHNOTE THAT G UIDELINES ARE PROVIDED BY NATIONAL CHOLESTEROLEDUC ATION PROGRAM ADULT T REATMENT PANEL III LDL/HDL (test code 2.30 Ratio See_Comment N [Automat ed message] The = LDL/HDL) system which [employer] nerated this result tra nsmitted reference range : 1.48-3.22 Avg. The reference range was not used to interpr et this result as normal/abnormal . GLYCOSYLATED HEMOGLOBIN [id number] 03:19:00 Test Item Value Reference Range Interpretation Comments GLYCOSYLATED HEMOGLOBIN (HA1C) 6.0 % A1C 0.0-5.7 H (test code = GLYHGB) ESTIMATED AVERAGE GLUCOSE (test 126 MG/DLest code = EAG) GLUCOSE BEDSIDE [id number] 22:00:00 Test Item Value Reference Range Interpretation Comments GLUCOSE BEDSIDE TESTING (test code 119 mg/dL 70-110 H = GLUBED) TROP-I HIGH [id number] 20:26:00 Test Item Value Reference Range Interpretation Comments TROP-I HIGH 7.4 ng/L 0-78 N CAUTION: Units of the SENSITIVITY (test current te st methodology code = TROPIHS) (ng/L) diffe rfrom the prior test meth odology (ng/mL) by a fa ctor of 1000. 99t h Percentile Uppe r Reference Limit (URL):Fem ales: 54 ng/LMales: 79 n g/L In order to distin guish acute elevations of h igh sensitivitytrop onin from other clinical conditions, the FourthUnive rsal Definition of M yocardial Infarction stressesclinica l assessment and the demonstration o f a rise and/orfall in s erial troponin result s above the URL. Results fr om different metho dologies should not be c omparedto one another as quantitative re sults and URLs may varyby method. TROP-I HIGH [id number] 15:58:00 Test Item Value Reference Range Interpretation Comments TROP-I HIGH 6.4 ng/L 0-78 N CAUTION: Units of the SENSITIVITY (test current te st methodology code = TROPIHS) (ng/L) diffe rfrom the prior test meth odology (ng/mL) by a fa ctor of 1000. 99t h Percentile Uppe r Reference Limit (URL):Fem ales: 54 ng/LMales: 79 n g/L In order to distin guish acute elevations of h igh sensitivitytrop onin from other clinical conditions, the FourthUnive rsal Definition of M yocardial Infarction stressesclinica l assessment and the demonstration o f a rise and/orfall in s erial troponin result s above the URL. Results fr om different metho dologies should not be c omparedto one another as quantitative re sults and URLs may varyby method. BASIC METABOLIC [id number] 15:58:00 Test Item Value Reference Range Interpretation Comments SODIUM (test code 144 mmol/L 134-147 N = NA) POTASSIUM (test 3.4 mmol/L 3.4-5.0 N code = K) CHLORIDE (test 108 mmol/L 100-108 N code = CL) CARBON DIOXIDE 27 mmol/L 21-32 N (test code = CO2) ANION GAP (test 9.0 GAP calc 4.0-15.0 N code = GAP) GLUCOSE (test code 193 MG/DL 70-110 H = GLU) BLOOD UREA 13 MG/DL 7-18 N NITROGEN (test code = BUN) GLOMERULAR >=60 max >60 The Glomerular FILTRATION RATE estimate estGFR Filtratio n Rate is a (test code = GFR) calculated parameterbased on serum Creatinin e, patient age and sex. GFR valuesless than 60 mL/min/1.73 square meters are sukhdeep cative ofChronic Kidne y Disease. Values less than 15 mL/min/1.73squa re meters indicate Kidney failure. The calculation for GFR is based on the CK D-EPI (2020) calculat ion. This formulais race indifferent and is the recommended formula for GFR by the National Kidney Foundation for Adults.The GFR will not calculate i f the sex is unknown or if thepatient's ag e is <18 years. CREATININE (test 1.2 MG/DL 0.8-1.3 N code = CREAT) CALCIUM (test code 8.7 MG/DL 8.5-10.1 N = CA) CBC W/O [id number] 15:46:00 Test Item Value Reference Range Interpretation Comments WHITE BLOOD CELL (test code = WBC) 9.9 K/mm3 3.5-11.0 N RED BLOOD CELL (test code = RBC) 4.09 M/mm3 4.70-6.10 L HEMOGLOBIN (test code = HGB) 11.0 G/DL 12.3-15.9 L HEMATOCRIT (test code = HCT) 35.6 % 35.8-46.7 L MEAN CELL VOLUME (test code = MCV) 87.0 Fl 86.3-98.9 N MEAN CELL HGB (test code = MCH) 26.9 pg 28.9-34.4 L MEAN CELL HGB CONCETRATION (test 30.9 G/DL 32.1-34.5 L code = MCHC) RED CELL DISTRIBUTION WIDTH (test 15.9 SD 11.5-14.5 H code = RDW) PLATELET COUNT (test code = PLT) 301 K/mm3 150-450 N MEAN PLATELET VOLUME (test code = 8.10 fL 7.0-9.6 N MPV) - XR CHEST 1 [id number] 15:44:00 [facility] 1960 Sex: M Name: LAKE GARCIA [facility] : 1960 Age/S: 62 / M [address] Unit #: [id number] Loc: [place] [address] Phys: Yang Handy DO Acct: [id number] Dis Date: Status: REG ER PHONE #: [phone] Exam Date: 10/20/20221523 FAX #: Reason: chest pain EXAMS: CPT: [id number] XR CHEST 1 V 65477 Fluoro Time: DAP (Gy m2): Air Kerma (mGy): B2 TIME OF STUDY: 10/20/2022 2:56 PM REASON FOR EXAM: chest pain COMPARISON: None. FINDINGS: AP view of the chest was obtained. Lungs: Normal lung volume. [place], or consolidation. Normal pulmonary vascularity. Pleura: No pleural effusion or pneumothorax. Heart and Mediastinum: Normal cardiomediastinal silhouette and great vessels. Bones: Normal regional skeletal structures. IMPRESSION: 1. No acute cardiopulmonary process. at 1544 Reported and signed by: Kip Lopez M.D. CC: Yang Handy DO PAGE 1 Signed Report Name: LAKE GARCIA [facility] : 1960 Age/S: 62 / M [address] Unit #: [id number] Loc: [place] [address] Phys: RivasvíctorYang Acct: [id number] Dis Date: Status: REG ER PHONE #: [phone] Exam Date: 10/20/20221523 FAX #: Reason: chest pain EXAMS: CPT: [id number] XR CHEST 1 V 88424 Fluoro Time: DAP (Gy m2): Air Kerma (mGy): (Continued) Technologist: Samantha Constantino, RT(R) Trnscb Date/Time: 10/20/2022 (4230) [email or web address] Orig Print D/T: S: 10/20/2022 (2049) PAGE 2 Signed ReportCOMP. METABOLIC PANEL (94031)2022-08-03 01:47:01 Test Item Value Reference Range Interpretation Comments NA (test code = 136 mmol/L 135-145 9840473584) K (test code = 4.4 mmol/L 3.5-5.0 6868394177) CL (test code = 105 mmol/L 98-108 6957806564) CO2 TOTAL (test code = 20 mmol/L 23-31 L 0665650178) AGAP (test code = 11 2-16 3258553854) BUN (test code = 21 mg/dL 7-23 2670452750) GLUCOSE (test code = 142 mg/dL 70-110 H 2942848999) CREATININE (test code = 1.38 mg/dL 0.60-1.25 H 7228038142) TOTAL BILI (test code = 0.6 mg/dL 0.1-1.3 8759596396) CALCIUM (test code = 8.8 mg/dL 8.6-10.6 1768532106) T PROTEIN (test code = 7.1 g/dL 6.3-8.2 2439912835) ALBUMIN (test code = 4.1 g/dL 3.5-5.0 1085263227) ALK PHOS (test code = 116 U/L 34-122 5522706004) ALTv (test code = 332 U/L 5-50 H 1742-6) AST(SGOT) (test code = 49 U/L 13-40 H 9613748701) eGFR (test code = 52.0 mL/min/1.73m2 0293162528) RAYNA (test code = RAYNA) Association of Glomerular Filtration Rate (GFR) and Staging of Kidney Disease* + --+ --+ ------+| GFR (mL/min/1.73 m2) ?| With Kidney Damage ?| ?Without Kidney Damage+ --------+ --------+ +| ?>90 ?| ?Stage one ?| ? Normal ?+ ---+ ---+ -------+| ?60-89 ?| ?Stage two ?| ? Decreased GFR ? + --+ --+ ------+| ?30-59 ?| ?Stage three ?| ? Stage three ? + --+ --+ ------+| ?15-29 ?| ?Stage four ? | ? Stage four ?+ ---+ ---+ -------+| ?<15 (or dialysis) ? ?| ?Stage five ? | ? Stage five ?+ ---+ ---+ -------+ *Each stage assumes the associated GFR level has been in effect for at least three months. ?Stages 1 to 5, with or without kidney disease, indicate chronic kidney disease. Notes: Determination of stages one and two (with eGFR >59mL/min/1.73 m2) requires estimation of kidney damage for at least three months as defined by structural or functional abnormalities of the kidney, manifested by either:Pathological abnormalities or Markers of kidney damage (including abnormalities in the composition of the blood or urine or abnormalities in imaging tests). Lab Interpretation Abnormal (test code = 09417-6) [facility]01 Test Item Value Reference Range Interpretation Comments LIPASE (test code = 0197442656) 94 U/L 0-220 Lab Interpretation (test code = Normal 61496-7) [facility] WITH [id number] 01:45:04 Test Item Value Reference Range Interpretation Comments WBC (test code = 7.43 See_Comment [Automated 0590-2) message] The sy stem which generated this result transmitted reference range : 4.20 - 10.70 10*3/?L. The reference range was not used to interpret this result as normal/abnormal . RBC (test code = 3.91 See_Comment L [Automated 146-8) message] The sy stem which generated this result transmitted reference range : 4.26 - 5.52 10*6/?L. The reference range was not used to interpret this result as normal/abnormal . HGB (test code = 11.0 g/dL 12.2-16.4 L 718-7) HCT (test code = 35.0 % 38.4-49.3 L 4544-3) MCV (test code = 89.5 fL 81.7-95.6 787-2) MCH (test code = 28.1 pg 26.1-32.7 785-6) MCHC (test code = 31.4 g/dL 31.2-35.0 786-4) RDW-SD (test code = 52.2 fL 38.5-51.6 H 01638-8) RDW-CV (test code = 16.6 % 12.1-15.4 H 788-0) PLT (test code = 318 See_Comment [Automated 777-3) message] The sy stem which generated this result transmitted reference range : 150 - 328 10*3/ ?L. The reference r viet was not used to interpret this result as normal/abnormal . MPV (test code = 7.7 fL 9.8-13.0 L 30139-2) NRBC/100 WBC (test 0.0 See_Comment [Automat ed code = 9015233274) message] The system which generated this result transmitted reference range : 0.0 - 10.0 /100 WBCs. The refer ence range was not u sed to interpret th is result as normal/abnormal . NRBC x10^3 (test code See_Comment [Auto mated = 9857431018) message] The s ystem which generated this result transmitted reference range : 10*3/?L. The reference range was not used to interpret this result as normal/abnormal . GRAN MAT (NEUT) % 74.7 % (test code = 770-8) IMM GRAN % (test code 2.60 % = 3347090548) LYMPH % (test code = 13.1 % 736-9) MONO % (test code = 6.1 % 5905-5) EOS % (test code = 3.0 % 713-8) BASO % (test code = 0.5 % 706-2) GRAN MAT x10^3(ANC) 5.56 10*3/uL 1.99-6.95 (test code = 8165978146) IMM GRAN x10^3 (test 0.19 10*3/uL 0.00-0.06 H code = 3740048375) LYMPH x10^3 (test code 0.97 10*3/uL 1.09-3.23 L = 731-0) MONO x10^3 (test code 0.45 10*3/uL 0.36-1.02 = 742-7) EOS x10^3 (test code = 0.22 10*3/uL 0.06-0.53 711-2) BASO x10^3 (test code 0.04 10*3/uL 0.01-0.09 = 704-7) Lab Interpretation Abnormal (test code = 24958-3) [facility]. METABOLIC PANEL (24196)2022-05-28 01:57:26 Test Item Value Reference Range Interpretation Comments NA (test code = 140 mmol/L 135-145 3935142602) K (test code = 4.6 mmol/L 3.5-5.0 8839440291) CL (test code = 106 mmol/L 98-108 6603315428) CO2 TOTAL (test code = 22 mmol/L 23-31 L 0230439795) AGAP (test code = 2-16 6797101722) BUN (test code = 29 mg/dL 7-23 H 8988491397) GLUCOSE (test code = 117 mg/dL 70-110 H 1352913455) CREATININE (test code = 1.48 mg/dL 0.60-1.25 H 5206857082) TOTAL BILI (test code = 0.6 mg/dL 0.1-1.4 8071576890) CALCIUM (test code = 9.4 mg/dL 8.6-10.6 7917710440) T PROTEIN (test code = 7.3 g/dL 6.3-8.2 3819317096) ALBUMIN (test code = 4.2 g/dL 3.5-5.0 6260837260) ALK PHOS (test code = 119 U/L 34-122 2510744002) ALTv (test code = 20 U/L 5-50 1742-6) AST(SGOT) (test code = 22 U/L 13-40 3306832330) eGFR (test code = mL/min/1.73m2 6917061751) RAYNA (test code = RAYNA) Association of Glomerular Filtration Rate (GFR) and Staging of Kidney Disease* + --+ --+ ------+| GFR (mL/min/1.73 m2) ?| With Kidney Damage ?| ?Without Kidney Damage+ --------+ --------+ +| ?>90 ?| ?Stage one ?| ? Normal ?+ ---+ ---+ -------+| ?60-89 ?| ?Stage two ?| ? Decreased GFR ? + --+ --+ ------+| ?30-59 ?| ?Stage three ?| ? Stage three ? + --+ --+ ------+| ?15-29 ?| ?Stage four ? | ? Stage four ?+ ---+ ---+ -------+| ?<15 (or dialysis) ? ?| ?Stage five ? | ? Stage five ?+ ---+ ---+ -------+ *Each stage assumes the associated GFR level has been in effect for at least three months. ?Stages 1 to 5, with or without kidney disease, indicate chronic kidney disease. Notes: Determination of stages one and two (with eGFR >59mL/min/1.73 m2) requires estimation of kidney damage for at least three months as defined by structural or functional abnormalities of the kidney, manifested by either:Pathological abnormalities or Markers of kidney damage (including abnormalities in the composition of the blood or urine or abnormalities in imaging tests). Lab Interpretation Abnormal (test code = 32296-9) [facility] Test Item Value Reference Range Interpretation Comments LIPASE (test code = 1342337047) 178 U/L 0-220 Lab Interpretation (test code = Normal 15643-2) [facility] WITH [id number] 01:30:43 Test Item Value Reference Range Interpretation Comments WBC (test code = See_Comment [Automated 1335-2) message] The sy stem which generated this result transmitted reference range : 4.20 - 10.70 10*3/?L. The reference range was not used to interpret this result as normal/abnormal . RBC (test code = See_Comment L [Automated 363-8) message] The sy stem which generated this result transmitted reference range : 4.26 - 5.52 10*6/?L. The reference range was not used to interpret this result as normal/abnormal . HGB (test code = 11.3 g/dL 12.2-16.4 L 718-7) HCT (test code = 37.2 % 38.4-49.3 L 4544-3) MCV (test code = 93.7 fL 81.7-95.6 787-2) MCH (test code = 28.5 pg 26.1-32.7 785-6) MCHC (test code = 30.4 g/dL 31.2-35.0 L 786-4) RDW-SD (test code = 57.1 fL 38.5-51.6 H 26614-7) RDW-CV (test code = 16.6 % 12.1-15.4 H 788-0) PLT (test code = See_Comment H [Automated 777-3) message] The sy stem which generated this result transmitted reference range : 150 - 328 10*3/ ?L. The reference r viet was not used to interpret this result as normal/abnormal . MPV (test code = 7.9 fL 9.8-13.0 L 38850-9) NRBC/100 WBC (test See_Comment [Automat ed code = 1216766852) message] The system which generated this result transmitted reference range : 0.0 - 10.0 /100 WBCs. The refer ence range was not u sed to interpret th is result as normal/abnormal . NRBC x10^3 (test code See_Comment [Auto mated = 0041782288) message] The s ystem which generated this result transmitted reference range : 10*3/?L. The reference range was not used to interpret this result as normal/abnormal . GRAN MAT (NEUT) % 62.7 % (test code = 770-8) IMM GRAN % (test code 1.80 % = 4952313541) LYMPH % (test code = 16.6 % 736-9) MONO % (test code = 12.5 % 5905-5) EOS % (test code = 5.5 % 713-8) BASO % (test code = 0.9 % 706-2) GRAN MAT x10^3(ANC) 6.00 10*3/uL 1.99-6.95 (test code = 2194897650) IMM GRAN x10^3 (test 0.17 10*3/uL 0.00-0.06 H code = 6155604946) LYMPH x10^3 (test code 1.59 10*3/uL 1.09-3.23 = 731-0) MONO x10^3 (test code 1.20 10*3/uL 0.36-1.02 H = 742-7) EOS x10^3 (test code = 0.53 10*3/uL 0.06-0.53 711-2) BASO x10^3 (test code 0.09 10*3/uL 0.01-0.09 = 704-7) Lab Interpretation Abnormal (test code = 39465-9) [facility] 17:48:19 Test Item Value Reference Range Interpretation Comments Height (test code = in 6144106132) Weight (test code = lbs 4929497371) Systolic BP (test code = mmHg 6473079020) Diastolic BP (test code mmHg = 5171742405) Heart Rate (test code = bpm 1905771453) BSA (test code = 2.21 m2 1368949578) Ao root diam (test code 3.10 cm = 0584190149) Aortic root (test code = 3.1 cm 1793972798) Ao root annulus (test 3.1 cm code = 8839171518) LVOT diameter (test code 1.89 cm = 5808216403) LVOT area (test code = 2.80 cm2 1387434015) LVIDD (test code = 4.70 cm 1837528198) Left Ventricular End 101.7 mL Diastolic Volume by Teichholz Method (test code = 3130032) IVS (test code = 1.18 cm 7925014281) Interventricular Septum 1.18 cm Diastolic Thickness by 2D (test code = 1544275) LVPWD (test code = 1.18 cm 9423483438) PW (test code = 1.18 cm 0.6-1.1 2281523350) EF(Teich) (test code = 63.40 % 5534932822) LVIDS (test code = 3.10 cm 9727146426) Left Ventricular End 37.2 mL Systolic Volume by Teichholz Method (test code = 9663654) FS (test code = 34 % 2933269332) EF - 2D (test code = 63.40 % 30128760) LA size (test code = 3.6 cm 9655883117) Pulmonic Regurgitant End 101.4 cm/s Max Velocity (test code = 9417231364) LAV(MOD-sp4) (test code 62.40 mL = 2844580060) E wave decelartion time 0.20 s (test code = 9757704405) MV stenosis pressure 1/2 62.0 ms time (test code = 8884014746) MV Peak E Nikki (test code 72.9 cm/s = 7357244003) MV Peak A Nikki (test code 50.6 cm/s = 4275293839) E/A ratio (test code = ratio 8837183272) MV Prop V (test code = 38.90 cm/s 7289816563) MV E/e' septal (test 12.4 cm/s code = 8018609933) Tapse (test code = 2.22 cm 9149372850) LVOT stroke volume (test 68.80 cm3 code = 4407082323) LVOT peak nikki (test code 125.4 cm/s = 7417145413) LVOT mn grad (test code mmHg = 5804704445) AV LVOT peak gradient mmHg (test code = 7866928825) LVOT peak VTI (test code 24.6 cm = 8673553559) LV V1 mean (test code = 79.70 cm/s 0808914616) Aortic valve mean 113.7 cm/s velocity (test code = 8383747642) Ao peak nikki (test code = 166.9 cm/s 5637511206) Ao VTI (test code = 32.0 cm 1534042298) AV area by cont VTI 2.2 cm2 (test code = 3562195935) AV area peak nikki (test 2.1 cm2 code = 0625697058) Ao max PG (test code = 11.10 mm[Hg] 0228942736) AV peak gradient (test mmHg code = 4401912606) AV valve area (test code 2.15 cm2 = 1644112423) AV mean gradient (test mmHg code = 7922096101) Radiology Study observation (narrative) (test code = 61259-3) RAYNA (test code = RAYNA) Table formatting from the original result was not included. ?Left?Ventricle: Left ventricle size is normal. Normal wall thickness. Normal wall motion. Normal systolic function with a visually estimated EF of 55 - 60%. Indeterminate diastolic function. ?Right?Ventricle: Normal systolic function. ?Tricuspid?Valve: Insufficient regurgant jet to estimate RVSP. ?RA pressure is 0-5 mmHg. VitalsHeight Weight BSA (Calculated - sq m) BP Pulse 5' 5" (1.651 m) 266 lb (120.7 kg) 2.35 sq meters 136/77 60 Left VentricleLeft ventricle size is normal. Normal wall thickness. Normal wall motion. Normal systolic function with a visually estimated EF of 55 - 60%. Indeterminate diastolic function.Right VentricleRight ventricle size is normal. Normal systolic function.Left AtriumLeft atrium size is normal.Right AtriumRight atrium size is normal.Mitral ValveMitral valve structure is normal. Trace transvalvular regurgitation.Tricusp id ValveTricuspid valve structure is normal. Trace transvalvular regurgitation. Insufficient regurgant jet to estimate RVSP. RA pressure is 0-5 mmHg.Aortic ValveTricuspid.Pulmon ic ValveNot well visualized. Trace transvalvular regurgitation.Ascendi ng AortaNormal sized aorta.PericardiumThe pericardium is normal. No pericardial effusion.Study DetailsStudy quality was adequate. A complete echocardiogram was performed using 2D, color flow Doppler and spectral Doppler. [facility] [id number] 11:33:21 Test Item Value Reference Interpretation Comments Range TROPONIN I (test 0.005 ng/mL See_Comment [Automated code = 7902853518) message] The system which generated this result transmitted reference range : <=0.034. The reference range was not used to interpret this result as normal/abnormal . RAYNA (test code = Reference (Normal) RAYNA) Range (defined by the 99th percentile reference limit): <= 0.034 ng/mL Note: Cardiac troponin begins to rise 3-4 hours after the onset of ischemia. Repeat in 4-6 hours if the sample was drawn within 3-4 hours of the onset of the symptom and found normal. Diagnosis of myocardial injury is made with acute changes in cTn concentrations with at least one serial sample above the 99th percentile upper reference limit (URL), taken together with the patient's clinical presentation. Biotin has been reported to cause a negative bias, interpret results relative to patient's use of biotin. Lab Interpretation Normal (test code = 57832-1) [facility] 04:29:34 ALCOHOL<10mg/dL05/18/2022 10:29 PM [facility]10 Hyilvpsc14-664 Toxic>100 Depression of PIN STICKER>400 Fatalities ReportedUnB[facility]valeTROPONIN [id number] 04:22:51 Test Item Value Reference Interpretation Comments Range TROPONIN I (test 0.004 ng/mL See_Comment [Automated code = 5012231716) message] The system which generated this result transmitted reference range : <=0.034. The reference range was not used to interpret this result as normal/abnormal . RAYNA (test code = Reference (Normal) RAYNA) Range (defined by the 99th percentile reference limit): <= 0.034 ng/mL Note: Cardiac troponin begins to rise 3-4 hours after the onset of ischemia. Repeat in 4-6 hours if the sample was drawn within 3-4 hours of the onset of the symptom and found normal. Diagnosis of myocardial injury is made with acute changes in cTn concentrations with at least one serial sample above the 99th percentile upper reference limit (URL), taken together with the patient's clinical presentation. Biotin has been reported to cause a negative bias, interpret results relative to patient's use of biotin. Lab Interpretation Normal (test code = 40988-0) [facility] WITH [id number] 04:14:32 Test Item Value Reference Range Interpretation Comments WBC (test code = See_Comment [Automated 2512-2) message] The sy stem which generated this result transmitted reference range : 4.20 - 10.70 10*3/?L. The reference range was not used to interpret this result as normal/abnormal . RBC (test code = See_Comment L [Automated 263-8) message] The sy stem which generated this result transmitted reference range : 4.26 - 5.52 10*6/?L. The reference range was not used to interpret this result as normal/abnormal . HGB (test code = 10.1 g/dL 12.2-16.4 L 718-7) HCT (test code = 33.3 % 38.4-49.3 L 4544-3) MCV (test code = 93.5 fL 81.7-95.6 787-2) MCH (test code = 28.4 pg 26.1-32.7 785-6) MCHC (test code = 30.3 g/dL 31.2-35.0 L 786-4) RDW-SD (test code = 58.4 fL 38.5-51.6 H 79664-9) RDW-CV (test code = 17.0 % 12.1-15.4 H 788-0) PLT (test code = See_Comment H [Automated 777-3) message] The sy stem which generated this result transmitted reference range : 150 - 328 10*3/ ?L. The reference r viet was not used to interpret this result as normal/abnormal . MPV (test code = 7.8 fL 9.8-13.0 L 65659-4) NRBC/100 WBC (test See_Comment [Automat ed code = 3199140058) message] The system which generated this result transmitted reference range : 0.0 - 10.0 /100 WBCs. The refer ence range was not u sed to interpret th is result as normal/abnormal . NRBC x10^3 (test code See_Comment [Auto mated = 9865058470) message] The s ystem which generated this result transmitted reference range : 10*3/?L. The reference range was not used to interpret this result as normal/abnormal . GRAN MAT (NEUT) % 58.4 % (test code = 770-8) IMM GRAN % (test code 1.50 % = 0481326293) LYMPH % (test code = 20.9 % 736-9) MONO % (test code = 14.1 % 5905-5) EOS % (test code = 4.3 % 713-8) BASO % (test code = 0.8 % 706-2) GRAN MAT x10^3(ANC) 3.82 10*3/uL 1.99-6.95 (test code = 2895007020) IMM GRAN x10^3 (test 0.10 10*3/uL 0.00-0.06 H code = 6851255784) LYMPH x10^3 (test code 1.37 10*3/uL 1.09-3.23 = 731-0) MONO x10^3 (test code 0.92 10*3/uL 0.36-1.02 = 742-7) EOS x10^3 (test code = 0.28 10*3/uL 0.06-0.53 711-2) BASO x10^3 (test code 0.05 10*3/uL 0.01-0.09 = 704-7) Lab Interpretation Abnormal (test code = 09572-7) [facility] (ALB,T.PRO,BILI T,BU/BC,ALT,AST,ALK PHOS)2022-05-19 04:11:30 Test Item Value Reference Range Interpretation Comments TOTAL BILI (test code = 7375828677) 0.3 mg/dL 0.1-1.1 BILI UNCON (test code = 0642664190) 0.1 mg/dL 0.1-1.1 BILI CONJ (test code = 7683578019) 0.0 mg/dL 0.0-0.3 T PROTEIN (test code = 3541367481) 6.3 g/dL 6.3-8.2 ALBUMIN (test code = 8463827580) 3.7 g/dL 3.5-5.0 ALK PHOS (test code = 9492288702) 107 U/L 34-122 ALTv (test code = 1742-6) 73 U/L 5-50 H AST(SGOT) (test code = 7562610958) 29 U/L 13-40 Lab Interpretation (test code = Abnormal 77772-4) [facility] (NA, K, CL, CO2, GLUCOSE, BUN, CREATININE, CA)2022-05-19 04:11:30 Test Item Value Reference Range Interpretation Comments NA (test code = 136 mmol/L 135-145 4132615887) K (test code = 4.5 mmol/L 3.5-5.0 7516468661) CL (test code = 106 mmol/L 98-108 2394514077) CO2 TOTAL (test code = 22 mmol/L 23-31 L 8018275551) AGAP (test code = 2-16 3277363797) BUN (test code = 20 mg/dL 7-23 3724158451) GLUCOSE (test code = 106 mg/dL 70-110 3919493449) CREATININE (test code = 1.29 mg/dL 0.60-1.25 H 6122915347) CALCIUM (test code = 8.1 mg/dL 8.6-10.6 L 0768440122) eGFR (test code = mL/min/1.73m2 2199258603) RAYNA (test code = RAYNA) Association of Glomerular Filtration Rate (GFR) and Staging of Kidney Disease* + --+ --+ ------+| GFR (mL/min/1.73 m2) ?| With Kidney Damage ?| ?Without Kidney Damage+ --------+ --------+ +| ?>90 ?| ?Stage one ?| ? Normal ?+ ---+ ---+ -------+| ?60-89 ?| ?Stage two ?| ? Decreased GFR ? + --+ --+ ------+| ?30-59 ?| ?Stage three ?| ? Stage three ? + --+ --+ ------+| ?15-29 ?| ?Stage four ? | ? Stage four ?+ ---+ ---+ -------+| ?<15 (or dialysis) ? ?| ?Stage five ? | ? Stage five ?+ ---+ ---+ -------+ *Each stage assumes the associated GFR level has been in effect for at least three months. ?Stages 1 to 5, with or without kidney disease, indicate chronic kidney disease. Notes: Determination of stages one and two (with eGFR >59mL/min/1.73 m2) requires estimation of kidney damage for at least three months as defined by structural or functional abnormalities of the kidney, manifested by either:Pathological abnormalities or Markers of kidney damage (including abnormalities in the composition of the blood or urine or abnormalities in imaging tests). Lab Interpretation Abnormal (test code = 28944-1) [facility] 04:11:30 Test Item Value Reference Range Interpretation Comments LIPASE (test code = 3954021929) 108 U/L 0-220 Lab Interpretation (test code = Normal 42227-5) [facility]manANTI-NUCLEAR ANTIBODY-PATHOLOGIST [id number] 22:21:23ANA - Pathologist InterpretationANA HEp-2 IIFA Pathologist Interpretation Report Patient Name: Dorene Garcia ? ?Antinuclear Antibody (LIBAN) Test (Anti-Cell Antibodies Test) Indirect Immun ofluorescence Assay on HEp-2 Cells Screening titer: 1:80 (adults, > 18 years old), 1:40 (pediatrics, <= 18 years old)?Result: The antinuclear antibody (LIBAN) screen is negative on interpretation. Of note, a few cells with a faint speckled pattern are noted, though this is not uniformly observed as most cells are negative. If clinically suspecting an autoimmune disorder, repeating the LIBAN screen at a later time with a new specimen is recommended. Remarks:This patient has a negative antinuclear antibody (LIBAN) screening test. This suggests that the patient likely does not have a systemic autoimmune rheumatic disease that is strongly associated with a positive LIBAN, such as systemic lupus erythematosus (LIBAN positive in ~95-100%), systemic sclerosis (LIBAN positive in ~60-80%), or the following disorders in which LIBAN positivity is part of the diagnostic criteria: drug-induced lupus, autoimmune hepatitis, or mixed connective tissue disease. However, the LIBAN may be negative in rare cases of systemiclupus erythematosus and systemic sclerosis. The LIBAN may also be negative in ~20% of patients presenting with autoimmune hepatitis. Additionally, LIBAN positivity is less sensitive in the diagnosis of Sjogren's syndrome (~40-70%) and dermatomyositis/polymyositis (~30-80%). LIBAN is not useful for the diagnosis of rheumatoid arthritis, multiple sclerosis, idiopathic thrombocytopenic purpura, thyroid disease, discoid lupus, or fibromyalgia. (https://pubmed.ncbi.nlm.nih.gov/06990869/, https://pubmed.ncbi.nlm .nih.gov/34513652/) ? ? Therefore, a diagnosis cannot be based exclusively on LIBAN detection and/or pattern and thus should be made via the integration of patient history, physical exam findings, and other diagnostic tests as clinically indicated. Ester Whipple MD ?05/15/2022 ?4:21 PM 05/15/2022 4:21PM [facility] SERVICESTexas Health KaufmanANTI-NUCLEAR ANTIBODY [id number] 20:07:02 Test Item Value Reference Range Interpretation Comments LIBAN (test code = Negative Negative 4882021543) RAYNA (test code = RAYNA) Negative: ?No Anti-Nuclear Antibodies detected by IFA. Positive: ?LIBAN IFA screen performed with a 1:80 dilution in adults and a 1:40 dilution in pediatrics. ?A titer is performed and reported separately when the LIBAN is "Positive" or when "Cytoplasmic staining is observed." Lab Interpretation (test Normal code = 53123-3) [facility]man[facility]ERULOPLASMIN2022-12-30 17:26:56 Test Item Value Reference Range Interpretation Comments CERULO (test code = 2123222139) 27 mg/dL 25-63 Lab Interpretation (test code = Normal 97837-6) [facility]manALPHA 1 [id number] 17:26:56 Test Item Value Reference Range Interpretation Comments Anti-Trypsin (test code = 242 mg/dL 83-199 H 4162029368) Lab Interpretation (test code = Abnormal 19873-5) [facility] [id number] 03:53:42 Test Item Value Reference Range Interpretation Comments FREE T3 (test code = 2650020392) 4.16 pg/mL 2.77-5.27 Lab Interpretation (test code = Normal 16531-7) [facility] [id number] 03:53:42 Test Item Value Reference Range Interpretation Comments FREE T4 (test code = See_Comment [Autom ated message] 1023800354) The system [employer] generated this result transmitted ref erence range: 0.78 - 2 .20 ng/dL:. The ref erence range was not u sed to interpret this result as normal/abnor mal. Lab Interpretation (test Normal code = 09543-1) [facility] WITHOUT [id number] 20:13:20 Test Item Value Reference Range Interpretation Comments WBC (test code = 6690-2) See_Comment [A utomated message] The system [employer] generated this result transmit aakash reference range : 4.20 - 10.70 10*3/?L. The reference range was not used to interpret this result as normal/abnormal . RBC (test code = 789-8) See_Comment L [Au tomated message] The system [employer] generated this result transmit aakash reference range : 4.26 - 5.52 10* 6/?L. The reference r viet was not used to interpret this result as normal/abnormal . HGB (test code = 718-7) 9.9 g/dL 12.2-16.4 L HCT (test code = 4544-3) 31.7 % 38.4-49.3 L MCH (test code = 785-6) 28.9 pg 26.1-32.7 MCV (test code = 787-2) 92.7 fL 81.7-95.6 MCHC (test code = 786-4) 31.2 g/dL 31.2-35.0 PLT (test code = 777-3) See_Comment [Au tomated message] The system [facility] h generated this result transmit aakash reference range : 150 - 328 10*3/?L. The reference range was not used to interpret this result as normal/abnormal . MPV (test code = 8.2 fL 9.8-13.0 L 66461-8) RDW-CV (test code = 17.1 % 12.1-15.4 H 788-0) RDW-SD (test code = 57.0 fL 38.5-51.6 H 20286-3) NRBC x10^3 (test code = See_Comment [Au tomated message] 7239991328) The system [employer] generated this result transmit aakash reference range : 10*3/?L. The reference range was not used to interpret this result as normal/abnormal . NRBC/100 WBC (test code See_Comment [Au tomated message] = 1109011763) The system [facility] generated this result transmit aakash reference range : 0.0 - 10.0 /100 WBC s. The reference r viet was not used to interpret this result as normal/abnormal . IPF % (test code = 4815366592) Lab Interpretation (test Abnormal code = 55711-3) [facility] WITH [id number] 15:17:47 Test Item Value Reference Range Interpretation Comments WBC (test code = See_Comment [Automated 7190-2) message] The sy stem which generated this result transmitted reference range : 4.20 - 10.70 10*3/?L. The reference range was not used to interpret this result as normal/abnormal . RBC (test code = See_Comment L [Automated 709-8) message] The sy stem which generated this result transmitted reference range : 4.26 - 5.52 10*6/?L. The reference range was not used to interpret this result as normal/abnormal . HGB (test code = 9.7 g/dL 12.2-16.4 L 718-7) HCT (test code = 30.8 % 38.4-49.3 L 4544-3) MCV (test code = 93.1 fL 81.7-95.6 787-2) MCH (test code = 29.3 pg 26.1-32.7 785-6) MCHC (test code = 31.5 g/dL 31.2-35.0 786-4) RDW-SD (test code = 55.9 fL 38.5-51.6 H 09722-4) RDW-CV (test code = 16.8 % 12.1-15.4 H 788-0) PLT (test code = See_Comment [Automated 777-3) message] The sy stem which generated this result transmitted reference range : 150 - 328 10*3/ ?L. The reference r viet was not used to interpret this result as normal/abnormal . MPV (test code = 8.3 fL 9.8-13.0 L 98392-1) NRBC/100 WBC (test See_Comment [Automat ed code = 9438778796) message] The system which generated this result transmitted reference range : 0.0 - 10.0 /100 WBCs. The refer ence range was not u sed to interpret th is result as normal/abnormal . NRBC x10^3 (test code See_Comment [Auto mated = 6884643218) message] The s ystem which generated this result transmitted reference range : 10*3/?L. The reference range was not used to interpret this result as normal/abnormal . GRAN MAT (NEUT) % 62.7 % (test code = 770-8) IMM GRAN % (test code 2.80 % = 0431307374) LYMPH % (test code = 19.8 % 736-9) MONO % (test code = 10.2 % 5905-5) EOS % (test code = 3.8 % 713-8) BASO % (test code = 0.7 % 706-2) GRAN MAT x10^3(ANC) 3.80 10*3/uL 1.99-6.95 (test code = 8593979483) IMM GRAN x10^3 (test 0.17 10*3/uL 0.00-0.06 H code = 7609575630) LYMPH x10^3 (test code 1.20 10*3/uL 1.09-3.23 = 731-0) MONO x10^3 (test code 0.62 10*3/uL 0.36-1.02 = 742-7) EOS x10^3 (test code = 0.23 10*3/uL 0.06-0.53 711-2) BASO x10^3 (test code 0.04 10*3/uL 0.01-0.09 = 704-7) Lab Interpretation Abnormal (test code = 53516-6) [facility] [id number] 12:35:51 Test Item Value Reference Interpretation Comments Range TROPONIN I (test 0.002 ng/mL See_Comment [Automated code = 1986738224) message] The system which generated this result transmitted reference range : <=0.034. The reference range was not used to interpret this result as normal/abnormal . RAYNA (test code = Reference (Normal) RAYNA) Range (defined by the 99th percentile reference limit): <= 0.034 ng/mL Note: Cardiac troponin begins to rise 3-4 hours after the onset of ischemia. Repeat in 4-6 hours if the sample was drawn within 3-4 hours of the onset of the symptom and found normal. Diagnosis of myocardial injury is made with acute changes in cTn concentrations with at least one serial sample above the 99th percentile upper reference limit (URL), taken together with the patient's clinical presentation. Biotin has been reported to cause a negative bias, interpret results relative to patient's use of biotin. Lab Interpretation Normal (test code = 11277-2) [id number] 12:31:09 Test Item Value Reference Range Interpretation Comments NT-proBNP (test code 260 pg/mL See_Comment H [Autom ated = 2007103865) message] The system which generated this result transmitted reference range : <=125. The reference range was not used to interpret this result as normal/abnormal . RAYNA (test code = RAYNA) Biotin has been reported to cause a negative bias, interpret results relative to patient's use of biotin. Lab Interpretation Abnormal (test code = 27015-6) [facility] METABOLIC PANEL (NA, K, CL, CO2, GLUCOSE, BUN, CREATININE, CA)2022-05-14 12:24:52 Test Item Value Reference Range Interpretation Comments NA (test code = 135 mmol/L 135-145 0167509494) K (test code = 4.1 mmol/L 3.5-5.0 9238063370) CL (test code = 105 mmol/L 98-108 9808918628) CO2 TOTAL (test code = 23 mmol/L 23-31 5972738736) AGAP (test code = 2-16 7277019836) BUN (test code = 8 mg/dL 7-23 7340721611) GLUCOSE (test code = 155 mg/dL 70-110 H 6109947319) CREATININE (test code = 0.98 mg/dL 0.60-1.25 1548380260) CALCIUM (test code = 8.2 mg/dL 8.6-10.6 L 8817575378) eGFR (test code = mL/min/1.73m2 3495049962) RAYNA (test code = RAYNA) Association of Glomerular Filtration Rate (GFR) and Staging of Kidney Disease* + --+ --+ ------+| GFR (mL/min/1.73 m2) ?| With Kidney Damage ?| ?Without Kidney Damage+ --------+ --------+ +| ?>90 ?| ?Stage one ?| ? Normal ?+ ---+ ---+ -------+| ?60-89 ?| ?Stage two ?| ? Decreased GFR ? + --+ --+ ------+| ?30-59 ?| ?Stage three ?| ? Stage three ? + --+ --+ ------+| ?15-29 ?| ?Stage four ? | ? Stage four ?+ ---+ ---+ -------+| ?<15 (or dialysis) ? ?| ?Stage five ? | ? Stage five ?+ ---+ ---+ -------+ *Each stage assumes the associated GFR level has been in effect for at least three months. ?Stages 1 to 5, with or without kidney disease, indicate chronic kidney disease. Notes: Determination of stages one and two (with eGFR >59mL/min/1.73 m2) requires estimation of kidney damage for at least three months as defined by structural or functional abnormalities of the kidney, manifested by either:Pathological abnormalities or Markers of kidney damage (including abnormalities in the composition of the blood or urine or abnormalities in imaging tests). Lab Interpretation Abnormal (test code = 00205-7) [facility]20[facility] 12:24:52 Test Item Value Reference Range Interpretation Comments MAGNESIUM (test code = 5415840212) 1.9 mg/dL 1.7-2.4 Lab Interpretation (test code = Normal 10235-4) [facility]manHEPAT[facility] FUN[facility] (23457) (ALB,T.PRO,BILI T,BU/BC,ALT,AST,ALK PHOS)2022-05-14 12:24:27 Test Item Value Reference Range Interpretation Comments TOTAL BILI (test code = 0796870733) 0.2 mg/dL 0.1-1.1 BILI UNCON (test code = 5991745009) 0.1 mg/dL 0.1-1.1 BILI CONJ (test code = 4385817486) 0.0 mg/dL 0.0-0.3 T PROTEIN (test code = 9591985331) 6.2 g/dL 6.3-8.2 L ALBUMIN (test code = 2553024238) 3.4 g/dL 3.5-5.0 L ALK PHOS (test code = 5638098504) 159 U/L 34-122 H ALTv (test code = 1742-6) 314 U/L 5-50 H AST(SGOT) (test code = [id number]) 58 U/L 13-40 H Lab Interpretation (test code = Abnormal 81149-6) [facility] 12:24:27 Test Item Value Reference Range Interpretation Comments PHOSPHORUS (test code = 5934185357) 2.9 mg/dL 2.5-5.0 Lab Interpretation (test code = Normal 79552-1) [facility], [id number] 20:03:43 Test Item Value Reference Range Interpretation Comments VIT D 25OH (test code = 19 ng/mL 25-80 L 29737-3) RAYNA (test code = RAYNA) Deficiency: <20 ng/mLInsufficiency: 20-24 ng/mLOptimal: 25-80 ng/mL Lab Interpretation (test Abnormal code = 71196-3) [facility] B12, [id number] 18:23:33 Test Item Value Reference Range Interpretation Comments VIT B12 (test code = 824 pg/mL 240-930 7702360442) RAYNA (test code = RAYNA) Biotin has been reported to cause a positive bias, interpret results relative to patient's use of biotin. Lab Interpretation (test Normal code = 83579-0) [facility]ATITIS [facility] SURFACE [id number] 18:21:52 Test Item Value Reference Range Interpretation Comments HBsAB (test code = Negative 4874716338) HBsAb mIU/mL Semi-Quantitative (test code = 6700700570) RAYNA (test code = Interpretation: RAYNA) ?Hepatitis B Surface Antibody ? Negative - Patient is considered to be not immune to infection with HBV. ? ? Positive - Anti-HBs detected at greater than or equal to 12 mIU/mL. ?Patient is considered to be immune to infection with HBV. ? [facility]manHCV [id number] 18:21:52 Test Item Value Reference Range Interpretation Comments HCV Ab (test code = 85156-1) Negative HCV Semi-Quantitative (test code = 78857-0) [facility]man[facility]AV ANTIBODY (IGG AND IGM)2022-05-13 18:21:52 Test Item Value Reference Range Interpretation Comments HAV Total (test code = 3164317227) Negative HAVT Semi-Quantitative (test code = 3265789088) [facility] [id number] 18:04:12 Test Item Value Reference Range Interpretation Comments HBsAg Semi-Quantitative (test code = Negative Negative 5195-3) [facility]manFERRITIN [id number] 14:44:17 Test Item Value Reference Range Interpretation Comments FERRITIN (test code = 364.0 ng/mL 18.0-464.0 4837133950) RAYNA (test code = RAYNA) Biotin has been reported to cause a negative bias, interpret results relative to patient's use of biotin. Lab Interpretation (test Normal code = 17334-6) [facility]manTHYROID STIMULATING [id number] 14:39:13 Test Item Value Reference Range Interpretation Comments TSH (test code = See_Comment H [Automated message] 2642184020) The system [employer] generated this result transmitted ref erence range: 0.45 - 4 .70 mIU/L. The refe rence range was not u sed to interpret this result as normal/abnor mal. Lab Interpretation (test Abnormal code = 73772-8) [facility]manFREE [id number] 14:25:52 Test Item Value Reference Range Interpretation Comments FREE T3 (test code = 8673921004) 3.80 pg/mL 2.77-5.27 Lab Interpretation (test code = Normal 26128-0) [facility]manSEDIMENTATION [id number] 08:35:40 Test Item Value Reference Range Interpretation Comments ESR (test code = See_Comment H [Automated message] 48625-8) The system [employer] generated this result transmitted ref erence range: 0 - 10 m m/HR. The reference r viet was not used to interpret this result as normal/abnor mal. Lab Interpretation (test Abnormal code = 56261-0) [facility]manTROPONIN [id number] 08:28:07 Test Item Value Reference Interpretation Comments Range TROPONIN I (test 0.002 ng/mL See_Comment [Automated code = 4763804074) message] The system which generated this result transmitted reference range : <=0.034. The reference range was not used to interpret this result as normal/abnormal . RAYNA (test code = Reference (Normal) RAYNA) Range (defined by the 99th percentile reference limit): <= 0.034 ng/mL Note: Cardiac troponin begins to rise 3-4 hours after the onset of ischemia. Repeat in 4-6 hours if the sample was drawn within 3-4 hours of the onset of the symptom and found normal. Diagnosis of myocardial injury is made with acute changes in cTn concentrations with at least one serial sample above the 99th percentile upper reference limit (URL), taken together with the patient's clinical presentation. Biotin has been reported to cause a negative bias, interpret results relative to patient's use of biotin. Lab Interpretation Normal (test code = 69248-0) [facility]manLIPID PANEL (99906)(TOTAL CHOLESTEROL, TRIGLYCERIDES, HDL)2022-05-13 08:02:38 Test Item Value Reference Range Interpretation Comments CHOL (test code = 133 mg/dL 120-200 7784288169) HDL (test code = 28 mg/dL See_Comment L [Automated message] 4493600188) The system [employer] generated this result transmit aakash reference range : >=40. The refer ence range was not u sed to interpret th is result as normal/abnormal . HDLC RATIO (test code = See_Comment [Au tomated message] 5888555250) The system [employer] generated this result transmit aakash reference range : <=5.0. The refe rence range was not u sed to interpret th is result as normal/abnormal . TRIG (test code = 262 mg/dL 30-170 H 9014368131) LDL CHOL (test code = 53 mg/dL See_Comment [Auto mated message] 47488-5) The system [employer] generated this result transmit aakash reference range : <=160. The refe rence range was not u sed to interpret th is result as normal/abnormal . VLDL (test code = 52 mg/dL 5-60 6442722499) Lab Interpretation (test Abnormal code = 14436-3) [facility]manGLYCOSYLATED HEMOGLOBIN (A1C)2022-05-13 07:54:34 Test Item Value Reference Range Interpretation Comments HGB A1C (test code = 6.4 % 4.0-5.7 H 4548-4) RAYNA (test code = RAYNA) Reference RangesNormal: <5.7%Prediabetes: 5.7 - 6.4%Diabetes: > 6.5% Lab Interpretation (test Abnormal code = 80534-7) [facility]manSALICYLATE2022-12-27 23:54:05 SALICYLATE<10mg/L107/13/2021 5:54 PM [facility] LABORATORYTherapeutic Range: ? Analgesic and Antipyretic Use ? 20- 100 mg/L ? ? Anti-Inflammatory Use ? 100-250 mg/L Toxic Range: ? Greater than 300 mg/LUnBaylor Scott [facility]valeACETAMINOPHEN2022-12-27 23:39:59 Test Item Value Reference Range Interpretation Comments ACETAMINOP (test code = 23.0 ug/mL 10.0-30.0 7596323100) RAYNA (test code = RAYNA) Toxic: Greater than 200 ug/mL @ 4 hour post ingestion or greater than 50 ug/mL @ 12 hour post ingestion Lab Interpretation (test Normal code = 23968-9) [facility]manCB WITH [id number] 22:45:27 Test Item Value Reference Range Interpretation Comments WBC (test code = See_Comment [Automated 6690-2) message] The sy stem which generated this result transmitted reference range : 4.20 - 10.70 10*3/?L. The reference range was not used to interpret this result as normal/abnormal . RBC (test code = See_Comment L [Automated 789-8) message] The sy stem which generated this result transmitted reference range : 4.26 - 5.52 10*6/?L. The reference range was not used to interpret this result as normal/abnormal . HGB (test code = 11.4 g/dL 12.2-16.4 L 718-7) HCT (test code = 36.6 % 38.4-49.3 L 4544-3) MCV (test code = 92.0 fL 81.7-95.6 787-2) MCH (test code = 28.6 pg 26.1-32.7 785-6) MCHC (test code = 31.1 g/dL 31.2-35.0 L 786-4) RDW-SD (test code = 55.9 fL 38.5-51.6 H 78381-5) RDW-CV (test code = 16.5 % 12.1-15.4 H 788-0) PLT (test code = See_Comment [Automated 777-3) message] The sy stem which generated this result transmitted reference range : 150 - 328 10*3/ ?L. The reference r viet was not used to interpret this result as normal/abnormal . MPV (test code = 8.3 fL 9.8-13.0 L 81465-8) NRBC/100 WBC (test See_Comment [Automat ed code = 9026686099) message] The system which generated this result transmitted reference range : 0.0 - 10.0 /100 WBCs. The refer ence range was not u sed to interpret th is result as normal/abnormal . NRBC x10^3 (test code See_Comment [Auto mated = 0373379612) message] The s ystem which generated this result transmitted reference range : 10*3/?L. The reference range was not used to interpret this result as normal/abnormal . GRAN MAT (NEUT) % 69.6 % (test code = 770-8) IMM GRAN % (test code 2.50 % = 6137285887) LYMPH % (test code = 15.7 % 736-9) MONO % (test code = 7.7 % 5905-5) EOS % (test code = 3.8 % 713-8) BASO % (test code = 0.7 % 706-2) GRAN MAT x10^3(ANC) 4.16 10*3/uL 1.99-6.95 (test code = 2065976345) IMM GRAN x10^3 (test 0.15 10*3/uL 0.00-0.06 H code = 6304251142) LYMPH x10^3 (test code 0.94 10*3/uL 1.09-3.23 L = 731-0) MONO x10^3 (test code 0.46 10*3/uL 0.36-1.02 = 742-7) EOS x10^3 (test code = 0.23 10*3/uL 0.06-0.53 711-2) BASO x10^3 (test code 0.04 10*3/uL 0.01-0.09 = 704-7) Lab Interpretation Abnormal (test code = 85021-7) [facility]manACTIV[facility] PARTIAL THRMPLAS [id number] 22:39:42 Test Item Value Reference Range Interpretation Comments APTT Patient (test See_Comment [Automat ed code = 3173-2) message] The system which generated this result transmitted reference range : 23 - 38 Seconds . The reference range was not used to interpr et this result as normal/abnormal . RAYNA (test code = RAYNA) The [facility] patient population mean normal value for aPTT is 30 seconds. Lab Interpretation Normal (test code = 14605-7) [facility]manPROTHROMBIN TIME / [id number] 22:37:40 Test Item Value Reference Range Interpretation Comments PROTIME PATIENT (test See_Comment [Auto mated message] code = 5964-2) The system wh ich generated this result transmitted ref erence range: 12.0 - 1 4.7 Seconds. The re ference range was not u sed to interpret this result as normal/abnor mal. INR (test code = 6301-6) Nor mal INR <1.1; Warfarin Therap eutic range 2.0 to 3. 0 or 2.5 to 3.5, dep ending upon the indica tions. Lab Interpretation (test Normal code = 87663-7) [facility]manTROPONIN [id number] 22:37:00 Test Item Value Reference Interpretation Comments Range TROPONIN I (test 0.003 ng/mL See_Comment [Automated code = 3556689330) message] The system which generated this result transmitted reference range : <=0.034. The reference range was not used to interpret this result as normal/abnormal . RAYNA (test code = Reference (Normal) RAYNA) Range (defined by the 99th percentile reference limit): <= 0.034 ng/mL Note: Cardiac troponin begins to rise 3-4 hours after the onset of ischemia. Repeat in 4-6 hours if the sample was drawn within 3-4 hours of the onset of the symptom and found normal. Diagnosis of myocardial injury is made with acute changes in cTn concentrations with at least one serial sample above the 99th percentile upper reference limit (URL), taken together with the patient's clinical presentation. Biotin has been reported to cause a negative bias, interpret results relative to patient's use of biotin. Lab Interpretation Normal (test code = 74391-0) [facility]manN-TERMINAL [id number] 22:34:01 Test Item Value Reference Range Interpretation Comments NT-proBNP (test code 559 pg/mL See_Comment H [Autom ated = 9844809855) message] The system which generated this result transmitted reference range : <=125. The reference range was not used to interpret this result as normal/abnormal . RAYNA (test code = RAYNA) Biotin has been reported to cause a negative bias, interpret results relative to patient's use of biotin. Lab Interpretation Abnormal (test code = 88771-2) [facility]manCOMP. METABOLIC PANEL (95843)2022-05-12 22:25:23 Test Item Value Reference Range Interpretation Comments NA (test code = 136 mmol/L 135-145 1279272603) K (test code = 5.0 mmol/L 3.5-5.0 2208869321) CL (test code = 107 mmol/L 98-108 6976396463) CO2 TOTAL (test code = 22 mmol/L 23-31 L 7409843142) AGAP (test code = 2-16 8251012843) BUN (test code = 15 mg/dL 7-23 6193767534) GLUCOSE (test code = 142 mg/dL 70-110 H 9415108140) CREATININE (test code = 1.16 mg/dL 0.60-1.25 7740381485) TOTAL BILI (test code = 0.6 mg/dL 0.1-1.4 9099722740) CALCIUM (test code = 8.2 mg/dL 8.6-10.6 L 0994432546) T PROTEIN (test code = 6.5 g/dL 6.3-8.2 8165048978) ALBUMIN (test code = 3.8 g/dL 3.5-5.0 5852012193) ALK PHOS (test code = 127 U/L 34-122 H 7686457809) ALTv (test code = 611 U/L 5-50 H 1742-6) AST(SGOT) (test code = 184 U/L 13-40 H 5479359815) eGFR (test code = mL/min/1.73m2 5800582976) RAYNA (test code = RAYNA) Association of Glomerular Filtration Rate (GFR) and Staging of Kidney Disease* + --+ --+ ------+| GFR (mL/min/1.73 m2) ?| With Kidney Damage ?| ?Without Kidney Damage+ --------+ --------+ +| ?>90 ?| ?Stage one ?| ? Normal ?+ ---+ ---+ -------+| ?60-89 ?| ?Stage two ?| ? Decreased GFR ? + --+ --+ ------+| ?30-59 ?| ?Stage three ?| ? Stage three ? + --+ --+ ------+| ?15-29 ?| ?Stage four ? | ? Stage four ?+ ---+ ---+ -------+| ?<15 (or dialysis) ? ?| ?Stage five ? | ? Stage five ?+ ---+ ---+ -------+ *Each stage assumes the associated GFR level has been in effect for at least three months. ?Stages 1 to 5, with or without kidney disease, indicate chronic kidney disease. Notes: Determination of stages one and two (with eGFR >59mL/min/1.73 m2) requires estimation of kidney damage for at least three months as defined by structural or functional abnormalities of the kidney, manifested by either:Pathological abnormalities or Markers of kidney damage (including abnormalities in the composition of the blood or urine or abnormalities in imaging tests). Lab Interpretation Abnormal (test code = 28627-2) [facility]manLIPASE2022-[facility]-27 22:25:02 Test Item Value Reference Range Interpretation Comments LIPASE (test code = 2432844513) 113 U/L 0-220 Lab Interpretation (test code = Normal 33038-5) [facility]aufmanLactic Acid Whole [id number] 22:01:10 Test Item Value Reference Range Interpretation Comments LACTIC ACID (test code = 2.47 mmol/L 0.50-2.20 H 7265158367) Lab Interpretation (test code = Abnormal 96249-5) [facility]manCOMP. METABOLIC PANEL (54082)2022-04-28 03:54:28 Test Item Value Reference Range Interpretation Comments NA (test code = 136 mmol/L 135-145 0826450102) K (test code = 4.5 mmol/L 3.5-5.0 4082697524) CL (test code = 102 mmol/L 98-108 5769919803) CO2 TOTAL (test code = 25 mmol/L 23-31 9405366935) AGAP (test code = 2-16 6147014934) BUN (test code = 16 mg/dL 7-23 0325623610) GLUCOSE (test code = 120 mg/dL 70-110 H 3889533538) CREATININE (test code = 1.13 mg/dL 0.60-1.25 0419942591) TOTAL BILI (test code = 0.8 mg/dL 0.1-1.1 4382591795) CALCIUM (test code = 9.1 mg/dL 8.6-10.6 5265974208) T PROTEIN (test code = 7.3 g/dL 6.3-8.2 6711698213) ALBUMIN (test code = 4.4 g/dL 3.5-5.0 5674810755) ALK PHOS (test code = 85 U/L 34-122 5154458514) ALTv (test code = 29 U/L 5-50 1742-6) AST(SGOT) (test code = 41 U/L 13-40 H 1727364622) eGFR (test code = mL/min/1.73m2 6802300808) RAYNA (test code = RAYNA) Association of Glomerular Filtration Rate (GFR) and Staging of Kidney Disease* + --+ --+ ------+| GFR (mL/min/1.73 m2) ?| With Kidney Damage ?| ?Without Kidney Damage+ --------+ --------+ +| ?>90 ?| ?Stage one ?| ? Normal ?+ ---+ ---+ -------+| ?60-89 ?| ?Stage two ?| ? Decreased GFR ? + --+ --+ ------+| ?30-59 ?| ?Stage three ?| ? Stage three ? + --+ --+ ------+| ?15-29 ?| ?Stage four ? | ? Stage four ?+ ---+ ---+ -------+| ?<15 (or dialysis) ? ?| ?Stage five ? | ? Stage five ?+ ---+ ---+ -------+ *Each stage assumes the associated GFR level has been in effect for at least three months. ?Stages 1 to 5, with or without kidney disease, indicate chronic kidney disease. Notes: Determination of stages one and two (with eGFR >59mL/min/1.73 m2) requires estimation of kidney damage for at least three months as defined by structural or functional abnormalities of the kidney, manifested by either:Pathological abnormalities or Markers of kidney damage (including abnormalities in the composition of the blood or urine or abnormalities in imaging tests). Lab Interpretation Abnormal (test code = 85280-1) [facility]20[facility] 03:54:03 Test Item Value Reference Range Interpretation Comments LIPASE (test code = 2359203202) 81 U/L 0-220 Lab Interpretation (test code = Normal 77622-9) [facility] WITH [id number] 03:39:23 Test Item Value Reference Range Interpretation Comments WBC (test code = See_Comment [Automated 6690-2) message] The sy stem which generated this result transmitted reference range : 4.20 - 10.70 10*3/?L. The reference range was not used to interpret this result as normal/abnormal . RBC (test code = See_Comment L [Automated 789-8) message] The sy stem which generated this result transmitted reference range : 4.26 - 5.52 10*6/?L. The reference range was not used to interpret this result as normal/abnormal . HGB (test code = 11.6 g/dL 12.2-16.4 L 718-7) HCT (test code = 36.3 % 38.4-49.3 L 4544-3) MCV (test code = 90.1 fL 81.7-95.6 787-2) MCH (test code = 28.8 pg 26.1-32.7 785-6) MCHC (test code = 32.0 g/dL 31.2-35.0 786-4) RDW-SD (test code = 52.9 fL 38.5-51.6 H 20245-4) RDW-CV (test code = 16.0 % 12.1-15.4 H 788-0) PLT (test code = See_Comment [Automated 777-3) message] The sy stem which generated this result transmitted reference range : 150 - 328 10*3/ ?L. The reference r viet was not used to interpret this result as normal/abnormal . MPV (test code = 7.8 fL 9.8-13.0 L 68211-4) NRBC/100 WBC (test See_Comment [Automat ed code = 4571577955) message] The system which generated this result transmitted reference range : 0.0 - 10.0 /100 WBCs. The refer ence range was not u sed to interpret th is result as normal/abnormal . NRBC x10^3 (test code See_Comment [Auto mated = 1764082484) message] The s ysteSulia which generated this result transmitted reference range : 10*3/?L. The reference range was not used to interpret this result as normal/abnormal . GRAN MAT (NEUT) % 73.7 % (test code = 770-8) IMM GRAN % (test code 0.70 % = 0758443136) LYMPH % (test code = 15.5 % 736-9) MONO % (test code = 7.4 % 5905-5) EOS % (test code = 2.0 % 713-8) BASO % (test code = 0.7 % 706-2) GRAN MAT x10^3(ANC) 6.80 10*3/uL 1.99-6.95 (test code = 8334768833) IMM GRAN x10^3 (test 0.06 10*3/uL 0.00-0.06 code = 8647708946) LYMPH x10^3 (test code 1.43 10*3/uL 1.09-3.23 = 731-0) MONO x10^3 (test code 0.68 10*3/uL 0.36-1.02 = 742-7) EOS x10^3 (test code = 0.18 10*3/uL 0.06-0.53 711-2) BASO x10^3 (test code 0.06 10*3/uL 0.01-0.09 = 704-7) Lab Interpretation Abnormal (test code = 24505-0) [facility]manACETAMINOPHEN2022-08-19 14:25:10 Test Item Value Reference Range Interpretation Comments ACETAMINOP (test code = 10-30 L 3075092681) RAYNA (test code = RAYNA) Toxic: Greater than 200 ug/mL @ 4 hour post ingestion or greater than 50 ug/mL @ 12 hour post ingestion Lab Interpretation (test Abnormal code = 93806-1) [facility]manSalicylate2022-08-19 13:15:00 SALICYLATE<10mg/L01/02/2022 8:15 [facility]The[facility] Range: ? Analgesic and Antipyretic Use ? 20- 100 mg/L ? ? Anti-Inflammatory Use ? 100-250 mg/L Toxic Range: ? Greater than 300 mg/LUnBaylor Scott & [facility] – SunnyvaleHEPATIC FUNCTION PANEL (54013) (ALB,T.PRO,BILI T,BU/BC,ALT,AST,ALK PHOS) 2022-01-02 12:27:10 Test Item Value Reference Range Interpretation Comments TOTAL BILI (test code = 0130148630) 0.4 mg/dL 0.1-1.1 BILI UNCON (test code = 3042803730) 0.3 mg/dL 0.1-1.1 BILI CONJ (test code = 0651180476) 0.0 mg/dL 0-0.3 T PROTEIN (test code = 1251587691) 6.6 g/dL 6.3-8.2 ALBUMIN (test code = 1220851651) 4.2 g/dL 3.5-5 ALK PHOS (test code = 5739305133) 85 U/L 34-122 ALTv (test code = 1742-6) 24 U/L 5-50 AST(SGOT) (test code = 6658744276) 24 U/L 13-40 Lab Interpretation (test code = Normal 98659-2) [facility]manCOMP. METABOLIC PANEL (16929)2022-01-02 11:57:05 Test Item Value Reference Range Interpretation Comments NA (test code = 135 mmol/L 135-145 1565060128) K (test code = 4.7 mmol/L 3.5-5 0494304615) CL (test code = 107 mmol/L 98-108 5514243692) CO2 TOTAL (test code = 19 mmol/L 23-31 L 7081371660) AGAP (test code = 2-16 3433085891) BUN (test code = 21 mg/dL 7-23 5109279340) GLUCOSE (test code = 109 mg/dL 70-110 6099198319) CREATININE (test code = 1.06 mg/dL 0.6-1.25 9053885017) TOTAL BILI (test code = 0.4 mg/dL 0.1-1.3 2316467266) CALCIUM (test code = 8.5 mg/dL 8.6-10.6 L 8887892643) T PROTEIN (test code = 6.5 g/dL 6.3-8.2 6488904832) ALBUMIN (test code = 4.2 g/dL 3.5-5 3518879086) ALK PHOS (test code = 85 U/L 34-122 7944752095) ALTv (test code = 24 U/L 5-50 1742-6) AST(SGOT) (test code = 24 U/L 13-40 0214792334) eGFR (test code = mL/min/1.73m2 0980203871) RAYNA (test code = RAYNA) Association of Glomerular Filtration Rate (GFR) and Staging of Kidney Disease* + --+ --+ ------+| GFR (mL/min/1.73 m2) ?| With Kidney Damage ?| ?Without Kidney Damage+ --------+ --------+ +| ?>90 ?| ?Stage one ?| ? Normal ?+ ---+ ---+ -------+| ?60-89 ?| ?Stage two ?| ? Decreased GFR ? + --+ --+ ------+| ?30-59 ?| ?Stage three ?| ? Stage three ? + --+ --+ ------+| ?15-29 ?| ?Stage four ? | ? Stage four ?+ ---+ ---+ -------+| ?<15 (or dialysis) ? ?| ?Stage five ? | ? Stage five ?+ ---+ ---+ -------+ *Each stage assumes the associated GFR level has been in effect for at least three months. ?Stages 1 to 5, with or without kidney disease, indicate chronic kidney disease. Notes: Determination of stages one and two (with eGFR >59mL/min/1.73 m2) requires estimation of kidney damage for at least three months as defined by structural or functional abnormalities of the kidney, manifested by either:Pathological abnormalities or Markers of kidney damage (including abnormalities in the composition of the blood or urine or abnormalities in imaging tests). Lab Interpretation Abnormal (test code = 56674-1) [facility]manHEPATIC FUNCTION PANEL (18937) (ALB,T.PRO,BILI T,BU/BC,ALT,AST,ALK PHOS)2022-01-02 11:57:05 Test Item Value Reference Range Interpretation Comments TOTAL BILI (test code = 9072869312) 0.4 mg/dL 0.1-1.1 BILI UNCON (test code = 0061825282) 0.3 mg/dL 0.1-1.1 BILI CONJ (test code = 1712851200) 0.0 mg/dL 0-0.3 T PROTEIN (test code = 3912939079) 6.5 g/dL 6.3-8.2 ALBUMIN (test code = 1553722135) 4.2 g/dL 3.5-5 ALK PHOS (test code = 7815539348) 85 U/L 34-122 ALTv (test code = 1742-6) 24 U/L 5-50 AST(SGOT) (test code = 8958776222) 24 U/L 13-40 Lab Interpretation (test code = Normal 00427-7) [facility] Metabolic Panel (NA, K, CL, CO2, GLUCOSE, BUN, CREATININE, CA)2022-01-02 11:56:45 Test Item Value Reference Range Interpretation Comments NA (test code = 135 mmol/L 135-145 2281052860) K (test code = 4.7 mmol/L 3.5-5 8476669953) CL (test code = 107 mmol/L 98-108 7529356632) CO2 TOTAL (test code = 19 mmol/L 23-31 L 2651563327) AGAP (test code = 2-16 0583231670) BUN (test code = 21 mg/dL 7-23 7527977736) GLUCOSE (test code = 109 mg/dL 70-110 9032360092) CREATININE (test code = 1.06 mg/dL 0.6-1.25 6500550619) CALCIUM (test code = 8.5 mg/dL 8.6-10.6 L 2106111969) eGFR (test code = mL/min/1.73m2 1660511527) RAYNA (test code = RAYNA) Association of Glomerular Filtration Rate (GFR) and Staging of Kidney Disease* + --+ --+ ------+| GFR (mL/min/1.73 m2) ?| With Kidney Damage ?| ?Without Kidney Damage+ --------+ --------+ +| ?>90 ?| ?Stage one ?| ? Normal ?+ ---+ ---+ -------+| ?60-89 ?| ?Stage two ?| ? Decreased GFR ? + --+ --+ ------+| ?30-59 ?| ?Stage three ?| ? Stage three ? + --+ --+ ------+| ?15-29 ?| ?Stage four ? | ? Stage four ?+ ---+ ---+ -------+| ?<15 (or dialysis) ? ?| ?Stage five ? | ? Stage five ?+ ---+ ---+ -------+ *Each stage assumes the associated GFR level has been in effect for at least three months. ?Stages 1 to 5, with or without kidney disease, indicate chronic kidney disease. Notes: Determination of stages one and two (with eGFR >59mL/min/1.73 m2) requires estimation of kidney damage for at least three months as defined by structural or functional abnormalities of the kidney, manifested by either:Pathological abnormalities or Markers of kidney damage (including abnormalities in the composition of the blood or urine or abnormalities in imaging tests). Lab Interpretation Abnormal (test code = 18502-3) [facility] with Htdwaakfoddo7710-60-96 11:44:24 Test Item Value Reference Range Interpretation Comments WBC (test code = See_Comment H [Automated 7890-2) message] The sy stem which generated this result transmitted reference range : 4.20 - 10.70 10*3/?L. The reference range was not used to interpret this result as normal/abnormal . RBC (test code = See_Comment L [Automated 459-8) message] The sy stem which generated this result transmitted reference range : 4.26 - 5.52 10*6/?L. The reference range was not used to interpret this result as normal/abnormal . HGB (test code = 12.1 g/dL 12.2-16.4 L 718-7) HCT (test code = 37.9 % 38.4-49.3 L 4544-3) MCV (test code = 90.2 fL 81.7-95.6 787-2) MCH (test code = 28.8 pg 26.1-32.7 785-6) MCHC (test code = 31.9 g/dL 31.2-35 786-4) RDW-SD (test code = 52.8 fL 38.5-51.6 H 16519-6) RDW-CV (test code = 16.2 % 12.1-15.4 H 788-0) PLT (test code = See_Comment [Automated 777-3) message] The sy stem which generated this result transmitted reference range : 150 - 328 10*3/ ?L. The reference r viet was not used to interpret this result as normal/abnormal . MPV (test code = 8.3 fL 9.8-13 L 68851-3) NRBC/100 WBC (test See_Comment [Automat ed code = 5396353691) message] The system which generated this result transmitted reference range : 0.0 - 10.0 /100 WBCs. The refer ence range was not u sed to interpret th is result as normal/abnormal . NRBC x10^3 (test code See_Comment [Auto mated = 5852861973) message] The s ystem which generated this result transmitted reference range : 10*3/?L. The reference range was not used to interpret this result as normal/abnormal . GRAN MAT (NEUT) % 72.6 % (test code = 770-8) IMM GRAN % (test code 1.40 % = 5264474065) LYMPH % (test code = 14.2 % 736-9) MONO % (test code = 8.6 % 5905-5) EOS % (test code = 2.6 % 713-8) BASO % (test code = 0.6 % 706-2) GRAN MAT x10^3(ANC) 7.78 10*3/uL 1.99-6.95 H (test code = 8055850792) IMM GRAN x10^3 (test 0.15 10*3/uL 0-0.06 H code = 7262613173) LYMPH x10^3 (test code 1.52 10*3/uL 1.09-3.23 = 731-0) MONO x10^3 (test code 0.92 10*3/uL 0.36-1.02 = 742-7) EOS x10^3 (test code = 0.28 10*3/uL 0.06-0.53 711-2) BASO x10^3 (test code 0.06 10*3/uL 0.01-0.09 = 704-7) Lab Interpretation Abnormal (test code = 14063-8) [facility] [id number] 11:30:24 Test Item Value Reference Range Interpretation Comments PROTIME PATIENT (test See_Comment [Auto mated message] code = 5964-2) The system Unii generated this result transmitted ref erence range: 12.0 - 1 4.7 Seconds. The re ference range was not u sed to interpret this result as normal/abnor mal. INR (test code = 6301-6) Nor mal INR <1.1; Warfarin Therap eutic range 2.0 to 3. 0 or 2.5 to 3.5, dep ending upon the indica tions. Lab Interpretation (test Normal code = 45918-6) [facility] ([facility]997[facility] (ALB,T.PRO,BILI T,BU/BC,ALT,AST,ALK PHOS)2022-01-02 02:58:43 Test Item Value Reference Range Interpretation Comments TOTAL BILI (test code = 8798532710) 0.3 mg/dL 0.1-1.1 BILI UNCON (test code = 4801214638) 0.2 mg/dL 0.1-1.1 BILI CONJ (test code = 8506794992) 0.0 mg/dL 0-0.3 T PROTEIN (test code = 5242994828) 7.2 g/dL 6.3-8.2 ALBUMIN (test code = 6602496819) 4.5 g/dL 3.5-5 ALK PHOS (test code = 4051353942) 86 U/L 34-122 ALTv (test code = 1742-6) 26 U/L 5-50 AST(SGOT) (test code = 8770047189) 25 U/L 13-40 Lab Interpretation (test code = Normal 42449-6) [facility] / [id number] 22:31:07 Test Item Value Reference Range Interpretation Comments PROTIME PATIENT (test See_Comment [Auto mated message] code = 5964-2) The system Unii generated this result transmitted ref erence range: 12.0 - 1 4.7 Seconds. The re ference range was not u sed to interpret this result as normal/abnor mal. INR (test code = 6301-6) Nor mal INR <1.1; Warfarin Therap eutic range 2.0 to 3. 0 or 2.5 to 3.5, dep ending upon the indica tions. Lab Interpretation (test Normal code = 37872-5) [facility]20[facility]-18 22:24:39 ALCOHOL<10mg/dL01/01/2022 5:24 PM [facility]<10 [id number] Toxic>100 Depression of PIN STICKER>400 Fatalities ReportedUnB[facility]aleACETAMINOPHEN2022-08-18 22:22:47 Test Item Value Reference Range Interpretation Comments ACETAMINOP (test code = 23.0 ug/mL 10-30 8654207737) RAYNA (test code = RAYNA) Toxic: Greater than 200 ug/mL @ 4 hour post ingestion or greater than 50 ug/mL @ 12 hour post ingestion Lab Interpretation (test Normal code = 75212-3) [facility]. METABOLIC PANEL (15180)2022-01-01 22:22:27 Test Item Value Reference Range Interpretation Comments NA (test code = 137 mmol/L 135-145 9321107451) K (test code = 5.0 mmol/L 3.5-5 2346086554) CL (test code = 106 mmol/L 98-108 2793892785) CO2 TOTAL (test code = 23 mmol/L 23-31 0063974548) AGAP (test code = 2-16 8649392559) BUN (test code = 23 mg/dL 7-23 0804013831) GLUCOSE (test code = 116 mg/dL 70-110 H 3686444000) CREATININE (test code = 1.04 mg/dL 0.6-1.25 4341505884) TOTAL BILI (test code = 0.3 mg/dL 0.1-1.3 7313328612) CALCIUM (test code = 8.8 mg/dL 8.6-10.6 5140416062) T PROTEIN (test code = 6.7 g/dL 6.3-8.2 7099098643) ALBUMIN (test code = 4.2 g/dL 3.5-5 8089690603) ALK PHOS (test code = 100 U/L 34-122 8752189266) ALTv (test code = 24 U/L 5-50 1742-6) AST(SGOT) (test code = 22 U/L 13-40 8968146266) eGFR (test code = mL/min/1.73m2 5416070838) RAYNA (test code = RAYNA) Association of Glomerular Filtration Rate (GFR) and Staging of Kidney Disease* + --+ --+ ------+| GFR (mL/min/1.73 m2) ?| With Kidney Damage ?| ?Without Kidney Damage+ --------+ --------+ +| ?>90 ?| ?Stage one ?| ? Normal ?+ ---+ ---+ -------+| ?60-89 ?| ?Stage two ?| ? Decreased GFR ? + --+ --+ ------+| ?30-59 ?| ?Stage three ?| ? Stage three ? + --+ --+ ------+| ?15-29 ?| ?Stage four ? | ? Stage four ?+ ---+ ---+ -------+| ?<15 (or dialysis) ? ?| ?Stage five ? | ? Stage five ?+ ---+ ---+ -------+ *Each stage assumes the associated GFR level has been in effect for at least three months. ?Stages 1 to 5, with or without kidney disease, indicate chronic kidney disease. Notes: Determination of stages one and two (with eGFR >59mL/min/1.73 m2) requires estimation of kidney damage for at least three months as defined by structural or functional abnormalities of the kidney, manifested by either:Pathological abnormalities or Markers of kidney damage (including abnormalities in the composition of the blood or urine or abnormalities in imaging tests). Lab Interpretation Abnormal (test code = 34805-5) [facility]2022-08-[facility] 21:25:56 Test Item Value Reference Range Interpretation Comments ACETAMINOP (test code = 39.0 ug/mL 10-30 H 7182133420) RAYNA (test code = RAYNA) Toxic: Greater than 200 ug/mL @ 4 hour post ingestion or greater than 50 ug/mL @ 12 hour post ingestion Lab Interpretation (test Abnormal code = 71530-3) [facility]manTR[facility]ON[facility] [id number] 20:53:11 Test Item Value Reference Interpretation Comments Range TROPONIN I (test 0.002 ng/mL See_Comment [Automated code = 7222534911) message] The system which generated this result transmitted reference range : <=0.034. The reference range was not used to interpret this result as normal/abnormal . RAYNA (test code = Reference (Normal) RAYNA) Range (defined by the 99th percentile reference limit): <= 0.034 ng/mL Note: Cardiac troponin begins to rise 3-4 hours after the onset of ischemia. Repeat in 4-6 hours if the sample was drawn within 3-4 hours of the onset of the symptom and found normal. Diagnosis of myocardial injury is made with acute changes in cTn concentrations with at least one serial sample above the 99th percentile upper reference limit (URL), taken together with the patient's clinical presentation. Biotin has been reported to cause a negative bias, interpret results relative to patient's use of biotin. Lab Interpretation Normal (test code = 12827-7) [facility] METABOLIC PANEL (91790)2022-01-01 20:42:27 Test Item Value Reference Range Interpretation Comments NA (test code = 136 mmol/L 135-145 5913643715) K (test code = 5.3 mmol/L 3.5-5 H 0763355816) CL (test code = 106 mmol/L 98-108 1073050777) CO2 TOTAL (test code = 22 mmol/L 23-31 L 8209583901) AGAP (test code = 2-16 9454482620) BUN (test code = 25 mg/dL 7-23 H 7324680910) GLUCOSE (test code = 127 mg/dL 70-110 H 7112805884) CREATININE (test code = 0.99 mg/dL 0.6-1.25 9360549808) TOTAL BILI (test code = 0.4 mg/dL 0.1-1.1 1141587612) CALCIUM (test code = 9.5 mg/dL 8.6-10.6 7877902132) T PROTEIN (test code = 6.9 g/dL 6.3-8.2 6525391082) ALBUMIN (test code = 4.4 g/dL 3.5-5 8285781158) ALK PHOS (test code = 96 U/L 34-122 5564757823) ALTv (test code = 25 U/L 5-50 1742-6) AST(SGOT) (test code = 25 U/L 13-40 0775064979) eGFR (test code = mL/min/1.73m2 4075418839) RAYNA (test code = RAYNA) Association of Glomerular Filtration Rate (GFR) and Staging of Kidney Disease* + --+ --+ ------+| GFR (mL/min/1.73 m2) ?| With Kidney Damage ?| ?Without Kidney Damage+ --------+ --------+ +| ?>90 ?| ?Stage one ?| ? Normal ?+ ---+ ---+ -------+| ?60-89 ?| ?Stage two ?| ? Decreased GFR ? + --+ --+ ------+| ?30-59 ?| ?Stage three ?| ? Stage three ? + --+ --+ ------+| ?15-29 ?| ?Stage four ? | ? Stage four ?+ ---+ ---+ -------+| ?<15 (or dialysis) ? ?| ?Stage five ? | ? Stage five ?+ ---+ ---+ -------+ *Each stage assumes the associated GFR level has been in effect for at least three months. ?Stages 1 to 5, with or without kidney disease, indicate chronic kidney disease. Notes: Determination of stages one and two (with eGFR >59mL/min/1.73 m2) requires estimation of kidney damage for at least three months as defined by structural or functional abnormalities of the kidney, manifested by either:Pathological abnormalities or Markers of kidney damage (including abnormalities in the composition of the blood or urine or abnormalities in imaging tests). Lab Interpretation Abnormal (test code = 38585-8) [facility] WITH [id number] 20:13:27 Test Item Value Reference Range Interpretation Comments WBC (test code = See_Comment [Automated 2667-2) message] The sy stem which generated this result transmitted reference range : 4.20 - 10.70 10*3/?L. The reference range was not used to interpret this result as normal/abnormal . RBC (test code = See_Comment [Automated 442-8) message] The sy stem which generated this result transmitted reference range : 4.26 - 5.52 10*6/?L. The reference range was not used to interpret this result as normal/abnormal . HGB (test code = 12.7 g/dL 12.2-16.4 718-7) HCT (test code = 40.2 % 38.4-49.3 4544-3) MCV (test code = 89.9 fL 81.7-95.6 787-2) MCH (test code = 28.4 pg 26.1-32.7 785-6) MCHC (test code = 31.6 g/dL 31.2-35 786-4) RDW-SD (test code = 52.1 fL 38.5-51.6 H 20566-9) RDW-CV (test code = 15.9 % 12.1-15.4 H 788-0) PLT (test code = See_Comment [Automated 777-3) message] The sy stem which generated this result transmitted reference range : 150 - 328 10*3/ ?L. The reference r viet was not used to interpret this result as normal/abnormal . MPV (test code = 7.9 fL 9.8-13 L 25367-4) NRBC/100 WBC (test See_Comment [Automat ed code = 0990789632) message] The system which generated this result transmitted reference range : 0.0 - 10.0 /100 WBCs. The refer ence range was not u sed to interpret th is result as normal/abnormal . NRBC x10^3 (test code See_Comment [Auto mated = 9520161084) message] The s ystem which generated this result transmitted reference range : 10*3/?L. The reference range was not used to interpret this result as normal/abnormal . GRAN MAT (NEUT) % 63.9 % (test code = 770-8) IMM GRAN % (test code 1.90 % = 2789100529) LYMPH % (test code = 19.8 % 736-9) MONO % (test code = 10.3 % 5905-5) EOS % (test code = 3.4 % 713-8) BASO % (test code = 0.7 % 706-2) GRAN MAT x10^3(ANC) 5.29 10*3/uL 1.99-6.95 (test code = 1952821128) IMM GRAN x10^3 (test 0.16 10*3/uL 0-0.06 H code = 3648246261) LYMPH x10^3 (test code 1.64 10*3/uL 1.09-3.23 = 731-0) MONO x10^3 (test code 0.85 10*3/uL 0.36-1.02 = 742-7) EOS x10^3 (test code = 0.28 10*3/uL 0.06-0.53 711-2) BASO x10^3 (test code 0.06 10*3/uL 0.01-0.09 = 704-7) Lab Interpretation Abnormal (test code = 76102-8) [facility] Notes Date/Time Note Provider Source 2022-12-11 Formatting of this note might be differe nt from the original. Trish Hardign [facility] 14:34:22-00:00 Images from the original note were not included. JENSEN Called patient verbalized understanding with no further questions. Chucho Khan MD P Cardiology Nurse Only 2 days of data noted. No significant arrhythmias noted. Follow-up as planned. Electronically signed by Trish Harding MA a t 12/11/2022 2:35 PM CDT 2022-12-11 Formatting of this note might be differe nt from the original. Camryn Malave RN [facility] 11:58:17-00:00 Shared results and recommend ations, patient verbalized understanding, no complaints or concerns T 2022-12-09 [facility] 14:04:28-00:00 Images from the original note were not included. 2nd call, LVM for results to call clinic LVM to call clinic or results and recomm endations post cardiac catheterization Chucho Khan MD P Cardiology Nurse non obstructive coronary dis ease noted. Unlikely to explain his symptoms. Recommended discuss with PCP for noncardiac work-up. Follow-up with [facility] cardiology as planned. Awaiting 30 days event monitor results. Continue with the current cardiac medications wi thout any further changes. 2022-12-09 Formatting of this note might be differe nt from the original. Willy Muhammad RN [facility] 10:50:27-00:00 Images from the original note were not included. Attempted to contact patient with results/recommendations. LV for patient to return call to [phone]. Chucho Khan MD P Cardiology Nurse non obstructive coronary dis ease noted. Unlikely to explain his symptoms. Recommended discuss with PCP for noncardiac work-up. Follow-up with [facility] cardiology as planned. Awaiting 30 days event monitor results. Continue with the current cardiac medications wi thout any further changes. Electronically signed by Willy Muhammad RN at 10:51 AM CDT 2022-12-03 Formatting of this note might be differe nt from the original. Monika Carranza RN [facility] 15:16:20-00:00 DC home approved after site check by Dr. Rascon. Rt radial dressing C/D/I. AVS given and gone over with pt, all questions answered. IV removed, dressing C/D/I. I escorted pt to lobby via WC to meet family. No distress noted. 2022-11-25 Formatting of this note might be differe nt from the original. Glory [facility] 15:39:23-00:00 [facility] CARDIAC CATH PRE-CALL INSTRUCTIONS Erik barroso pharmacist aide Instructions were sent to patient v ia: Other telephone Your physician has determined that you need to u ndergo a(n) [facility] procedure. Listed below are some instructions for you to fo llow prior to the procedure. Do not eat or drink anything after midnight the night before the procedure, except for enough water to take your medications if so directed. For Carotid stenting procedu res, do not take blood pressure medications the morning prior to the procedure. For Carotid angiogram proced ures, do not stop taking your blood pressure medications. Take all medications except do not take metformin (Glucophage) 2 days prior to the procedure and do not take insulin or furosemide (lasix) the day of the procedure. If you are on blood thinners stop merary ing them 5 days prior to the procedure, unless o therwise instructed. If you are allergic to iodin e or shellfish, take pre-treatment medications as directed. Please call your referring physician for prescription. Bring a list of all current medications. Bring one adult family membe r or friend with you to drive you home, as you will be unable to drive for 48 hours after the procedure. Due to limited space and pat ient privacy, only one (1) visitor is permitted with the patient while they are recovering in the recovery area. No children under the age of 14 years will be al lowed in recovery area. Please park in the Hospital Garage via [address] from either [address] or [address]. Bring your parking ticket with you to be validated, only one parking ticket may be validated per patient. There may be a possibility o f hospital admission or late evening discharge; therefore, bring leisure reading and an overnight bag. On the day of your procedure , come directly to the Cardiac Ruling Machine Feeder process steward desk, located on the 6th floor of [facility] ([phone].) You will be escorted to the Cardiac Cath recovery room. Please call the Cardiac Ruling Machine Feeder at if you have any questions regarding your procedure. Date of Procedure: 12/03/2022 Time of Procedure: tbd For peripheral procedures, h ave you had an MARRY or arterial duplex? not applicable For ASD/PFO procedures, have you had:Not Applica ble Instructions given to patient: yes Patient provided with [facility] red teaching of verbal information on 11/25/2022. Shows readiness to learn. Verbal instruction teaching provided. Individual is able to read and verbalizes understanding of teaching provided. 2022-10-22 [facility] 09:52:00-00:00 [facility] ([facility]) Hospitalist Discharge Summary REPORT#:[id number] REPORT STATUS: Signed DATE:10/22/22 TIME:951 PATIENT: LA[place] GARCIA UNIT #: [id number] ROOM[address]BED: [address] : [address] AGE: 62 SEX: M ATTEND: Chi Jules MD ADM AUTHOR: Samantha Mendez MSN * ALL edits or amendments must be made on the el [employer]/computer document * General Information Free Text General Notes Free Text General Notes: 62 y/o male with PMHx of HTN, HLD, repor aakash prior [place], morbid obesity presented to the ED for c/o chest pain since this morning. Pt states the pain started at rest with left-sided sharp c hest pain that radiates to his left arm. Associated with SOB, no cough or palpitations. He states th e pain has been constant all day. Denies any N/V. Date of admission: Observation Start Date: 10/20/22 Date of admission: 10/20/22 Discharge date: 10/22/22 Admission diagnosis: #Chest pain ACS rule out #Hyperglycemia #Hypertension #Hyperlipidemia #Morbid obesity Discharge diagnosis: #Atypical chest pain possible costochondritis #Hyperglycemia #Hypertension #Hyperlipidemia #Morbid obesity Hospital course: 62-year-old male patient with past medical histo ry of hypertension, hyperlipidemia, COPD, and as thma, admitted for further management of chest pain. Acute coronary syndrome rul ed out with EKG and serial troponin. Echo also done without appreciable abnormality, normal EF and n o wall motion abnormality. Moving Consultant consulted Dr. Gallo cleared patient for discharge to follow-up with him outpatient. We will discharge him in stable cond ition to follow-up with powerhouse laborer and his PCP. Willis burch also reports history of chronic pain syndrome which she sees pain manageme nt specialist for. He actually has appointment with the highway painter later today. We h ave instructed to follow-up with the highway painter as scheduled Pt. condition on discharge: improved Free Text DxA P Notes Free text DxA P notes: 62-year-old male patient with past medical histo ry of hypertension, hyperlipidemia, COPD, and asthma, admitted for: #Chest pain ACS rule out Monitor under continuous telemetry Cardiac enzymes negative x3 D-dimer elevated but CTA of the chest negative f or PE or aortic dissection Pt reports recent hospitalization at [facility] on where he states he had a stress test, will request records Echocardiogram EF 60 to 64% and with normal wall motion Await cardiology evaluation cardiology #Hyperglycemia Pt denies any hx of DM, will check HgbA1c AC/HS glucose checks, SSI #Hypertension Will have nursing reconcile home meds to resume here IV hydralazine PRN #Hyperlipidemia Check lipid panel Continue home statin #Morbid obesity Counseled on dietary and lifestyle modifications DVT prophylaxis with Lovenox Full code Disposition Possibly today if cleared by cardiology Med Rec Med Rec Discharge meds: Continue taking these medications: GABAPENTIN (NEURONTIN) 600 MG TAB 600 MILLIGRAM ORAL THREE TIMES A DAY. BACLOFEN (LIORESAL) 20 MG TAB DAILY. amLODIPine (NORVASC) 10 MG TAB 10 MILLIGRAM ORAL DAILY. SERTRALINE (ZOLOFT) 25 MG TAB 20 DAILY. LEVALBUTEROL (XOPENEX HFA 45 MCG/ACT 15 GM) 45 M CG/ACTUATION INHALER 1 PUFF INHALATION RT - EVERY 4 HOURS. FLUTICASONE PROPIONATE (FLONASE 50 MCG/ACT NASAL ) 50 MCG/ACTUATION SPRAY 1 SPRAY NASAL DAILY. Objective VS/I O Last Documented: Result Date Time Pulse Ox 95 10/22 1052 B/P 142/84 10/22 1052 B/P Mean 103.1 10/22 1052 O2 Delivery Room air 10/22 1052 Temp 98.1 10/22 1052 Pulse 74 10/22 1052 Resp 16 10/22 1052 O2 Flow Rate 2 10/22 1999 24 hour I O ending at 0700: 10/22 0700 10/21 1900 Intake Total 750 Output Total Balance 750 Intake, Oral 750 Number Voids 3 General appearance: alert, awake, oriented Head/Eyes: atraumatic, normocephalic ENT: moist mucosal membranes, normal dentition Cardiovascular: normal heart sounds, regular rat e rhythm, Chest wall pain Respiratory: symmetric expansion, no distress Abdomen: non-tender, soft Extremities: moves all, no edema Neuro/PIN STICKER: alert, normal speech Psychiatry: normal affect, normal mood Discharge Instructions PCP PCP follow-up: PCP: Maria M Brennan III, MD Discharge to: Home/Self Care Additional Discharge Routines: PCP Follow-Up, Co nsultant Follow-Up, Add. instructions Diet: Regular Activity: Resume Normal Activity, As Tolerated Additional instructions: Follow up with your highway painter a s scheduled Discharge management: greater than 30 mins Follow-up Appointments PCP follow-up: PCP: Maria M Brennan III, MD PCP follow up timeframe: In 6 days Consulting provider 1: Provider 1: Bria Nicolas MD Specialty: CardiologyInterventional Consult follow up timeframe: In 3 days Special instructions: Call the office fro appointment Electronically Signed by Samantha Mendez o n 10/22/22 at 1144 Electronically Signed by Gela Jules MD on 0 10/22/22 at 1828 RPT #: [id number] END OF REPORT 2022-10-21 [facility] 10:25:00-00:00 [facility] Hospitalist Progress Note REPORT#:[id number] REPORT STATUS: Signed DATE:10/21/22 TIME:1025 PATIENT: LA[place] G[place]IA UNIT #: [id number] ROOM/BED: [place] [address] : 59 AGE: 62 SEX: M ATTEND: Chi Jules MD ADM AUTHOR: Samantha Mendez MSN * ALL edits or amendments must be made on the [employer]/computer document * Samantha Mendez 10/21/22 1025: Subjective Chief complaint: chest pain HPI: 62 y/o male with PMHx of HTN, HLD, repor aakash prior [place], morbid obesity presented to the ED for c/o chest pain since this morning. Pt states the pain started at rest with left-sided sharp c hest pain that radiates to his left arm. Associated with SOB, no cough or palpitations. He states th e pain has been constant all day. Denies any N/V. Review of Systems Cardiovascular: Reports: chest pain, TIERNEY (dyspnea on exertion). All systems rev neg: except as noted Objective General VS/I O: Vital Signs: Date Time Temp Pulse Resp B/P B/P Pulse O2 O2 Flow FiO2 Mean Ox Delivery Rate 10/21 0711 97.9 65 15 107/70 82.4 97 Room air 10/21 0322 97.7 69 16 111/72 84.8 96 Room air 10/20 2344 97.9 69 16 143/77 98.9 95 Room air 10/20 2222 Nasal 2 cannula 10/20 2006 97.5 65 16 118/68 84.9 99 Room air 10/20 1750 97.6 66 17 125/58 80 97 Nasal 2 cannula 10/20 1458 97.3 74 16 167/81 109 98 Room air 24 hour I O ending at 0700: 07 0700 10/20 1900 Intake Total Output Total Balance Patient 251 lb Weight Weight Stated/Reported Measurement Method PATIENT WEIGHT: Weight (lb): Weight (oz): Weight (kg): 113.636 Medications: Active Meds + DC'd Last 24 Hrs Docusate Sodium (COLACE) 100 MG DAILY PO Enoxaparin Sodium (lovENOX) 30 MG Q12HR SUBQ Iopamidol (ISOVUE-370) 100 ML ONCE PRN IV Sodium Chloride (SODIUM CHLORIDE 0.9%) 100 ML ON CE PRN IV (DC) Insulin Human Lispro (HUMALOG) ASDIRECTED AC HS SUBQ Dextrose/Water (DEXTROSE 10% IN WATER 250 ML) 12 5 ML ASDIR PRN IV Dextrose/Water (DEXTROSE 10% IN WATER 250 ML) 25 0 ML ASDIR PRN IV Glucagon (GLUCAGON) 1 MG ASDIR PRN IM Acetaminophen (TYLENOL) 650 MG Q4H PRN PRN PO Hydralazine HCl (APRESOLINE) 10 MG Q6H PRN PRN I V Hydrocodone Bitart/Acetaminophen (NORCO 5/325) 1 TAB Q4H PRN PRN PO Ondansetron HCl (ZOFRAN) 4 MG Q4H PRN PRN IV Dietitian nutrition assessment The data set between the solid lines has been im ported from the dietitian's assessment. BMI Calculated: 41.7 Nutrition related diagnosis: Nutrition diagnosis details: Nutrition problem: Nutrition etiology: Nutrition signs and symptoms: Nutrition prescription: Dietitian name: Assessment completed: Physical Exam General appearance: alert, awake, oriented Head/Eyes: atraumatic, normocephalic ENT: moist mucosal membranes, normal dentition Cardiovascular: normal heart sounds, regular rat e rhythm, Chest wall pain Respiratory: symmetric expansion, no distress Abdomen: non-tender, soft Extremities: moves all, no edema Neuro/PIN STICKER: alert, normal speech Psychiatry: normal affect, normal mood Diagnosis, Assessment Plan Free Text DxA P Notes Free text DxA P notes: 62-year-old male patient with past medical histo ry of hypertension, hyperlipidemia, COPD, and asthma, admitted for: #Chest pain ACS rule out Monitor under continuous telemetry Cardiac enzymes negative x3 D-dimer elevated but CTA of the chest negative f or PE or aortic dissection Pt reports recent hospitalization at [facility] on where he states he had a stress test, will request records Echocardiogram EF 60 to 64% and with normal wall motion Await cardiology evaluation cardiology #Hyperglycemia Pt denies any hx of DM, will check HgbA1c AC/HS glucose checks, SSI #Hypertension Will have nursing reconcile home meds to resume here IV hydralazine PRN #Hyperlipidemia Check lipid panel Continue home statin #Morbid obesity Counseled on dietary and lifestyle modifications DVT prophylaxis with Lovenox Full code Disposition Possibly today if cleared by cardiology Destin Braun 11/18/22 0926: Attestations Physician Attestation Agree w/findings plan: Agree with the findings and plan as documented enrriuqe frazier [Samantha]; * my personal evaluation is 62 year old lady admitted with chest pain cardiology on board. obtain records for ischemic work up. manage blood sugars and co-morbidites Electronically Signed by Samantha Mendez o n 10/21/22 at 1028 Electronically Signed by Destin Braun MD on at 09 RPT #: [id number] END OF REPORT 2022-10-20 [id number] [facility] 17:59:00-00:00 [facility] [id number] [place] [address] PATIENT NAME: LAKE GARCIA ADMIT DATE: ACCOUNT NO: [id number] ROOM NO: PADMINI AGE: 62 REPORT TYPE: eECHOCARDIOGRAM REPORT SEX: M ADMITTING PHYSICIAN: Gela Jules MD ATTENDING PHYSICIAN: Gela Jules MD *[facility]* [address] [place], [place] [address] Transthoracic Echocardiogram Patient: Lake Garcia Study Date: 10/20/2022 BP: 167 / 81 Location: [facility] URN: [id number] [birth year] : 1960 Age: 62 Height: 65 in / 165.1 cm Gender: M Weight: 250 lb / 113.6 kg BMI/BSA: 41.7 kg/m 2 / 2.34 m 2 *Ordering Physician: * Danielle Pozo *Interpreting Physician: * Bria Nicolas *Piledriver Carpenter: * Theresa Nunez Indications: Chest Pain, unspecified. Study data: Transthoracic echocardiogram. Proced ure: Transthoracic echocardiography was performed. Image quality wa s adequate. Complete 2D, complete spectral Doppler, and color Doppler . Location: Emergency department. Patient status: Inpatient. Patient r oom number: [id number]. Study status: Routine. Findings Left ventricle: The cavity size is normal. Wall thickness is normal. Systolic function is normal. The estimated eject ion fraction is 60-64%. Wall motion is normal; there are no regional wal l motion abnormalities. Doppler parameters are consistent with abnormal left ventricular relaxation (grade 1 diastolic dysfunction). Right ventricle: The cavity size is normal. Syst olic function is PATIENT NAME: LAKE GARCIA [id number] normal. Left atrium: The atrium is normal in size. Right atrium: The atrium is normal in size. Aorta: Aortic root: The aortic root is normal in size. Aortic valve: The valve is structurally normal. The valve is trileaflet. There is no evidence of stenosis. Th ere is no regurgitation. Mitral valve: The valve is structurally normal. There is no evidence of stenosis. There is trivial regurgita tion. Tricuspid valve: The valve is structurally bert l. There is trivial regurgitation. Pulmonic valve: The valve is structurally normal . There is trivial regurgitation. Pericardium: There is no pericardial effusion. Pulmonary arteries: The main pulmonary artery is normal-sized. Systemic veins: Inferior vena cava: The vessel is normal in size . Measurements Left ventricle Value Ref OBDULIA, LAX 4.8 cm 4.2 - 5.8 ESD, LAX 3.2 cm 2.5 - 4.0 ESD/bsa, LAX 1.4 cm/m 2 1.3 - 2.1 FS, LAX 34 % 25 - 43 PW, ED 1.0 cm 0.6 - 1.0 IVS/PW, ED 0.94 --------- EF 62 % 52 - 72 IVRT 114 ms --------- LVOT Value Ref Diam, S 2.07 cm --------- Area 3.4 cm 2 --------- Peak nikki, S 1.35 m/sec --------- Mean nikki, S 0.93 m/sec --------- VTI, S 31.2 cm --------- Peak grad, S 7 mm Hg --------- Mean grad, S 4 mm Hg --------- SV 105 ml --------- SV/bsa 45 ml/m 2 --------- Ventricular septum Value Ref IVS, ED 1.0 cm 0.6 - 1.0 Right ventricle Value Ref TAPSE, MM 2.3 cm 1.7 - 3.1 Pressure, S 29 mm Hg --------- Left atrium Value Ref Vol/bsa, ES, 1-p A4C 30 ml/m 2 12 - 37 Vol/bsa, ES, A/L 32 ml/m 2 16 - 34 AP dim, ES MM 3.8 cm 3.0 - 4.0 PATIENT NAME: LEONIDES GARCIAYANCY Trivedi [id number] LA/Ao root ratio, MM 1.25 --------- Aortic valve Value Ref Leaflet sep, MM 1.87 cm --------- Peak v, S 1.8 m/sec --------- Mean v, S 1.32 m/sec --------- VTI, S 32.9 cm --------- Mean grad, S 7.6 mm Hg --------- Peak grad, S 13.0 mm Hg --------- LVOT/AV, VTI ratio 0.95 --------- DEISY, VTI 3.18 cm 2 --------- LVOT/AV, Vpeak ratio 0.75 --------- DEISY, Vmax 2.51 cm 2 --------- Mitral valve Value Ref Peak E 0.66 m/sec --------- Peak A 0.85 m/sec --------- Decel time 226 ms --------- PHT 60 ms --------- Peak E/A ratio 0.77 --------- MVA, PHT 3.7 cm 2 --------- Pulmonic valve Value Ref OH peak v 0.98 m/sec --------- OH peak grad 4 mm Hg --------- Tricuspid valve Value Ref TR peak v 2.43 m/sec <=2.8 Peak RV-RA grad, S 24 mm Hg --------- Aortic root Value Ref Root diam, ED MM 3.06 cm --------- Pulmonary artery Value Ref Pressure, S 18.0 mm Hg --------- Systemic veins Value Ref Estimated CVP 5 mm Hg --------- Pulmonary veins Value Ref A rev duration 126 ms --------- Conclusions Summary: 1. Left ventricle: The cavity size is normal. Wa ll thickness is normal. Systolic function is normal. The estimated ejec tion fraction is 60-64%. Wall motion is normal; there are no reg ional wall motion abnormalities. Doppler parameters are consisten t with abnormal left ventricular relaxation (grade 1 diastolic dysfu nction). 2. Right ventricle: The RV pressure during systo le by Doppler is 29 mm Hg. PATIENT NAME: LAKE GARCIA [id number] Prepared and electronically signed by Bria Nicolas 10/20/2022 17:58 at 1759 PATIENT NAME: LAKE GARCIA [id number] 2022-10-20 [id number] [facility] 17:16:00-00:00 [facility] [id number] [place] [address] PATIENT NAME: LAKE GARCIA ADMIT DATE: ACCOUNT NO: [id number] ROOM NO: [facility] AGE: 62 REPORT TYPE: eELECTROCARDIOGRAM SEX: M ADMITTING PHYSICIAN: Gela Jules MD ATTENDING PHYSICIAN: Gela Jules MD Order: [id number] Test Reason : CP Test Date/Time Stamp: WedOct 20 2022 17:16:41 Blood Pressure : 103/070 mmHG Vent. Rate : 062 BPM Atrial Rate : 062 BPM P-R Int : 164 ms QRS Dur : 094 ms QT Int : 410 ms P-R-T Axes : 086 -69 064 degree s QTc Int : 416 ms Normal sinus rhythm Left axis deviation Pulmonary disease pattern Incomplete right bundle branch block Abnormal ECG When compared with ECG of 20-OCT-2022 15:06, (Un confirmed) No significant change was found Confirmed by MD Maria Isabel, Bria ([id number]) on 1:27:54 PM Referred By: Self Referred Confirmed by:Bria ellis MD at 1327 PATIENT NAME: LAKE GARCIA [id number] 2022-10-20 [facility] 16:28:00-00:00 [facility] ([facility] REPORT#:[id number] REPORT STATUS: Signed DATE:10/20/22 TIME:1628 PATIENT: LAKE GARCIA UNIT #: [id number] ROOM/BED: [address] : [birth year] AGE: 62 SEX: M ATTEND: Chi Jules MD ADM AUTHOR: Danielle Pozo * ALL edits or amendments must be made on the el [employer]ronic/computer document * History of Present Illness HPI Chief complaint: chest pain PCP: PCP: Maria M Brennan III, MD HPI: 62 y/o male with PMHx of HTN, HLD, repor aakash prior [place], morbid obesity presented to the ED for c/o chest pain since this morning. Pt states the pain started at rest with left-sided sharp c hest pain that radiates to his left arm. Associated with SOB, no cough or palpitations. He states th e pain has been constant all day. Denies any N/V. History Family History Family history: Reports: Diabetes, Hypertension. Social History Smoking status for patients 13 years old or olde r: Never Smoker Medication/Allergy-Vaccine Hx Allergies: Uncoded Allergies: No Known Contrast Allergies (11/07/08) No Known Drug Allergies (11/07/08) No Known Food Allergies (11/07/08) No Known Other Allergies (11/07/08) Review of Systems Constitutional: Denies: chills, fever. Skin: Denies: bruising, rash. Eyes: Denies: visual loss/blurred, eye pain. ENT: Denies: nasal congestion, sore throat. Respiratory: Reports: SOB. Denies: productive cough (sputum). Cardiovascular: Reports: chest pain. Denies: palpitations. GI: Denies: nausea, vomiting. : Denies: dysuria, hematuria. Musculoskeletal: Denies: extremity pain, extremity swelling. Neuro: Denies: headache, syncope. OBJECTIVE VS/I O: Vital Signs Date Temp Pulse Resp B/P B/P Mean Pulse Ox FiO2 10/20 97.3 74 16 167/81 109 98 Last Documented: Result Date Time Pulse Ox 98 10/20 1458 B/P 167/81 10/20 1458 B/P Mean 109 / 1458 O2 Delivery Room air 10/20 1458 Temp 97.3 10/20 1458 Pulse 74 10/20 1458 Resp 16 10/20 1458 Patient Weight and BMI Weight (kg): 113.636 BMI: 41.7 General appearance: obese, alert, awake, no acut e distress Head/Eyes: atraumatic, normocephalic ENT: moist mucosal membranes, normal dentition Cardiovascular: normal heart sounds, regular rat e rhythm Respiratory: symmetric expansion, no distress Abdomen: non-tender, soft Extremities: moves all, no edema Neuro/PIN STICKER: alert, normal speech Psychiatry: normal affect, normal mood Results Findings/Data: Laboratory Tests: 10/20 10/20 1517 1516 Chemistry Sodium (134 - 147 mmol/L) 144 Potassium (3.4 - 5.0 mmol/L) 3.4 Chloride (100 - 108 mmol/L) 108 Carbon Dioxide (21 - 32 mmol/L) 27 Anion Gap (4.0 - 15.0 GAP calc) 9.0 BUN (7 - 18 MG/DL) 13 Creatinine (0.8 - 1.3 MG/DL) 1.2 Glomerular Filtr Rate (>60 estGFR) >=60 max est imate Glucose (70 - 110 MG/DL) 193 H Calcium (8.5 - 10.1 MG/DL) 8.7 Troponin I High Sens (0 - 78 ng/L) 6.4 Hematology WBC (3.5 - 11.0 K/mm3) 9.9 RBC (4.70 - 6.10 M/mm3) 4.09 L Hgb (12.3 - 15.9 G/DL) 11.0 L Hct (35.8 - 46.7 %) 35.6 L MCV (86.3 - 98.9 Fl) 87.0 MCH (28.9 - 34.4 pg) 26.9 L MCHC (32.1 - 34.5 G/DL) 30.9 L RDW (11.5 - 14.5 SD) 15.9 H Plt Count (150 - 450 K/mm3) 301 MPV (7.0 - 9.6 fL) 8.10 Laboratory Tests 10/20/22 1517: [Embedded Image Not Available] 10/20/22 1516: [Embedded Image Not Available] Radiology data: Recent Impressions: RADIOLOGY - XR CHEST 1 V 10/20 1522 Report Impression - Status: SIGNED Entered: 10/20/2022 7488 IMPRESSION: 1. No acute cardiopulmonary process. Impression By: Drake Lopez M.D. Diagnosis, Assessment Plan Free Text A P: #Chest pain ACS rule out Monitor under continuous telemetry Trend cardiac enzymes Pt reports recent hospitalization at [facility] on where he states he had a stress test, will request records Check D-dimer given recent h ospitalization, will get CTA Chest to rule out PE if D-dimer is elevated Check echocardiogram Risk factor stratification with lipid panel, Hgb A1c Consult Cardiology #Hyperglycemia Pt denies any hx of DM, will check HgbA1c AC/HS glucose checks, SSI #Hypertension Will have nursing reconcile home meds to resume here IV hydralazine PRN #Hyperlipidemia Check lipid panel Continue home statin #Morbid obesity Counseled on dietary and lifestyle modifications DVT prophylaxis with Lovenox Full code at 1654 Electronically Signed by Gela Jules MD on 0 10/21/22 at 1548 RPT #: [id number] END OF REPORT 2022-10-20 [id number] [facility] 15:06:00-00:00 [facility] [address] [place] [address] PATIENT NAME: LAKE GARCIA ADMIT DATE: ACCOUNT NO: [id number] ROOM NO: [facility] AGE: 62 REPORT TYPE: eELECTROCARDIOGRAM SEX: M ADMITTING PHYSICIAN: Gela Jules MD ATTENDING PHYSICIAN: Gela Jules MD Order: [id number] Test Reason : CP Test Date/Time Stamp: WedOct 20 2022 15:06:39 Blood Pressure : 139/070 mmHG Vent. Rate : 066 BPM Atrial Rate : 066 BPM P-R Int : 176 ms QRS Dur : 096 ms QT Int : 406 ms P-R-T Axes : 079 -72 059 degre es QTc Int : 425 ms Normal sinus rhythm Left axis deviation Incomplete right bundle branch block Abnormal ECG No previous ECGs available Confirmed by MD Nicolas Amir ([id number]) on 1:28:09 PM Referred By: Self Referred Confirmed by:Bria ellis MD at 1328 PATIENT NAME: LAKE GARCIA [id number] 2022-10-20 [facility] 14:57:00-00:00 [facility] ([facility]) EMERGENCY PROVIDER REPORT REPORT#:[id number] REPORT STATUS: Signed DATE:10/20/22 TIME:1457 PATIENT: LAKE GARCIA UNIT #: [id number] ROOM/BED: [place] [address] : 59 AGE: 62 SEX: M PCP PHYS: Ethan Brennan III MD SERVICE AUTHOR: Yang Handy DO * ALL edits or amendments must be made on the [employer]/computer document * HPI-Chest Pain 40 and Over General Confirmed Patient Yes Initial Greet Date/Time 10/20/22 1456 Presentation Chief Complaint Chest pain Hx Obtained From Patient, EMS Sudden in Onset? Yes Onset Occurred Today Symptom Duration Since onset Progression since Onset Unchanged Context of Onset At rest Location Substernal, Chest L Quality Pressure Radiation Does not radiate. )( Migration/Movement None Pain/Sev: Onset Moderate Pain/Sev: Current Moderate Associated with Reports: Diaphoresis. Denies: Cough, non -productive, Cough, productive, Cough, with hemoptysis, Dizziness, Fatigue, Fev er, Lightheaded, Nausea, Near-syncope, Numbness/Tingling, Palpitations, Recent viral sy mptoms, Shortness of Breath, Syncope, Vomiting, Weakness, Wheezing. Exacerbated by Nothing Relieved by Nitroglycerin - EMS x 3 Free Text HPI Notes Free Text HPI Notes Patient received 3 doses of nitroglycerin, 324 mg of aspirin and 75 mcg fentanyl prior to arrival. Patient reports history of [place] this year. Risk-Chest Pain 40 and Over Risk Stratification )( Coronary Artery Disease Risk factors reviewed )( Thoracic Aortic Dissection Risk factors revie wed )( Pulmonary Embolism Risk factors reviewed )( AMI-Aspirin Aspirin Last 24 Hrs 324 mg, By EMS )( HEART for MACE )( HEART for MACE Response Value History High index of suspicion 2 ECG Interpretation Normal ECG 0 Age Age 45 - 65 1 Risk Factors for CAD 3+ CAD risk factors 2 Troponin < or = to NL troponin 0 Total 5 HEART Score for MACE 4-7 (mod risk 12%-16.6%) Review of Systems ROS Statements Complete sys rev neg except as marked. Focused Review of Systems Constitutional Denies: Chills, Fever, Lethargy. Respiratory Denies: Cough, non-productive, Cough, productive , Shortness of breath. Cardiovascular Reports: Chest pain. Denies: Edema, Palpitations , Syncope. GI Denies: Abdominal pain, Diarrhea, Nausea, Vomiti ng. Musculoskeletal Denies: Back pain, Extremity pain. Skin Denies: Diaphoresis, Rash. Neurologic Denies: Change LOC, Dizziness, Focal weakness, H eadache, Numbness, Slurred speech. Psychiatric Denies: Anxiety, Depression. Past Medical History - Adult Stated Complaint CHEST PAIN Allergies Uncoded Allergies: No Known Contrast Allergies (11/07/08) No Known Drug Allergies (11/07/08) No Known Food Allergies (11/07/08) No Known Other Allergies (11/07/08) Home Medications Reported Medications FLUTICASONE PROPIONATE (FLONASE 50 MCG/ACT NASAL ) 1 SPRAY NASAL DAILY GABAPENTIN (NEURONTIN) 600 MG PO TID BACLOFEN (LIORESAL) amLODIPine (NORVASC) 10 MG PO DAILY SERTRALINE (ZOLOFT) 20 DAILY LEVALBUTEROL (XOPENEX HFA 45 MCG/ACT 15 GM) 1 PU FF INH RTQ4H Past Medical History: Reports: Coronary artery disease, Hypertension. Physical Exam Vital Signs Vital Signs First Documented: Result Date Time Pulse Ox 98 06/ 1458 B/P 167/81 06/ 1458 B/P Mean 109 / 1458 O2 Delivery Room air 06 1458 Temp 97.3 / 1458 Pulse 74 06/ 1458 Resp 16 10/20 1458 Last Documented: Result Date Time Pulse Ox 98 06/ 1458 B/P 167/81 / 1458 B/P Mean 109 / 1458 O2 Delivery Room air 06/ 1458 Temp 97.3 / 1458 Pulse 74 / 1458 Resp 16 / 1458 Review of Vital Signs Reviewed Focused PE General/Const General/Const Awake, Alert, Not toxic appearing Eyes Eyes PERRL MS Neck Neck Supple, Full range of motion, No s welling, Non-tender, No masses, No JVD Resp/Chest Respiratory/Chest Breath sounds NL, Breath soun ds = bilat, No respiratory distress, No rales, No rhonchi, No wheezing, No chest tenderness Cardiovascular Cardiovascular Heart rate NL, Regular rhythm, H eart sounds NL, No murmurs, Peripheral circulation NL, Pulses = bilaterally, No gross BP differential Abdomen/GI Abdomen/GI Soft, Non-tender, No guarding, No re bound MS Back Back Inspection NL, Non-tender, No CVA tenderne ss MS Lower Extrem Lower Ext/Pelvis/MS Inspection NL, No swelling, Non-tender, No erythema, No deformity, Neurologic intact, Vascular intact, N o edema Skin Skin Color NL, Warm, Dry, Turgor NL Neurologic Neurologic Oriented X3, Speech NL, No motor def icits, No sensory deficits Psychiatric Psychiatric Affect NL, Mood NL, Thought content NL Additional PE MS Head Head Atraumatic, Normocephalic MS Upper Extrem Upper Extremity/MS Atraumatic, Inspection NL Interpretation Diagnostics Lab Results Interpretation Results Laboratory Tests 10/20/22 1517: [Embedded Image Not Available] 10/20/22 1516: [Embedded Image Not Available] Laboratory Tests: 10/20 10/20 151 1516 Chemistry Sodium (134 - 147 mmol/L) 144 Potassium (3.4 - 5.0 mmol/L) 3.4 Chloride (100 - 108 mmol/L) 108 Carbon Dioxide (21 - 32 mmol/L) 27 Anion Gap (4.0 - 15.0 GAP calc) 9.0 BUN (7 - 18 MG/DL) 13 Creatinine (0.8 - 1.3 MG/DL) 1.2 Glomerular Filtr Rate (>60 estGFR) >=60 max est imate Glucose (70 - 110 MG/DL) 193 H Calcium (8.5 - 10.1 MG/DL) 8.7 Troponin I High Sens (0 - 78 ng/L) 6.4 Hematology WBC (3.5 - 11.0 K/mm3) 9.9 RBC (4.70 - 6.10 M/mm3) 4.09 L Hgb (12.3 - 15.9 G/DL) 11.0 L Hct (35.8 - 46.7 %) 35.6 L MCV (86.3 - 98.9 Fl) 87.0 MCH (28.9 - 34.4 pg) 26.9 L MCHC (32.1 - 34.5 G/DL) 30.9 L RDW (11.5 - 14.5 SD) 15.9 H Plt Count (150 - 450 K/mm3) 301 MPV (7.0 - 9.6 fL) 8.10 Microbiology: Date/Time Procedure - Status Source Growth 10/21 423 MRSA Screen - COMP NASAL Recent Impressions: RADIOLOGY - XR CHEST 1 V 10/20 1522 Report Impression - Status: SIGNED Entered: 10/20/2022 8745 IMPRESSION: 1. No acute cardiopulmonary process. Impression By: Drake Lopez M.D. ECG #1 Interpretation Text/Dict Note EKG Independently interpreted by Dr. Handy: Normal Sinus Rhythm Rate 66 Left [place] No acute ST segment or T wave changes No heart blocks Date 10/20/22 Time 1506 Interpreted by and reviewed by me, Independently interpreted, ED physician Re-Evaluation MDM Re-Evaluation/Progress #1 Text/Dict Note Chest pain improved. No additional complaints. P hysical exam unchanged. Time of Re-Eval 1600 Re-Eval Status Improved MDM-Complexity Differential Diagnosis Acute coronary syndrome, NSTEMI, Aortic dissecti on, Aortic stenosis, Asthma exacerbation, Bronchitis, Cholecystitis, Choleli thiasis, Congestive heart failure, Contusion, Costochondritis, Dysrhythmia , Esophageal rupture, Esophagitis, Gastritis, GERD , Hiatal hernia, Hypertroph cardiomyopathy, Annetta- Hartley syndrome, Mitral stenosis, Mitral valve pr olapse, Musculoskeletal pain, Myocardial infarction, Myoca rditis, Peptic ulcer disease, Pericarditis, Pleurisy , Pneumomediastinum, Pneumonia, Pneumothorax, Pu lmonary edema, Pulmonary embolism, Stable angina, Unstable angina Ruled Out Diagnoses STEMI NSTEMI Pneumothorax Pneumonia Severity/Chronicity Evaluation Acute Serious Patient Discharge Departure Vital Signs/Condition Vital Signs First Documented: Result Date Time Pulse Ox 98 06/ 1458 B/P 167/81 06/ 1458 B/P Mean 109 06/06 1458 O2 Delivery Room air 06/ 1458 Temp 97.3 06/06 1458 Pulse 74 06/06 1458 Resp 16 / 1458 Last Documented: Result Date Time Pulse Ox 98 06/06 1458 B/P 167/81 06/ 1458 B/P Mean 109 /06 1458 O2 Delivery Room air 06/ 1458 Temp 97.3 06/06 1458 Pulse 74 06/ 1458 Resp 16 06/ 1458 All vital signs available at the time of this en try have been reviewed. Clinical Impression Clinical Impression Primary Impression: Unstable angina Disposition Decision Hospitalize Hosp Physician Name DharaGela MD Hosp Physician Hospitalist Request Time 1615 Request Date 10/20/22 )( Accepts Hospitalization Yes )( Reason for Hospitalization unstable angina )( Accepted Time 1616 )( Accepted Date 10/20/22 Call Information will see patient, agrees with eval, agrees with plan Discharge/Care Plan Counseled Regarding Diagnosi s, Lab results, Imaging studies, Need for admission Electronically Signed by Yang Handy DO on at 1319 RPT #: [id number] END OF REPORT
--- NOTE | 2023-01-14 16:05 | ER ---
Nurse's Notes [facility] Name: Toi Garcia Age: 62 yrs Sex: Male : 1960 Arrival Date: 01/14/2023 Time: 15:40 Bed 11 Private MD: Diagnosis: Local infection of the skin and subcutaneous tissue, unspecified Presentation: 01/14 15:46 Chief complaint: Patient states: he has had some sores on his bottom for approx one ap3 week. patient states one is on the fold of his left gluteal fold, and the other is on the top of his right gluteus. Coronavirus screen: At this time, the client does not indicate any symptoms associated with coronavirus-19. Ebola Screen: No symptoms or risks identified at this time. Initial Sepsis Screen: Does the patient meet any 2 criteria? No. Patient's initial sepsis screen is negative. Does the patient have a suspected source of infection? Yes: Skin breakdown/wound. Risk Assessment: Do you want to hurt yourself or someone else? Patient reports no desire to harm self or others. Onset of symptoms was January 07, 2023. 15:46 Method Of Arrival: Ambulatory ap3 15:46 Acuity: [place] 3 ap3 Triage Assessment: 15:48 General: Appears uncomfortable, Behavior is calm, cooperative, appropriate for age. ap3 Pain: Complains of pain in buttocks Pain currently is 10 out of 10 on a pain scale. Neuro: Level of Consciousness is awake, alert, obeys commands, Oriented to person, place, time, situation. Cardiovascular: Patient's skin is warm and dry. Respiratory: Airway is patent Respiratory effort is even, unlabored, Respiratory pattern is regular, symmetrical. Derm: Reports pain that is 10 out of 10 on a pain scale. Historical: - Allergies: 15:48 No Known Allergies; ap3 - PMHx: 15:48 Asthma; Back pain; Chronic pain; Hypertension; ap3 - Immunization history:: Client reports having NOT received the Covid vaccine. - Social history:: Smoking status: Patient denies any tobacco usage or history of. Screenin:49 [facility] ED Fall Risk Assessment (Adult) History of falling in the last 3 months, ap3 including since admission No falls in past 3 months (0 pts). Abuse screen: Denies threats or abuse. Nutritional screening: No deficits noted. Tuberculosis screening: No symptoms or risk factors identified. Assessment: 15:58 General: Appears uncomfortable, Behavior is calm, cooperative. Pain: Complains of pain mb9 in buttocks Pain does not radiate. Pain currently is 8 out of 10 on a pain scale. Quality of pain is described as throbbing, Pain began 1 week ago Is continuous. Neuro: Briggs Agitation-Sedation Scale (RASS): 0 - Alert and Calm Level of Consciousness is awake, alert, obeys commands, Oriented to person, place, time, situation, Appropriate for age. Cardiovascular: Patient's skin is warm and dry. Respiratory: Airway is patent Respiratory effort is even, unlabored, Respiratory pattern is regular, symmetrical. GI: No signs and/or symptoms were reported involving the gastrointestinal system. Derm: abscess on right posterior thigh. Quarter size. Pt reports purulent drainage Abscess located on left buttock is half dollar sized, has purulent drainage. Vital Signs: 15:46 Pulse 70; Resp 17; Temp 97.7; Pulse Ox 98% ; Weight 112.49 kg; Pain 10/10; ap3 15:48 BP 131 / 70; ap3 15:46 Pain Scale: Adult ap3 ED Course: 15:44 Patient arrived in ED. rg4 15:45 [facility] Cerrato FNP [facility]. jh7 15:45 Danial Wood DO is Attending Physician. jh7 15:48 Triage completed. ap3 15:49 Arm band placed on right wrist. ap3 15:53 Radha Domingo, RAMON is Primary Nurse. mb9 15:53 Placed in gown. Bed in low position. Call light in reach. Side rails up X 1. Client mb9 placed on continuous cardiac and pulse oximetry monitoring. NIBP monitoring applied. 16:18 No provider procedures requiring assistance completed. Patient did not have IV access mb9 during this emergency room visit. Administered Medications: 16:09 Drug: Ketorolac IM 60 mg Route: IM; Site: right deltoid; mb9 16:18 Follow up: Response: No adverse reaction mb9 16:10 Drug: Bacitracin Topical Ointment (500 unit/g) 1 application Route: Topical; Site: mb9 affected area; Medication: 15:49 VIS not applicable for this client. ap3 Outcome: 16:05 Discharge ordered by . gregory 16:18 Discharged to home ambulatory. mb9 16:18 Condition: stable 16:18 Discharge instructions given to patient, Instructed on discharge instructions, follow up and referral plans. Demonstrated understanding of instructions, follow-up care, medications, Prescriptions given X 3. 16:18 Patient left the ED. mb9 Signatures: Yudith Arita Amanda RN RN ap3 Jenny Cerrato, ICHTHYOLOGIST ICHTHYOLOGIST 7 Radha Domingo RN RN mb9
--- NOTE | 2023-01-14 16:05 | EDPHYS ---
Physician Documentation [facility] Name: Toi Garcia Age: 62 yrs Sex: Male : 1960 Arrival Date: 01/14/2023 Time: 15:40 Bed 11 Private MD: ED Physician Danial Wood HPI: 01/14 15:50 This 62 yrs old Male presents to ER via Ambulatory with complaints of Abscess. jh7 15:50 This 62 yrs old Male presents to ER via Ambulatory with complaints of sores on buttocks jh7 . 15:50 Onset: The symptoms/episode began/occurred 3 week(s) ago. Patient reports multiple jh7 sores on bilateral buttocks for the past 3 weeks. The patient reports that they are tender and occasionally bleed or drain pus. Denies any fever.. Historical: - Allergies: 15:48 No Known Allergies; ap3 - PMHx: 15:48 Asthma; Back pain; Chronic pain; Hypertension; ap3 - Immunization history:: Client reports having NOT received the Covid vaccine. - Social history:: Smoking status: Patient denies any tobacco usage or history of. ROS: 15:50 Constitutional: Negative for fever, chills, and weight loss, Eyes: Negative for injury, jh7 pain, redness, and discharge, Neck: Negative for injury, pain, and swelling, Cardiovascular: Negative for chest pain, palpitations, and edema, Respiratory: Negative for shortness of breath, cough, wheezing, and pleuritic chest pain, Back: Negative for injury and pain, MS/Extremity: Negative for injury and deformity, Neuro: Negative for headache, weakness, numbness, tingling, and seizure. 15:50 Skin: Positive for open sores on buttocks. 15:50 All other systems are negative. Exam: 15:50 Constitutional: This is a well developed, well nourished patient who is awake, alert, jh7 and in no acute distress. Eyes: Pupils equal round and reactive to light, extra-ocular motions intact. Lids and lashes normal. Conjunctiva and sclera are non-icteric and not injected. Cornea within normal limits. Periorbital areas with no swelling, redness, or edema. Neck: Trachea midline, no thyromegaly or masses palpated, and no cervical lymphadenopathy. Supple, full range of motion without nuchal rigidity, or vertebral point tenderness. No Meningismus. Cardiovascular: Regular rate and rhythm with a normal S1 and S2. No gallops, murmurs, or rubs. Normal PMI, no JVD. No pulse deficits. Respiratory: Lungs have equal breath sounds bilaterally, clear to auscultation and percussion. No rales, rhonchi or wheezes noted. No increased work of breathing, no retractions or nasal flaring. Abdomen/GI: Soft, non-tender, with normal bowel sounds. No distension or tympany. No guarding or rebound. No evidence of tenderness throughout. Back: No spinal tenderness. No costovertebral tenderness. Full range of motion. MS/ Extremity: Pulses equal, no cyanosis. Neurovascular intact. Full, normal range of motion. Neuro: Awake and alert, GCS 15, oriented to person, place, time, and situation. Motor strength 5/5 in all extremities. Sensory grossly intact. Normal gait. 15:50 Skin: lesion(s), There is an open sore on the left glute with a small amount of surrounding erythema and dried purulent drainage. The area is tender, but no fluctuance or induration noted. There is a smaller sore on the right glute that appears similar.. Vital Signs: 15:46 Pulse 70; Resp 17; Temp 97.7; Pulse Ox 98% ; Weight 112.49 kg; Pain 10/10; ap3 15:48 BP 131 / 70; ap3 15:46 Pain Scale: Adult ap3 MDM: 15:45 Patient medically screened. [facility] 16:20 Differential diagnosis: abscess, cellulitis, infected wound. Data reviewed: vital [facility] signs, nurses notes. I considered the following discharge prescriptions or medication management in the emergency department Medications were administered in the Emergency Department. See MAR. Care significantly affected by the following chronic conditions: Hypertension. Counseling: I had a detailed discussion with the patient and/or guardian regarding the historical points, exam findings, and any diagnostic results supporting the discharge/admit diagnosis, to return to the emergency department if symptoms worsen or persist or if there are any questions or concerns that arise at home. 01/14 16:03 Order name: Wound dressing; Complete Time: 16:17 [facility] Administered Medications: 16:09 Drug: Ketorolac IM 60 mg Route: IM; Site: right deltoid; mb9 16:18 Follow up: Response: No adverse reaction [facility] 16:10 Drug: Bacitracin Topical Ointment (500 unit/g) 1 application Route: Topical; Site: 9 affected area; Disposition: 18:31 Co-signature as Attending Physician, Danial Wood DO I was immediately available on-site ms3 in the Emergency Department for consultation in the care of the patient. Disposition Summary: 01/14/23 16:05 Discharge Ordered Location: Home [facility] Problem: new [facility] Symptoms: are unchanged [facility] Condition: Stable [facility] Diagnosis - Local infection of the skin and subcutaneous tissue, unspecified [facility] Followup: [facility] - With: Private Physician - When: 2 - 3 days - Reason: Recheck today's complaints Discharge Instructions: - Discharge Summary Sheet [facility] - Cellulitis, Adult [facility] - Wound Infection [facility] Forms: - Medication Reconciliation Form [facility] - Thank You Letter [facility] - Antibiotic Education [facility] - Patient Portal Instructions [facility] - Leadership Thank You Letter [facility] Prescriptions: - mupirocin 2 % Topical ointment - apply 1 application by TOPICAL route 3 times per day for 7 days; 22 gram; [facility] Refills: 0, Product Selection Permitted - Tramadol 50 mg Oral Tablet - take 1 tablet by ORAL route every 8 hours as needed; 12 tablet; Refills: 0, [facility] Product Selection Permitted - Bactrim DS 800-160 mg Oral Tablet - take 1 tablet by ORAL route every 12 hours for 10 days; 20 tablet; Refills: 0, [facility] Product Selection Permitted Signatures: Martine Plummer, RN RN ap3 Danial Wood DO DO ms3 Jenny Cerrato FNP FNP [facility] Radha Domingo RN RN mb9
[2023-01-14] MEDS ORDERED: KETOROLAC 30 MG/ML INJ ONE (16:24)
== END 2023-01-14 16:18 | disposition home or self-care (01) ==
LOC: ER 15:40
DX: L08.9 Local infection of the skin and subcutaneous tissue, unspecified (principal)
CPT/HCPCS: 96372; 99284